=== PATIENT | male | born 1950 | race Caucasian/White ===

== ENCOUNTER 2017-12-04 14:49 | Inpatient (IN) ==
[2017-12-04] MEDS ORDERED: *HR* Dextrose 50 % in Water (Syg) 50 ML SYRINGE IVP ONE (15:36)
--- NOTE | 2017-12-04 15:51 | Emergency Department Note ---
Disposition Clinical Impression: Hypoglycemia, Bradycardia, Elevated troponin, Elevated CK, Hyperkalemia, Acute kidney injury Disposition: Admitted As Inpatient Condition: Good Referrals: Petr Pope DO [Primary Care Provider] - Forms: ED Satisfaction Letter General Adult HPI - General Chief complaint: ED Altered Mental Status Stated complaint: hypoglycemia Time Seen by Provider: 12/04/17 14:53 Source: patient Mode of arrival: EMS Limitations: no limitations Nursing Notes Reviewed: Yes Vital Signs Reviewed: Yes - History of Present Illness HPI Narrative: 67-year-old male history of diabetes, hypertension, hyperlipidemia who presents to the ER with a chief complaint of hypoglycemia. 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 Significant other found him snoring on the ground unresponsive. She states this lasted for around 40 minutes. EMS arrived and the patient was noted to have a glucose of 35. He was given an amp of D50 and did improve. He initially refused referral but she had him come in. He has no complaints at this time. He does report that glipizide sounds familiar to him and that he believes he takes it as well as insulin. Pt Subjective Complaint: Hypoglycemia Onset (ago): hour(s) Pain Scale: 0 Improves with: nothing Worsens with: nothing Associated symptoms: Reports: denies other symptoms Treatments Prior to Arrival: none - Related Data Allergies Allergy/AdvReac Type Severity Reaction Status Date / Time No Known Allergies Allergy Verified 12/04/17 15:41 All systems ED: reviewed and negative except as stated. Cardiovascular: Denies: chest pain Respiratory: Denies: dyspnea Gastrointestinal: Denies: abdominal pain Neurological: Denies: headache, numbness, paresthesias Past Medical History - Past Medical History Attestation: Yes The following information was validated with the patient. Source: patient Medical history: Reports: diabetes, hypertension Psychiatric history: Reports: no psych history - Social History Smoking Status: Never smoker Alcohol use: Reports: none Drug use: Reports: unknown Physical Exam - General Limitations: no limitations General appearance: alert, in no apparent distress - Head Head exam: atraumatic, normocephalic - Eye Eye exam: Present: normal appearance - ENT ENT exam: normal exam - Neck Neck exam: Present: normal inspection, full ROM - Chest Chest inspection: Present: normal inspection, symmetric chest wall rise - Respiratory Respiratory exam: Present: normal lung sounds bilaterally - Cardiovascular Cardiovascular exam: Present: normal rhythm, bradycardia, normal heart sounds - Abdominal Exam Abdominal exam: Present: soft, Non-Tender. Absent: tenderness, distention, guarding, rigidity - Extremities Exam Extremities exam: Present: normal inspection, full ROM - Expanded Upper Extremity Exam Shoulder exam: Present: normal inspection, full ROM Arm exam: Present: normal inspection, full ROM Elbow exam: Present: normal inspection, full ROM Forearm/Wrist exam: Present: normal inspection, full ROM, swelling Hand exam: Present: normal inspection, full ROM - Expanded Lower Extremity Exam Hip/Pelvis exam: Present: normal inspection, full ROM Upper leg exam: Present: normal inspection, full ROM Knee exam: Present: normal inspection, full ROM Lower leg exam: Present: normal inspection, full ROM, swelling Ankle exam: Present: normal inspection, full ROM Foot/toe exam: Present: normal inspection, full ROM, swelling - Neurological Exam Neurological exam: Present: alert, other (Answers questions appropriately. Nonfocal neurologic exam. Moves all extremities equally.) - Skin Skin exam: Present: warm, dry Course Course Narrative: Patient seen and examined. Vital signs reviewed. Repeat Accu-Chek of 89. He easily falls asleep in front of you. Easily to arouse. We did order she was here then recheck an Accu-Chek of in the 80s. We will give him another amp of D50 and check an EKG, CT scan of the head, labs including troponin. - Reevaluation(s) Reevaluation #1: Recheck here of 63. An additional amp of D50 ordered. Patient continues to go in and out but is easily arousable to verbal stimuli Reevaluation #2: Patient is more alert at this time. Most recent check is in the 80s. Patient on D5 half-normal. He is currently sitting up in bed eating dinner in no distress. He feels exceptionally improved at this time. He is agreeable with admission. He is unsure what his baseline renal function is. Vital Signs Temperature 98.2 F 12/04/17 14:52 Pulse Rate 50 12/04/17 14:52 Respiratory Rate 18 12/04/17 14:52 Blood Pressure 130/118 12/04/17 14:52 O2 Sat by Pulse Oximetry 96 02/04/18 14:52 Temperature 98.2 F 12/04/17 14:52 Pulse Rate 53 12/04/17 16:23 Respiratory Rate 18 12/04/17 16:23 Blood Pressure 197/117 12/04/17 16:23 O2 Sat by Pulse Oximetry 98 12/04/17 16:23 Oxygen Delivery Oxygen Delivery Room Air Medical Decision Making - MDM Narrative Medical decision making narrative: 67-year-old male presents to the ER due to hypoglycemia. Reports he took his insulin this morning without eating breakfast. Significant other reports he was down for roughly 30-45 minutes. EMS arrived with the patient having a glucose of 35. He received 1 amp of D50 prior to arrival. His glucose was in the 80s at that time. During his stay he was arousable to voice but to have hypoglycemia going into the 60s. He was given an additional amp of D50 here as well as placed on D5 half-normal noted to be bradycardic here down into the 40s otherwise hemodynamically stable. EKG without evidence of hyperacute T waves. Potassium of 5.2. Labs reviewed with a serum creatinine of 3.5 without a baseline for comparison. Patient has improved significantly throughout his ED course. He is currently sitting up eating on D5 half normal. Patient given calcium and Kayexalate for potassium of 5.2. He will be admitted to the hospitalist service for bradycardia, acute kidney injury, hypoglycemia. - Lab Data Lab results reviewed: Yes I reviewed the patient's lab results. Result diagrams: 12/04/17 17:37 12/04/17 17:37 Lab Results 12/04/17 12/04/17 12/04/17 Range/Units 14:57 15:29 15:30 WBC (4.3-11.1) K/mcL RBC (4.19-5.50) M/mcL Hgb (12.9-16.9) g/dL Hct (37.5-50.1) % MCV (83.0-100.0) fL MCH (28.0-33.3) pg MCHC (31.6-35.5) g/dL RDW (11.5-14.5) % Plt Count (140-400) K/mcL MPV (9.4-12.4) fL Immature Gran % (0-4) % Seg Neutrophils % % Lymphocytes % % Monocytes % % Eosinophils % % Basophils % % Neutrophils # (1.6-8.9) K/mcL Lymphocytes # (0.6-4.6) K/mcL Monocytes # (0.0-1.3) K/mcL Eosinophils # (0.0-0.6) K/mcL Basophils # (0.0-0.2) K/mcL Immature Plt Fraction (1.1-6.1) % PT (9.4-12.1) Seconds INR APTT (26.0-36.0) Seconds Sodium (136-145) mEq/L Potassium (3.5-5.1) mEq/L Chloride (98-107) mEq/L Carbon Dioxide (23-29) mEq/L BUN (8-23) mg/dL Creatinine (0.70-1.30) mg/dL Est GFR ( Amer) (> 60) Est GFR (Non-Af Amer) (> 60) BUN/Creatinine Ratio (6-26) Glucose (70-105) mg/dL POC Glucose 89 69 83 (58-89) Calculated Osmolality (280-300) Calcium (8.6-10.3) mg/dL Total Bilirubin (0.3-1.0) mg/dL Direct Bilirubin (0.0-0.2) mg/dL Indirect Bilirubin (0.0-1.2) mg/dL AST (13-39) Units/L ALT (7-52) Units/L Alkaline Phosphatase (34-104) Units/L Creatine Kinase (30-223) Units/L Troponin I (< 0.04) ng/mL Serum Total Protein (6.4-8.9) g/dL Albumin (3.5-5.7) g/dL Globulin (2.4-3.5) g/dL Albumin/Globulin Ratio (1.1-2.2) Urine Color (Yellow) Urine Clarity (Clear) Urine pH (5.0-8.0) pH Units Ur Specific Magee (1.010-1.025) Urine Protein (Neg-Trace) mg/dL Urine Glucose (UA) (Normal) mg/dL Urine Ketones (Negative) mg/dL Urine Blood (Negative) Urine Nitrite (Negative) Urine Bilirubin (Negative) Urine Urobilinogen (Normal) mg/dL Ur Leukocyte Esterase (Negative) Urine Microscopic RBC (0-3) per hpf Urine Microscopic WBC (0-3) per hpf Ur Squamous Epith Cells (None-Few) per lpf Urine Bacteria (None-Few) per hpf Hyaline Casts (None-Few) per lpf Ur Culture Indicated? (NO) Urine Opiates Screen (Liwszj=374) ng/mL Ur Barbiturates Screen (Ynprgc=360) ng/mL Ur Phencyclidine Scrn (Cutoff=25) ng/mL Ur Amphetamines Screen (Ctmtzk=0331) ng/mL U Benzodiazepines Scrn (Oxiyop=607) ng/mL Urine Cocaine Screen (Cutoff= 300) ng/mL U Marijuana (THC) Screen (Cutoff = 50) ng/mL Ethyl Alcohol (0-10) mg/dL 12/04/17 12/04/17 12/04/17 Range/Units 16:11 16:11 17:37 WBC 5.4 (4.3-11.1) K/mcL RBC 5.01 (4.19-5.50) M/mcL Hgb 13.8 (12.9-16.9) g/dL Hct 43.6 (37.5-50.1) % MCV 87.0 (83.0-100.0) fL MCH 27.5 L (28.0-33.3) pg MCHC 31.7 (31.6-35.5) g/dL RDW 13.0 (11.5-14.5) % Plt Count 230 (140-400) K/mcL MPV 10.5 (9.4-12.4) fL Immature Gran % 0.4 (0-4) % Seg Neutrophils % 76.1 % Lymphocytes % 17.6 % Monocytes % 5.3 % Eosinophils % 0.2 % Basophils % 0.4 % Neutrophils # 4.1 (1.6-8.9) K/mcL Lymphocytes # 1.0 (0.6-4.6) K/mcL Monocytes # 0.3 (0.0-1.3) K/mcL Eosinophils # 0.0 (0.0-0.6) K/mcL Basophils # 0.0 (0.0-0.2) K/mcL Immature Plt Fraction 4.5 (1.1-6.1) % PT (9.4-12.1) Seconds INR APTT (26.0-36.0) Seconds Sodium (136-145) mEq/L Potassium (3.5-5.1) mEq/L Chloride (98-107) mEq/L Carbon Dioxide (23-29) mEq/L BUN (8-23) mg/dL Creatinine (0.70-1.30) mg/dL Est GFR ( Amer) (> 60) Est GFR (Non-Af Amer) (> 60) BUN/Creatinine Ratio (6-26) Glucose (70-105) mg/dL POC Glucose (58-89) Calculated Osmolality (280-300) Calcium (8.6-10.3) mg/dL Total Bilirubin (0.3-1.0) mg/dL Direct Bilirubin (0.0-0.2) mg/dL Indirect Bilirubin (0.0-1.2) mg/dL AST (13-39) Units/L ALT (7-52) Units/L Alkaline Phosphatase (34-104) Units/L Creatine Kinase (30-223) Units/L Troponin I (< 0.04) ng/mL Serum Total Protein (6.4-8.9) g/dL Albumin (3.5-5.7) g/dL Globulin (2.4-3.5) g/dL Albumin/Globulin Ratio (1.1-2.2) Urine Color Yellow (Yellow) Urine Clarity Clear (Clear) Urine pH 6.0 (5.0-8.0) pH Units Ur Specific Magee 1.023 (1.010-1.025) Urine Protein >=300 H (Neg-Trace) mg/dL Urine Glucose (UA) 100 H (Normal) mg/dL Urine Ketones Negative (Negative) mg/dL Urine Blood Moderate H (Negative) Urine Nitrite Negative (Negative) Urine Bilirubin Negative (Negative) Urine Urobilinogen Normal (Normal) mg/dL Ur Leukocyte Esterase Negative (Negative) Urine Microscopic RBC 5-15 H (0-3) per hpf Urine Microscopic WBC 5-15 H (0-3) per hpf Ur Squamous Epith Cells Many H (None-Few) per lpf Urine Bacteria None Seen (None-Few) per hpf Hyaline Casts None Seen (None-Few) per lpf Ur Culture Indicated? NO (NO) Urine Opiates Screen Negative (Edgcme=070) ng/mL Ur Barbiturates Screen Negative (Xyjplw=084) ng/mL Ur Phencyclidine Scrn Negative (Cutoff=25) ng/mL Ur Amphetamines Screen Negative (Litcyu=5619) ng/mL U Benzodiazepines Scrn Negative (Spgkai=951) ng/mL Urine Cocaine Screen Negative (Cutoff= 300) ng/mL U Marijuana (THC) Screen Positive H (Cutoff = 50) ng/mL Ethyl Alcohol (0-10) mg/dL 12/04/17 12/04/17 12/04/17 Range/Units 17:37 17:37 17:37 WBC (4.3-11.1) K/mcL RBC (4.19-5.50) M/mcL Hgb (12.9-16.9) g/dL Hct (37.5-50.1) % MCV (83.0-100.0) fL MCH (28.0-33.3) pg MCHC (31.6-35.5) g/dL RDW (11.5-14.5) % Plt Count (140-400) K/mcL MPV (9.4-12.4) fL Immature Gran % (0-4) % Seg Neutrophils % % Lymphocytes % % Monocytes % % Eosinophils % % Basophils % % Neutrophils # (1.6-8.9) K/mcL Lymphocytes # (0.6-4.6) K/mcL Monocytes # (0.0-1.3) K/mcL Eosinophils # (0.0-0.6) K/mcL Basophils # (0.0-0.2) K/mcL Immature Plt Fraction (1.1-6.1) % PT 11.3 (9.4-12.1) Seconds INR 1.1 APTT 35.2 (26.0-36.0) Seconds Sodium 133 L (136-145) mEq/L Potassium 5.2 H (3.5-5.1) mEq/L Chloride 103 (98-107) mEq/L Carbon Dioxide 24 (23-29) mEq/L BUN 49 H (8-23) mg/dL Creatinine 3.54 H (0.70-1.30) mg/dL Est GFR ( Amer) 21 L (> 60) Est GFR (Non-Af Amer) 17 L (> 60) BUN/Creatinine Ratio 14 (6-26) Glucose 67 L (70-105) mg/dL POC Glucose (58-89) Calculated Osmolality 287 (280-300) Calcium 8.4 L (8.6-10.3) mg/dL Total Bilirubin 0.5 (0.3-1.0) mg/dL Direct Bilirubin 0.1 (0.0-0.2) mg/dL Indirect Bilirubin 0.4 (0.0-1.2) mg/dL AST 31 (13-39) Units/L ALT 22 (7-52) Units/L Alkaline Phosphatase 95 (34-104) Units/L Creatine Kinase 1966 H (30-223) Units/L Troponin I 0.06 H* (< 0.04) ng/mL Serum Total Protein 7.2 (6.4-8.9) g/dL Albumin 3.5 (3.5-5.7) g/dL Globulin 3.7 H (2.4-3.5) g/dL Albumin/Globulin Ratio 0.9 L (1.1-2.2) Urine Color (Yellow) Urine Clarity (Clear) Urine pH (5.0-8.0) pH Units Ur Specific Magee (1.010-1.025) Urine Protein (Neg-Trace) mg/dL Urine Glucose (UA) (Normal) mg/dL Urine Ketones (Negative) mg/dL Urine Blood (Negative) Urine Nitrite (Negative) Urine Bilirubin (Negative) Urine Urobilinogen (Normal) mg/dL Ur Leukocyte Esterase (Negative) Urine Microscopic RBC (0-3) per hpf Urine Microscopic WBC (0-3) per hpf Ur Squamous Epith Cells (None-Few) per lpf Urine Bacteria (None-Few) per hpf Hyaline Casts (None-Few) per lpf Ur Culture Indicated? (NO) Urine Opiates Screen (Hljzpl=038) ng/mL Ur Barbiturates Screen (Thicrf=437) ng/mL Ur Phencyclidine Scrn (Cutoff=25) ng/mL Ur Amphetamines Screen (Ucdfrt=6255) ng/mL U Benzodiazepines Scrn (Ajrwuh=464) ng/mL Urine Cocaine Screen (Cutoff= 300) ng/mL U Marijuana (THC) Screen (Cutoff = 50) ng/mL Ethyl Alcohol < 10 (0-10) mg/dL - Radiology Data Radiology results reviewed: Yes I reviewed the patient's radiology results. Chest X-Ray 12/04/17 15:34 IMPRESSION: Negative low lung volume portable study. D/ / Tabitha Sidhu Cha, MD / Tabitha Sidhu Cha, MD Interpreting Provider: Tabitha Sidhu Cha, MD Head CT 12/04/17 15:35 IMPRESSION: No acute intracranial abnormality. D/ / Tabitha Sidhu Cha, MD / Tabitha Sidhu Cha, MD Interpreting Provider: Tabitha Sidhu Cha, MD - EKG Data EKG #1 EKG attestation: Yes I reviewed and interpreted this EKG. EKG results narrative: EKG demonstrates sinus bradycardia with first-degree AV block with a rate of 39 bpm. Normal axis. Prolonged WA interval. Other intervals normal. Poor R wave progression. No gross ST elevations or depressions. No acute ischemic findings. Attestation Statement - Attestation Attestation: I examined this patient and my medical decision-making was reviewed with the Resident Physician, Dr. Wilson. I agree with the documented findings, disposition and treatment plan as described except to the extent set forth below. Patient is a 67-year-old black male who is brought to us by EMS with decreased level of responsiveness at home. Patient is a diabetic and this occurred shortly after he took his insulin this morning and had not eaten yet today. Patient's significant other found him unresponsive lying on the floor. There is no evidence of trauma or injury. EMS arrived and checked his blood sugar and it was 35 he was given emptying amp of D50 IV with significant improvement. On arrival to the emergency Department patient was bradycardic and still intermittently falling asleep between questions but would easily awaken and answer questions appropriately, no focal neurologic deficits or slurred speech. Patient denied any chest pain palpitations heaviness, no shortness of breath, no abdominal pain or back discomfort no other associated symptoms. I agree with patient's physical exam as documented, patient was bradycardic on arrival. Patient's EKG showed a sinus bradycardia with no acute ischemia. Patient was placed on pacer pads and atropine to bedside needed. Patient was started on IV fluids with dextrose. Patient was on continuous monitoring and monitored closely. Laboratory evaluation shows significant kidney injury with no prior creatinine for comparison. Patient also with marginal hyperkalemia. Patient with elevated CPK suspicious for rhabdo. IV fluids were increased and urine myoglobin was sent. Patient tolerated a food tray and is feeling significantly better at this time with improved vital signs. We discussed patient's lab evaluation and need for admission at this time. Patient is not acidotic with his blood sugar. Patient's blood sugar seems to have stabilized at this time on D5 fluids. Patient will be admitted for symptomatic bradycardia, hypoglycemia, acute kidney injury and hyperkalemia and rhabdo. We have paged the hospitalist for admission.
[2017-12-04 16:41] LABS: Bilirubin,Urine Negative (Negative); Blood,Urine Moderate (Negative); Clarity,Urine Clear (Clear); Color,Urine Yellow (Yellow); Glucose,Urine (UA) 100 mg/dL (Normal); Ketones,Urine Negative (Negative); Leukocyte Esterase,Urine Negative (Negative); Nitrite,Urine Negative (Negative); Protein,Urine >=300 mg/dL (Neg-Trace); Specific Gravity,Urine 1.023 (1.010-1.025); Urobilinogen,Urine Normal (Normal)
[2017-12-04 16:43] LABS: Bacteria,Urine None Seen per hpf (None-Few); Hyaline Casts,Urine None Seen per lpf (None-Few); Squamous Epithelial Cell,Urine Many per lpf (None-Few)
[2017-12-04 16:47] LABS: Amphetamine Screen,Urine Negative ng/mL (Cutoff=1000); Barbiturate Screen,Urine Negative ng/mL (Cutoff=200); Benzodiazepines Screen,Urine Negative ng/mL (Cutoff=200); Cannabinoid Screen,Urine Positive ng/mL (Cutoff = 50); Cocaine Screen,Urine Negative ng/mL (Cutoff= 300); Opiate Screen,Urine Negative ng/mL (Cutoff=300); Phencyclidine Screen,Urine Negative ng/mL (Cutoff=25)
[2017-12-04 17:46] LABS: Basophils % 0.4 %; Eosinophils % 0.2 %; Hematocrit 43.6 % (37.5-50.1); Hemoglobin 13.8 g/dL (12.9-16.9); Immature Granulocytes % 0.4 % (0-4); Immature Platelets 4.5 % (1.1-6.1); Lymphocytes % 17.6 %; Mean Corpuscular HGB Conc 31.7 g/dL (31.6-35.5); Mean Corpuscular Hemoglobin 27.5 pg (28.0-33.3); Mean Platelet Volume 10.5 fL (9.4-12.4); Monocytes # 0.3 K/mcL (0.0-1.3); Monocytes % 5.3 %; Neutrophils # 4.1 K/mcL (1.6-8.9); Platelet Count 230 K/mcL (140-400); Red Blood Count 5.01 M/mcL (4.19-5.50); Segmented Neutrophils % 76.1 %
[2017-12-04 17:51] LABS: INR 1.1; Prothrombin Time 11.3 Seconds (9.4-12.1)
[2017-12-04 17:53] LABS: Activated Partial Thrombo Time 35.2 Seconds (26.0-36.0)
[2017-12-04 18:05] LABS: Alanine Aminotransferase 22 Units/L (7-52); Albumin 3.5 g/dL (3.5-5.7); Albumin/Globulin Ratio 0.9 (1.1-2.2); Alkaline Phosphatase 95 Units/L (34-104); Aspartate Amino Transferase 31 Units/L (13-39); BUN/Creatinine Ratio 14 (6-26); Bilirubin,Direct 0.1 mg/dL (0.0-0.2); Bilirubin,Indirect 0.4 mg/dL (0.0-1.2); Bilirubin,Total 0.5 mg/dL (0.3-1.0); Blood Urea Nitrogen 49 mg/dL (8-23); Calcium 8.4 mg/dL (8.6-10.3); Carbon Dioxide 24 mEq/L (23-29); Chloride 103 mEq/L (98-107); Creatine Kinase 1966 Units/L (30-223); Globulin 3.7 g/dL (2.4-3.5); Glucose 67 mg/dL (70-105); Osmolality,Calculated 287 (280-300); Potassium 5.2 mEq/L (3.5-5.1); Sodium 133 mEq/L (136-145); Total Protein 7.2 g/dL (6.4-8.9); eGFR For African Americans 21 (> 60); eGFR For Non-African Americans 17 (> 60)
[2017-12-04 18:06] LABS: Ethanol < 10 mg/dL (0-10)
[2017-12-04] MEDS ORDERED: Calcium Gluconate 1,000 MG in D5% in Water 100 ML IVPB ONE (18:09)
[2017-12-04] MEDS: D5% in 0.45% NACL 1,000 ML IVC SCH (18:35)
[2017-12-04] MEDS ORDERED: Sodium Bicarbonate 50 MEQ/50 ML VIAL IVP ONE (18:59)
[2017-12-04] MEDS ORDERED: Nitroglycerin 1 INCH/GM PACKET TP ONE (23:54)
[2017-12-04] MEDS ORDERED: Nitroglycerin 1 INCH/GM PACKET ONE (23:57)
[2017-12-05] MEDS ORDERED: niCARdipine 40 MG/200 ML MLS IVC ONE (00:34)
[2017-12-05] MEDS: niCARdipine 40 MG/200 ML MLS IVC SCH ×3 (00:35→12:27)
[2017-12-05] MEDS ORDERED: Acetaminophen 325 MG TABLET PO PRN (01:20)
[2017-12-05] MEDS ORDERED: Naloxone 0.4 MG/ML INJ IVP PRN (01:20)
--- NOTE | 2017-12-05 01:36 | Internal Med History&Physical ---
Date of Encounter: 12/05/17 Time of Encounter: 00:35 Assessment and Plan (1) Hypertensive urgency Current visit: Yes Status: Acute 1. I moved patient from to [address] [place] [address] for close monitoring and BP control. 2. IV Nicardipine drip initiated. 3. Will continue Nicardipine with goal SBP 160-180 -- discussed with RN. 4. Stop hydralazine and nitropaste for now. 5. Once BP stable, oral meds can be instituted. (2) Acute kidney failure Current visit: Yes Status: Acute 1. WIll trend renal panel/electrolytes. 2. IVF hydration. 3. Consult nephrology if renal function does not improve. 4. Patient denies history of CKD; however, given his history of IDDM and R AKA , I suspect he has some nephropathy. Qualifiers: Acute renal failure type: unspecified Qualified Code(s): N17.9 - Acute kidney failure, unspecified (3) Syncope Current visit: Yes Status: Acute 1. Likely due to hypoglycemia. 2. Will order ECHO and Carotid Dopplers. 3. Will monitor on telemetry, hourly glucose checks, and cycle troponins. Qualifiers: Syncope type: unspecified Qualified Code(s): R55 - Syncope and collapse (4) Hypoglycemia Current visit: Yes Status: Acute 1. Hold insulin and oral meds until medication list can be obtained and verified. 2. Hourly glucose checks for now. 3. Will place on dextrose infusion if necessary. (5) Rhabdomyolysis Current visit: Yes Status: Acute 1. IVF hydration and monitor CPK levels. 2. Likely due to syncope and pressure necrosis from his syncopal spell. 3. Monitor renal function as well. Qualifiers: Rhabdomyolysis type: non-traumatic Qualified Code(s): M62.82 - Rhabdomyolysis (6) DVT prophylaxis Current visit: Yes Status: Acute 1. Heparin SQ. Internal Medicine - H&P: HPI Chief complaint: syncope; blood pressure elevation Admitted From: Emergency Dept Plans for Post Hospital Care: Home History of present illness: Mr. Cochran is a 67 year old male who presents to the ER tonight after having had a syncopal spell. He woke up this morning and took his insulin, but he did not eat. He was found later that day by his girlfriend unconscious on the floor. He does not know how long he was down. She called the squad, and he was noted to be hypoglycemic. He was given some D50 and brought to the hospital. In the ER, patient was noted to have hypoglycemia, rhabdomyolysis, and presumed acute kidney failure. He was subsequently admitted to hospitalist service. Before I could see patient to admit him, his nurse contacted me, stating his blood pressure was rather elevated running over 230 systolic. I gave orders for hydralazine and subsequent Nitropaste with repeat blood pressure assessment and a request for the nurse to contact me back. Despite hydralazine and nitropaste, his blood pressure remained above 220 systolic. I then transferred him to [address] [place] [address], initiated nicardipine drip, and went to his room to assess him right away. Patient denies any chest pain or difficulty breathing. He does have a mild headache, which started after with his Nitropaste was placed prior to transfer to [address] [place] [address]. He does not remember what happened earlier today but does remember taking his insulin and forgetting to eat. He does not realize or recall how long he was on the floor unconscious. He denies any fevers, cough, vomiting, or diarrhea. He was feeling well up until yesterday. We have no old records on patient. He states he is a [facility] patient. He does tell me he is an insulin-dependent diabetic and takes medication for blood pressure. He denies any history of kidney problems or CKD. He does not have his medications with him, and we are unable to verify his home medications at this time. Past Med Surg Social Fam HX - Past Medical History Attestation: Yes The following information was validated with the patient. Source: patient, other (ER notes) Medical history: diabetes, hypertension, myocardial infarction Psychiatric history: no psych history - Past Surgical History Surgical History: other (R AKA) - Social History Smoking Status: Never smoker Alcohol use: none Drug use: unknown Current living situation: Home, With Family Activity Level: Independent ambulation Recent Out of Country Travel Within the Last 8 Weeks: No - Family History Mother Living Status: Age at : 65 Hx Family Cardiac Disorders: Yes (heart failure) Hx Family Endocrine Disorder: Yes (DM) Father Living Status: Age at : 52 Cause of : stroke Hx Family Cardiac Disorders: Yes (stroke) Internal Medicine - H&P: Meds 3 Allergy/AdvReac Type Severity Reaction Status Date / Time No Known Allergies Allergy Verified 12/04/17 15:41 - Constitutional Constitutional: no chills, no fever(s) - EENT Eyes: blurry vision (with hypoglycemia), no change in vision Ears: no ear pain, no tinnitus Nose, mouth and throat: no nasal congestion, no sinus pressure, no sore throat - Cardiovascular Cardiovascular ROS IM: syncope, no chest pain, no dyspnea, no dyspnea on exertion, no lightheadedness, no palpitations - Respiratory Respiratory: no cough, no dyspnea, no hemoptysis, no dyspnea on exertion, no wheezing, no excessive phlegm production, no change in phlegm color, no pain with cough - Gastrointestinal Gastrointestinal: no abdominal pain, no diarrhea, no hematemesis, no hematochezia, no melena, no nausea, no vomiting - Genitourinary Genitourinary ROS male: no dysuria, no flank pain, no hematuria - Musculoskeletal Musculoskeletal ROS IM: muscle cramps, myalgias, no arthralgias, no back pain - Integumentary Integumentary IM: no rash, no jaundice - Neurological Neurological ROS: no confusion, no disequilibrium, no dizziness, no focal weakness, no frequent falls, no headache(s), no weakness - Psychiatric Psychiatric: no anxiety, no depression - Endocrine Endocrine IM: no polydipsia, no polyuria - Hematologic/Lymphatic Hematologic/Lymphatic: no easy bruising, no lymphadenopathy - Allergic/Immunologic Allergic/Immunologic: no wheezing, no GI upset with certain foods - Constitutional Vitals: Temp Pulse Resp BP Pulse Ox 98.1 F 75 22 224/125 95 12/05/17 00:35 12/05/17 00:35 12/05/17 00:35 12/05/17 00:35 12/05/17 00:35 General appearance: Present: cooperative, A&O X 3, pleasant, no acute distress, answers questions appropriately - Head Head exam: Present: atraumatic, normal inspection - Expanded Head Exam Head exam expanded: Absent: abrasion, contusion, general tenderness - Eye Eye exam: Present: EOMI, normal appearance, PERRL. Absent: scleral icterus Pupils: Present: normal accommodation - ENT ENT exam: Present: mucous membranes dry, normal exam, normal oropharynx - Neck Neck exam general surgery: Present: full ROM, supple. Absent: tenderness, nuchal rigidity - Expanded Neck Exam Neck exam: Absent: carotid bruit - Respiratory Respiratory exam: Present: CTAB. Absent: accessory muscle use, chest wall tenderness, rales, respiratory distress, rhonchi, wheezes - Cardiovascular Cardiovascular exam: Present: RRR, +S1, +S2. Absent: diastolic murmur, JVD, systolic murmur - GI/Abdominal GI/Abdominal exam: Present: normal bowel sounds, soft. Absent: guarding, hepatomegaly, rebound, splenomegaly, tenderness - Extremities Exam Extremities exam: Present: full ROM, normal capillary refill, warm, radial pulses palpable and symmetrical. Absent: calf tenderness, pedal edema, tenderness Additional comments: Right AKA - Back Exam Back exam: Absent: CVA tenderness (L), CVA tenderness (R) - Neurological Exam Neurological exam: Present: alert, CN II-XII intact, oriented X3, no focal deficits, strengths equal and symetr throughout - Psychiatric Psychiatric exam: Present: normal affect, normal mood - Skin Skin exam: Present: dry, warm. Absent: rash Internal Med - H&P Results - Labs CBC & Chem 7: 12/04/17 17:37 12/04/17 17:37 - EKG Data EKG comments: 12/05/17 01:40 NO EKG was obtained or available to review -- will order one - Diagnostic Studies Chest x-ray Status: image reviewed by me (negative)
[2017-12-05] MEDS: 0.9 % Sodium Chloride 1,000 ML IVC SCH ×2 (02:45→12:35)
[2017-12-05 02:59] LABS: Albumin 2.9 g/dL (3.5-5.7); Albumin/Globulin Ratio 0.9 (1.1-2.2); Bilirubin,Total 0.4 mg/dL (0.3-1.0); Globulin 3.1 g/dL (2.4-3.5); Magnesium 1.7 mg/dL (1.6-2.6); Potassium 4.8 mEq/L (3.5-5.1)
[2017-12-05] MEDS: D5% in 0.45% NACL 1,000 ML IVC SCH ×2 (02:59→20:27)
[2017-12-05 05:02] LABS: Basophils % 0.3 %; Eosinophils % 0.5 %; Hematocrit 39.9 % (37.5-50.1); Hemoglobin 12.6 g/dL (12.9-16.9); Immature Granulocytes % 0.3 % (0-4); Immature Platelets 3.9 % (1.1-6.1); Lymphocytes # 0.8 K/mcL (0.6-4.6); Lymphocytes % 13.3 %; Mean Corpuscular HGB Conc 31.6 g/dL (31.6-35.5); Mean Corpuscular Hemoglobin 27.3 pg (28.0-33.3); Mean Corpuscular Volume 86.6 fL (83.0-100.0); Monocytes # 0.4 K/mcL (0.0-1.3); Monocytes % 7.5 %; Neutrophils # 4.5 K/mcL (1.6-8.9); Platelet Count 192 K/mcL (140-400); Red Blood Count 4.61 M/mcL (4.19-5.50); Segmented Neutrophils % 78.1 %
[2017-12-05] MEDS: *HR* Heparin 5,000 UNIT/ML VIAL SQ SCH ×2 (06:10→17:48)
[2017-12-05] MEDS ORDERED: D5% in Water 1,000 ML IVC PRN (11:33)
[2017-12-05] MEDS ORDERED: Dextrose Gel 15 GM/37.5 ML TUBE PO PRN ×2 (11:33)
[2017-12-05] MEDS ORDERED: *HR* Dextrose 50 % in Water (Syg) 50 ML SYRINGE IVP PRN (11:33)
[2017-12-05] MEDS: Insulin LISPRO 300 UNITS/3 ML VIAL SQ SCH ×3 (12:28→21:48)
--- NOTE | 2017-12-05 13:31 | Nephrology Consult Note ---
Date of Encounter: 12/05/17 Time of Encounter: 13:30 Assessment and Plan (1) Acute kidney injury Current Visit: Yes Status: Acute Increasing SrCr 3.54 --> 4.23 Patient with right AKA and rhabdomyelitis SrCr 3.84, GFR 20 in February 2013, previously 1.2-1.3, GFR >60 Renal U/S pending Increase IVF 150cc/hr Measure I&Os Continue close monitoring (2) Proteinuria Current Visit: Yes Status: Acute UA reveals >= 300 mg/dl proteinuria Urine protein: Cr ratio pending Qualifiers: Proteinuria type: unspecified Qualified Code(s): R80.9 - Proteinuria, unspecified (3) Hypertensive urgency Current Visit: Yes Status: Acute Patient taking Nifedipine, Coreg, and Lasix at home Patient started on Cardene ggt Echo reveals EF 60-65%, severe basal septal hypertrophy Continue Hydralazine prn Hold Lasix due to JOHN (4) Rhabdomyolysis Current Visit: Yes Status: Acute Patient found down for unknown period of time CK 1966 --> 1603 Increase IVF to 150cc/hr Continue to monitor Qualifiers: Rhabdomyolysis type: non-traumatic Qualified Code(s): M62.82 - Rhabdomyolysis (5) Hyperkalemia Current Visit: Yes Status: Acute Resolved s/p Kayexalate Continue to monitor (6) Above knee amputation of right lower extremity Current Visit: Yes Status: Acute Continue to monitor History of Present Illness - Reason for Consult Consult date: 12/05/17 Acute Kidney Injury (Rhabdomyelitis), Chronic Kidney Disease Requesting physician: Ivan Squires - Chief Complaint Unresponsiveness - History of Present Illness Mr. Cochran is a 67[facility] male [facility] with a PMH of HTN, DM type II, anemia, and right AKA who was evaluated by Dr. Hagen in 2012 due to acute tubular necrosis in the setting of a septic knee. He presented yesterday to the ED after he was found by his girlfriend unconscious on the floor following a syncopal episode. The patient recalls taking his insulin yesterday morning, but he did not eat. He does not know how long he was down and his girlfriend called the squad once she arrived at his house. Patient was found to be hypoglycemic with blood glucose 35 and was given D50 prior to arrival. In the ER, patient was noted to have hypoglycemia, rhabdomyolysis, and acute kidney failure. Nephrology was consulted due to worsening JOHN despite IV hydration at 100cc/hr. Patient is now on CPAP and denies previous CPAP use. Past Med Surg Social Fam HX - Past Medical History Medical history: diabetes, hypertension Psychiatric history: no psych history - Past Surgical History Surgical History: other (R AKA) - Social History Smoking Status: Never smoker Alcohol use: none Drug use: unknown - Family History Mother Living Status: Age at : 65 Hx Family Cardiac Disorders: Yes (heart failure) Hx Family Endocrine Disorder: Yes (DM) Father Living Status: Age at : 52 Cause of : stroke Hx Family Cardiac Disorders: Yes (stroke) Medications and Allergies Albuterol Sulfate [Albuterol Inhaler] 2 puff IH QID PRN 12/05/17 [History] Carvedilol [Coreg] 25 mg PO BID 12/05/17 [History] Cetirizine HCl [All Day Allergy] 10 mg PO DAILY 12/05/17 [History] Furosemide [Lasix] 20 mg PO BID 12/05/17 [History] Gabapentin [Neurontin] 300 mg PO TID 12/05/17 [History] Insulin ASPART [Novolog Flexpen] 14 unit SQ TID 12/05/17 [History] Insulin Glargine,Hum.rec.anlog [Lantus Solostar] 32 unit SQ BID 12/05/17 [ History] NIFEdipine [Nifedipine ER] 90 mg PO DAILY 12/05/17 [History] Trazodone HCl 150 mg PO HS 12/05/17 [History] 3 Allergy/AdvReac Type Severity Reaction Status Date / Time No Known Allergies Allergy Verified 12/04/17 15:41 Review of Systems Constitutional: lethargy, weakness, no chills, no fatigue, no fever(s) Nose, mouth and throat: no headache(s), no nasal congestion, no sore throat Cardiovascular: syncope, no chest pain, no dyspnea on exertion Respiratory: no cough, no wheezing, no chest congestion Gastrointestinal: no abdominal pain, no diarrhea, no nausea, no vomiting Integumentary: no lesions, no rash, no skin ulcer Neurological: syncope, weakness, no headache(s), no numbness, no tingling Psychiatric: no anxiety, no depression Endocrine: fatigue, no palpitations Exam - Vital Signs Vital signs: Initial Vital Signs Temp Pulse Resp BP Pulse Ox 98.2 F 50 18 130/118 96 12/04/17 14:52 12/04/17 14:52 12/04/17 14:52 12/04/17 14:52 12/04/17 14:52 Vital Signs - Last 8 Hours Temp Pulse Resp BP Pulse Ox 12/05/17 12:11 72 16 166/75 97 12/05/17 10:34 84 18 167/93 92 12/05/17 10:00 71 18 186/89 94 12/05/17 09:35 73 159/71 12/05/17 09:00 160/116 12/05/17 08:00 73 159/71 12/05/17 07:29 98.7 F 82 18 162/61 98 12/05/17 06:30 94 151/57 12/05/17 06:00 75 182/85 Intake and Output 12/04/17 12/05/17 12/05/17 23:59 07:59 15:59 Intake Total 893.75 / 900.00 1680 / 1680 Output Total 750 / 750 Balance 143.75 / 150.00 1680 / 1680 Intake: IV Fluids 893.75 / 900.00 1200 / 1200 0.9 % Sodium Chloride 1,000 ML 1000 / 1000 @ 100 mls/hr IVC .Q10H [facility] Rx#: [id number] D5% And 0.45% Nacl 1000 Ml Bag 700 / 700 1,000 ML @ 125 mls/hr IVC .Q8H [facility] Rx#:[id number] Cardene Premix 40mg/200ml 40 mg 193.75 / 200.00 200 / 200 In 200 ml @ 5 MG/HR 25 mls/hr IVC .Q8H [facility] Rx#:[id number] Oral 480 / 480 Output: Urine 750 / 750 Other: Meal Breakfast Percent of Meal Consumed 100% Stool Size Small Stool Consistency formed Stool Color Brown # Voids 1 Weight 125.3 kg Blood Glucose* 161 140 Patient Weight 12/05/17 23:59 Weight 125.3 kg - General Appearance General appearance: well-developed, well-nourished, obese EENT: ATNC, mucous membranes dry (wearing CPAP) Neck: supple Respiratory: clear (wearing CPAP mask) Cardiology: no murmurs, no rub, no gallops, edema (1+ LLE pedal edema), regular rate, regular rhythm Gastrointestinal: normoactive bowel sounds, no tenderness, no guarding, obese Integumentary: no rash, warm and dry, chronic venous stasis Neurologic: no focal deficit, alert and oriented x3 Musculoskeletal: deformities (R AKA, 1+ pedal edema LLE) Psychiatric: mood/affect appropriate, cooperative Results - Lab Results 12/05/17 04:35 12/05/17 01:53 Most recent lab results Calcium 8.0 mg/dL (8.6-10.3) L 12/05/17 01:53 Magnesium 1.7 mg/dL (1.6-2.6) 12/05/17 01:53 - Image Kidney/bladder ultrasound: pending Consult Discharge Plan - Plan Referrals: Petr Pope DO [Primary Care Provider] - 12/08/17 9:30 am ()
[2017-12-05] MEDS: NIFEdipine XL (24 HR) 30 MG TAB.ER.24 PO SCH (15:09)
[2017-12-05] MEDS ORDERED: 0.9 % Sodium Chloride 1,000 ML IVC SCH (16:30)
--- NOTE | 2017-12-05 16:55 | Electrocardiograph Report ---
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
--- NOTE | 2017-12-05 17:19 | Electrocardiograph Report ---
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
[2017-12-05] MEDS ORDERED: 0.9 % Sodium Chloride 500 ML ONE (21:26)
[2017-12-05] MEDS ORDERED: 0.9 % Sodium Chloride 500 ML IVC ONE (21:27)
[2017-12-05] MEDS: Sodium Bicarbonate 150 MEQ in D5% in Water 1,000 ML IVC SCH (23:47)
[2017-12-06 04:10] LABS: Sodium, Urine 34.7 mEq/L
[2017-12-06 04:31] LABS: Protein/Creatinine Ratio,Urine 4.45 mg/mg (0.00-0.20)
[2017-12-06 05:09] LABS: Basophils % 0.2 %; Eosinophils # 0.1 K/mcL (0.0-0.6); Eosinophils % 1.8 %; Hematocrit 36.1 % (37.5-50.1); Hemoglobin 11.4 g/dL (12.9-16.9); Immature Granulocytes % 0.4 % (0-4); Lymphocytes # 1.3 K/mcL (0.6-4.6); Lymphocytes % 22.5 %; Mean Corpuscular HGB Conc 31.6 g/dL (31.6-35.5); Mean Corpuscular Hemoglobin 27.3 pg (28.0-33.3); Mean Corpuscular Volume 86.6 fL (83.0-100.0); Mean Platelet Volume 10.8 fL (9.4-12.4); Monocytes # 0.5 K/mcL (0.0-1.3); Monocytes % 8.6 %; Neutrophils # 3.7 K/mcL (1.6-8.9); Platelet Count 191 K/mcL (140-400); Red Blood Count 4.17 M/mcL (4.19-5.50); Red Cell Distribution Width 13.1 % (11.5-14.5); Segmented Neutrophils % 66.5 %
[2017-12-06 05:22] LABS: Calcium 7.5 mg/dL (8.6-10.3)
[2017-12-06] MEDS: niCARdipine 40 MG/200 ML MLS IVC SCH ×3 (06:21→19:49)
[2017-12-06] MEDS: D5% in 0.45% NACL 1,000 ML IVC SCH (06:21)
[2017-12-06] MEDS: *HR* Heparin 5,000 UNIT/ML VIAL SQ SCH ×2 (06:25→17:39)
--- NOTE | 2017-12-06 07:23 | Nephrology Progress Note ---
Date of Encounter: 12/06/17 Time of Encounter: 07:22 - Assessment and Plan (1) Acute kidney injury Current Visit: Yes Status: Acute Worsening renal function: SrCr 3.54 --> 4.23 --> 4.37 Patient with right AKA and rhabdomyelitis SrCr 3.84, GFR 20 in February 2013, previously 1.2-1.3, GFR >60 FENa 0.5 % indicating Pre-Renal etiology (e.g. Hypovolemia, heart failure, renal artery stenosis) Renal U/S reveals no acute abnormality, no evidence of hydronephrosis, evidence of medical renal disease with increased renal echogenicity, and the size of both kidneys measure minimally smaller compared to the prior examination on Continue IVF 75cc/hr Measure I&Os Continue close monitoring (2) Proteinuria Current Visit: Yes Status: Acute Proteinuria in the setting of DM type II UA reveals >= 300 mg/dl proteinuria Urine protein: Cr ratio 4.45 Qualifiers: Proteinuria type: unspecified Qualified Code(s): R80.9 - Proteinuria, unspecified (3) Hypertensive urgency Current Visit: Yes Status: Acute Patient taking Nifedipine, Coreg, and Lasix at home Patient transitioning from Cardene ggt to PO Echo reveals EF 60-65%, severe basal septal hypertrophy Continue Hydralazine prn Decreased rate if IVFs Hold Lasix due to JOHN Continue to titrate antihypertensive medications. (4) Rhabdomyolysis Current Visit: Yes Status: Acute Patient found down for unknown period of time CK 1966 --> 1603 Continue IVF 75cc/hr Continue to monitor Qualifiers: Rhabdomyolysis type: non-traumatic Qualified Code(s): M62.82 - Rhabdomyolysis (5) Hyperkalemia Current Visit: Yes Status: Acute Resolved s/p Kayexalate Continue to monitor (6) Diabetes mellitus type 2 in obese Current Visit: Yes Status: Acute Management per primary team (7) Above knee amputation of right lower extremity Current Visit: Yes Status: Acute Expect SrCr to be lower than expected due to decreased muscle mass Continue to monitor Subjective Principal diagnosis: JOHN on CKD Interval history: Patient seen and examined sitting in bedside cahir after eating breakfast. Patient reports no new c/o today. Nursing reports hypoxic event overnight requiring BiPap use. Patient denies history of BiPap/CPAP use in the past. Renal function slightly worsened today. Patient agrees with continued monitoring Objective - Vital Signs Vital signs: Vital Signs Temp Pulse Resp BP Pulse Ox 12/06/17 06:33 14 99 12/06/17 03:38 99.0 F 68 20 137/53 93 12/06/17 03:00 67 150/68 12/06/17 02:20 12 100 12/06/17 02:00 70 153/68 12/06/17 01:00 59 109/76 12/06/17 00:35 98.2 F 52 18 137/83 95 12/06/17 00:00 51 137/83 12/05/17 23:00 53 107/54 12/05/17 22:00 56 121/55 12/05/17 21:00 54 117/64 12/05/17 20:45 57 78/31 12/05/17 20:15 58 91/58 12/05/17 19:45 58 104/63 12/05/17 19:30 61 103/58 12/05/17 19:25 98.0 F 63 18 97/77 90 12/05/17 19:15 97/77 12/05/17 18:45 59 98/50 12/05/17 18:06 57 128/63 12/05/17 17:30 82 160/141 12/05/17 16:00 67 186/85 99 12/05/17 15:58 97.8 F 66 20 190/88 100 12/05/17 15:00 66 177/79 98 12/05/17 14:30 81 183/88 99 12/05/17 13:30 91 180/99 12/05/17 12:11 72 16 166/75 97 12/05/17 10:34 84 18 167/93 92 12/05/17 10:00 71 18 186/89 94 12/05/17 09:35 73 159/71 12/05/17 09:00 160/116 12/05/17 08:00 73 159/71 12/05/17 07:29 98.7 F 82 18 162/61 98 Intake and Output 12/05/17 12/05/17 12/06/17 15:59 23:59 07:59 Intake Total 1780 / 1780 1896 / 1896 1200 / 1200 Output Total 500 / 500 250 / 250 Balance 1780 / 1780 1396 / 1396 950 / 950 Intake: IV Fluids 1300 / 1300 1396 / 1396 0.9 % Sodium Chloride 1,000 ML 1000 / 1000 836 / 836 @ 150 mls/hr IVC .Q6H40M [facility] Rx #:[id number] 0.9 % Sodium Chloride 500 ML @ 500 / 500 1875 mls/hr IVC .Q16M [facility] Rx#: [id number] Cardene Premix 40mg/200ml 40 mg 300 / 300 60 / 60 In 200 ml @ 5 MG/HR 25 mls/hr IVC .Q8H [facility] Rx#:[id number] Oral 480 / 480 500 / 500 1200 / 1200 Output: Urine 500 / 500 250 / 250 Other: Meal Breakfast Dinner Percent of Meal Consumed 100% 25% Stool Size Small Stool Consistency formed Stool Color Brown # Voids 1 Weight 125.7 kg Blood Glucose* 146 147 Patient Weight 12/06/17 23:59 Weight 125.7 kg - General Appearance General appearance: Present: well-developed, well-nourished, obese EENT: Present: ATNC, mucous membranes moist Neck: Present: supple Respiratory: Present: clear Cardiology: Present: no murmurs, no rub, no gallops, edema (1+ LLE pedal edema) , regular rate, regular rhythm Gastrointestinal: Present: normoactive bowel sounds, no tenderness, no guarding , obese Integumentary: Present: no rash, warm and dry, chronic venous stasis Neurologic: Present: no focal deficit, alert and oriented x3 Musculoskeletal: Present: deformities (R AKA, 1+ pedal edema LLE) Psychiatric: Present: mood/affect appropriate, cooperative - Lab 12/06/17 04:20 12/06/17 04:20 Most recent lab results Calcium 7.5 mg/dL (8.6-10.3) L 12/06/17 04:20 Magnesium 1.7 mg/dL (1.6-2.6) 12/05/17 01:53 Urine Creatinine 210 mg/dL 12/06/17 03:38 Urine Sodium 34.7 mEq/L 12/06/17 03:38 Urine Total Protein 934 mg/dL 12/06/17 03:38 - Imaging Kidney/bladder ultrasound: report reviewed Consult Discharge Plan - Plan Referrals: Petr Pope DO [Primary Care Provider] - 12/15/17 9:30 am ()
[2017-12-06] MEDS: Insulin LISPRO 300 UNITS/3 ML VIAL SQ SCH ×4 (09:16→20:01)
[2017-12-06] MEDS: NIFEdipine XL (24 HR) 30 MG TAB.ER.24 PO SCH (10:08)
[2017-12-06] MEDS ORDERED: amLODIPine 5 MG TABLET PO SCH (11:30)
[2017-12-06] MEDS ORDERED: hydrALAZINE 25 MG TABLET PO PRN (11:31)
--- NOTE | 2017-12-06 11:33 | Internal Med Progress Note ---
Date of Encounter: 12/06/17 Time of Encounter: 11:29 - Assessment and plan (1) Acute kidney failure Current Visit: Yes Status: Acute Assessment and plan: Nephrology is following. Kidney function seems to be worsening. This is likely chronic kidney disease from uncontrolled diabetes and hypertension. records he seems to have chronic kidney disease 4. Continue to follow and avoid nephrotoxins. Renal ultrasounds with nothing acute. Qualifiers: Acute renal failure type: unspecified Qualified Code(s): N17.9 - Acute kidney failure, unspecified (2) Hypoglycemia Current Visit: Yes Status: Acute Assessment and plan: Resolved (3) Hypertensive urgency Current Visit: Yes Status: Acute Assessment and plan: Off Cardene drip. The pressure still uncontrolled. Will add clonidine .1 mg BID. We will start hydralazine 25 mg 3 times a day. Continue with Coreg 25 mg twice a day. Cannot increase caloric secondary to borderline heart rate. We will try to wean down on the Cardene drip as tolerated. (4) Rhabdomyolysis Current Visit: Yes Status: Acute Assessment and plan: Improvement with IV fluids. Qualifiers: Rhabdomyolysis type: non-traumatic Qualified Code(s): M62.82 - Rhabdomyolysis (5) Diabetes mellitus type 2 in obese Current Visit: Yes Status: Acute Assessment and plan: Continue insulin sliding scale. Continue with Accu-Cheks. (6) DVT prophylaxis Current Visit: Yes Status: Acute Assessment and plan: Heparin subcutaneous (7) Syncope Current Visit: Yes Status: Acute Assessment and plan: Unsure if it was due to hypoglycemia. CT head was negative. Echocardiogram with an EF of 6065%. Mild concentric left ventricular hypertrophy. Mild mitral regurgitation. Mild left ventricular diastolic dysfunction. The patient has had elevated troponins of around 0.05 2.06 which is likely NSTEMI type II from uncontrolled hypertension. Carotid ultrasounds with left internal carotid artery with 40-59% stenosis and the right carotid artery showing minimal plaque throughout. No chest pain. Will add aspirin and statin to the patient. Qualifiers: Syncope type: unspecified Qualified Code(s): R55 - Syncope and collapse - Subjective Interval history: Patient was seen examined. No acute events. He was admitted initially with hypertensive emergency causing acute on chronic kidney failure. He is also being treated for rhabdomyolysis. There was some report hypoglycemic episode causing syncope at home which has not been recurring here in the hospital since admission. Her lowest glucose recorded in our system is 69 on 12/04 at 3:30 PM. Blood pressure is still elevated but he has been off the Cardene drip since last night. He has been afebrile. Denies chest pain. - Constitutional Vitals: Temp Pulse Resp BP Pulse Ox 97.9 F 69 15 165/73 92 12/06/17 09:00 12/06/17 09:00 12/06/17 09:00 12/06/17 09:00 12/06/17 09:00 General appearance: Present: cooperative, A&O X 3, pleasant, no acute distress, answers questions appropriately Exam: GEN: NAD CVS: RRR. S1, S2, No m/r/g RESP: CTAB ABD: Soft, NT, ND, +BS EXT: No edema. 2+ DP. No rashes. Right AKA noted NEURO: Nonfocal Internal Medicine: Result - Labs CBC & Chem 7: 12/06/17 04:20 12/06/17 04:20 Labs: Short CBC 12/06/17 Range/Units 04:20 WBC 5.6 (4.3-11.1) K/mcL Hgb 11.4 L (12.9-16.9) g/dL Hct 36.1 L (37.5-50.1) % Plt Count 191 (140-400) K/mcL Neutrophils # 3.7 (1.6-8.9) K/mcL BMP 12/06/17 04:20 Sodium 136 Potassium 5.0 Chloride 107 Carbon Dioxide 25 BUN 53 H Creatinine 4.37 H Glucose 155 H Calcium 7.5 L Cardiac Enzymes 12/05/17 Range/Units 13:37 Troponin I 0.05 H* (< 0.04) ng/mL - ABG Interpretation ABG results: PT/INR, D-dimer PT 11.3 Seconds (9.4-12.1) 12/04/17 17:37 - Impressions Impressions Retroperitoneum Ultrasound 12/05/17 18:00 IMPRESSION: 1. No acute abnormality. No evidence of hydronephrosis. 2. The size of both kidneys measure minimally smaller compared to the prior examination on 05/24/2014. 3. Evidence of medical renal disease with increased renal echogenicity. 4. Bladder is not well distended and not well evaluated. D/ / 12/05/2017 18:48:32 Laci Mcdaniel MD / latia Interpreting Provider: Laci Mcdaniel MD Shoulder X-Ray 12/06/17 04:00 IMPRESSION: No fracture or malalignment. D/ / Rob De La Rosa MD / Rob De La Rosa MD Interpreting Provider: Rob De La Rosa MD Consult Discharge Plan - Plan Referrals: Petr Pope DO [Primary Care Provider] - 12/15/17 9:30 am ()
[2017-12-06] MEDS: Aspirin 81 MG TAB.CHEW PO SCH (12:06)
[2017-12-06] MEDS: cloNIDine HCl 0.1 MG TABLET PO SCH ×2 (16:32→20:00)
[2017-12-06] MEDS: Sodium Bicarbonate 150 MEQ in D5% in Water 1,000 ML IVC SCH (16:32)
[2017-12-06] MEDS: hydrALAZINE 25 MG TABLET PO SCH (16:32)
[2017-12-07] MEDS: hydrALAZINE 25 MG TABLET PO SCH ×3 (00:31→16:34)
[2017-12-07 05:22] LABS: ABG Base Excess 2 mEq/L (-2 to 3); ABG HCO3 27 mEq/L (21-27); ABG Oxygen Saturation 83 % (95-98); ABG PCO2 44 mmHg (35-45); ABG PH 7.39 pH Units (7.32-7.45); ABG PO2 48 mmHg (85-104); ABG TCO2 28 mEq/L (20-26)
[2017-12-07] MEDS: *HR* Heparin 5,000 UNIT/ML VIAL SQ SCH ×2 (06:02→16:34)
[2017-12-07 06:04] LABS: Basophils % 0.2 %; Eosinophils # 0.1 K/mcL (0.0-0.6); Eosinophils % 2.3 %; Hemoglobin 10.9 g/dL (12.9-16.9); Immature Granulocytes % 0.5 % (0-4); Mean Corpuscular HGB Conc 30.3 g/dL (31.6-35.5); Mean Corpuscular Hemoglobin 26.7 pg (28.0-33.3); Mean Corpuscular Volume 88.2 fL (83.0-100.0); Mean Platelet Volume 11.2 fL (9.4-12.4); Monocytes # 0.4 K/mcL (0.0-1.3); Monocytes % 9.7 %; Neutrophils # 2.9 K/mcL (1.6-8.9); Platelet Count 193 K/mcL (140-400); Red Blood Count 4.08 M/mcL (4.19-5.50); Red Cell Distribution Width 12.9 % (11.5-14.5); Segmented Neutrophils % 64.3 %
[2017-12-07 06:21] LABS: Calcium 7.5 mg/dL (8.6-10.3); Potassium 4.7 mEq/L (3.5-5.1)
--- NOTE | 2017-12-07 06:58 | Nephrology Progress Note ---
Date of Encounter: 12/07/17 Time of Encounter: 06:58 - Assessment and Plan (1) Acute kidney injury Current Visit: Yes Status: Acute Worsening renal function: SrCr 3.54 --> 4.46 Patient with right AKA and rhabdomyelitis SrCr 3.84, GFR 20 in February 2013, previously 1.2-1.3, GFR >60 FENa 0.5 % indicating Pre-Renal etiology (e.g. Hypovolemia, heart failure, renal artery stenosis) Renal U/S reveals no acute abnormality, no evidence of hydronephrosis, evidence of medical renal disease with increased renal echogenicity, and the size of both kidneys measure minimally smaller compared to the prior examination on Decrease IVF to 50cc/hr today Measure I&Os Continue close monitoring May need dialysis if renal function continues to decline (2) Proteinuria Current Visit: Yes Status: Acute Proteinuria in the setting of DM type II UA reveals >= 300 mg/dl proteinuria Urine protein: Cr ratio 4.45 Qualifiers: Proteinuria type: unspecified Qualified Code(s): R80.9 - Proteinuria, unspecified (3) Hypertensive urgency Current Visit: Yes Status: Acute Patient taking Nifedipine, Coreg, and Lasix at home Patient transitioning from Cardene ggt to PO Echo reveals EF 60-65%, severe basal septal hypertrophy Continue Hydralazine prn Decreased rate of IVFs Hold Lasix due to JOHN Continue to titrate antihypertensive medications. (4) Rhabdomyolysis Current Visit: Yes Status: Acute Patient found down for unknown period of time CK 1966 --> 849 Continue IVF 50cc/hr Continue to monitor Qualifiers: Rhabdomyolysis type: non-traumatic Qualified Code(s): M62.82 - Rhabdomyolysis (5) Hyperkalemia Current Visit: Yes Status: Acute Resolved s/p Kayexalate Continue to monitor (6) Diabetes mellitus type 2 in obese Current Visit: Yes Status: Acute Management per primary team Dietary consulted for nutrition education (7) Above knee amputation of right lower extremity Current Visit: Yes Status: Acute Expect SrCr to be lower than expected due to decreased muscle mass Continue to monitor Subjective Principal diagnosis: JOHN on CKD Interval history: Patient seen and examined resting comfortably in bed. Patient reports no new c/ o today. Renal function slightly worsened today. Patient agrees with continued monitoring Objective - Vital Signs Vital signs: Vital Signs Temp Pulse Resp BP Pulse Ox 12/07/17 05:15 68 12/07/17 04:47 98.2 F 65 19 141/59 93 12/07/17 00:25 64 12/06/17 22:09 94 12/06/17 20:00 60 12/06/17 19:37 98.3 F 62 16 152/75 97 12/06/17 15:38 98 F 59 14 134/87 94 12/06/17 12:55 94 12/06/17 11:25 20 12/06/17 11:20 56 14 145/70 94 12/06/17 09:00 97.9 F 69 15 165/73 92 12/06/17 07:22 98.7 F 64 16 151/76 100 Intake and Output 12/06/17 12/06/17 12/07/17 15:59 23:59 07:59 Intake Total 150 / 150 1390 / 1390 400 / 400 Output Total 300 / 300 180 / 180 600 / 600 Balance -150 / -150 1210 / 1210 -200 / -200 Intake: IV Fluids 1150 / 1150 Sodium Bicarbonate 150 MEQ In 1150 / 1150 Dextrose 5% 1,000 ML @ 75 mls/ hr IVC .[id number] [facility] Rx#: [id number] Oral 150 / 150 240 / 240 400 / 400 Output: Urine 300 / 300 180 / 180 600 / 600 Other: Meal Lunch Dinner Percent of Meal Consumed 50% 100% Weight 126.7 kg Blood Glucose* 110 220 Patient Weight 12/07/17 23:59 Weight 126.7 kg - General Appearance General appearance: Present: well-developed, well-nourished, obese EENT: Present: ATNC, mucous membranes moist Neck: Present: supple Respiratory: Present: clear Cardiology: Present: no murmurs, no rub, no gallops, edema (2+ edema), regular rate, regular rhythm Gastrointestinal: Present: normoactive bowel sounds, no tenderness, no guarding , obese Integumentary: Present: no rash, warm and dry Neurologic: Present: no focal deficit, alert and oriented x3 Musculoskeletal: Present: deformities (R AKA, 2+ edema) Psychiatric: Present: mood/affect appropriate, cooperative - Lab 12/07/17 05:36 12/07/17 05:36 Most recent lab results ABG pH 7.39 pH Units (7.32-7.45) 12/07/17 05:19 ABG pCO2 44 mmHg (35-45) 12/07/17 05:19 ABG pO2 48 mmHg (85-104) L* 12/07/17 05:19 ABG HCO3 27 mEq/L (21-27) 12/07/17 05:19 ABG O2 Saturation 83 % (95-98) L 12/07/17 05:19 Calcium 7.5 mg/dL (8.6-10.3) L 12/07/17 05:36 Magnesium 1.7 mg/dL (1.6-2.6) 12/05/17 01:53 Urine Creatinine 210 mg/dL 12/06/17 03:38 Urine Sodium 34.7 mEq/L 12/06/17 03:38 Urine Total Protein 934 mg/dL 12/06/17 03:38 Consult Discharge Plan - Plan Referrals: Petr Pope DO [Primary Care Provider] - 12/15/17 9:30 am ()
[2017-12-07] MEDS: Aspirin 81 MG TAB.CHEW PO SCH (08:13)
[2017-12-07] MEDS: cloNIDine HCl 0.1 MG TABLET PO SCH ×2 (08:13→21:24)
[2017-12-07] MEDS: NIFEdipine XL (24 HR) 30 MG TAB.ER.24 PO SCH (08:13)
[2017-12-07] MEDS: Insulin LISPRO 300 UNITS/3 ML VIAL SQ SCH ×4 (08:15→21:25)
[2017-12-07 08:24] LABS: Magnesium 1.9 mg/dL (1.6-2.6)
--- NOTE | 2017-12-07 09:29 | Internal Med Progress Note ---
Date of Encounter: 12/07/17 Time of Encounter: 13:30 - Assessment and plan (1) Acute kidney failure Current Visit: Yes Status: Acute Assessment and plan: Renal function continues to worsen. Urine output remains poor. Creatinine 4.46 today. Nephrology following. If renal function does not improve, patient may require hemodialysis. High risk for complications. Qualifiers: Acute renal failure type: unspecified Qualified Code(s): N17.9 - Acute kidney failure, unspecified (2) Diabetes mellitus type 2 in obese Current Visit: Yes Status: Chronic Assessment and plan: Blood sugars between [address] patient on low-dose Levemir. (3) Hypertensive urgency Current Visit: Yes Status: Resolved Assessment and plan: Hypertensive urgency is resolved. Blood Pressure is better controlled. Continue Procardia and carvedilol. Nicardipine drip has been stopped (4) Hypoglycemia Current Visit: Yes Status: Resolved (5) Rhabdomyolysis Current Visit: Yes Status: Acute Assessment and plan: CK trending down. Continue IV hydration Qualifiers: Rhabdomyolysis type: non-traumatic Qualified Code(s): M62.82 - Rhabdomyolysis (6) Syncope Current Visit: Yes Status: Acute Assessment and plan: Etiology unclear. No new episodes of dizziness or lightheadedness. Presumed to be due to hypoglycemia. Qualifiers: Syncope type: unspecified Qualified Code(s): R55 - Syncope and collapse (7) DVT prophylaxis Current Visit: Yes Status: Acute Assessment and plan: On subcutaneous heparin (8) Hypoxia Current Visit: Yes Status: Acute Assessment and plan: Patient appears to be having nocturnal hypoxia on room air. He will need outpatient sleep study. He may benefit from home nocturnal O2 supplementation at time of discharge. - Subjective Interval history: Patient is awake and alert. Denies any new complaints at this time. Urine output remains poor. No chest pain or shortness of breath. Does have generalized anasarca. - Constitutional Vitals: Temp Pulse Resp BP Pulse Ox 98.3 F 62 18 124/104 96 12/07/17 07:49 12/07/17 08:23 12/07/17 07:49 12/07/17 07:49 12/07/17 07:49 General appearance: Present: cooperative, A&O X 3, pleasant, no acute distress, answers questions appropriately - Neck Neck exam general surgery: Present: supple, trachea midline. Absent: lymphadenopathy - Respiratory Respiratory exam: Present: CTAB. Absent: accessory muscle use, rales, rhonchi, wheezes - Cardiovascular Cardiovascular exam: Present: RRR, +S1, +S2. Absent: diastolic murmur, gallop, rubs, systolic murmur - GI/Abdominal GI/Abdominal exam: Present: normal bowel sounds, soft, no peritoneal signs. Absent: distended, tenderness - Extremities Exam Extremities exam: Present: pedal edema (Anasarca), warm, radial pulses palpable and symmetrical. Absent: calf tenderness, cyanotic - Neurological Exam Neurological exam: Present: alert, oriented X3, no focal deficits. Absent: facial droop, speech deficit - Skin Skin exam: Present: dry, intact Internal Medicine: Result - Labs CBC & Chem 7: 12/07/17 05:36 12/07/17 05:36 Labs: Short CBC 12/07/17 Range/Units 05:36 WBC 4.4 (4.3-11.1) K/mcL Hgb 10.9 L (12.9-16.9) g/dL Hct 36.0 L (37.5-50.1) % Plt Count 193 (140-400) K/mcL Neutrophils # 2.9 (1.6-8.9) K/mcL BMP 12/07/17 05:36 Sodium 135 L Potassium 4.7 Chloride 102 Carbon Dioxide 29 BUN 56 H Creatinine 4.46 H Glucose 211 H Calcium 7.5 L - ABG Interpretation ABG results: ABG ABG pH 7.39 pH Units (7.32-7.45) 12/07/17 05:19 ABG pCO2 44 mmHg (35-45) 12/07/17 05:19 ABG pO2 48 mmHg (85-104) L* 12/07/17 05:19 ABG O2 Saturation 83 % (95-98) L 12/07/17 05:19 PT/INR, D-dimer PT 11.3 Seconds (9.4-12.1) 12/04/17 17:37 Consult Discharge Plan - Plan Referrals: Petr Pope DO [Primary Care Provider] - 12/15/17 9:30 am ()
[2017-12-07] MEDS ORDERED: 0.9 % Sodium Chloride 1,000 ML IVC SCH (11:15)
[2017-12-08] MEDS: hydrALAZINE 25 MG TABLET PO SCH ×2 (04:06→07:29)
[2017-12-08 04:35] LABS: Mean Corpuscular HGB Conc 30.6 g/dL (31.6-35.5); Mean Corpuscular Hemoglobin 26.8 pg (28.0-33.3); Mean Corpuscular Volume 87.8 fL (83.0-100.0); Platelet Count 188 K/mcL (140-400); Red Cell Distribution Width 12.8 % (11.5-14.5)
[2017-12-08 04:39] LABS: INR 1.1; Prothrombin Time 11.3 Seconds (9.4-12.1)
[2017-12-08 05:02] LABS: Calcium 7.5 mg/dL (8.6-10.3); Potassium 5.1 mEq/L (3.5-5.1)
[2017-12-08 05:03] LABS: % Iron Saturation 13 % (20-55); Iron 38 mcg/dL (65-175); Rheumatoid Factor < 10 IU/mL (Less than 14); Transferrin 217 mg/dL (203-362)
[2017-12-08 05:13] LABS: Folate 13.4 ng/mL (3.0-16.0)
[2017-12-08 05:14] LABS: Vitamin B12 262 pg/mL (250-1100)
[2017-12-08] MEDS: *HR* Heparin 5,000 UNIT/ML VIAL SQ SCH (06:35)
--- NOTE | 2017-12-08 07:03 | Nephrology Progress Note ---
Date of Encounter: 12/08/17 Time of Encounter: 07:02 - Assessment and Plan (1) Acute kidney injury Current Visit: Yes Status: Acute Improving renal function: SrCr 3.54 --> 4.46 --> 4.27 Patient with right AKA and rhabdomyelitis SrCr 3.84, GFR 20 in February 2013, previously 1.2-1.3, GFR >60 FENa 0.5 % indicating Pre-Renal etiology (e.g. Hypovolemia, heart failure, renal artery stenosis) Renal U/S reveals no acute abnormality, no evidence of hydronephrosis, evidence of medical renal disease with increased renal echogenicity, and the size of both kidneys measure minimally smaller compared to the prior examination on May need dialysis if renal function continues to decline Renal function slightly improved today. Patient is eager to go home. Patient was given information concerning CKD diet. Patient agrees with getting outpatient labs in 2-3 days and following up with Dr. Hagen in clinic within 1-2 weeks. (2) Proteinuria Current Visit: Yes Status: Acute Proteinuria in the setting of DM type II UA reveals >= 300 mg/dl proteinuria Urine protein: Cr ratio 4.45 Qualifiers: Proteinuria type: unspecified Qualified Code(s): R80.9 - Proteinuria, unspecified (3) Hypertensive urgency Current Visit: Yes Status: Resolved Patient taking Nifedipine, Coreg, and Lasix at home Patient on Cardene ggt to PO Echo reveals EF 60-65%, severe basal septal hypertrophy Continue Hydralazine prn Stop IVFs Hold Lasix due to JOHN Continue to titrate antihypertensive medications. (4) Rhabdomyolysis Current Visit: Yes Status: Acute Patient found down for unknown period of time CK 1966 --> 84 Stop IVF Continue to monitor Qualifiers: Rhabdomyolysis type: non-traumatic Qualified Code(s): M62.82 - Rhabdomyolysis (5) Hyperkalemia Current Visit: Yes Status: Acute Resolved s/p Kayexalate Continue to monitor (6) Diabetes mellitus type 2 in obese Current Visit: Yes Status: Chronic Management per primary team Dietary consulted for nutrition education (7) Above knee amputation of right lower extremity Current Visit: Yes Status: Acute Expect SrCr to be lower than expected due to decreased muscle mass Continue to monitor Subjective Principal diagnosis: JOHN on CKD Interval history: Patient seen and examined sitting comfortably in bed. Patient reports no new c/ o today. Renal function slightly improved today. Patient is eager to go home. Patient agrees with getting outpatient labs in 2-3 days and following up with Dr. Hagen in clinic in 1-2 weeks. Objective - Vital Signs Vital signs: Vital Signs Temp Pulse Resp BP Pulse Ox 12/08/17 06:58 98.4 F 67 18 136/74 96 12/08/17 04:15 97.8 F 60 18 179/68 94 12/08/17 00:05 97.9 F 67 21 140/70 98 12/07/17 19:04 97.7 F 60 20 153/70 94 12/07/17 16:36 61 12/07/17 15:19 98.1 F 48 18 146/66 94 12/07/17 11:46 97.9 F 54 18 141/62 94 12/07/17 08:23 62 12/07/17 07:49 98.3 F 66 18 124/104 96 Intake and Output 12/07/17 12/07/17 12/08/17 15:59 23:59 07:59 Intake Total 445 / 445 300 / 300 700 / 700 Output Total 175 / 175 0 / 0 1075 / 1075 Balance 270 / 270 300 / 300 -375 / -375 Intake: Oral 445 / 445 300 / 300 700 / 700 Output: Urine 175 / 175 0 / 0 1075 / 1075 Other: Meal Lunch Dinner Percent of Meal Consumed 100% 100% Stool Size Moderate Stool Consistency formed Stool Characteristics Normal for Patient Stool Color Brown # Bowel Movements 1 Weight 121.8 kg Blood Glucose* 203 153 116 Patient Weight 12/08/17 23:59 Weight 121.8 kg - General Appearance General appearance: Present: well-developed, well-nourished, obese EENT: Present: ATNC, mucous membranes moist Neck: Present: supple Cardiology: Present: no murmurs, no rub, no gallops, edema (1+ pitting edema), regular rate, regular rhythm Gastrointestinal: Present: normoactive bowel sounds, no tenderness, no guarding , obese Integumentary: Present: no rash, warm and dry Neurologic: Present: no focal deficit, alert and oriented x3 Musculoskeletal: Present: no deformities, no erythema, no cyanosis Psychiatric: Present: mood/affect appropriate, cooperative - Lab 12/08/17 04:10 12/08/17 04:10 Most recent lab results ABG pH 7.39 pH Units (7.32-7.45) 12/07/17 05:19 ABG pCO2 44 mmHg (35-45) 12/07/17 05:19 ABG pO2 48 mmHg (85-104) L* 12/07/17 05:19 ABG HCO3 27 mEq/L (21-27) 12/07/17 05:19 ABG O2 Saturation 83 % (95-98) L 12/07/17 05:19 Calcium 7.5 mg/dL (8.6-10.3) L 12/08/17 04:10 Phosphorus 5.0 mg/dL (2.7-4.5) H 12/07/17 05:36 Magnesium 1.9 mg/dL (1.6-2.6) 12/07/17 05:36 Urine Creatinine 210 mg/dL 12/06/17 03:38 Urine Sodium 34.7 mEq/L 12/06/17 03:38 Urine Total Protein 934 mg/dL 12/06/17 03:38 Consult Discharge Plan - Plan Instructions: Iron Supplements (By mouth), Clonidine (By mouth), Aspirin (By mouth), Hydralazine (By mouth), Atorvastatin (By mouth), Acute Kidney Injury (DC ), Syncope (DC), Diabetes Mellitus Type 2 in Adults (DC), Chronic Hypertension ( DC) Referrals: Petr Pope DO [Primary Care Provider] - 12/15/17 9:30 am () Jocelynn Hagen MD [Partnered Physician] - 12/26/17 8:30 am (in 1 week ; if no availability f/u with Dr. Abraham)) Prescriptions: hydrALAZINE [HydrALAZINE] 25 mg PO Q8HR #90 tablet Aspirin 81 mg PO DAILY #30 tab.chew Atorvastatin [Lipitor] 20 mg PO HS #60 tablet cloNIDine HCl [CloNIDine HCl] 0.1 mg PO BID #60 tablet Ferrous Sulfate 325 mg PO BIDWM #60 tablet
[2017-12-08] MEDS: Insulin LISPRO 300 UNITS/3 ML VIAL SQ SCH ×2 (07:21→11:44)
[2017-12-08] MEDS: Aspirin 81 MG TAB.CHEW PO SCH (07:29)
[2017-12-08] MEDS: cloNIDine HCl 0.1 MG TABLET PO SCH (07:30)
[2017-12-08] MEDS: NIFEdipine XL (24 HR) 30 MG TAB.ER.24 PO SCH (07:31)
--- NOTE | 2017-12-08 10:29 | Discharge Summary ---
Date of Encounter: 12/08/17 Time of Encounter: 10:25 - Discharge Diagnosis (1) Acute kidney failure Priority: Primary Status: Acute Qualifiers: Acute renal failure type: unspecified Qualified Code(s): N17.9 - Acute kidney failure, unspecified (2) Diabetes mellitus type 2 in obese Priority: Secondary Status: Chronic (3) Hypertensive urgency Priority: Secondary Status: Resolved (4) Hypoglycemia Priority: Secondary Status: Resolved (5) Rhabdomyolysis Priority: Secondary Status: Acute Qualifiers: Rhabdomyolysis type: non-traumatic Qualified Code(s): M62.82 - Rhabdomyolysis (6) Syncope Priority: Secondary Status: Acute Qualifiers: Syncope type: unspecified Qualified Code(s): R55 - Syncope and collapse (7) DVT prophylaxis Priority: Secondary Status: Acute (8) Hypoxia Priority: Secondary Status: Acute - Discharge Medications Prescriptions: hydrALAZINE [HydrALAZINE] 25 mg PO Q8HR #90 tablet Aspirin 81 mg PO DAILY #30 tab.chew Atorvastatin [Lipitor] 20 mg PO HS #60 tablet cloNIDine HCl [CloNIDine HCl] 0.1 mg PO BID #60 tablet Ferrous Sulfate 325 mg PO BIDWM #60 tablet Home Medications: Albuterol Sulfate [Albuterol Inhaler] 2 puff IH QID PRN 12/05/17 [History] Carvedilol [Coreg] 25 mg PO BID 12/05/17 [History] Cetirizine HCl [All Day Allergy] 10 mg PO DAILY 12/05/17 [History] Gabapentin [Neurontin] 300 mg PO TID 12/05/17 [History] NIFEdipine [Nifedipine ER] 90 mg PO DAILY 12/05/17 [History] Trazodone HCl 150 mg PO HS 12/05/17 [History] Aspirin 81 mg PO DAILY #30 tab.chew 12/08/17 [Rx] Atorvastatin [Lipitor] 20 mg PO HS #60 tablet 12/08/17 [Rx] Ferrous Sulfate 325 mg PO BIDWM #60 tablet 12/08/17 [Rx] Insulin ASPART [Novolog Flexpen] 5 unit SQ TID #0 12/08/17 [Rx] cloNIDine HCl [CloNIDine HCl] 0.1 mg PO BID #60 tablet 12/08/17 [Rx] hydrALAZINE [HydrALAZINE] 25 mg PO Q8HR #90 tablet 12/08/17 [Rx] Allergies/Adverse Reactions: 3 Allergy/AdvReac Type Severity Reaction Status Date / Time No Known Allergies Allergy Verified 12/04/17 15:41 Procedures/tests Complete & Pending: Procedures Performed prior 72 hours Category Date Time Status US retroperitoneal comp [US] Routine Exams 12/05/17 18:00 Completed Date of admission: 12/05/17 01:20 Primary care physician: Petr Pope, Consults: 12/05/17 11:20 Consult to Nephrology [CONS] Routine Consulting Provider: Kidney Annabelle/LORETTA/KISHOR/REBEKAH Reason for Consult: JOHN. possible history of CKD. worsening kidney function Call Completed: No 12/05/17 16:01 Consult to Invasive Line Access Team [CONS] Stat Reason for Consult: limited vascular access Line Type: EPIV 12/06/17 17:41 dietary consult [Consult to Nutrition] [CONS] Routine Comment: CKD, DM, and cardia diet education/recommendations Consulting Provider: NUTRITION Reason for Dietary Consult: Diet Education 12/07/17 13:56 Consult to Physical Therapy [CONS] Routine Comment: Evaluate, develop and implement POC Reason for Consult: bedrest order discontinued, ambulation/ out of bed, prior right AKA Discharging clinician: Nelsy Garcia Anticipated date of discharge: 12/08/17 - Patient Status Disposition: Home, Self-Care Condition: Good Functional capacity at discharge: wheelchair bound Overall status at discharge: patient is progressing back to baseline - Ambulatory Orders Ambulatory Orders: Renal Function Panel [CHEM] Time Frame: 3 Days, Facility: [facility], Location: Lab - Discharge Instructions Instructions: Iron Supplements (By mouth), Clonidine (By mouth), Aspirin (By mouth), Hydralazine (By mouth), Atorvastatin (By mouth), Acute Kidney Injury (DC ), Syncope (DC), Diabetes Mellitus Type 2 in Adults (DC), Chronic Hypertension ( DC) Follow Up With: Petr Pope DO [Primary Care Provider] - 12/15/17 9:30 am () Jocelynn Hagen MD [Partnered Physician] - 12/26/17 8:30 am (in 1 week ; if no availability f/u with Dr. Abraham)) - Diet and Activity Activity: increase activity as tolerated, wear oxygen at night Diet: advance to your usual diet, diabetic diet, low fat, low cholesterol, low salt diet Hospital course: Mr. Cochran is a 67 year old male who was hospitalized here following an episode of syncope and was found to have rhabdomyolysis and acute kidney injury on chronic kidney disease. Patient has a history of diabetes mellitus. He was found to be hypoglycemic which could have been the cause of her syncope. Patient was admitted to [facility] and started on intravenous fluids. He did have severely elevated blood pressure and it is believed that hypertensive urgency contributing to his acute kidney injury along with rhabdomyolysis. He was placed on nicardipine drip to control his blood pressure and monitor closely. His symptoms improved slowly with nicardipine drip and his blood pressure has since been well controlled. He has not been placed on clonidine and hydralazine entered in addition to his usual antihypertensive regimen. Patient' s acute kidney injury despite intravenous fluids. His creatinine continued to rise up to a peak of 4.46. It has now started to trend downwards. Creatinine today is 4.27. I discussed this case with nephrology as patient wishes to go home. His rhabdomyolysis has resolved. His blood sugars are now much better controlled and he has not had any further episodes of hypoglycemia. He is having improved urine output. His lisinopril has been held. Nephrology recommended that he may be discharged and will have outpatient follow-up with nephrology after discharge. I will have him check his renal function panel next week and nephrology will follow up on the results with the patient. He is advised to return to the ER if he notices any decrease in his urine output. I am also decreasing his insulin regimen to avoid further episodes of hypoglycemia at home. Patient has been hypoxic at night and would benefit from nocturnal home oxygen supplementation. He did not qualify for BiPAP. He does need sleep study as outpatient. - Time Spent with Patient Total time spent providing and/or coordinating discharge services: Greater than 30 minutes (40 min) - Constitutional Vitals: Temp Pulse Resp BP Pulse Ox 98.4 F 63 18 136/74 94 12/08/17 06:58 12/08/17 07:35 12/08/17 06:58 12/08/17 06:58 12/08/17 10:18 General appearance: Present: cooperative, A&O X 3, pleasant, no acute distress, answers questions appropriately - Neck Neck exam general surgery: Present: supple, trachea midline. Absent: lymphadenopathy - Respiratory Respiratory exam: Present: CTAB. Absent: accessory muscle use, rales, rhonchi, wheezes - Cardiovascular Cardiovascular exam: Present: RRR, +S1, +S2. Absent: diastolic murmur, gallop, rubs, systolic murmur - GI/Abdominal GI/Abdominal exam: Present: normal bowel sounds, soft, no peritoneal signs. Absent: distended, tenderness - Extremities Exam Extremities exam: Present: pedal edema, warm, radial pulses palpable and symmetrical. Absent: calf tenderness, cyanotic
[2017-12-08 16:30] VITALS: BP 170/82
[2017-12-10 16:16] LABS: Alpha 2 Globulin (PEP) 0.82 g/dL (0.48-1.05); Beta Globulin (PEP) 0.84 g/dL (0.48-1.10)
[2017-12-12 07:44] LABS: ANA IgG by ELISA NONE DETECTED (None Detected); Complement Component 3 135 mg/dL (88-201); Complement Component 4 38 mg/dL (10-40); Myeloperoxidase Ab 1 AU/mL (0-19); Serine Protease-3 Antibody 0 AU/mL (0-19)
[2017-12-12 08:04] LABS: IFE Reflexed NOT DONE
== END 2017-12-08 17:00 | disposition home or self-care (01) | DRG 683 ==
LOC: 2ANU 14:49 → EMEROO 14:49 → 2ANU 22:00 → 2NNU 12-05 00:54 → SUATTDRO 12-05 01:20
PROVIDERS: ADMIT Pediatrics; ATTEND Internal Medicine

== ENCOUNTER 2018-09-30 17:41 | Inpatient (IN) ==
--- NOTE | 2018-09-30 18:08 | Emergency Department Note ---
Disposition Clinical Impression: Hypoglycemia Hypothermia Qualifiers: Encounter type: initial encounter Qualified Code(s): T68.XXXA - Hypothermia, initial encounter Disposition: Still a Patient Condition: Good [facility]errals: [facility] [Primary Care Provider] - Forms: ED Satisfaction Letter General Adult HPI - General Chief complaint: ED Altered Mental Status Stated complaint: hypoglycemia Time Seen by Provider: 09/30/18 17:52 Source: patient, EMS Limitations: no limitations - History of Present Illness HPI Narrative: Patient states he has been feeling "great," but just has not had much of an appetite recently. Has continued to take his diabetes medications. He says that he takes insulin and pills, although there are no oral hypoglycemics on his medication list per my review. He cannot remember the name of the oral medicines that he takes. He says he is not on metformin, he was on that before. He says he has had no urinary tract symptoms, vomiting, diarrhea, abdominal pain, chest pain, shortness of breath, fever, rash, or any other complaint. Medics found him with a blood sugar of 20, he had 2 A of D50 and arrived here with a blood sugar of 108. Pain Scale: 0 - Related Data Home Medications Medication Instructions Recorded Confirmed Albuterol Sulfate [Albuterol 2 puff IH QID PRN 12/05/17 12/05/17 Inhaler] Carvedilol [Coreg] 25 mg PO BID 12/05/17 12/05/17 Cetirizine HCl [All Day Allergy] 10 mg PO DAILY 12/05/17 12/05/17 Gabapentin [Neurontin] 300 mg PO TID 12/05/17 12/05/17 NIFEdipine [Nifedipine ER] 90 mg PO DAILY 12/05/17 12/05/17 Trazodone HCl 150 mg PO HS 12/05/17 12/05/17 Previous Rx's Medication Instructions Recorded Aspirin 81 mg PO DAILY #30 tab.chew 12/08/17 Atorvastatin [Lipitor] 20 mg PO HS #60 tablet 12/08/17 Ferrous Sulfate 325 mg PO BIDWM #60 tablet 12/08/17 Insulin ASPART [Novolog Flexpen] 5 unit SQ TID #0 12/08/17 cloNIDine HCl [CloNIDine HCl] 0.1 mg PO BID #60 tablet 12/08/17 hydrALAZINE [HydrALAZINE] 25 mg PO Q8HR #90 tablet 12/08/17 Allergies Allergy/AdvReac Type Severity Reaction Status Date / Time No Known Allergies Allergy Verified 12/04/17 15:41 All systems ED: reviewed and negative except as stated. Past Medical History - Past Medical History Medical history: Reports: diabetes, hypertension, myocardial infarction Surgical history: Reports: other (R AKA) Psychiatric history: Reports: no psych history - Social History Smoking Status: Never smoker Smokeless Tobacco Status: No Alcohol use: Reports: none Drug use: Reports: none Physical Exam Vital signs noted please see nurse's notes. Gen.: Well-developed, well-nourished patient lying in bed under multiple layers of blankets who is shivering but who appears nontoxic. Head: Atraumatic, normocephalic. Eyes: Sclerae anicteric. ENT: Mucous membranes moist. Heart: Regular rate and rhythm without appreciable murmur. Lungs: Normal respiratory pattern without respiratory distress, lungs clear to a uscultation bilaterally. Abdomen: Soft, nontender, nondistended, no guarding or peritoneal signs. Skin: Warm and dry without rash. Tattoo noted left shoulder. Large keloid left anterior lower leg. Neurologic: Awake, alert with normal speech and mental status. Cranial nerves grossly intact. No focal deficits or lateralizing signs. Psychiatric: Normal mood and affect. There is a conversation normally with good eye contact. Musculoskeletal: Status post right AKA. No signs of trauma or DVT. - General Limitations: no limitations General appearance: alert Course Vital Signs Temperature 0 F L 09/30/18 17:44 Pulse Rate 76 09/30/18 17:44 Respiratory Rate 20 09/30/18 17:44 Blood Pressure 164/96 09/30/18 17:44 O2 Sat by Pulse Oximetry 92 09/30/18 17:44 Temperature 92.5 F L 09/30/18 18:10 Pulse Rate 76 09/30/18 17:44 Respiratory Rate 20 09/30/18 17:44 Blood Pressure 164/96 09/30/18 17:44 O2 Sat by Pulse Oximetry 94 09/30/18 17:52 Oxygen Delivery Oxygen Delivery Nasal Cannula Medical Decision Making - Lab Data Result diagrams: 09/30/18 18:23 Lab Results 09/30/18 Range/Units 18:23 Sodium 140 (136-145) mEq/L Potassium 7.1 H* (3.5-5.1) mEq/L Chloride 112 H (98-107) mEq/L Carbon Dioxide 22 L (23-29) mEq/L BUN 64 H (8-23) mg/dL Creatinine 6.31 H (0.70-1.30) mg/dL Est GFR ( Amer) 11 L (> 60) Est GFR (Non-Af Amer) 9 L (> 60) BUN/Creatinine Ratio 10 (6-26) Glucose 96 (70-105) mg/dL Calculated Osmolality 308 H (280-300) Calcium 7.8 L (8.6-10.3) mg/dL
[2018-09-30 18:59] LABS: Calcium 7.8 mg/dL (8.6-10.3); Potassium 7.1 mEq/L (3.5-5.1)
[2018-09-30 19:05] LABS: Basophils % 0.2 %; Eosinophils % 0.2 %; Hemoglobin 11.7 g/dL (12.9-16.9); Immature Granulocytes % 0.9 % (0-4); Lymphocytes # 0.4 K/mcL (0.6-4.6); Lymphocytes % 9.2 %; Mean Corpuscular Hemoglobin 27.8 pg (28.0-33.3); Mean Corpuscular Volume 92.6 fL (83.0-100.0); Mean Platelet Volume 10.9 fL (9.4-12.4); Monocytes # 0.2 K/mcL (0.0-1.3); Monocytes % 5.2 %; Neutrophils # 3.6 K/mcL (1.6-8.9); Platelet Count 178 K/mcL (140-400); Red Blood Count 4.21 M/mcL (4.19-5.50); Red Cell Distribution Width 14.3 % (11.5-14.5); Segmented Neutrophils % 84.3 %
[2018-09-30] MEDS ORDERED: Albuterol 2.5 MG/3 ML NEBULIZER IH ONE (20:07)
[2018-09-30] MEDS ORDERED: D10% in Water 500 ML IV SOLUTION IVC ONE (20:08)
[2018-09-30] MEDS ORDERED: 0.9 % Sodium Chloride 1,000 ML IVC ONE (20:09)
[2018-09-30] MEDS ORDERED: Calcium Gluconate 2,000 MG in 0.9 % Sodium Chloride 100 ML IVPB ONE (20:09)
[2018-09-30] MEDS ORDERED: cefTRIAXone 1,000 MG in Water for inj. (sterile) 20 ML 10 ML IVP ONE (20:10)
[2018-09-30] MEDS ORDERED: Azithromycin 250 MG TABLET PO ONE (20:11)
--- NOTE | 2018-09-30 21:38 | Emergency Department Note ---
Disposition Clinical Impression: Hypoglycemia, Hyperkalemia, Respiratory acidosis Hypothermia Qualifiers: Encounter type: initial encounter Qualified Code(s): T68.XXXA - Hypothermia, initial encounter Acute renal failure Qualifiers: Acute renal failure type: unspecified Qualified Code(s): N17.9 - Acute kidney failure, unspecified Disposition: Admitted As Inpatient Condition: Fair [facility]: [facility]Primary Care Provider[facility] - Forms: ED Satisfaction Letter Time of Disposition: 22:50 General Adult HPI - General Chief complaint: ED Altered Mental Status Stated complaint: hypoglycemia Time Seen by Provider: 09/30/18 17:52 Source: patient, EMS Limitations: no limitations - History of Present Illness HPI Narrative: This patient was received on signout from Dr. Parisi. Symptoms were hypoglycemia and hypothermia. See Dr Parisi's note for the other details. Pain Scale: 0 - Related Data Home Medications Medication Instructions Recorded Confirmed Albuterol Sulfate [Albuterol 2 puff IH QID PRN 12/05/17 12/05/17 Inhaler] Carvedilol [Coreg] 25 mg PO BID 12/05/17 12/05/17 Cetirizine HCl [All Day Allergy] 10 mg PO DAILY 12/05/17 12/05/17 Gabapentin [Neurontin] 300 mg PO TID 12/05/17 12/05/17 NIFEdipine [Nifedipine ER] 90 mg PO DAILY 12/05/17 12/05/17 Trazodone HCl 150 mg PO HS 12/05/17 12/05/17 Previous Rx's Medication Instructions Recorded Aspirin 81 mg PO DAILY #30 tab.chew 12/08/17 Atorvastatin [Lipitor] 20 mg PO HS #60 tablet 12/08/17 Ferrous Sulfate 325 mg PO BIDWM #60 tablet 12/08/17 Insulin ASPART [Novolog Flexpen] 5 unit SQ TID #0 12/08/17 cloNIDine HCl [CloNIDine HCl] 0.1 mg PO BID #60 tablet 12/08/17 hydrALAZINE [HydrALAZINE] 25 mg PO Q8HR #90 tablet 12/08/17 Allergies Allergy/AdvReac Type Severity Reaction Status Date / Time No Known Allergies Allergy Verified 12/04/17 15:41 Past Medical History - Past Medical History Medical history: Reports: diabetes, hypertension, myocardial infarction Surgical history: Reports: other (R AKA) Psychiatric history: Reports: no psych history - Social History Smoking Status: Never smoker Smokeless Tobacco Status: No Alcohol use: Reports: none Drug use: Reports: none Physical Exam - General Limitations: no limitations General appearance: alert Course Vital Signs Temperature 92.0 F L 09/30/18 17:44 Pulse Rate 76 09/30/18 17:44 Respiratory Rate 20 09/30/18 17:44 Blood Pressure 164/96 09/30/18 17:44 O2 Sat by Pulse Oximetry 92 09/30/18 17:44 Temperature 98.2 F 09/30/18 20:23 Pulse Rate 79 09/30/18 22:03 Respiratory Rate 18 09/30/18 22:03 Blood Pressure 191/74 09/30/18 22:03 O2 Sat by Pulse Oximetry 96 09/30/18 22:03 Oxygen Delivery Oxygen Delivery Nasal Cannula Medical Decision Making - MDM Narrative Medical decision making narrative: This is a 67-year-old male who appears to be in acute renal failure with elevated BUN, creatinine, and potassium. The renal failure may be the cause of his feeling poorly. He was also hypothermic on arrival, but this was corrected with a bear hugger. He was given IV fluid, and then calcium gluconate because of the hyper anemia. Chest x-ray identified bibasilar pneumonia, and ceftriaxone was given for this. He became quite sleepy and difficult to arouse, and a head CT was obtained to rule out serious intracranial pathology. CT brain showed no abnormality BPAP was started because of presumed hypercapnia ABG showed a respiratory acidosis with pH of 7.16 and CO2 of 83 I discussed his case with both the hospitalist and with the on-call apprentice/lineman, and the apprentice/lineman recommended a bicarbonate infusion in addition to what we have already done, and also encouraged something to allow him to eliminate the potassium. sodium bicarbonate infusion started for hyperkalemia Lactulose ordered for rectal potassium elimination He was admitted to the ICU under the hospitalist service - Lab Data Lab results reviewed: Yes I reviewed the patient's lab results. Lab results narrative: CBC was unremarkable BMP showed hyperkalemia at 7.1, BUN elevated at 64 and creatinine elevated 6.31 Troponin was slightly elevated at 0.05 TSH was normal at 0.436 Result diagrams: 09/30/18 18:52 09/30/18 18:23 Lab Results 09/30/18 09/30/18 09/30/18 Range/Units 17:42 18:23 18:23 WBC (4.3-11.1) K/mcL RBC (4.19-5.50) M/mcL Hgb (12.9-16.9) g/dL Hct (37.5-50.1) % MCV (83.0-100.0) fL MCH (28.0-33.3) pg MCHC (31.6-35.5) g/dL RDW (11.5-14.5) % Plt Count (140-400) K/mcL MPV (9.4-12.4) fL Immature Gran % (0-4) % Seg Neutrophils % % Lymphocytes % % Monocytes % % Eosinophils % % Basophils % % Neutrophils # (1.6-8.9) K/mcL Lymphocytes # (0.6-4.6) K/mcL Monocytes # (0.0-1.3) K/mcL Eosinophils # (0.0-0.6) K/mcL Basophils # (0.0-0.2) K/mcL Sample Site ABG pH (7.32-7.45) pH Units ABG pCO2 (35-45) mmHg ABG pO2 (85-104) mmHg ABG HCO3 (21-27) mEq/L ABG Total CO2 (20-26) mEq/L ABG O2 Saturation (95-98) % ABG Base Excess (-2 to 3) mEq/L Maverick Test O2 Delivery Device Blood Gas Modality Inspired O2 (1-15=lpm [id number]=%) Sodium 140 (136-145) mEq/L Potassium 7.1 H* (3.5-5.1) mEq/L Chloride 112 H (98-107) mEq/L Carbon Dioxide 22 L (23-29) mEq/L BUN 64 H (8-23) mg/dL Creatinine 6.31 H (0.70-1.30) mg/dL Est GFR ( Amer) 11 L (> 60) Est GFR (Non-Af Amer) 9 L (> 60) BUN/Creatinine Ratio 10 (6-26) Glucose 96 (70-105) mg/dL POC Glucose 108 H (70-99) mg/dL Calculated Osmolality 308 H (280-300) Calcium 7.8 L (8.6-10.3) mg/dL Troponin I (< 0.04) ng/mL TSH Cancelled Specimen Rejected Volume 09/30/18 09/30/18 09/30/18 Range/Units 18:52 20:13 20:13 WBC 4.3 (4.3-11.1) K/mcL RBC 4.21 (4.19-5.50) M/mcL Hgb 11.7 L (12.9-16.9) g/dL Hct 39.0 (37.5-50.1) % MCV 92.6 (83.0-100.0) fL MCH 27.8 L (28.0-33.3) pg MCHC 30.0 L (31.6-35.5) g/dL RDW 14.3 (11.5-14.5) % Plt Count 178 (140-400) K/mcL MPV 10.9 (9.4-12.4) fL Immature Gran % 0.9 (0-4) % Seg Neutrophils % 84.3 % Lymphocytes % 9.2 % Monocytes % 5.2 % Eosinophils % 0.2 % Basophils % 0.2 % Neutrophils # 3.6 (1.6-8.9) K/mcL Lymphocytes # 0.4 L (0.6-4.6) K/mcL Monocytes # 0.2 (0.0-1.3) K/mcL Eosinophils # 0.0 (0.0-0.6) K/mcL Basophils # 0.0 (0.0-0.2) K/mcL Sample Site ABG pH (7.32-7.45) pH Units ABG pCO2 (35-45) mmHg ABG pO2 (85-104) mmHg ABG HCO3 (21-27) mEq/L ABG Total CO2 (20-26) mEq/L ABG O2 Saturation (95-98) % ABG Base Excess (-2 to 3) mEq/L Maverick Test O2 Delivery Device Blood Gas Modality Inspired O2 (1-15=lpm [id number]=%) Sodium (136-145) mEq/L Potassium (3.5-5.1) mEq/L Chloride (98-107) mEq/L Carbon Dioxide (23-29) mEq/L BUN (8-23) mg/dL Creatinine (0.70-1.30) mg/dL Est GFR ( Amer) (> 60) Est GFR (Non-Af Amer) (> 60) BUN/Creatinine Ratio (6-26) Glucose (70-105) mg/dL POC Glucose (70-99) mg/dL Calculated Osmolality (280-300) Calcium (8.6-10.3) mg/dL Troponin I 0.05 H* (< 0.04) ng/mL TSH 0.496 Specimen Rejected 09/30/18 Range/Units 22:23 WBC (4.3-11.1) K/mcL RBC (4.19-5.50) M/mcL Hgb (12.9-16.9) g/dL Hct (37.5-50.1) % MCV (83.0-100.0) fL MCH (28.0-33.3) pg MCHC (31.6-35.5) g/dL RDW (11.5-14.5) % Plt Count (140-400) K/mcL MPV (9.4-12.4) fL Immature Gran % (0-4) % Seg Neutrophils % % Lymphocytes % % Monocytes % % Eosinophils % % Basophils % % Neutrophils # (1.6-8.9) K/mcL Lymphocytes # (0.6-4.6) K/mcL Monocytes # (0.0-1.3) K/mcL Eosinophils # (0.0-0.6) K/mcL Basophils # (0.0-0.2) K/mcL Sample Site R Radial ABG pH 7.16 L* (7.32-7.45) pH Units ABG pCO2 83 H* (35-45) mmHg ABG pO2 81 L (85-104) mmHg ABG HCO3 29 H (21-27) mEq/L ABG Total CO2 32 H (20-26) mEq/L ABG O2 Saturation 91 L (95-98) % ABG Base Excess -1 (-2 to 3) mEq/L Maverick Test Positive O2 Delivery Device BiPAP Blood Gas Modality BiLevel Inspired O2 100.0 (1-15=lpm [id number]=%) Sodium (136-145) mEq/L Potassium (3.5-5.1) mEq/L Chloride (98-107) mEq/L Carbon Dioxide (23-29) mEq/L BUN (8-23) mg/dL Creatinine (0.70-1.30) mg/dL Est GFR ( Amer) (> 60) Est GFR (Non-Af Amer) (> 60) BUN/Creatinine Ratio (6-26) Glucose (70-105) mg/dL POC Glucose (70-99) mg/dL Calculated Osmolality (280-300) Calcium (8.6-10.3) mg/dL Troponin I (< 0.04) ng/mL TSH Specimen Rejected - Radiology Data Radiology results reviewed: Yes I reviewed the patient's radiology results. Chest x-ray showed bibasilar pneumonia Critical Care Time Critical Care Time: Yes Total Critical Care Time: 40 Attestation: 40 minutes of critical care time was invested independent of separately billable procedures
[2018-09-30] MEDS ORDERED: cloNIDine HCl 0.1 MG TABLET PO ONE (22:06)
[2018-09-30] MEDS ORDERED: hydrALAZINE 25 MG TABLET PO ONE (22:06)
[2018-09-30] MEDS ORDERED: 0.9 % Sodium Chloride 1,000 ML IVC SCH (22:15)
[2018-09-30 22:40] LABS: ABG Base Excess -1 mEq/L (-2 to 3); ABG HCO3 29 mEq/L (21-27); ABG Oxygen Saturation 91 % (95-98); ABG PCO2 83 mmHg (35-45); ABG PH 7.16 pH Units (7.32-7.45); ABG PO2 81 mmHg (85-104); ABG TCO2 32 mEq/L (20-26); Blood Gas Modality BiLevel
[2018-09-30] MEDS ORDERED: Sodium Bicarbonate 150 MEQ in D5% in Water 1,000 ML IVC SCH (22:45)
[2018-09-30 23:32] LABS: Albumin 3.3 g/dL (3.5-5.7); Albumin/Globulin Ratio 1.1 (1.1-2.2); Bilirubin,Total 0.3 mg/dL (0.3-1.0); Calcium 7.9 mg/dL (8.6-10.3); Globulin 2.9 g/dL (2.4-3.5); Total Protein 6.2 g/dL (6.4-8.9)
[2018-09-30 23:41] LABS: Bilirubin,Urine Negative (Negative); Blood,Urine Negative (Negative); Clarity,Urine Clear (Clear); Color,Urine Yellow (Yellow); Glucose,Urine (UA) Normal (Normal); Ketones,Urine Negative (Negative); Leukocyte Esterase,Urine Small (Negative); Nitrite,Urine Negative (Negative); PH,Urine 7.5 pH Units (5.0-8.0); Protein,Urine >=1000 mg/dL (Neg-Trace); Specific Gravity,Urine 1.007 (1.010-1.025); Urobilinogen,Urine Normal (Normal)
[2018-09-30 23:44] LABS: Bacteria,Urine Few per hpf (None-Few); Hyaline Casts,Urine None Seen per lpf (None-Few); Squamous Epithelial Cell,Urine Many per lpf (None-Few); WBC,Urine 30-50 per hpf (0-3)
[2018-09-30] MEDS ORDERED: Nitroglycerin 25 MG/250 ML INFUS..BTL IVC SCH (23:45)
[2018-09-30] MEDS ORDERED: Naloxone 0.4 MG/ML INJ IVP PRN (23:50)
[2018-09-30] MEDS ORDERED: Dextrose Gel 15 GM/37.5 ML TUBE PO PRN ×2 (23:56)
[2018-09-30] MEDS ORDERED: *HR* Dextrose 50 % in Water (Syg) 50 ML SYRINGE IVP PRN (23:56)
[2018-09-30] MEDS ORDERED: D5% in Water 1,000 ML IVC PRN (23:56)
--- NOTE | 2018-10-01 00:20 | Internal Med History&Physical ---
<Johnnie Pierre - Last Filed: 10/01/18 04:23> Date of Encounter: 10/01/18 Time of Encounter: 00:20 Internal Medicine - H&P: HPI Chief complaint: Hypoglycemia Admitted From: Emergency Dept Plans for Post Hospital Care: Home History of present illness: Mr. Cochran is a 67 year old male with history of diabetes, hypertension, CK D stage IV, rhabdomyolysis who presents to the ED with several day history of poor appetite and hypoglycemia. The patient says that for the past several days he has been experiencing extremely poor appetite and just has not been interested in eating but he continues to use his insulin as regularly scheduled. As result, he says that his blood glucose has been abnormally low and he is been extremely weak. Several days ago he apparently had a fall and EMS came to his house at which time it is blood glucose and found it extremely well. He said that at that time he was unable to talk and was given oral glucose which did raise his blood glucose and his symptoms resolved. He did not go to the hospital at that time. Today however, the patient did experience worsening s ymptoms and was transported to the hospital per EMS with blood glucose of 27. While in the ED the patient apparently went unresponsive. He did receive several amps of dextrose, however it was noted that the patient also had an arterial blood gas demonstrated a pH of 7.16, PCO2 83, PO2 81. In addition of this, the patient had a severe AK I with a serum creatinine 6.31 and a serum potassium of 7.1 despite having no audible EKG changes. The patient was also noted to have severely elevated blood pressure of 220/120. The patient was placed on BiPAP and nephrology was consultative from the ED who recommended the patient receive a bicarbonate drip as well as Kayexalate. Following a short time on BiPAP, the patient apparently did regain consciousness and reorientation. He received a head CT which was negative for any intracranial findings. At that time he was transferred to the ICU for further management. Past Med Surg Social Fam HX - Past Medical History Medical history: diabetes, hypertension, myocardial infarction, renal disease Psychiatric history: no psych history - Past Surgical History Surgical History: other Additional surgical history: Right AKA - Social History Smoking Status: Never smoker Smokeless Tobacco Status: No Alcohol use: none Drug use: none - Family History Mother Living Status: Hx Family Cardiac Disorders: Yes (heart failure) Hx Family Endocrine Disorder: Yes (DM) Father Living Status: Hx Family Cardiac Disorders: Yes (stroke) Hx Family Neuromuscular Disorders: Yes (CVA) Internal Medicine - H&P: Meds Albuterol Sulfate [Albuterol Inhaler] 2 puff IH QID PRN 12/05/17 [History] Carvedilol [Coreg] 25 mg PO BID 12/05/17 [History] Cetirizine HCl [All Day Allergy] 10 mg PO DAILY 12/05/17 [History] Gabapentin [Neurontin] 300 mg PO TID 12/05/17 [History] NIFEdipine [Nifedipine ER] 90 mg PO DAILY 12/05/17 [History] Trazodone HCl 150 mg PO HS 12/05/17 [History] Aspirin 81 mg PO DAILY #30 tab.chew 12/08/17 [Rx] Atorvastatin [Lipitor] 20 mg PO HS #60 tablet 12/08/17 [Rx] Ferrous Sulfate 325 mg PO BIDWM #60 tablet 12/08/17 [Rx] Insulin ASPART [Novolog Flexpen] 5 unit SQ TID #0 12/08/17 [Rx] cloNIDine HCl [CloNIDine HCl] 0.1 mg PO BID #60 tablet 12/08/17 [Rx] hydrALAZINE [HydrALAZINE] 25 mg PO Q8HR #90 tablet 12/08/17 [Rx] Allergy/AdvReac Type Severity Reaction Status Date / Time No Known Allergies Allergy Verified 12/04/17 15:41 All Systems PM: A 10-system review of systems was performed and is negative for pertinent findings except as documented above in the HPI. Review of systems: Constitutional: Denies fevers, chills, weight loss, generalized fatigue Head/Neck: Denies BARRIGA, neck stiffness EENT: Denies vision changes/blurriness, rhinorrhea, congestion, sore throat CVS: Denies chest pain, palpitations, BALDERRAMA, orthopnea, edema, PND Pulm: Denies SOB, cough, sputum, hemoptysis, wheezing GI: Denies abdominal pain, nausea, vomiting, diarrhea, constipation, melena, hematemasis : Denies dysuria, increased frequency, urgency, hematuria Endo: Admits to Polydypsia Heme: Denies ease of bleeding or bruising MSK: Denies joint pain, limited ROM Skin: Denies rashes, ulcers, color changes Neuro: Denies BARRIGA, paresthesias, focal deficits, ataxia - Constitutional Vitals: Temp Pulse Resp BP Pulse Ox 97.3 F L 77 20 231/108 97 09/30/18 23:59 09/30/18 23:59 09/30/18 23:59 09/30/18 23:59 09/30/18 23:59 Exam: Gen: Vitals noted. No acute distress on BiPAP Eyes: anicteric sclerae, moist conjunctivae; no lid-lag; Pupils equal and reactive to light HENT: Atraumatic; oropharynx clear with moist mucous membranes and no mucosal ulcerations; normal hard and soft palate Neck: Trachea midline; supple, no thyromegaly or lymphadenopathy Cardiac: RRR, no murmur, +S1/S2 Pulmonary: Bibasilar rales, diminished particularly in the right lung base Abdomen: soft, nontender, no guarding. No masses or hepatosplenomegaly MSK: ROM intact, no joint swelling noted Extremities: s/p RLE AKA. no LLE edema, nontender calf, no cyanosis or clubbing Skin: Normal temperature, turgor and texture; no rash, ulcers or subcutaneous nodules Neuro: moves all extremities, no focal deficits. Psych: Appropriate mood and behavior. A&Ox3 Internal Med - H&P Results - Labs CBC & Chem 7: 09/30/18 18:52 09/30/18 22:50 Labs: Short CBC 09/30/18 Range/Units 18:52 WBC 4.3 (4.3-11.1) K/mcL Hgb 11.7 L (12.9-16.9) g/dL Hct 39.0 (37.5-50.1) % Plt Count 178 (140-400) K/mcL Neutrophils # 3.6 (1.6-8.9) K/mcL BMP 09/30/18 09/30/18 18:23 22:50 Sodium 140 137 Potassium 7.1 H* 6.0 H Chloride 112 H 108 H Carbon Dioxide 22 L 22 L BUN 64 H 57 H Creatinine 6.31 H 6.24 H Glucose 96 203 H Calcium 7.8 L 7.9 L Cardiac Enzymes 09/30/18 Range/Units 20:13 Troponin I 0.05 H* (< 0.04) ng/mL Liver Function 09/30/18 Range/Units 22:50 Total Bilirubin 0.3 (0.3-1.0) mg/dL AST 20 (13-39) Units/L ALT 13 (7-52) Units/L Alkaline Phosphatase 70 (34-104) Units/L Albumin 3.3 L (3.5-5.7) g/dL Urine 09/30/18 Range/Units 23:30 Urine Color Yellow (Yellow) Urine Clarity Clear (Clear) Urine pH 7.5 (5.0-8.0) pH Units Ur Specific [place] 1.007 L (1.010-1.025) Urine Protein >=1000 H (Neg-Trace) mg/dL Urine Glucose (UA) Normal (Normal) mg/dL - ABG Interpretation ABG results: 09/30/18 22:23 ABG pH 7.16 L* ABG pCO2 83 H* ABG pO2 81 L ABG HCO3 29 H ABG Total CO2 32 H ABG O2 Saturation 91 L ABG Base Excess -1 - Impressions ITS Impressions Chest X-Ray 09/30/18 18:13 IMPRESSION: Bibasilar opacification suggesting bilateral lower lobe pneumonia or atelectasis with associated bilateral pleural effusions D/ / Johnnie Lozano MD / Johnnie Lozano MD Interpreting Provider: Johnnie Lozano MD Head CT 09/30/18 20:53 IMPRESSION: No acute intracranial abnormality. Diffuse atrophic changes with findings suggesting chronic microvascular ischemia D/ / Johnnie Lozano MD / Johnnie Lozano MD Interpreting Provider: Johnnie Lozano MD - Assessment and plan (1) Respiratory failure with hypoxia and hypercapnia Current Visit: Yes Status: Acute Assessment and plan: Suspected acute on chronic respiratory failure, no known hx of COPD. Occasional smoker Etiology is unclear, however patient did seem to have decreased respiratory drive due to encephalopathy The patient may also have underlying COPD and CHF based on chest x-ray His chest x-ray does show significant pleural effusions bilaterally with pulmonary edema and increased coronary vasculature as well ABG initially showed respiratory acidosis: 7.16/83/81/29/91 on BiPAP with FiO2 100% Previous cardiac studies have not demonstrated any evidence of left ventricular dysfunction although he has had LVH without LVOTO CKD 4 with JOHN and potential Fluid overload as a result Plan BiPAP Lasix 20mg IVP once Decrease cardiac strain with cardene/nitro drip Check BNP, Repeat CXR in AM Echo in AM Reviewed CXR, not suspicious of pna Consider pulm consult if needed Qualifiers: Chronicity: acute on chronic Qualified Code(s): J96.21 - Acute and chronic respiratory failure with hypoxia; J96.22 - Acute and chronic respiratory failure with hypercapnia (2) Pulmonary edema Current Visit: Yes Status: Acute Assessment and plan: Acute pulmonary edema Likely secondary to JOHN on CKD4 vs possible cardiac strain in setting of htn urgency We will continue BiPAP, Cardene/NTG drip One time dose Lasix 20mg IVP Strict I/Os Qualifiers: Chronicity: acute Qualified Code(s): J81.0 - Acute pulmonary edema (3) Acute kidney injury superimposed on chronic kidney disease Current Visit: Yes Status: Acute Assessment and plan: JOHN on CKD4, Baseline GFR 15-20 The patient's creatinine is 6.31, eGFR has dropped to 9 Complicated by hyperkalemia without evidence of EKG changes and by pulmonary edema Etiology is unclear at this time, does not appear to be hypovolemic. Previously caused by Rhabdomyolosis. CK is elevated on this visit, although not harshly at this time (439) and the patient is making urine. UA with 3-5 RBC Although we will give one time dose of lasix due to respiratory status, we will otherwise avoid nephrotoxins Continue low rate bicarb drip per nephrology Consult in AM (4) Hyperkalemia Current Visit: Yes Status: Acute Assessment and plan: Potassium 7.1 -> 6.0, no evidence of cardiac complication Patient has received calcium and 45g Kayexelate We will continue telemetry, repeat K+ in AM (5) Diabetes mellitus type 2 in obese Current Visit: Yes Status: Chronic Assessment and plan: DM2, poorly controlled Patient has been using insulin despite poor appetite and low blood glucose This indicates poor understanding of disease state, and questionable health literacy I will recheck the patient's A1c today, and I will initiate q6h Accuchecks Diabetic diet with q6h SSI (6) Elevated CK Current Visit: Yes Status: Acute Assessment and plan: Mildly elevated CK, history of Rhabdomyolysis. CK 439 We will continue to monitor kidney function and urine output (7) Hypertensive urgency Current Visit: Yes Status: Acute Assessment and plan: Hypertensive urgency, BP 220/120 This may play a role in the patient's current JOHN The patient states that he is compliant with medications We have initiated Cardene and NTG drip (8) Acute encephalopathy Current Visit: Yes Status: Resolved Assessment and plan: Acute metabolic encephalopathy secondary to hypoglycemia, resolved (9) DVT prophylaxis Current Visit: Yes Status: Acute Assessment and plan: Heparin SQ - Time Spent With Patient Total time spent is greater than 50% in coordination of care (as documented) at patient's floor/unit and/or counseling patient: <AmandaTigre Justine - Last Filed: 10/01/18 07:05> Date of Encounter: 10/01/18 Internal Medicine - H&P: HPI History of present illness: Mr. Cochran is a 67 year old male All Systems PM: A 10-system review of systems was performed and is negative for pertinent findings except as documented above in the HPI. - Constitutional Vitals: Temp Pulse Resp BP Pulse Ox 98.0 F 54 16 143/67 96 10/01/18 04:07 10/01/18 06:16 10/01/18 06:05 10/01/18 06:16 10/01/18 06:05 Internal Med - H&P Results - Labs CBC & Chem 7: 10/01/18 03:59 10/01/18 03:59 Labs: Short CBC 09/30/18 10/01/18 Range/Units 18:52 03:59 WBC 4.3 6.0 (4.3-11.1) K/mcL Hgb 11.7 L 10.3 L (12.9-16.9) g/dL Hct 39.0 35.1 L (37.5-50.1) % Plt Count 178 178 (140-400) K/mcL Neutrophils # 3.6 4.9 (1.6-8.9) K/mcL BMP 09/30/18 09/30/18 10/01/18 18:23 22:50 03:59 Sodium 140 137 138 Potassium 7.1 H* 6.0 H 5.5 H Chloride 112 H 108 H 107 Carbon Dioxide 22 L 22 L 26 BUN 64 H 57 H 56 H Creatinine 6.31 H 6.24 H 6.18 H Glucose 96 203 H 170 H Calcium 7.8 L 7.9 L 7.5 L Cardiac Enzymes 09/30/18 10/01/18 Range/Units 20:13 03:59 Troponin I 0.05 H* 0.04 H* (< 0.04) ng/mL Liver Function 09/30/18 Range/Units 22:50 Total Bilirubin 0.3 (0.3-1.0) mg/dL AST 20 (13-39) Units/L ALT 13 (7-52) Units/L Alkaline Phosphatase 70 (34-104) Units/L Albumin 3.3 L (3.5-5.7) g/dL Urine 09/30/18 Range/Units 23:30 Urine Color Yellow (Yellow) Urine Clarity Clear (Clear) Urine pH 7.5 (5.0-8.0) pH Units Ur Specific [place] 1.007 L (1.010-1.025) Urine Protein >=1000 H (Neg-Trace) mg/dL Urine Glucose (UA) Normal (Normal) mg/dL - ABG Interpretation ABG results: 09/30/18 10/01/18 22:23 04:52 ABG pH 7.16 L* 7.38 ABG pCO2 83 H* 43 ABG pO2 81 L 58 L ABG HCO3 29 H 25 ABG Total CO2 32 H 27 H ABG O2 Saturation 91 L 89 L ABG Base Excess -1 0 - Impressions ITS Impressions Chest X-Ray 09/30/18 18:13 IMPRESSION: Bibasilar opacification suggesting bilateral lower lobe pneumonia or atelectasis with associated bilateral pleural effusions D/ / Johnnie Lozano MD / Johnnie Lozano MD Interpreting Provider: Johnnie Lozano MD Head CT 09/30/18 20:53 IMPRESSION: No acute intracranial abnormality. Diffuse atrophic changes with findings suggesting chronic microvascular ischemia D/ / Jonhnie Lozano MD / Johnnie Lozano MD Interpreting Provider: Johnnie Lozano MD - Time Spent With Patient Total time spent is greater than 50% in coordination of care (as documented) at patient's floor/unit and/or counseling patient: - Attending Attestation I saw and evaluated the patient. I reviewed the residents note, performed my own physical examination and agree with findings and plan as documented in the residents note. Patient seen and examined on 10/01/18. Patient presented to the emergency room with acute hypoxic respiratory failure likely secondary to congestive heart failure. Found to have acute kidney failure as well with an elevated creatinine as well as elevated potassium. Troponin also mildly elevated at 0.05. ABG results showed elevated PCO2 patient was placed on BiPAP and taken to the ICU for further management. Nephrology was contacted, and will consult on the patient in the morning. Patient also hypertensive and was started on Cardene drip as well as a nitro drip. Blood pressures improved. We will continue to monitor potassium and kidney function.
[2018-10-01] MEDS ORDERED: Furosemide 20 MG/2 ML VIAL IVP ONE (00:22)
[2018-10-01] MEDS: niCARdipine 40 MG/200 ML MLS IVC SCH ×5 (00:26→19:55)
[2018-10-01] MEDS: Insulin LISPRO 300 UNITS/3 ML VIAL SQ SCH ×5 (00:29→23:27)
[2018-10-01 04:33] LABS: Basophils % 0.2 %; Eosinophils % 0.2 %; Hematocrit 35.1 % (37.5-50.1); Hemoglobin 10.3 g/dL (12.9-16.9); Immature Granulocytes % 0.3 % (0-4); Lymphocytes # 0.7 K/mcL (0.6-4.6); Lymphocytes % 11.4 %; Mean Corpuscular HGB Conc 29.3 g/dL (31.6-35.5); Mean Corpuscular Hemoglobin 27.7 pg (28.0-33.3); Mean Corpuscular Volume 94.4 fL (83.0-100.0); Mean Platelet Volume 10.8 fL (9.4-12.4); Monocytes # 0.4 K/mcL (0.0-1.3); Neutrophils # 4.9 K/mcL (1.6-8.9); Platelet Count 178 K/mcL (140-400); Red Blood Count 3.72 M/mcL (4.19-5.50); Red Cell Distribution Width 14.3 % (11.5-14.5); Segmented Neutrophils % 80.9 %
[2018-10-01 04:46] LABS: Calcium 7.5 mg/dL (8.6-10.3); Magnesium 2.1 mg/dL (1.6-2.6); Phosphorous 6.2 mg/dL (2.7-4.5); Potassium 5.5 mEq/L (3.5-5.1)
[2018-10-01 04:47] LABS: INR 1.1; Prothrombin Time 12.5 Seconds (9.4-12.1)
[2018-10-01 04:56] LABS: ABG Base Excess 0 mEq/L (-2 to 3); ABG HCO3 25 mEq/L (21-27); ABG Oxygen Saturation 89 % (95-98); ABG PCO2 43 mmHg (35-45); ABG PH 7.38 pH Units (7.32-7.45); ABG PO2 58 mmHg (85-104); ABG TCO2 27 mEq/L (20-26)
[2018-10-01] MEDS: hydrALAZINE 25 MG TABLET PO SCH ×3 (05:18→21:21)
[2018-10-01] MEDS: *HR* Heparin 5,000 UNIT/ML VIAL SQ SCH ×3 (05:20→21:20)
[2018-10-01] MEDS ORDERED: Ipratropium Neb 0.5 MG NEBULIZER IH PRN (07:58)
--- NOTE | 2018-10-01 08:01 | Event Note ---
Date of Encounter: 10/01/18 Time of Encounter: 10:30 Mr Dimas has pmhx diabetes, hypertension, CKD stage IV, rhabdomyolysis and presented to ED w anorexia and hypoglycemia related to cont insulin use without eating. He was found to have severe JOHN, hyperkalemia, co2 retention, bp 220/120 and hypoglycemia. He is on bipap in icu with nephro consulted. CXR with bl atelectasis + effusion vs pna. CT head no acute changes. Pt awake in bed. Dr Block and RN also at bedside. Lengthy conversation led by nephro team regarding rec for HD. Pt to think about it today and discuss with family. He denies fevers, chills. is now on o2 nc and no sob. denies wheezing, + cough with clear sputum. No recent outpt colored sputum, sick contacts. He has had no chest pain, calf pain or immobility prior to admit. gen- alert, awake,appears stated age, obese eyes- pupils equal round , no conjunctival pallor cv- reg rate and rhythm, normal s1,s2, no murmurs appreciated though hard to auscultate given body habitus, pitting edema + 3 to sacrum lungs- ctabl, diminsihed posteriorly, no rhonchi or wheezing abd- soft, non tender, non distended, + bs neuro- AAOx3 Acute on chronic hypoxic and hypercapnic resp failure 2/2 pulm edema 2/2 ESRD and fluid overload,less likely copd exacerbation/pna, no c/w PE -lasix, i/os -off bipap and on nc r -echo pending CKD Stage 5 and at baseline as d/w Dr Block his outpt nephro -encouraging pt for HD, he will d/w family today, would go for IR temp cath in AM Hyperkalemia-K+ 7.1 on admit without ekg changes s/p kayexalate, calcium gluconate,repeat K+ this am 5.5 and addl kayexalate ordered, repeat level this afternoon Hx rhabdo with ck 439 at this time- repeat this afternoon Proteinuria -nephro following -february dc bicarb gtt ordered DM Type II with insulin use Hypoglycemia 2/2 continued home insulin and was not eating-hold home insulin, cont SSI/accu checks, prn hypoglycemics HTN urgency- cardene + nitro gtt started on admit, and bp to goal but then back up until about 5am, will wean as able,d/e nephro and goal bp 150-160 sbp as he runs higher at baseline, home coreg, hydralazine ordered Acute metabolic encephalopathy resolved enroute/in ED with glucose, cont to monitor for changes, he has no fevers/leukocytosis to suggest infectious process at this time -pt is AAOx4 Chronic trop elevation 0.05-0.06 at baseline- currently 0.04 and ekg without any ischemic changes, on tele, no cp Chronic anemia, most likely 2/2 chronic disease- hgb bl appears to be 10-12, currently 10.3- no signs active bleeding, will cont to monitor vte ppx sq hep awaiting formal med rec, not completed in ED
[2018-10-01] MEDS: Aspirin 81 MG TAB.CHEW PO SCH (08:20)
[2018-10-01] MEDS: Gabapentin 300 MG CAPSULE PO SCH ×3 (08:20→20:03)
--- NOTE | 2018-10-01 09:46 | Nephrology Consult Note ---
Date of Encounter: 10/01/18 Time of Encounter: 09:00 Assessment and Plan (1) CKD (chronic kidney disease) stage 5, GFR less than 15 ml/min Current Visit: Yes Status: Acute Scr remains poor at 6.18, GFR 11 but no urgency for PLANT GUIDE today if hyperkalemia continues to resolve however will need this hospital stay if agreeable [facility] and pt would not actually give me his consent saying he would think about it Renal diet when able Will keep NPO in hope pt will consent to permacath in am Case discussed with hospitalist and nurse who were both present during discussions with pt. Critical care time spent approx. 45mins (2) Hyperkalemia Current Visit: Yes Status: Acute Improved s/p kayexalate with 2 BMs already. Renal diet advised Can stop bicarb gtt since IV access lost Will dose with lasix iv 80mg now (3) Hypertensive urgency Current Visit: Yes Status: Acute Likely volume mediated. Pt has had long history of uncontrolled HTN. Continue nicardipine gtt for now with goal to keep BP readings around 150-160s systolic (4) Hypoglycemia Current Visit: Yes Status: Acute Per primary team (5) Hyperparathyroidism due to renal insufficiency Current Visit: Yes Status: Acute PTh elevated due to low vitamin Dl evels and CKD, will start zemplar on outpatient if HD started (6) Vitamin D deficiency Current Visit: Yes Status: Acute Improved on ergocalciferol, will continue History of Present Illness - Reason for Consult Consult date: 10/01/18 Chronic Kidney Disease, hyperkalemia, accelerated hypertension Requesting physician: Johnnie Pierre - History of Present Illness 67 y o AAmale known to me from [facility] management [id number] but was lost to follow till this year when he returned with peogressive stage 4 CKD as well as uncontrolled HTN and DM now admitted with decreased appetite and hypoglycemia and s/p fall a few days ago. Pt was last seen at the office this fall and at that time his CKD had fully progressed to stage 5 and we had a lengthy discussion about needing PLANT GUIDE but he was not ready to proceed with renal diet advised. He presented this time with potassium of 7.1 from previous of 5.6 and SCr at 6.24 GFR 11 from 6.66, GFR 11 from 09/19/18 and 6.18, GFR 11 07/2018. Pt received dextrose in the ER with bicarb gtt also started. He also received kayexalate on the floor per my request with repeat potassium improving from 6.0 to 5.5 by this am. Past Med Surg Social Fam HX - Past Medical History Medical history: diabetes, hypertension, myocardial infarction, renal disease Psychiatric history: no psych history - Past Surgical History Surgical History: other Additional surgical history: Right AKA - Social History Smoking Status: Never smoker Smokeless Tobacco Status: No Alcohol use: none Drug use: none - Family History Mother Living Status: Hx Family Cardiac Disorders: Yes (heart failure) Hx Family Endocrine Disorder: Yes (DM) Father Living Status: Hx Family Cardiac Disorders: Yes (stroke) Hx Family Neuromuscular Disorders: Yes (CVA) Medications and Allergies Albuterol Sulfate [Albuterol Inhaler] 2 puff IH QID PRN 12/05/17 [History] Carvedilol [Coreg] 25 mg PO BID 12/05/17 [History] Cetirizine HCl [All Day Allergy] 10 mg PO DAILY 12/05/17 [History] Gabapentin [Neurontin] 300 mg PO TID 12/05/17 [History] NIFEdipine [Nifedipine ER] 90 mg PO DAILY 12/05/17 [History] Trazodone HCl 150 mg PO HS 12/05/17 [History] Aspirin 81 mg PO DAILY #30 tab.chew 12/08/17 [Rx] Atorvastatin [Lipitor] 20 mg PO HS #60 tablet 12/08/17 [Rx] Ferrous Sulfate 325 mg PO BIDWM #60 tablet 12/08/17 [Rx] cloNIDine HCl [CloNIDine HCl] 0.1 mg PO BID #60 tablet 12/08/17 [Rx] hydrALAZINE [HydrALAZINE] 25 mg PO Q8HR #90 tablet 12/08/17 [Rx] Alprostadil [Edex] 40 mcg IC AD PRN 10/01/18 [History] Insulin ASPART [Novolog Flexpen] 14 unit SQ TID 10/01/18 [History] Insulin Glargine [Lantus] 32 unit SQ BID 10/01/18 [History] Allergy/AdvReac Type Severity Reaction Status Date / Time No Known Allergies Allergy Verified 12/04/17 15:41 Review of Systems All Systems review (narrative): The rest of systems are negative Constitutional: anorexia (admits), fatigue (admits) Cardiovascular: chest pain (denies), leg edema (admits) Respiratory: dyspnea (admits) Exam - Vital Signs Vital signs: Initial Vital Signs Temp Pulse Resp BP Pulse Ox 92.0 F L 76 20 164/96 92 09/30/18 17:44 09/30/18 17:44 09/30/18 17:44 09/30/18 17:44 09/30/18 17:44 Vital Signs - Last 8 Hours Temp Pulse Resp BP Pulse Ox 10/01/18 09:00 53 16 152/77 96 10/01/18 08:00 98.4 F 62 16 137/64 96 10/01/18 07:03 98.4 F 10/01/18 07:00 54 16 149/74 96 10/01/18 06:16 54 143/67 10/01/18 06:05 16 147/76 96 10/01/18 06:00 63 147/76 10/01/18 05:45 57 145/68 10/01/18 05:30 56 152/72 10/01/18 05:15 57 177/80 10/01/18 05:00 60 14 186/77 96 10/01/18 04:45 57 189/77 10/01/18 04:30 57 15 192/79 96 10/01/18 04:15 61 10 189/83 96 10/01/18 04:07 98.0 F 10/01/18 04:00 62 8 181/82 96 10/01/18 03:45 57 16 168/76 96 10/01/18 03:30 57 16 170/79 96 10/01/18 03:15 59 19 168/72 95 10/01/18 03:00 61 14 157/74 96 10/01/18 02:45 61 18 163/72 97 10/01/18 02:30 64 18 172/73 97 10/01/18 02:15 71 14 202/80 97 10/01/18 02:08 16 196/78 97 10/01/18 02:00 70 14 196/78 96 10/01/18 01:45 73 16 187/84 97 Intake and Output 09/30/18 10/01/18 10/01/18 23:59 07:59 15:59 Intake Total 1130 / 1130 760 / 760 240 / 240 Output Total 350 / 350 Balance 1130 / 1130 410 / 410 240 / 240 Intake: IV Fluids 1130 / 1130 400 / 400 0.9 % Sodium Chloride 1,000 ML 1000 / 1000 @ 999 mls/hr IVC .Q1H1M [facility] Rx# :[id number] Nitroglycerin Premix 25 MG/250 0 / 0 ML 25 mg In 250 ml @ 5 MCG/MIN 3 mls/hr IVC .Q24H [facility] Rx#: [id number] Cardene Premix 40mg/200ml 40 mg 400 / 400 In 200 ml @ 5 MG/HR 25 mls/hr IVC .Q8H [facility] Rx#:[id number] Rocephin 1,000 MG In Water for 10 / 10 inj. (sterile) 10 ML @ 600 mls/ hr IVP ONCE [facility] Rx#:[id number] Calcium Gluconate 2,000 MG In 0 120 / 120 .9 % Sodium Chloride 100 ML @ 220 mls/hr IVPB ONCE ONE Rx#: [id number] Oral 360 / 360 240 / 240 Output: Urine 350 / 350 Other: Meal Breakfast Breakfast Percent of Meal Consumed 60% 90% Weight 134.5 kg Blood Glucose* 172 143 - General Appearance General appearance: moderate distress, chronically ill EENT: ATNC, mucous membranes moist Neck: no JVD, supple Additional Comments: Decreased BS bases bilat Cardiology: edema (LE and UE bilat), normal S1, normal S2 Gastrointestinal: no tenderness, no guarding, obese Integumentary: warm and dry, hyperpigmentation, chronic venous stasis Neurologic: no focal deficit Musculoskeletal: no deformities Psychiatric: mood/affect appropriate, cooperative Results - Lab Results 10/01/18 15:59 10/01/18 21:25 Most recent lab results ABG pH 7.38 pH Units (7.32-7.45) 10/01/18 04:52 ABG pCO2 43 mmHg (35-45) 10/01/18 04:52 ABG pO2 58 mmHg (85-104) L 10/01/18 04:52 ABG HCO3 25 mEq/L (21-27) 10/01/18 04:52 ABG O2 Saturation 89 % (95-98) L 10/01/18 04:52 Calcium 7.5 mg/dL (8.6-10.3) L 10/01/18 03:59 Phosphorus 6.2 mg/dL (2.7-4.5) H 10/01/18 03:59 Magnesium 2.1 mg/dL (1.6-2.6) 10/01/18 03:59 Consult Discharge Plan - Plan [facility]errals: [facility] [Primary Care Provider[facility] -
[2018-10-01] MEDS: Ipratropium/Albuterol Neb 3 ML IH SCH ×3 (10:27→22:34)
[2018-10-01] MEDS ORDERED: Furosemide 80 MG in 0.9 % Sodium Chloride 50 ML IVPB ONE (10:58)
[2018-10-01] MEDS ORDERED: Furosemide 40 MG TABLET PO ONE (11:55)
[2018-10-01 12:27] LABS: Calcium 7.2 mg/dL (8.6-10.3); Potassium 6.4 mEq/L (3.5-5.1)
[2018-10-01] MEDS ORDERED: hydrALAZINE 25 MG TABLET PO ONE (15:02)
--- NOTE | 2018-10-01 15:07 | Event Note ---
Date of Encounter: 10/01/18 Time of Encounter: 15:00 Pt lost IV access this mroning which Dr Block and myself have been aware of. Attempts by nursing after rounds, even had ED come to place powerglide and pt refused, didn't want any more attempts. As d/w RN pt may be agreeable later in evening. BP remains elevated and will give oral hydralazine, without iv access and gtts we will likely not be able to adequately control BP and he is aware of risk Nephro had rec Iv lasix, again, without access, PO given and monitoring outpt Repeat K back at 6.4 from 5.5 this morning- addl 45 g kayexalate, ekg now, RN is awaiting nephro call back, ca gluconate ordered for when access is established Pt may require urgent HD and will fu nephro recs, if ekg changes will certainly need to use temporizing measures though without IV access we are limited. update 1545- pt with episode unresponsiveness. Had had low o2 sats and been on bipap resting, then rn notified me could not arouse pt. BP off gtts has been 180-190/70-80s. HR normal, o2 sat 92% on bipap. He stirs to painful stimuli. IV peripheral access obtianed by nursing staff emergently. EKG NSR, read acute TN but not correct, TWI III and flat V6, no st elevation or depression, no peaked t waves, NSR HR 63. ABG obtained ph 7.32 pyp554.8 po259.3 87.5% on bipap. blood sugar 110s. Dr Block was urgently paged and updated. Rec for resume bicarb gtt. stat labs ordered hgb stable,K 5, creat 6.44, phos 6.2, trop 0.04 and lower than previous . Stat CT head given Bps ordered to r/o bleed. Once IV access was obtained cont cardene gtt, ok to hold nitro gtt as d/w nephro, 80 IV lasix, calcium gluconate as above. CT head remains pending, but given his return to baseline mental status and no focal neuro deficits, BP control continued, emergent intervention preformed. Lengthy discussions back and forth about IV access and best route between myself, RN team in ICU and Dr Block--in the end woke up and returned to baseline mental status, was then agreeable to HD and IR is coming in to place permanent HD cath, HD tonrosalio and Dr Block has okayed PICC line which will be placed by FACILITIES ENGINEER as set up by daytime ICU team. He may get CT head to complete work up after emergent cath placed/HD.
[2018-10-01 15:47] LABS: ABG Base Excess 2 mEq/L (-2 to 3); ABG HCO3 29 mEq/L (21-27); ABG Oxygen Saturation 88 % (95-98); ABG PCO2 56 mmHg (35-45); ABG PH 7.32 pH Units (7.32-7.45); ABG PO2 59 mmHg (85-104); ABG TCO2 31 mEq/L (20-26)
[2018-10-01] MEDS ORDERED: Furosemide 40 MG/4 ML VIAL IVP ONE (15:47)
[2018-10-01] MEDS ORDERED: Sodium Bicarbonate 150 MEQ in D5% in Water 1,000 ML IVC SCH (16:15)
[2018-10-01 16:17] LABS: Basophils % 0.3 %; Eosinophils # 0.1 K/mcL (0.0-0.6); Hemoglobin 10.3 g/dL (12.9-16.9); Immature Granulocytes % 0.5 % (0-4); Lymphocytes # 0.7 K/mcL (0.6-4.6); Lymphocytes % 12.2 %; Mean Corpuscular HGB Conc 29.4 g/dL (31.6-35.5); Mean Corpuscular Hemoglobin 27.8 pg (28.0-33.3); Mean Corpuscular Volume 94.6 fL (83.0-100.0); Mean Platelet Volume 10.4 fL (9.4-12.4); Monocytes # 0.4 K/mcL (0.0-1.3); Monocytes % 6.8 %; Neutrophils # 4.8 K/mcL (1.6-8.9); Platelet Count 156 K/mcL (140-400); Red Cell Distribution Width 14.1 % (11.5-14.5); Segmented Neutrophils % 79.2 %
[2018-10-01 16:24] LABS: INR 1.1; Prothrombin Time 12.6 Seconds (9.4-12.1)
[2018-10-01 16:41] LABS: Troponin I 0.04 ng/mL (< 0.04)
[2018-10-01] MEDS ORDERED: Heparin 1,000 UNITS/500 mL 500 ML ONE (17:51)
[2018-10-01] MEDS ORDERED: CeFAZolin Premix DUPLEX 2,000 MG/50 ML BAG IVPB ONE (18:14)
[2018-10-01] MEDS ORDERED: *HR* FentaNYL (PF) 100 MCG/2 ML VIAL IVP ONE (18:23)
[2018-10-01] MEDS ORDERED: *HR* FentaNYL (PF) 100 MCG/2 ML VIAL ONE (18:26)
[2018-10-01] MEDS ORDERED: 0.9 % Sodium Chloride 500 ML ONE (18:26)
[2018-10-01] MEDS ORDERED: *HR* Heparin 5,000 UNIT/ML VIAL ONE (18:57)
--- NOTE | 2018-10-01 19:03 | IR Procedure Note ---
Date of procedure: 10/01/18 Consent Obtained: Verbal consent, Written consent Timeout: Correct patient and procedure verified, Correct site verified, Time out performed, Skin prep completed Local anesthetic: Lidocaine 1% Indications: needs emergent dialysis and IV access Procedure Performed: right Ij permcath, right IJ central line Was there an geriatric nurse assistant present: No Site/Technique: right IJ Results/Findings: as above Estimated blood loss (cc): 0 Complications: None; Tolerated procedure well Post Procedure Treatment Plan: ok to use both lines Specimen: NA
[2018-10-01] MEDS ORDERED: 0.9 % Sodium Chloride 250 ML IVC PRN (19:26)
[2018-10-01] MEDS ORDERED: *HR* Heparin 10,000 UNIT/10 ML VIAL IV PRN (19:26)
[2018-10-01] MEDS ORDERED: 0.9 % Sodium Chloride 1,000 ML PRIME SCH (19:30)
[2018-10-01] MEDS ORDERED: 0.9 % Sodium Chloride 1,000 ML ONE (19:32)
[2018-10-01 20:07] LABS: Hepatitis B Surface Antibody 0.48 mIU/mL; Hepatitis B Surface Antigen Nonreactive (Nonreactive)
[2018-10-02] MEDS: niCARdipine 40 MG/200 ML MLS IVC SCH ×5 (00:23→23:37)
--- NOTE | 2018-10-02 01:35 | Event Note ---
Date of Encounter: 10/01/18 Time of Encounter: 16:30 Called by nurse and hospitalist about unresponsive episode which has resolved and potassium of 6.4 despite BMs with kayexalate. No IV access noted and iv lasix not given till then. Had nurse talk to pt about urgent need for HD now and pt agrees to proceed afterall. IR called to place permcath urgently. Dialysis nurse industrial refrigeration mechanic also activated for urgent HD with 2hrs with UF 2-3kg done.
[2018-10-02] MEDS: Ipratropium/Albuterol Neb 3 ML IH SCH ×4 (03:45→21:48)
[2018-10-02 04:12] LABS: Basophils % 0.5 %; Eosinophils # 0.1 K/mcL (0.0-0.6); Eosinophils % 1.7 %; Hemoglobin 9.7 g/dL (12.9-16.9); Immature Granulocytes % 0.2 % (0-4); Lymphocytes # 0.8 K/mcL (0.6-4.6); Lymphocytes % 13.6 %; Mean Corpuscular HGB Conc 29.4 g/dL (31.6-35.5); Mean Corpuscular Hemoglobin 27.6 pg (28.0-33.3); Mean Corpuscular Volume 93.8 fL (83.0-100.0); Mean Platelet Volume 10.5 fL (9.4-12.4); Monocytes # 0.4 K/mcL (0.0-1.3); Monocytes % 7.3 %; Neutrophils # 4.4 K/mcL (1.6-8.9); Platelet Count 149 K/mcL (140-400); Red Blood Count 3.52 M/mcL (4.19-5.50); Red Cell Distribution Width 13.9 % (11.5-14.5); Segmented Neutrophils % 76.7 %
[2018-10-02 04:19] LABS: Albumin 2.8 g/dL (3.5-5.7); Albumin/Globulin Ratio 1.1 (1.1-2.2); Bilirubin,Total 0.3 mg/dL (0.3-1.0); Calcium 6.9 mg/dL (8.6-10.3); Globulin 2.5 g/dL (2.4-3.5); Magnesium 1.8 mg/dL (1.6-2.6); Potassium 4.2 mEq/L (3.5-5.1); Total Protein 5.3 g/dL (6.4-8.9)
[2018-10-02] MEDS: Insulin LISPRO 300 UNITS/3 ML VIAL SQ SCH ×4 (04:37→23:54)
[2018-10-02] MEDS: hydrALAZINE 25 MG TABLET PO SCH ×3 (04:47→23:26)
[2018-10-02] MEDS: *HR* Heparin 5,000 UNIT/ML VIAL SQ SCH ×3 (04:47→23:26)
[2018-10-02] MEDS: Gabapentin 300 MG CAPSULE PO SCH ×3 (07:31→19:34)
[2018-10-02] MEDS: Aspirin 81 MG TAB.CHEW PO SCH (07:31)
[2018-10-02] MEDS ORDERED: 0.9 % Sodium Chloride 250 ML IVC PRN (08:14)
[2018-10-02] MEDS ORDERED: *HR* Heparin 10,000 UNIT/10 ML VIAL IV PRN (08:14)
[2018-10-02] MEDS ORDERED: 0.9 % Sodium Chloride 1,000 ML PRIME SCH (08:15)
[2018-10-02] MEDS: cloNIDine HCl 0.1 MG TABLET PO SCH ×2 (11:44→19:34)
--- NOTE | 2018-10-02 13:37 | Nephrology Progress Note ---
Addendum entered and electronically signed by Petr Abraham MD 10/02/18 22:45: I examined this patient and my medical decision-making was reviewed with the Resident Physician. I agree with the documented findings, disposition and treatment plan as described except to the extent set forth below. Patient seen on dialysis. Original Note: Date of Encounter: 10/02/18 Time of Encounter: 09:00 - Assessment and Plan (1) CKD (chronic kidney disease) stage 5, GFR less than 15 ml/min Current Visit: Yes Status: Acute - Long-standing history of CKD stage V - As had discussions as an outpatient for future needs of dialysis fistula placement, which he has been resistant to - Underwent first session of dialysis yesterday with urgent catheter placement by IR - Presented with creatinine in the 6s, and hyperkalemia - Fluid overloaded on exam which is likely partly attributable to renal dysfunction in addition to known mild HFpEF - Multiple episodes of unresponsiveness which may be related to both uremia as well as hypoglycemia Plan - We will continue dialysis with session this morning - Additional dialysis as needed, will continue to follow - Renal diet, consider renal vitamins - Avoid nephrotoxins as able, renally dose medications (2) Hyperkalemia Current Visit: Yes Status: Resolved Resolved Most recent reading of 4.2 Most likely secondary to kidney disease as above We will continue monitor and dialyze as above (3) Hypertensive urgency Current Visit: Yes Status: Acute Urgency has resolved however he does remain hypertensive Blood pressure running in the 160s/80s Patient does report chronic hypertension since his 20s which has been poorly controlled Currently on nicardipine gtt, agree with continuation Likely related to volume. (4) Hypoglycemia Current Visit: Yes Status: Acute per primary team (5) Hyperparathyroidism due to renal insufficiency Current Visit: Yes Status: Chronic PTh elevated due to low vitamin D levels and CKD, will start zemplar on outpatient if HD started (6) Vitamin D deficiency Current Visit: Yes Status: Chronic Improved on ergocalciferol, will continue Subjective Principal diagnosis: CKD V, hypertension Interval history: Patient was seen and examined up at since morning. He states overall he is feeling well with no complaints this time. He did undergo his first session of dialysis yesterday without any complaints. He denies any symptoms of fevers, chills, shortness of breath, orthopnea, lower extremity swelling. Patient states that he presented to the hospital initially due to hypoglycemia as he has not been cooking/eating but continuing to take his insulin. He states he has had multiple conversations with his tenoner operator regarding future plans for need for dialysis. Objective - Vital Signs Vital signs: Vital Signs Temp Pulse Resp BP Pulse Ox 10/02/18 13:15 179/74 10/02/18 13:00 60 20 179/74 93 10/02/18 12:45 177/66 10/02/18 12:30 181/81 10/02/18 12:15 176/78 10/02/18 12:00 60 20 177/66 91 10/02/18 11:45 183/77 10/02/18 11:30 168/80 10/02/18 11:15 187/76 10/02/18 11:00 98.8 F 60 20 181/95 91 10/02/18 10:45 174/77 10/02/18 10:30 166/76 10/02/18 10:15 98.8 F 16 162/76 10/02/18 10:01 16 168/74 88 10/02/18 10:00 64 16 162/76 92 10/02/18 09:00 62 20 168/74 93 10/02/18 08:00 62 20 173/76 93 10/02/18 07:40 62 10/02/18 07:36 99.0 F 10/02/18 07:00 99.0 F 62 20 173/76 97 10/02/18 06:00 70 22 163/76 91 10/02/18 05:00 75 16 154/76 91 10/02/18 04:00 70 24 150/68 92 10/02/18 03:47 98.4 F 10/02/18 03:45 18 90 10/02/18 03:00 68 20 163/77 91 10/02/18 02:00 67 20 164/67 94 10/02/18 01:45 23 171/64 94 10/02/18 01:00 85 26 171/71 94 10/02/18 00:00 98.4 F 77 21 159/69 91 10/01/18 23:00 74 18 159/73 92 10/01/18 22:35 18 91 10/01/18 22:30 98.6 F 17 156/64 10/01/18 22:20 150/65 10/01/18 22:05 148/65 10/01/18 22:00 70 18 167/61 90 10/01/18 21:50 159/92 10/01/18 21:35 161/63 10/01/18 21:20 173/78 10/01/18 21:05 167/61 10/01/18 21:00 67 24 161/70 88 10/01/18 20:50 173/71 10/01/18 20:35 186/86 10/01/18 20:32 98.0 F 10/01/18 20:20 98.0 F 27 166/73 10/01/18 20:00 77 18 172/75 91 10/01/18 19:30 83 26 173/77 90 10/01/18 17:00 60 21 92 10/01/18 16:00 98.3 F 65 24 177/74 92 10/01/18 15:40 18 92 10/01/18 15:00 60 18 193/87 95 10/01/18 14:00 61 18 198/80 95 Intake and Output 10/01/18 10/02/18 10/02/18 23:59 07:59 15:59 Intake Total 908 / 908 362 / 362 1040 / 1040 Output Total 4150 / 4150 500 / 500 80 / 80 Balance -3242 / -3242 -138 / -138 960 / 960 Intake: IV Fluids 308 / 308 362 / 362 200 / 200 Cardene Premix 40mg/200ml 40 mg 198 / 198 362 / 362 200 / 200 In 200 ml @ 5 MG/HR 25 mls/hr IVC .Q8H [facility] Rx#:[id number] Calcium Gluconate 1,000 MG In 0 110 / 110 .9 % Sodium Chloride 100 ML @ 220 mls/hr IVPB ONCE ONE Rx#: [id number] Oral 0 / 0 240 / 240 Intake, Rinseback and Flushes 600 / 600 600 / 600 Output: Urine 0 / 0 Total Dialysis (HD) Output 3600 / 3600 Catheter 550 / 550 500 / 500 80 / 80 Other: Meal Breakfast Percent of Meal Consumed 100% Stool Size Copious Stool Consistency soft Stool Color Brown # Bowel Movement Diapers 1 Weight 124.8 kg Blood Glucose* 119 132 Hemodialysis Net Fluid Removed 3000 4600 (mL) Patient Weight 10/02/18 23:59 Weight 124.8 kg - General Appearance Exam: Gen.: Vitals noted. No acute distress. AAOx3 HEENT: PERRL/EOMI, oropharynx clear, Normocephalic, atraumatic, MMM Cardiac: RRR, no murmur, +S1/S2 Pulmonary: CTA bilaterally, no wheezes, rales or rhonchi, equal chest expansion Abdomen: soft, nontender, BS noted, no guarding, no rebound. Distended, tympanic MSK: ROM not assessed, no joint swelling noted Extremities: 2+ BLE edema extending to mid thigh, nontender calf, no cyanosis or clubbing. Appears to be chronic venous stasis changes to pretibial regions bilaterally. Neuro: A&Ox3, moves all extremities, no focal deficits Psych: Appropriate mood and behavior - Lab 10/02/18 03:35 10/02/18 03:35 Most recent lab results ABG pH 7.32 pH Units (7.32-7.45) 10/01/18 15:36 ABG pCO2 56 mmHg (35-45) H 10/01/18 15:36 ABG pO2 59 mmHg (85-104) L 10/01/18 15:36 ABG HCO3 29 mEq/L (21-27) H 10/01/18 15:36 ABG O2 Saturation 88 % (95-98) L 10/01/18 15:36 Calcium 6.9 mg/dL (8.6-10.3) L 10/02/18 03:35 Phosphorus 6.2 mg/dL (2.7-4.5) H 10/01/18 03:59 Magnesium 1.8 mg/dL (1.6-2.6) 10/02/18 03:35 Consult Discharge Plan - Plan [facility]errals: [facility] [Primary Care Provider] -
--- NOTE | 2018-10-02 14:58 | Internal Med Progress Note ---
<Cassandra Pablo - Last Filed: 10/02/18 15:03> Hospitalist Progress Note - Encounter Date of Encounter: 10/02/18 - Exam Vitals: Temp Pulse Resp BP Pulse Ox 98.7 F 72 18 183/86 92 10/02/18 13:25 10/02/18 14:00 10/02/18 14:00 10/02/18 14:00 10/02/18 14:00 - Time Spent with Patient Total time spent is greater than 50% in coordination of care (as documented) at patient's floor/unit and/or counseling patient: Internal Medicine: Result - Labs CBC & Chem 7: 10/02/18 03:35 10/02/18 03:35 Labs: Short CBC 10/01/18 10/02/18 Range/Units 15:59 03:35 WBC 6.1 5.7 (4.3-11.1) K/mcL Hgb 10.3 L 9.7 L (12.9-16.9) g/dL Hct 35.0 L 33.0 L (37.5-50.1) % Plt Count 156 149 (140-400) K/mcL Neutrophils # 4.8 4.4 (1.6-8.9) K/mcL BMP 10/01/18 10/01/18 10/01/18 15:59 17:41 21:25 Sodium 138 Potassium 5.0 5.2 H 4.6 Chloride 107 Carbon Dioxide 23 BUN 55 H Creatinine 6.44 H Glucose 128 H Calcium 7.0 L 10/02/18 03:35 Sodium 140 Potassium 4.2 Chloride 106 Carbon Dioxide 28 BUN 44 H Creatinine 5.50 H Glucose 100 Calcium 6.9 L Cardiac Enzymes 10/01/18 Range/Units 15:59 Troponin I 0.04 H* (< 0.04) ng/mL Liver Function 10/02/18 Range/Units 03:35 Total Bilirubin 0.3 (0.3-1.0) mg/dL AST 12 L (13-39) Units/L ALT 10 (7-52) Units/L Alkaline Phosphatase 66 (34-104) Units/L Albumin 2.8 L (3.5-5.7) g/dL - ABG Interpretation ABG results: ABG ABG pH 7.32 pH Units (7.32-7.45) 12/02/18 15:36 ABG pCO2 56 mmHg (35-45) H 10/01/18 15:36 ABG pO2 59 mmHg (85-104) L 10/01/18 15:36 ABG O2 Saturation 88 % (95-98) L 10/01/18 15:36 PT/INR, D-dimer PT 12.6 Seconds (9.4-12.1) H 10/01/18 15:59 - Impressions Impressions Echocardiogram 10/01/18 00:23 Impressions: LVEF 55-60%. Moderate concentric left ventricular hypertrophy. Mild left ventricular diastolic dysfunction. Normal right ventricular structure and function. Moderately dilated left atrium. Trace mitral regurgitation. Unable to estimate RVSP due to lack of TR jet. Left Ventricular Wall Motion: Rest Echo Findings All wall segments showed normal motion. Findings: Study Quality * Technically sub-optimal due to poor echocardiographic windows. ECG Findings * Normal sinus rhythm. Left Ventricle * LVEF 55-60%. * Moderate concentric left ventricular hypertrophy. * Mild left ventricular diastolic dysfunction. Right Ventricle * Normal right ventricular structure and function. Left Atrium * Moderately dilated left atrium. Right Atrium * Normal right atrial size. Interatrial Septum * No evidence of PFO by color Doppler. Aortic Valve * Trileaflet aortic valve. * No aortic regurgitation. * No aortic stenosis. * Normal aortic valve structure. Mitral Valve * Normal mitral valve structure. * No mitral stenosis. * Trace mitral regurgitation. Tricuspid Valve * Normal tricuspid valve structure. * No tricuspid regurgitation. * No tricuspid stenosis. * Unable to estimate RVSP due to lack of TR jet. Pulmonic Valve * Pulmonic valve is not well visualized. Aorta * Normally sized aortic root. Pericardium * The pericardium appears normal. IVC * The IVC is not well evaluated. Pulmonary Artery * Pulmonary artery not well visualized. Head CT 10/01/18 15:45 IMPRESSION: 1. No acute intracranial abnormality. 2. Diffuse cerebral atrophy with chronic small vessel ischemic disease. D/ / Flavio Webster MD / Flavio Webster MD Interpreting Provider: Flavio Webster MD Consult Discharge Plan - Plan [facility]errals: [facility] [Primary Care Provider] - - Attending Attestation I examined this patient and my medical decision-making was reviewed with the Resident Physician Dr Arrington. I agree with the documented findings, disposition and treatment plan as described except to the extent set forth below. Mr Cochran has pmhx diabetes, hypertension, CKD stage IV, rhabdomyolysis and presented to ED w anorexia and hypoglycemia related to cont insulin use without eating. He has ESRD and had been refusing initaation of hd outpt, found to have hyperkalemia, co2 retention, bp 220/120 and hypoglycemia. Started on HD 12/2 awake, on o2 nc in bed. feeling "much better" than he has "in a long time" after HD last night. remains very fluid overloaded but sob improved from yesterday. no cough, chills, fever. good appetite which is new. no cp, bolton or vision changes with bp elevations. remains on cardene gtt. gen- alert, awake,appears stated age, obese cv- reg rate and rhythm, normal s1,s2, no murmurs appreciated though hard to auscultate given body habitus, pitting edema + 3 to sacrum lungs- ctabl, diminished posteriorly, no rhonchi or wheezing neuro- AAOx3 Acute on chronic hypoxic and hypercapnic resp failure 2/2 pulm edema 2/2 ESRD and fluid overload,less likely copd exacerbation/pna, no c/w PE -new HD, diuretics as per nephro, supplemental o2 nc, off bipap CKD Stage 5 and at baseline as d/w Dr Block his outpt nephro Hyperkalemia-resolved with HD -new HD as per nephro , dc bicarb gtt DM Type II with insulin use Hypoglycemia 2/2 continued home insulin and was not eating-hold home insulin, cont SSI/accu checks, prn hypoglycemics, improved appetite HTN urgency, improving - on cardene gtt, PO meds, off nitro gtt,will wean as able goal bp 150-160 sbp -HD Chronic anemia, most likely 2/2 chronic disease- hgb bl appears to be 10-12, currently 10.3- no signs active bleeding, cont to monitor further diagnoses and plan as documented by resident <Patricio Arrington - Last Filed: 10/02/18 17:24> Hospitalist Progress Note - Encounter Date of Encounter: 10/02/18 Time of Encounter: 10:00 - Subjective Interval History: Patient was admitted for hypertensive emergency, hyperkalemia, acute respiratory failure, acute kidney failure. He was seen by nephrology and treated with urgent hemodialysis. As of this morning his blood pressure, potassium, respiratory status were all stable. He denied any acute complaints. - Exam Vitals: Temp Pulse Resp BP Pulse Ox 98.7 F 72 18 183/86 92 10/02/18 13:25 10/02/18 14:00 10/02/18 14:00 10/02/18 14:00 10/02/18 14:00 Exam: Gen: Vitals noted. No acute distress Eyes: anicteric sclerae, moist conjunctivae; no lid-lag; Pupils equal and reactive to light HENT: Atraumatic; oropharynx clear with moist mucous membranes and no mucosal ulcerations; normal hard and soft palate Neck: Trachea midline; supple, no thyromegaly or lymphadenopathy Cardiac: RRR, no murmur, +S1/S2 Pulmonary: Lungs Clear to auscultation bilaterally, no wheeze or rales or rhonchi Abdomen: soft, nontender, no guarding. No masses or hepatosplenomegaly MSK: ROM intact, no joint swelling noted Extremities: s/p RLE AKA. no LLE edema, nontender calf, no cyanosis or clubbing. Chronic venous stasis skin changes in LLE Skin: Normal temperature, turgor and texture; no rash, ulcers or subcutaneous nodules Neuro: moves all extremities, no focal deficits. Psych: Appropriate mood and behavior. A&Ox3 - Assessment and Plan (1) Respiratory failure with hypoxia and hypercapnia Current Visit: Yes Status: Acute Assessment and Plan: Suspected acute on chronic respiratory failure, no known hx of COPD. Occasional smoker Etiology is unclear, however patient did seem to have decreased respiratory drive due to encephalopathy The patient may also have underlying COPD and CHF based on chest x-ray His chest x-ray did show significant pleural effusions bilaterally with pulmonary edema and increased pulmonary vasculature as well ABG initially showed respiratory acidosis: 7.16/83/81/29/91 on BiPAP with FiO2 100% Previous cardiac studies have not demonstrated any evidence of left ventricular dysfunction although he has had LVH without LVOTO Respiratory distress likely secondary to pulmonary edema tertiary to renal failure/fluid overload Respiratory status significantly clinically improved after BIPAP, Hemodialysis, Lasix Currently without shortness of breath and ventilating/saturating appropriately on nasal cannula Plan Continue supplemental O2 (2) Acute kidney injury superimposed on chronic kidney disease Current Visit: Yes Status: Acute Assessment and Plan: JOHN on CKD4, Baseline GFR 15-20 The patient's creatinine at admission 6.31 Complicated by hyperkalemia without evidence of EKG changes and by pulmonary edema Etiology is unclear at this time, does not appear to be hypovolemic. Previously caused by Rhabdomyolosis. CK elevated 400s at admission, now 200s Bicar drip started by nephrology Patient started on urgent hemodialysis Plan Renal diet Bicarb drip stopped Avoid nephrotoxins and renally dose meds Continue hemodialysis and diuresis as per nephrology (3) Elevated CK Current Visit: Yes Status: Acute Assessment and Plan: As seen above (4) Hyperkalemia Current Visit: Yes Status: Resolved Assessment and Plan: Hyperkalemia resolved with dialysis, will continue to monitor (5) Hypertensive urgency Current Visit: Yes Status: Acute Assessment and Plan: Hypertensive urgency, BP 220/120 at admission This may play a role in the patient's current JOHN The patient states that he is compliant with medications Nicardipine and Nitro drip started at admission Plan Most recent BP 154/61 Continue Nicardipine drip, Nitro drip stopped Continue to monitor (6) DVT prophylaxis Current Visit: Yes Status: Acute Assessment and Plan: subq heparin (7) Diabetes mellitus type 2 in obese Current Visit: Yes Status: Chronic Assessment and Plan: DM2, poorly controlled, glucose stable today Continue q6h Accuchecks, Diabetic diet with q6h SSI (8) Pulmonary edema Current Visit: Yes Status: Resolved Assessment and Plan: Likely secondary to renal failure fluid overload, resolved (9) Acute encephalopathy Current Visit: Yes Status: Resolved Assessment and Plan: Likely secondary to renal failure metabolic encephalopathy and hypoglycemia, resolved - Time Spent with Patient Total time spent is greater than 50% in coordination of care (as documented) at patient's floor/unit and/or counseling patient: Internal Medicine: Result - Labs CBC & Chem 7: 10/02/18 03:35 10/02/18 03:35 Labs: Short CBC 10/01/18 10/02/18 Range/Units 15:59 03:35 WBC 6.1 5.7 (4.3-11.1) K/mcL Hgb 10.3 L 9.7 L (12.9-16.9) g/dL Hct 35.0 L 33.0 L (37.5-50.1) % Plt Count 156 149 (140-400) K/mcL Neutrophils # 4.8 4.4 (1.6-8.9) K/mcL BMP 10/01/18 10/01/18 10/01/18 15:59 17:41 21:25 Sodium 138 Potassium 5.0 5.2 H 4.6 Chloride 107 Carbon Dioxide 23 BUN 55 H Creatinine 6.44 H Glucose 128 H Calcium 7.0 L 10/02/18 03:35 Sodium 140 Potassium 4.2 Chloride 106 Carbon Dioxide 28 BUN 44 H Creatinine 5.50 H Glucose 100 Calcium 6.9 L Cardiac Enzymes 10/01/18 Range/Units 15:59 Troponin I 0.04 H* (< 0.04) ng/mL Liver Function 10/02/18 Range/Units 03:35 Total Bilirubin 0.3 (0.3-1.0) mg/dL AST 12 L (13-39) Units/L ALT 10 (7-52) Units/L Alkaline Phosphatase 66 (34-104) Units/L Albumin 2.8 L (3.5-5.7) g/dL - ABG Interpretation ABG results: ABG ABG pH 7.32 pH Units (7.32-7.45) 10/01/18 15:36 ABG pCO2 56 mmHg (35-45) H 10/01/18 15:36 ABG pO2 59 mmHg (85-104) L 10/01/18 15:36 ABG O2 Saturation 88 % (95-98) L 10/01/18 15:36 PT/INR, D-dimer PT 12.6 Seconds (9.4-12.1) H 10/01/18 15:59 - Impressions Impressions Echocardiogram 10/01/18 00:23 Impressions: LVEF 55-60%. Moderate concentric left ventricular hypertrophy. Mild left ventricular diastolic dysfunction. Normal right ventricular structure and function. Moderately dilated left atrium. Trace mitral regurgitation. Unable to estimate RVSP due to lack of TR jet. Left Ventricular Wall Motion: Rest Echo Findings All wall segments showed normal motion. Findings: Study Quality * Technically sub-optimal due to poor echocardiographic windows. ECG Findings * Normal sinus rhythm. Left Ventricle * LVEF 55-60%. * Moderate concentric left ventricular hypertrophy. * Mild left ventricular diastolic dysfunction. Right Ventricle * Normal right ventricular structure and function. Left Atrium * Moderately dilated left atrium. Right Atrium * Normal right atrial size. Interatrial Septum * No evidence of PFO by color Doppler. Aortic Valve * Trileaflet aortic valve. * No aortic regurgitation. * No aortic stenosis. * Normal aortic valve structure. Mitral Valve * Normal mitral valve structure. * No mitral stenosis. * Trace mitral regurgitation. Tricuspid Valve * Normal tricuspid valve structure. * No tricuspid regurgitation. * No tricuspid stenosis. * Unable to estimate RVSP due to lack of TR jet. Pulmonic Valve * Pulmonic valve is not well visualized. Aorta * Normally sized aortic root. Pericardium * The pericardium appears normal. IVC * The IVC is not well evaluated. Pulmonary Artery * Pulmonary artery not well visualized. Head CT 10/01/18 15:45 IMPRESSION: 1. No acute intracranial abnormality. 2. Diffuse cerebral atrophy with chronic small vessel ischemic disease. D/ / Flavio Webster MD / Flavio Webster MD Interpreting Provider: Flavio Webster MD <Patricio Arrington - Last Filed: 10/02/18 17:24> (1) Respiratory failure with hypoxia and hypercapnia Qualifiers: Chronicity: acute on chronic Qualified Code(s): J96.21 - Acute and chronic respiratory failure with hypoxia; J96.22 - Acute and chronic respiratory failure with hypercapnia (8) Pulmonary edema Qualifiers: Chronicity: acute Qualified Code(s): J81.0 - Acute pulmonary edema
--- NOTE | 2018-10-02 16:33 | Electrocardiograph Report ---
[address] [address] Test Date: 2018-09-30 Pat Name: Johnnie Cochran Department: [id number] Room: [facility] Gender: M Clinical Appeals Reviewer: : 1950 Requested By: Johnnie Parisi Order Number: [id number] Reading MD: Elizabeth Ramirez Measurements Intervals [place] Rate: 76 P: 59 MS: 220 QRS: 47 QRSD: 98 T: -5 QT: 441 QTc: 480 Interpretive Statements Technically poor tracing - please repeat ECG Sinus rhythm with first degree AV block Atrial premature complexes Prolonged MS interval Poor R wave progression Electronically Signed On 10-02-2018 16:32:01 EST by Elizabeth Ramirez
--- NOTE | 2018-10-02 16:54 | Electrocardiograph Report ---
[address] [place], [place] [address] Test Date: 2018-10-01 Pat Name: Johnnie Cochran Department: 112 Room: [facility] Gender: M Sustainability Engineer: : 1950 Requested By: Cassandra Pablo Order Number: [id number] Reading MD: Kareen Rawls Measurements Intervals [place] Rate: 63 P: 47 NH: 216 QRS: 9 QRSD: 93 T: -51 QT: 455 QTc: 462 Interpretive Statements SINUS RHYTHM WITH FIRST DEGREE AV BLOCK ANTERIOR VT, OLD Electronically Signed On 10-02-2018 16:52:32 EST by Kareen Rawls
[2018-10-03] MEDS: Ipratropium/Albuterol Neb 3 ML IH SCH ×4 (03:36→22:45)
[2018-10-03 04:33] LABS: Basophils % 0.4 %; Eosinophils # 0.1 K/mcL (0.0-0.6); Eosinophils % 2.1 %; Hematocrit 31.2 % (37.5-50.1); Hemoglobin 9.4 g/dL (12.9-16.9); Immature Granulocytes % 0.2 % (0-4); Lymphocytes % 20.2 %; Mean Corpuscular HGB Conc 30.1 g/dL (31.6-35.5); Mean Corpuscular Hemoglobin 27.6 pg (28.0-33.3); Mean Corpuscular Volume 91.8 fL (83.0-100.0); Mean Platelet Volume 10.7 fL (9.4-12.4); Monocytes # 0.5 K/mcL (0.0-1.3); Monocytes % 9.5 %; Neutrophils # 3.3 K/mcL (1.6-8.9); Platelet Count 145 K/mcL (140-400); Red Cell Distribution Width 13.7 % (11.5-14.5); Segmented Neutrophils % 67.6 %
[2018-10-03 04:52] LABS: Albumin 2.8 g/dL (3.5-5.7); Albumin/Globulin Ratio 1.1 (1.1-2.2); Bilirubin,Total 0.4 mg/dL (0.3-1.0); Calcium 7.1 mg/dL (8.6-10.3); Globulin 2.5 g/dL (2.4-3.5); Potassium 4.3 mEq/L (3.5-5.1); Total Protein 5.3 g/dL (6.4-8.9)
[2018-10-03] MEDS: Insulin LISPRO 300 UNITS/3 ML VIAL SQ SCH ×4 (06:04→21:28)
[2018-10-03] MEDS: *HR* Heparin 5,000 UNIT/ML VIAL SQ SCH ×3 (06:08→21:27)
[2018-10-03] MEDS: hydrALAZINE 25 MG TABLET PO SCH ×3 (06:09→21:27)
[2018-10-03] MEDS: Aspirin 81 MG TAB.CHEW PO SCH (08:01)
[2018-10-03] MEDS: cloNIDine HCl 0.1 MG TABLET PO SCH ×2 (08:01→21:27)
[2018-10-03] MEDS ORDERED: 0.9 % Sodium Chloride 250 ML IVC PRN ×3 (08:12→11:15)
--- NOTE | 2018-10-03 08:26 | Internal Med Progress Note ---
<MurphyDulcePatricio Samantha - Last Filed: 10/03/18 16:07> Hospitalist Progress Note - Encounter Date of Encounter: 10/03/18 Time of Encounter: 08:25 - Subjective Interval History: Patient was admitted for hypertensive emergency, hyperkalemia, acute respiratory failure, acute kidney failure. He was seen by nephrology and treated with urgent hemodialysis. As of this morning his blood pressure, potassium, respiratory status were all stable. He denied any acute complaints. He will be transferred to telemetry in stable condition. - Exam Vitals: Temp Pulse Resp BP Pulse Ox 98.4 F 75 16 190/85 94 10/03/18 07:00 10/03/18 08:00 10/03/18 08:00 10/03/18 08:00 10/03/18 08:00 Exam: Gen: Vitals noted. No acute distress Eyes: anicteric sclerae, moist conjunctivae; no lid-lag; Pupils equal and reactive to light HENT: Atraumatic; oropharynx clear with moist mucous membranes and no mucosal ulcerations; normal hard and soft palate Neck: Trachea midline; supple, no thyromegaly or lymphadenopathy Cardiac: RRR, no murmur, +S1/S2 Pulmonary: Lungs Clear to auscultation bilaterally, no wheeze or rales or rhonchi Abdomen: soft, nontender, no guarding. No masses or hepatosplenomegaly MSK: ROM intact, no joint swelling noted Extremities: s/p RLE AKA. no LLE edema, nontender calf, no cyanosis or clubbing. Chronic diabetic/venous stasis skin changes in LLE Skin: Normal temperature, turgor and texture; no rash, ulcers or subcutaneous nodules Neuro: moves all extremities, no focal deficits. Psych: Appropriate mood and behavior. A&Ox3 - Assessment and Plan (1) Acute kidney injury superimposed on chronic kidney disease Current Visit: Yes Status: Acute Assessment and Plan: JOHN on CKD4, Baseline GFR 15-20 The patient's creatinine at admission 6.31 Complicated by hyperkalemia without evidence of EKG changes and by pulmonary edema Etiology is unclear at this time, does not appear to be hypovolemic. Previously caused by Rhabdomyolosis. CK elevated 400s at admission, repeat 200s Bicarb drip started by nephrology, patient started on urgent hemodialysis Bicarb drip stopped with clinical improvement Plan Renal diet Avoid nephrotoxins and renally dose meds Continue hemodialysis and diuresis as per nephrology (2) Hyperkalemia Current Visit: Yes Status: Resolved Assessment and Plan: Hyperkalemia resolved with dialysis, will continue to monitor (3) Hypertensive urgency Current Visit: Yes Status: Acute Assessment and Plan: Hypertensive urgency, BP 220/120 at admission This may play a role in the patient's current JOHN The patient states that he is compliant with medications Nicardipine and Nitro drip started at admission, both now discontinued Plan BP currently stable Home nifedipine 90 daily restarted Nephro considering increasing Hydralazine Continue to monitor (4) Diabetes mellitus type 2 in obese Current Visit: Yes Status: Chronic Assessment and Plan: DM2, poorly controlled, glucose stable today Continue q6h Accuchecks, Diabetic diet with q6h SSI (5) DVT prophylaxis Current Visit: Yes Status: Acute Assessment and Plan: subq heparin (6) Respiratory failure with hypoxia and hypercapnia Current Visit: Yes Status: Acute Assessment and Plan: Suspected acute on chronic respiratory failure, no known hx of COPD. Occasional smoker Etiology is unclear, however patient did seem to have decreased respiratory drive due to encephalopathy The patient may also have underlying COPD and CHF based on chest x-ray His chest x-ray did show significant pleural effusions bilaterally with pul monary edema and increased pulmonary vasculature as well ABG initially showed respiratory acidosis: 7.16/83/81/29/91 on BiPAP with FiO2 100% Previous cardiac studies have not demonstrated any evidence of left ventricular dysfunction although he has had LVH without LVOTO Respiratory distress likely secondary to pulmonary edema tertiary to renal failure/fluid overload Respiratory status significantly clinically improved after BIPAP, Hemodialysis, Lasix Currently without shortness of breath and ventilating/saturating appropriately on nasal cannula Plan Continue supplemental O2 - Time Spent with Patient Total time spent is greater than 50% in coordination of care (as documented) at patient's floor/unit and/or counseling patient: Internal Medicine: Result - Labs CBC & Chem 7: 10/03/18 04:10 10/03/18 04:10 Labs: Short CBC 10/03/18 Range/Units 04:10 WBC 4.9 (4.3-11.1) K/mcL Hgb 9.4 L (12.9-16.9) g/dL Hct 31.2 L (37.5-50.1) % Plt Count 145 (140-400) K/mcL Neutrophils # 3.3 (1.6-8.9) K/mcL BMP 10/03/18 04:10 Sodium 136 Potassium 4.3 Chloride 102 Carbon Dioxide 27 BUN 33 H Creatinine 4.82 H Glucose 109 H Calcium 7.1 L Liver Function 10/03/18 Range/Units 04:10 Total Bilirubin 0.4 (0.3-1.0) mg/dL AST 8 L (13-39) Units/L ALT 6 L (7-52) Units/L Alkaline Phosphatase 67 (34-104) Units/L Albumin 2.8 L (3.5-5.7) g/dL - ABG Interpretation ABG results: ABG ABG pH 7.32 pH Units (7.32-7.45) 10/01/18 15:36 ABG pCO2 56 mmHg (35-45) H 10/01/18 15:36 ABG pO2 59 mmHg (85-104) L 10/01/18 15:36 ABG O2 Saturation 88 % (95-98) L 10/01/18 15:36 PT/INR, D-dimer PT 12.6 Seconds (9.4-12.1) H 10/01/18 15:59 Consult Discharge Plan - Plan Referrals: [facility] [Primary Care Provider] - <Obed Garcia - Last Filed: 10/03/18 16:47> Hospitalist Progress Note - Encounter Date of Encounter: 10/03/18 - Exam Vitals: Temp Pulse Resp BP Pulse Ox 97.9 F 63 16 111/59 92 10/03/18 15:24 10/03/18 15:24 10/03/18 15:24 10/03/18 15:24 10/03/18 15:24 - Assessment and Plan (1) Hyperkalemia Current Visit: Yes Status: Resolved (2) Hypertensive urgency Current Visit: Yes Status: Acute (3) DVT prophylaxis Current Visit: Yes Status: Acute (4) Diabetes mellitus type 2 in obese Current Visit: Yes Status: Chronic (5) Acute kidney injury superimposed on chronic kidney disease Current Visit: Yes Status: Acute (6) Respiratory failure with hypoxia and hypercapnia Current Visit: Yes Status: Acute (7) ESRD (end stage renal disease) on dialysis Current Visit: Yes Status: Chronic (8) Pulmonary edema Current Visit: Yes Status: Resolved (9) Hypertension Current Visit: Yes Status: Chronic - Time Spent with Patient Total time spent is greater than 50% in coordination of care (as documented) at patient's floor/unit and/or counseling patient: Internal Medicine: Result - Labs CBC & Chem 7: 10/03/18 04:10 10/03/18 04:10 Labs: Short CBC 10/03/18 Range/Units 04:10 WBC 4.9 (4.3-11.1) K/mcL Hgb 9.4 L (12.9-16.9) g/dL Hct 31.2 L (37.5-50.1) % Plt Count 145 (140-400) K/mcL Neutrophils # 3.3 (1.6-8.9) K/mcL BMP 10/03/18 04:10 Sodium 136 Potassium 4.3 Chloride 102 Carbon Dioxide 27 BUN 33 H Creatinine 4.82 H Glucose 109 H Calcium 7.1 L Liver Function 10/03/18 Range/Units 04:10 Total Bilirubin 0.4 (0.3-1.0) mg/dL AST 8 L (13-39) Units/L ALT 6 L (7-52) Units/L Alkaline Phosphatase 67 (34-104) Units/L Albumin 2.8 L (3.5-5.7) g/dL - ABG Interpretation ABG results: ABG ABG pH 7.32 pH Units (7.32-7.45) 10/01/18 15:36 ABG pCO2 56 mmHg (35-45) H 10/01/18 15:36 ABG pO2 59 mmHg (85-104) L 10/01/18 15:36 ABG O2 Saturation 88 % (95-98) L 10/01/18 15:36 PT/INR, D-dimer PT 12.6 Seconds (9.4-12.1) H 10/01/18 15:59 - Attending Attestation I examined this patient and my medical decision-making was reviewed with the Resident Physician on 10/03/18. I agree with the documented findings, disposition and treatment plan as described except to the extent set forth below. Mr Cochran is currently admitted for respiratory failure due to volume overload and ESRD starting dialysis. He remains moderate to high risk due to potential for worsening clinical status. Mr Cochran just returned from his third dialysis. No fever or chills. Still producing urine. Breathing doing better with start of dialysis. Working on discharge planning with chair time. Exam alert Comfortable in bed Mucus membranes dry Heart distant and regular No wheeze heard at this time Abd soft and nontender Edema present I/P 1. ESRD - started dialysis. Working on chair time. 2. Respiratory failure - improving after starting dialysis 3. DM - better controlled 4. HTN - meds adjusted today. Uncontrolled. Further diagnoses and plan as above. <Patricio Arrington - Last Filed: 10/03/18 16:07> (6) Respiratory failure with hypoxia and hypercapnia Qualifiers: Chronicity: acute on chronic Qualified Code(s): J96.21 - Acute and chronic respiratory failure with hypoxia; J96.22 - Acute and chronic respiratory failure with hypercapnia <Obed Garcia - Last Filed: 10/03/18 16:47> (6) Respiratory failure with hypoxia and hypercapnia Qualifiers: Chronicity: acute on chronic Qualified Code(s): J96.21 - Acute and chronic respiratory failure with hypoxia; J96.22 - Acute and chronic respiratory failure with hypercapnia (8) Pulmonary edema Qualifiers: Chronicity: acute Qualified Code(s): J81.0 - Acute pulmonary edema (9) Hypertension Qualifiers: Hypertension type: renovascular hypertension Qualified Code(s): I15.0 - Renovascular hypertension
[2018-10-03] MEDS ORDERED: 0.9 % Sodium Chloride 1,000 ML ONE (08:27)
[2018-10-03] MEDS ORDERED: Gabapentin 300 MG CAPSULE PO SCH (09:00)
[2018-10-03] MEDS ORDERED: 0.9 % Sodium Chloride 1,000 ML PRIME SCH (09:40)
[2018-10-03] MEDS ORDERED: *HR* Dextrose 50 % in Water (Syg) 50 ML SYRINGE IVP PRN (09:40)
[2018-10-03] MEDS ORDERED: Dextrose Gel 15 GM/37.5 ML TUBE PO PRN ×2 (09:40)
[2018-10-03] MEDS ORDERED: D5% in Water 1,000 ML IVC PRN (09:40)
[2018-10-03] MEDS ORDERED: Ipratropium Neb 0.5 MG NEBULIZER IH PRN (09:40)
[2018-10-03] MEDS ORDERED: Naloxone 0.4 MG/ML INJ IVP PRN (09:40)
--- NOTE | 2018-10-03 10:44 | Nephrology Progress Note ---
Addendum entered and electronically signed by Petr Abraham MD 10/03/18 21:46: I examined this patient and my medical decision-making was reviewed with the Resident Physician. I agree with the documented findings, disposition and treatment plan as described except to the extent set forth below. Patient's blood pressure is uncontrolled. Will increase hydralazine. Original Note: Date of Encounter: 10/03/18 Time of Encounter: 10:44 - Assessment and Plan (1) CKD (chronic kidney disease) stage 5, GFR less than 15 ml/min Current Visit: Yes Status: Acute - Long-standing history of CKD stage V - As had discussions as an outpatient for future needs of dialysis fistula placement, which he has been resistant to - Underwent first session of dialysis 10/01 with urgent catheter placement by IR - Presented with creatinine in the 6s, and hyperkalemia. Lab results improved today after dialysis. Potassium of 4.3, GFR 15 - Fluid overloaded on exam which is likely partly attributable to renal dysfunction in addition to known mild HFpEF - Multiple episodes of unresponsiveness which may be related to both uremia as well as hypoglycemia Plan - We will continue dialysis with session this morning - Unclear if he will be able to come off dialysis as this is likely secondary to progression of his CKD. - Additional dialysis as needed, will continue to follow - Renal diet, consider renal vitamins - Avoid nephrotoxins as able, renally dose medications (2) Hyperkalemia Current Visit: Yes Status: Resolved Resolved Most recent reading of 4.3 Most likely secondary to kidney disease as above We will continue monitor and dialyze as above (3) Hypertensive urgency Current Visit: Yes Status: Acute Urgency has resolved however he does remain hypertensive Blood pressure running in the 150s-180s/60-70s Patient does report chronic hypertension since his 20s which has been poorly controlled nicardipine drip discontinued Likely related to volume in addition to chronic essential HTN Plan - HD today should help with fluid balance - Discussed medications with primary team, they will restart home nifedipine in addition to clonidine, hydralazine, carvedilol - Can consider increasing hydralazine if remains elevated (4) Hypoglycemia Current Visit: Yes Status: Acute Per primary team Related to decreased understanding of medications (5) Hyperparathyroidism due to renal insufficiency Current Visit: Yes Status: Chronic PTh elevated due to low vitamin D levels and CKD, will start zemplar on outpatient if HD started (6) Vitamin D deficiency Current Visit: Yes Status: Chronic Improved on ergocalciferol, will continue Subjective Principal diagnosis: CKD V, hypertension Interval history: Patient was seen and examined up at since morning. He states overall he is feeling well with no complaints this time. He continues to tolerate his dialysis sessions well with no lightheadedness, nausea, dizziness. He states that his edema continues to improve daily and is much improved from admission. No other complaints at this time. Objective - Vital Signs Vital signs: Vital Signs Temp Pulse Resp BP Pulse Ox 10/03/18 09:40 98.2 F 66 16 179/71 94 10/03/18 08:00 75 16 190/85 94 10/03/18 07:51 75 10/03/18 07:00 98.4 F 70 16 177/80 93 10/03/18 06:00 61 16 168/71 90 10/03/18 05:33 98.3 F 10/03/18 05:00 50 18 163/74 95 10/03/18 04:00 98.3 F 49 16 149/70 95 10/03/18 03:36 14 94 10/03/18 03:00 48 18 152/69 95 10/03/18 02:00 51 26 149/71 95 10/03/18 01:00 50 18 145/69 95 10/03/18 00:00 99.4 F 53 14 141/65 94 10/02/18 23:49 25 94 10/02/18 23:00 60 16 148/83 90 10/02/18 22:00 62 22 179/94 91 10/02/18 21:50 10 92 10/02/18 21:00 61 24 184/83 92 10/02/18 20:00 60 18 189/93 92 10/02/18 19:39 98.5 F 10/02/18 19:00 63 24 175/73 94 10/02/18 17:00 79 18 154/61 91 10/02/18 16:00 99.0 F 65 18 176/72 91 10/02/18 15:39 16 176/72 94 10/02/18 15:00 65 18 176/75 93 10/02/18 14:00 72 18 183/86 92 10/02/18 13:25 98.7 F 19 179/77 10/02/18 13:15 179/74 10/02/18 13:00 60 20 179/74 93 10/02/18 12:45 177/66 10/02/18 12:30 181/81 10/02/18 12:15 176/78 10/02/18 12:00 60 20 177/66 91 10/02/18 11:45 183/77 10/02/18 11:30 168/80 10/02/18 11:15 187/76 10/02/18 11:00 98.8 F 60 20 181/95 91 10/02/18 10:45 174/77 Intake and Output 10/02/18 10/03/18 10/03/18 23:59 07:59 15:59 Intake Total 400 / 400 128 / 128 0 / 0 Output Total 50 / 50 105 / 105 Balance 350 / 350 0 / 0 Intake: IV Fluids 400 / 400 128 / 128 Cardene Premix 40mg/200ml 40 mg 400 / 400 128 / 128 In 200 ml @ 5 MG/HR 25 mls/hr IVC .Q8H SONIDO Rx#:[id number] Oral 0 / 0 Output: Catheter 50 / 50 105 / 105 Other: Weight 123.6 kg Blood Glucose* 155 122 Patient Weight 10/03/18 23:59 Weight 123.6 kg - General Appearance Exam: Gen.: Vitals noted. No acute distress. AAOx3 HEENT: PERRL/EOMI, oropharynx clear, Normocephalic, atraumatic, MMM Cardiac: RRR, no murmur, +S1/S2 Pulmonary: CTA bilaterally, no wheezes, rales or rhonchi, equal chest expansion Abdomen: soft, nontender, BS noted, no guarding, no rebound. Distended but improved. MSK: ROM not assessed, no joint swelling noted Extremities: 2+ BLE edema extending to mid thigh which is improved from previous., nontender calf, no cyanosis or clubbing. Appears to be chronic venous stasis changes to pretibial regions bilaterally. Upper extremities also appear to have some component of edema but he states this is improved. Neuro: A&Ox3, moves all extremities, no focal deficits Psych: Appropriate mood and behavior - Lab 10/03/18 04:10 10/03/18 04:10 Most recent lab results ABG pH 7.32 pH Units (7.32-7.45) 10/01/18 15:36 ABG pCO2 56 mmHg (35-45) H 10/01/18 15:36 ABG pO2 59 mmHg (85-104) L 10/01/18 15:36 ABG HCO3 29 mEq/L (21-27) H 10/01/18 15:36 ABG O2 Saturation 88 % (95-98) L 10/01/18 15:36 Calcium 7.1 mg/dL (8.6-10.3) L 10/03/18 04:10 Phosphorus 6.2 mg/dL (2.7-4.5) H 10/01/18 03:59 Magnesium 1.8 mg/dL (1.6-2.6) 10/02/18 03:35 Consult Discharge Plan - Plan [facility]errals: [facility] [Primary Care Provider] -
[2018-10-03] MEDS: NIFEdipine XL (24 HR) 30 MG TAB.ER.24 PO SCH (11:01)
[2018-10-03] MEDS ORDERED: *HR* Heparin 10,000 UNIT/10 ML VIAL IV PRN (11:15)
[2018-10-03] MEDS ORDERED: Insulin LISPRO 300 UNITS/3 ML VIAL SQ SCH (12:00)
[2018-10-03] MEDS ORDERED: hydrALAZINE 25 MG TABLET PO SCH (14:00)
[2018-10-03] MEDS: Gabapentin 300 MG CAPSULE PO SCH (21:27)
[2018-10-04] MEDS: Ipratropium/Albuterol Neb 3 ML IH SCH ×4 (03:45→22:29)
[2018-10-04 05:28] LABS: Basophils % 0.3 %; Eosinophils # 0.1 K/mcL (0.0-0.6); Eosinophils % 1.4 %; Hematocrit 33.2 % (37.5-50.1); Immature Granulocytes % 0.3 % (0-4); Lymphocytes # 0.6 K/mcL (0.6-4.6); Mean Corpuscular HGB Conc 30.1 g/dL (31.6-35.5); Mean Corpuscular Hemoglobin 27.6 pg (28.0-33.3); Mean Corpuscular Volume 91.7 fL (83.0-100.0); Mean Platelet Volume 11.1 fL (9.4-12.4); Monocytes # 0.6 K/mcL (0.0-1.3); Monocytes % 9.8 %; Neutrophils # 4.9 K/mcL (1.6-8.9); Platelet Count 147 K/mcL (140-400); Red Blood Count 3.62 M/mcL (4.19-5.50); Red Cell Distribution Width 13.5 % (11.5-14.5); Segmented Neutrophils % 78.2 %
[2018-10-04 05:38] LABS: Calcium 7.6 mg/dL (8.6-10.3); Potassium 4.5 mEq/L (3.5-5.1)
[2018-10-04] MEDS: *HR* Heparin 5,000 UNIT/ML VIAL SQ SCH ×3 (06:40→21:39)
[2018-10-04] MEDS: Insulin LISPRO 300 UNITS/3 ML VIAL SQ SCH ×4 (07:54→21:40)
[2018-10-04] MEDS ORDERED: Calcium Gluconate 2,000 MG in 0.9 % Sodium Chloride 100 ML IVPB ONE (08:44)
[2018-10-04] MEDS: Gabapentin 300 MG CAPSULE PO SCH ×2 (08:45→21:39)
[2018-10-04] MEDS: cloNIDine HCl 0.1 MG TABLET PO SCH ×2 (08:45→21:39)
[2018-10-04] MEDS: Aspirin 81 MG TAB.CHEW PO SCH (08:45)
[2018-10-04] MEDS: NIFEdipine XL (24 HR) 30 MG TAB.ER.24 PO SCH (08:46)
[2018-10-04] MEDS: hydrALAZINE 25 MG TABLET PO SCH ×3 (08:49→21:39)
--- NOTE | 2018-10-04 10:21 | Internal Med Progress Note ---
<Obed Garcia - Last Filed: 10/04/18 13:08> Hospitalist Progress Note - Encounter Date of Encounter: 10/04/18 - Exam Vitals: Temp Pulse Resp BP Pulse Ox 98.4 F 93 18 175/74 93 10/04/18 11:17 10/04/18 11:17 10/04/18 11:17 10/04/18 11:17 10/04/18 11:17 - Assessment and Plan (1) Hyperkalemia Current Visit: Yes Status: Resolved (2) Hypertensive urgency Current Visit: Yes Status: Acute (3) DVT prophylaxis Current Visit: Yes Status: Acute (4) Diabetes mellitus type 2 in obese Current Visit: Yes Status: Chronic (5) Acute kidney injury superimposed on chronic kidney disease Current Visit: Yes Status: Acute (6) Respiratory failure with hypoxia and hypercapnia Current Visit: Yes Status: Acute (7) ESRD (end stage renal disease) on dialysis Current Visit: Yes Status: Chronic (8) Pulmonary edema Current Visit: Yes Status: Resolved (9) Hypertension Current Visit: Yes Status: Chronic - Time Spent with Patient Total time spent is greater than 50% in coordination of care (as documented) at patient's floor/unit and/or counseling patient: Internal Medicine: Result - Labs CBC & Chem 7: 10/04/18 04:00 10/04/18 04:00 Labs: Short CBC 10/04/18 Range/Units 04:00 WBC 6.2 (4.3-11.1) K/mcL Hgb 10.0 L (12.9-16.9) g/dL Hct 33.2 L (37.5-50.1) % Plt Count 147 (140-400) K/mcL Neutrophils # 4.9 (1.6-8.9) K/mcL BMP 10/04/18 04:00 Sodium 134 L Potassium 4.5 Chloride 99 Carbon Dioxide 27 BUN 33 H Creatinine 4.23 H Glucose 138 H Calcium 7.6 L - ABG Interpretation ABG results: ABG ABG pH 7.32 pH Units (7.32-7.45) 10/01/18 15:36 ABG pCO2 56 mmHg (35-45) H 10/01/18 15:36 ABG pO2 59 mmHg (85-104) L 10/01/18 15:36 ABG O2 Saturation 88 % (95-98) L 10/01/18 15:36 PT/INR, D-dimer PT 12.6 Seconds (9.4-12.1) H 10/01/18 15:59 Consult Discharge Plan - Plan Referrals: [facility] [Primary Care Provider] - - Attending Attestation I examined this patient and my medical decision-making was reviewed with the Resident Physician on 10/04/18. I agree with the documented findings, disposition and treatment plan as described except to the extent set forth below. Mr Cochran is currently admitted for ESRD and volume overload. He has started dialysis. He remains moderate to high risk due to potential for worsening clinical status. Mr Cochran feels OK. No worsening breathing issues. No CP. Agrees to have mcneil out but not CVC. No GI issues. Working on dialysis chair time. Exam alert Comfortable Mucus membranes moist Heart distant No wheeze. Lungs diminished Abd soft Edema present I/P 1. Resp failure - improving with dialysis 2. ESRD - dialysis being set up. Further diagnoses and plan as above. <Patricio Arrington - Last Filed: 10/04/18 16:34> Hospitalist Progress Note - Encounter Date of Encounter: 10/04/18 Time of Encounter: 10:19 - Subjective Interval History: Patient was admitted for hypertensive emergency, hyperkalemia, acute respiratory failure, acute kidney failure. He was seen by nephrology and treated with urgent hemodialysis. As of this morning his blood pressure, potassium, respiratory status were all stable. He denied any acute complaints. Plan today will be to consolidate plan for continued hemodialysis and labs, as well as to normalize BP. - Exam Vitals: Temp Pulse Resp BP Pulse Ox 98.5 F 63 16 180/70 94 10/04/18 07:25 10/04/18 07:25 10/04/18 07:25 10/04/18 07:25 10/04/18 07:25 Exam: Gen: Vitals noted. No acute distress Eyes: anicteric sclerae, moist conjunctivae; no lid-lag; Pupils equal and reactive to light HENT: Atraumatic; oropharynx clear with moist mucous membranes and no mucosal ulcerations; normal hard and soft palate Neck: Trachea midline; supple, no thyromegaly or lymphadenopathy Cardiac: RRR, no murmur, +S1/S2 Pulmonary: Lungs Clear to auscultation bilaterally, no wheeze or rales or rhonchi Abdomen: soft, nontender, no guarding. No masses or hepatosplenomegaly MSK: ROM intact, no joint swelling noted Extremities: s/p RLE AKA. no LLE edema, nontender calf, no cyanosis or clubbing. Chronic diabetic/venous stasis skin changes in LLE Skin: Normal temperature, turgor and texture; no rash, ulcers or subcutaneous nodules Neuro: moves all extremities, no focal deficits. Psych: Appropriate mood and behavior. A&Ox3 Mcneil bag contents normal color - Assessment and Plan (1) ESRD (end stage renal disease) on dialysis Current Visit: Yes Status: Chronic Assessment and Plan: JOHN on CKD4 escalated to ESRD Nephrology coordinating transition to dialysis Once organized patient will likely be stable for discharge Plan Renal diet Avoid nephrotoxins and renally dose meds Continue hemodialysis and diuresis as per nephrology (2) Hyperkalemia Current Visit: Yes Status: Resolved Assessment and Plan: Hyperkalemia resolved with dialysis, will continue to monitor (3) Hypertensive urgency Current Visit: Yes Status: Resolved Assessment and Plan: Hypertensive urgency, BP 220/120 at admission The patient states that he is compliant with medications Nicardipine and Nitro drip started at admission, both now discontinued Plan BP currently stable Home nifedipine 90 daily restarted Nephro increased Hydralazine Continue to monitor (4) DVT prophylaxis Current Visit: Yes Status: Acute Assessment and Plan: subq heparin (5) Diabetes mellitus type 2 in obese Current Visit: Yes Status: Chronic Assessment and Plan: DM2, poorly controlled, glucose stable today Continue q6h Accuchecks, Diabetic diet with q6h SSI (6) Respiratory failure with hypoxia and hypercapnia Current Visit: Yes Status: Resolved Assessment and Plan: Suspected acute on chronic respiratory failure, no known hx of COPD. Occasional smoker Etiology is unclear, however patient did seem to have decreased respiratory drive due to encephalopathy The patient may also have underlying COPD and CHF based on chest x-ray His chest x-ray did show significant pleural effusions bilaterally with pulmonary edema and increased pulmonary vasculature as well ABG initially showed respiratory acidosis: 7.16/83/81/29/91 on BiPAP with FiO2 100% Previous cardiac studies have not demonstrated any evidence of left ventricular dysfunction although he has had LVH without LVOTO Respiratory distress likely secondary to pulmonary edema tertiary to renal failure/fluid overload Respiratory status significantly clinically improved after BIPAP, Hemodialysis, Lasix Currently without shortness of breath and ventilating/saturating appropriately on nasal cannula Plan Continue supplemental O2 (7) Pulmonary edema Current Visit: Yes Status: Resolved Assessment and Plan: Likely secondary to renal failure fluid overload, resolved - Time Spent with Patient Total time spent is greater than 50% in coordination of care (as documented) at patient's floor/unit and/or counseling patient: Internal Medicine: Result - Labs CBC & Chem 7: 10/04/18 04:00 10/04/18 04:00 Labs: Short CBC 10/04/18 Range/Units 04:00 WBC 6.2 (4.3-11.1) K/mcL Hgb 10.0 L (12.9-16.9) g/dL Hct 33.2 L (37.5-50.1) % Plt Count 147 (140-400) K/mcL Neutrophils # 4.9 (1.6-8.9) K/mcL BMP 10/04/18 04:00 Sodium 134 L Potassium 4.5 Chloride 99 Carbon Dioxide 27 BUN 33 H Creatinine 4.23 H Glucose 138 H Calcium 7.6 L - ABG Interpretation ABG results: ABG ABG pH 7.32 pH Units (7.32-7.45) 10/01/18 15:36 ABG pCO2 56 mmHg (35-45) H 10/01/18 15:36 ABG pO2 59 mmHg (85-104) L 10/01/18 15:36 ABG O2 Saturation 88 % (95-98) L 10/01/18 15:36 PT/INR, D-dimer PT 12.6 Seconds (9.4-12.1) H 10/01/18 15:59 <Obed Garcia - Last Filed: 10/04/18 13:08> (6) Respiratory failure with hypoxia and hypercapnia Qualifiers: Chronicity: acute on chronic Qualified Code(s): J96.21 - Acute and chronic respiratory failure with hypoxia; J96.22 - Acute and chronic respiratory failure with hypercapnia (8) Pulmonary edema Qualifiers: Chronicity: acute Qualified Code(s): J81.0 - Acute pulmonary edema (9) Hypertension Qualifiers: Hypertension type: renovascular hypertension Qualified Code(s): I15.0 - Renovascular hypertension <Patricio Arrington - Last Filed: 10/04/18 16:34> (6) Respiratory failure with hypoxia and hypercapnia Qualifiers: Chronicity: acute on chronic Qualified Code(s): J96.21 - Acute and chronic respiratory failure with hypoxia; J96.22 - Acute and chronic respiratory failure with hypercapnia (7) Pulmonary edema Qualifiers: Chronicity: acute Qualified Code(s): J81.0 - Acute pulmonary edema
--- NOTE | 2018-10-04 11:29 | Nephrology Progress Note ---
Addendum entered and electronically signed by Petr Abraham MD 10/08/18 22:34: I examined this patient and my medical decision-making was reviewed with the Resident Physician 10/04/2018. I agree with the documented findings, disposition and treatment plan as described except to the extent set forth below. Original Note: Date of Encounter: 10/04/18 Time of Encounter: 10:02 - Assessment and Plan (1) CKD (chronic kidney disease) stage 5, GFR less than 15 ml/min Current Visit: Yes Status: Chronic - Long-standing history of CKD stage V - As had discussions as an outpatient for future needs of dialysis fistula placement, which he has been resistant to - Underwent first session of dialysis 10/01 with urgent catheter placement by IR - Presented with creatinine in the 6s, and hyperkalemia. Lab results improved after dialysis. Potassium of 4.5, GFR 17 - Fluid overloaded on exam which is likely partly attributable to renal dysfunction in addition to known mild HFpEF - Multiple episodes of unresponsiveness which may be related to both uremia as well as hypoglycemia Plan - At this point, it is unlikely that he will recover to a point where he is able to come off dialysis. - Arranging outpatient dialysis schedule, pending chair acceptance. When accepted, can likely be discharged from nepho standpoint. - Additional dialysis as needed, will continue to follow - Renal diet, consider renal vitamins - Avoid nephrotoxins as able, renally dose medications (2) Hyperkalemia Current Visit: Yes Status: Resolved Resolved Most recent reading of 4.5 Most likely secondary to kidney disease as above We will continue monitor and dialyze as above (3) Hypertensive urgency Current Visit: Yes Status: Acute Urgency has resolved however he does remain hypertensive Blood pressure running in the 150s-180s/60-70s. Most recent reading of 180/70 Patient does report chronic hypertension since his 20s which has been poorly controlled nicardipine drip discontinued Likely related to volume in addition to chronic essential HTN Plan - HD should help with fluid balance - Discussed medications with primary team, they will restart home nifedipine in addition to clonidine, hydralazine, carvedilol - Will also increase hydralazine to 50mg TID (4) Hypoglycemia Current Visit: Yes Status: Acute Per primary team Related to decreased understanding of medications (5) Hyperparathyroidism due to renal insufficiency Current Visit: Yes Status: Chronic PTh elevated due to low vitamin D levels and CKD, will start zemplar on outpatient if HD started (6) Vitamin D deficiency Current Visit: Yes Status: Chronic Improved on ergocalciferol, will continue Subjective Principal diagnosis: CKD V, hypertension Interval history: Patient was seen and examined at bedside this morning. He states overall he is feeling well with no complaints this time. He continues to tolerate his dialys is sessions well with no lightheadedness, nausea, dizziness. He states that his edema continues to improve daily and is much improved from admission. No other complaints at this time. Objective - Vital Signs Vital signs: Vital Signs Temp Pulse Resp BP Pulse Ox 10/04/18 11:17 98.4 F 93 18 175/74 93 10/04/18 10:54 18 91 10/04/18 07:25 98.5 F 63 16 180/70 94 10/04/18 04:24 98.5 F 95 16 169/69 97 10/04/18 03:46 18 92 10/03/18 23:13 98.0 F 55 16 132/61 93 10/03/18 22:45 18 90 10/03/18 19:25 98.3 F 57 16 145/57 91 10/03/18 15:38 16 90 10/03/18 15:24 97.9 F 63 16 111/59 92 10/03/18 13:20 98 F 15 178/75 10/03/18 13:05 144/68 10/03/18 12:50 147/66 10/03/18 12:35 160/73 10/03/18 12:20 153/67 10/03/18 12:05 166/67 10/03/18 11:50 173/75 10/03/18 11:35 187/69 Intake and Output 10/03/18 10/04/18 10/04/18 23:59 07:59 15:59 Intake Total 240 / 240 Output Total 350 / 350 Balance -110 / -110 Intake: Oral 240 / 240 Output: Catheter 350 / 350 Other: Meal Breakfast Percent of Meal Consumed 100% Weight 124 kg Blood Glucose* 180 116 124 - General Appearance Exam: Gen.: Vitals noted. No acute distress. AAOx3 HEENT: PERRL/EOMI, oropharynx clear, Normocephalic, atraumatic, MMM Cardiac: RRR, no murmur, +S1/S2 Pulmonary: CTA bilaterally, no wheezes, rales or rhonchi, equal chest expansion Abdomen: soft, nontender, BS noted, no guarding, no rebound. Distended but improved. MSK: ROM not assessed, no joint swelling noted Extremities: 2+ LE edema extending to mid thigh which is improved from previous., nontender calf, no cyanosis or clubbing. Appears to be chronic venous stasis changes to pretibial region. Upper extremities also appear to have some component of edema but he states this is improved. Neuro: A&Ox3, moves all extremities, no focal deficits Psych: Appropriate mood and behavior - Lab 10/04/18 04:00 10/04/18 04:00 Most recent lab results ABG pH 7.32 pH Units (7.32-7.45) 10/01/18 15:36 ABG pCO2 56 mmHg (35-45) H 10/01/18 15:36 ABG pO2 59 mmHg (85-104) L 10/01/18 15:36 ABG HCO3 29 mEq/L (21-27) H 10/01/18 15:36 ABG O2 Saturation 88 % (95-98) L 10/01/18 15:36 Calcium 7.6 mg/dL (8.6-10.3) L 10/04/18 04:00 Phosphorus 6.2 mg/dL (2.7-4.5) H 10/01/18 03:59 Magnesium 1.8 mg/dL (1.6-2.6) 10/02/18 03:35 Consult Discharge Plan - Plan Referrals: [facility] [Primary Care Provider] -
[2018-10-05 03:40] LABS: Basophils % 0.4 %; Eosinophils # 0.1 K/mcL (0.0-0.6); Eosinophils % 2.1 %; Hematocrit 32.2 % (37.5-50.1); Hemoglobin 9.6 g/dL (12.9-16.9); Immature Granulocytes % 0.4 % (0-4); Lymphocytes # 0.7 K/mcL (0.6-4.6); Lymphocytes % 11.5 %; Mean Corpuscular HGB Conc 29.8 g/dL (31.6-35.5); Mean Corpuscular Hemoglobin 27.4 pg (28.0-33.3); Mean Platelet Volume 10.8 fL (9.4-12.4); Monocytes # 0.7 K/mcL (0.0-1.3); Monocytes % 11.5 %; Neutrophils # 4.2 K/mcL (1.6-8.9); Platelet Count 138 K/mcL (140-400); Red Cell Distribution Width 13.5 % (11.5-14.5); Segmented Neutrophils % 74.1 %
[2018-10-05 03:57] LABS: Calcium 7.8 mg/dL (8.6-10.3); Potassium 4.8 mEq/L (3.5-5.1)
[2018-10-05] MEDS: Ipratropium/Albuterol Neb 3 ML IH SCH ×4 (04:21→22:00)
[2018-10-05] MEDS: *HR* Heparin 5,000 UNIT/ML VIAL SQ SCH ×3 (05:25→21:07)
[2018-10-05 06:03] LABS: Troponin I < 0.03 ng/mL (< 0.04)
[2018-10-05] MEDS: Insulin LISPRO 300 UNITS/3 ML VIAL SQ SCH ×4 (07:44→21:21)
[2018-10-05] MEDS ORDERED: 0.9 % Sodium Chloride 250 ML IVC PRN (07:50)
[2018-10-05] MEDS ORDERED: *HR* Heparin 10,000 UNIT/10 ML VIAL IV PRN (07:50)
[2018-10-05] MEDS ORDERED: 0.9 % Sodium Chloride 1,000 ML PRIME SCH (08:00)
[2018-10-05] MEDS: Aspirin 81 MG TAB.CHEW PO SCH (09:16)
[2018-10-05] MEDS: cloNIDine HCl 0.1 MG TABLET PO SCH ×2 (09:16→21:06)
[2018-10-05] MEDS: NIFEdipine XL (24 HR) 30 MG TAB.ER.24 PO SCH (09:16)
[2018-10-05] MEDS: Gabapentin 300 MG CAPSULE PO SCH ×2 (09:16→21:07)
[2018-10-05] MEDS: hydrALAZINE 25 MG TABLET PO SCH ×3 (09:16→21:07)
--- NOTE | 2018-10-05 10:10 | Electrocardiograph Report ---
[place] [address] Test Date: 2018-10-04 Pat Name: Johnnie Cochran Department: 109 Room: 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
--- NOTE | 2018-10-05 10:14 | Electrocardiograph Report ---
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
[2018-10-05 10:17] LABS: Magnesium 1.9 mg/dL (1.6-2.6); Phosphorous 6.3 mg/dL (2.7-4.5)
[2018-10-05] MEDS ORDERED: 0.9 % Sodium Chloride 1,000 ML ONE (11:25)
--- NOTE | 2018-10-05 13:30 | Internal Med Progress Note ---
Hospitalist Progress Note - Encounter Date of Encounter: 10/05/18 Time of Encounter: 13:29 - Subjective Interval History: Patient was admitted for hypertensive emergency, hyperkalemia, acute respiratory failure, acute kidney failure. He was seen by nephrology and treated with urgent hemodialysis. As of this morning his blood pressure, potassium, respiratory status were all stable. He denied any acute complaints. Plan today will be to consolidate plan for continued hemodialysis and labs, as well as to normalize BP. He should be ready for discharge tomorrow. - Exam Vitals: Temp Pulse Resp BP Pulse Ox 98.1 F 60 18 152/76 91 10/05/18 12:33 10/05/18 07:32 10/05/18 08:45 10/05/18 12:33 10/05/18 07:32 Exam: Gen: Vitals noted. No acute distress Eyes: anicteric sclerae, moist conjunctivae; no lid-lag; Pupils equal and reactive to light HENT: Atraumatic; oropharynx clear with moist mucous membranes and no mucosal ulcerations; normal hard and soft palate Neck: Trachea midline; supple, no thyromegaly or lymphadenopathy Cardiac: RRR, no murmur, +S1/S2 Pulmonary: Lungs Clear to auscultation bilaterally, mild end expiratory wheeze, no rales or rhonchi Abdomen: soft, nontender, no guarding. No masses or hepatosplenomegaly MSK: ROM intact, no joint swelling noted Extremities: s/p RLE AKA. no LLE edema, nontender calf, no cyanosis or clubbing. Chronic diabetic/venous stasis skin changes in LLE Skin: Normal temperature, turgor and texture; no rash, ulcers or subcutaneous nodules Neuro: moves all extremities, no focal deficits. Psych: Appropriate mood and behavior. A&Ox3 Hsieh bag contents normal color - Assessment and Plan (1) ESRD (end stage renal disease) on dialysis Current Visit: Yes Status: Chronic Assessment and Plan: JOHN on CKD4 escalated to ESRD Nephrology coordinating transition to dialysis Once organized patient will likely be stable for discharge Plan Renal diet Avoid nephrotoxins and renally dose meds Continue hemodialysis and diuresis as per nephrology (2) Hyperkalemia Current Visit: Yes Status: Resolved Assessment and Plan: Hyperkalemia resolved with dialysis, will continue to monitor (3) Hypertensive urgency Current Visit: Yes Status: Resolved Assessment and Plan: Hypertensive urgency, BP 220/120 at admission The patient states that he is compliant with medications Nicardipine and Nitro drip started at admission, both now discontinued Plan BP currently stable Home nifedipine 90 daily restarted Nephro increased Hydralazine Continue to monitor (4) DVT prophylaxis Current Visit: Yes Status: Acute Assessment and Plan: subq heparin (5) Diabetes mellitus type 2 in obese Current Visit: Yes Status: Chronic Assessment and Plan: DM2, poorly controlled, glucose stable today Continue q6h Accuchecks, Diabetic diet with q6h SSI (6) Respiratory failure with hypoxia and hypercapnia Current Visit: Yes Status: Resolved Assessment and Plan: Suspected acute on chronic respiratory failure, no known hx of COPD. Occasional smoker Etiology is unclear, however patient did seem to have decreased respiratory drive due to encephalopathy The patient may also have underlying COPD and CHF based on chest x-ray His chest x-ray did show significant pleural effusions bilaterally with pulmo nary edema and increased pulmonary vasculature as well ABG initially showed respiratory acidosis: 7.16/83/81/29/91 on BiPAP with FiO2 100% Previous cardiac studies have not demonstrated any evidence of left ventricular dysfunction although he has had LVH without LVOTO Respiratory distress likely secondary to pulmonary edema tertiary to renal failure/fluid overload Respiratory status significantly clinically improved after BIPAP, Hemodialysis, Lasix Currently without shortness of breath and ventilating/saturating appropriately on nasal cannula Plan Continue supplemental O2 (7) Pulmonary edema Current Visit: Yes Status: Resolved Assessment and Plan: Likely secondary to renal failure fluid overload, resolved - Time Spent with Patient Total time spent is greater than 50% in coordination of care (as documented) at patient's floor/unit and/or counseling patient: Internal Medicine: Result - Labs CBC & Chem 7: 10/05/18 03:26 10/05/18 03:26 Labs: Short CBC 10/05/18 Range/Units 03:26 WBC 5.7 (4.3-11.1) K/mcL Hgb 9.6 L (12.9-16.9) g/dL Hct 32.2 L (37.5-50.1) % Plt Count 138 L (140-400) K/mcL Neutrophils # 4.2 (1.6-8.9) K/mcL BMP 10/05/18 03:26 Sodium 132 L Potassium 4.8 Chloride 99 Carbon Dioxide 27 BUN 49 H Creatinine 5.34 H Glucose 150 H Calcium 7.8 L Cardiac Enzymes 10/05/18 10/05/18 Range/Units 05:33 11:16 Troponin I < 0.03 < 0.03 (< 0.04) ng/mL - ABG Interpretation ABG results: ABG ABG pH 7.32 pH Units (7.32-7.45) 10/01/18 15:36 ABG pCO2 56 mmHg (35-45) H 10/01/18 15:36 ABG pO2 59 mmHg (85-104) L 10/01/18 15:36 ABG O2 Saturation 88 % (95-98) L 10/01/18 15:36 PT/INR, D-dimer PT 12.6 Seconds (9.4-12.1) H 10/01/18 15:59 Consult Discharge Plan - Plan [facility]errals: [facility] [Primary Care Provider] - (6) Respiratory failure with hypoxia and hypercapnia Qualifiers: Chronicity: acute on chronic Qualified Code(s): J96.21 - Acute and chronic respiratory failure with hypoxia; J96.22 - Acute and chronic respiratory failure with hypercapnia (7) Pulmonary edema Qualifiers: Chronicity: acute Qualified Code(s): J81.0 - Acute pulmonary edema
--- NOTE | 2018-10-05 14:01 | Nephrology Progress Note ---
Addendum entered and electronically signed by Petr Abraham MD 10/05/18 21:42: I examined this patient and my medical decision-making was reviewed with the Resident Physician. I agree with the documented findings, disposition and treatment plan as described except to the extent set forth below. Patient with ESRD. Patient seen on HD. Ok for discharge once HD chair and time arranged. Continue adjustment of antihypertensive regimen. Original Note: Date of Encounter: 10/05/18 Time of Encounter: 14:01 - Assessment and Plan (1) ESRD (end stage renal disease) Current Visit: Yes Status: Acute as below for CKD 5. Unlikely to recover at this point. Continue with HD as outpa tient. (2) CKD (chronic kidney disease) stage 5, GFR less than 15 ml/min Current Visit: Yes Status: Chronic - Long-standing history of CKD stage V - As had discussions as an outpatient for future needs of dialysis fistula placement, which he has been resistant to - Underwent first session of dialysis 10/01 with urgent catheter placement by IR - Presented with creatinine in the 6s, and hyperkalemia. Lab results improved after dialysis. Potassium of 4.5, GFR 17 - Fluid overloaded on exam which is likely partly attributable to renal dysfunction in addition to known mild HFpEF - Multiple episodes of unresponsiveness which may be related to both uremia as well as hypoglycemia Plan - At this point, it is unlikely that he will recover to a point where he is able to come off dialysis. Likely ESRD - Arranging outpatient dialysis schedule, pending chair acceptance. When accepted, can likely be discharged from nepho standpoint. - Additional dialysis as needed, will continue to follow - Renal diet, consider renal vitamins - We will add phosphate binder, supplemental B12 per labs - Avoid nephrotoxins as able, renally dose medications (3) Hyperkalemia Current Visit: Yes Status: Resolved Resolved Most recent reading of 4.8 Most likely secondary to kidney disease as above We will continue monitor and dialyze as above (4) Hypertensive urgency Current Visit: Yes Status: Resolved Urgency has resolved however he does remain hypertensive Blood pressure running in the 120s-160s/60-70s. Most recent reading of 162/74 Patient does report chronic hypertension since his 20s which has been poorly controlled nicardipine drip discontinued Likely related to volume in addition to chronic essential HTN Plan - HD should help with fluid balance - Discussed medications with primary team, they will restart home nifedipine in addition to clonidine, hydralazine, carvedilol - Will have also increased hydralazine to 50mg TID (5) Hypoglycemia Current Visit: Yes Status: Acute Per primary team Related to decreased understanding of medications We will also consult nutrition for renal diet recommendations as well as diabe tic recommendations (6) Hyperparathyroidism due to renal insufficiency Current Visit: Yes Status: Chronic PTh elevated due to low vitamin D levels and CKD, will start zemplar on outpatient if HD started We will address as outpatient in dialysis sessions per protocol (7) Vitamin D deficiency Current Visit: Yes Status: Chronic Improved on ergocalciferol, will continue (8) Hyperphosphatemia Current Visit: Yes Status: Acute Phos of 6.3 Will add binder of Renvela Subjective Principal diagnosis: CKD V, hypertension Interval history: Patient was seen and examined at bedside this morning. He states overall he is feeling well with no complaints at this time. He has been tolerating his dialysis sessions well and will follow-up as an outpatient. He is scheduled for discharge this afternoon and all his questions were answered. Objective - Vital Signs Vital signs: Vital Signs Temp Pulse Resp BP Pulse Ox 10/05/18 12:33 98.1 F 152/76 10/05/18 12:15 130/89 10/05/18 12:00 139/51 10/05/18 11:45 154/58 10/05/18 11:30 107/78 10/05/18 11:15 174/59 10/05/18 11:00 153/68 10/05/18 10:45 169/63 10/05/18 10:30 159/59 10/05/18 10:15 142/56 10/05/18 10:00 142/57 10/05/18 09:45 154/74 10/05/18 09:30 158/69 10/05/18 09:15 176/74 10/05/18 09:00 165/71 10/05/18 08:45 98 F 18 166/70 10/05/18 07:32 97.7 F 60 18 162/74 91 10/05/18 04:24 16 88 10/05/18 03:31 98.0 F 54 16 125/57 90 10/04/18 23:14 98.7 F 52 16 145/66 94 10/04/18 22:30 16 94 10/04/18 19:43 99.0 F 64 16 145/68 92 10/04/18 17:14 98.9 F 65 16 155/67 93 10/04/18 15:59 16 93 10/04/18 14:18 181/66 Intake and Output 10/04/18 10/05/18 10/05/18 23:59 07:59 15:59 Intake Total 840 / 840 Output Total 250 / 250 3600 / 3600 Balance -250 / -250 -2760 / -2760 Intake: Oral 240 / 240 Intake, Rinseback and Flushes 600 / 600 Output: Urine 250 / 250 Total Dialysis (HD) Output 3600 / 3600 Other: Meal Breakfast Percent of Meal Consumed 100% Weight 125 kg Blood Glucose* 204 137 152 Hemodialysis Net Fluid Removed 3000 (mL) - General Appearance Exam: Gen.: Vitals noted. No acute distress. AAOx3 HEENT: PERRL/EOMI, oropharynx clear, Normocephalic, atraumatic, MMM Cardiac: RRR, no murmur, +S1/S2 Pulmonary: CTA bilaterally, no wheezes, rales or rhonchi, equal chest expansion Abdomen: soft, nontender, BS noted, no guarding, no rebound. Distended but improved. MSK: ROM not assessed, no joint swelling noted Extremities: 2+ LE edema. nontender calf, no cyanosis or clubbing. Appears to be chronic venous stasis changes to pretibial region. Upper extremities also appear to have some component of nonpitting edema, appears improved. Neuro: A&Ox3, moves all extremities, no focal deficits Psych: Appropriate mood and behavior - Lab 10/05/18 03:26 10/05/18 03:26 Most recent lab results ABG pH 7.32 pH Units (7.32-7.45) 10/01/18 15:36 ABG pCO2 56 mmHg (35-45) H 10/01/18 15:36 ABG pO2 59 mmHg (85-104) L 10/01/18 15:36 ABG HCO3 29 mEq/L (21-27) H 10/01/18 15:36 ABG O2 Saturation 88 % (95-98) L 10/01/18 15:36 Calcium 7.8 mg/dL (8.6-10.3) L 10/05/18 03:26 Phosphorus 6.3 mg/dL (2.7-4.5) H 10/05/18 05:33 Magnesium 1.9 mg/dL (1.6-2.6) 10/05/18 05:33 Consult Discharge Plan - Plan Referrals: [facility] [Primary Care Provider] -
--- NOTE | 2018-10-05 15:29 | Discharge Summary ---
<Patricio Arrington - Last Filed: 10/05/18 16:45> - NOTES TO OUTPATIENT PROVIDER Notes to Outpatient Provider: Patient presented for poor appetite and hypoglycemia. He was found to have severe JOHN, hyperkalemia, hypertensive urgency, pulmonary edema, acidosis, and respiratory failure. He became unresponsive in the ED and was sent to the ICU and started on BiPAP, Nephrology was also consulted. Bicarbonate Drip and Kayexalate were started. His clinical condition slightly improved but the decision was made for urgent dialysis. After that the patient drastically improved. Over the next three days he received daily dialysis and returned to baseline. He was set up for permenant dialysis and will be discharged in stable condition. Patient did have a run of possible AFib/Flutter on telemetry and would benefit from outpatient Holter monitor. He will also be sent home with home O2 3L NC. Orders not resulted at time of discharge: Pending orders 10/01/18 IR cvc insert non tunnel [IR] Routine IR cvc insrt tunnel wo prt/records manager [IR] Routine IR us guide vascular access [IR] Routine IR us guide vascular access [IR] Routine 10/05/18 07:32 Ionized Calcium,venous blood Routine 10/05/18 11:16 Hepatitis B Core Ab Total Stat Date of Encounter: 10/05/18 Time of Encounter: 14:59 - Discharge Diagnosis (1) Hyperkalemia Priority: Secondary Status: Resolved Assessment and Plan: Hyperkalemia resolved with dialysis (2) Hypertensive urgency Priority: Secondary Status: Resolved Assessment and Plan: Hypertensive urgency, BP 220/120 at admission The patient states that he is compliant with medications Nicardipine and Nitro drip started at admission, both now discontinued Plan BP currently stable Home nifedipine 90 daily restarted Nephro increased Hydralazine Discharge with new BP regimen (3) Diabetes mellitus type 2 in obese Priority: Secondary Status: Chronic Assessment and Plan: DM2, poorly controlled, glucose stabilized during admission Continue home medications at discharge (4) Respiratory failure with hypoxia and hypercapnia Priority: Secondary Status: Resolved Assessment and Plan: Patient had respiratory failure on admission likely secondary to pleural effusion, acidosis, renal failure Rapidly improved after dialysis Saturated and ventilated well on 3LNC rest of hospitalization However he did de-saturate when taken off, 87% at rest He likely has an underlying component of COPD or obesity hypoventilation that should be explored outpatient Qualifiers: Chronicity: acute on chronic Qualified Code(s): J96.21 - Acute and chronic respiratory failure with hypoxia; J96.22 - Acute and chronic respiratory failure with hypercapnia (5) Pulmonary edema Priority: Secondary Status: Resolved Assessment and Plan: Likely secondary to renal failure fluid overload, resolved Qualifiers: Chronicity: acute Qualified Code(s): J81.0 - Acute pulmonary edema (6) ESRD (end stage renal disease) on dialysis Priority: Primary Status: Chronic Assessment and Plan: JOHN on CKD4 escalated to ESRD Nephrology coordinated transition to permanent dialysis Stable for discharge Plan Renal diet during admission Avoided nephrotoxins and renally dosed meds Continue hemodialysis and diuresis as per nephrology after discharge Hospital course: Mr. Cochran is a 67 year old male - Time Spent with Patient Total time spent providing and/or coordinating discharge services: - Discharge Medications Prescriptions: Cyanocobalamin (B-12) [Vitamin B12] 1,000 mcg PO DAILY 30 Days #30 tablet hydrALAZINE [HydrALAZINE] 50 mg PO TID 30 Days #180 tablet Sevelamer [Renvela] 800 mg PO TIDWM 30 Days #90 tablet Home Medications: Albuterol Sulfate [Albuterol Inhaler] 2 puff IH QID PRN 12/05/17 [History] Carvedilol [Coreg] 25 mg PO BID 12/05/17 [History] Cetirizine HCl [All Day Allergy] 10 mg PO DAILY 12/05/17 [History] Gabapentin [Neurontin] 300 mg PO TID 12/05/17 [History] NIFEdipine [Nifedipine ER] 90 mg PO DAILY 12/05/17 [History] Trazodone HCl 150 mg PO HS 12/05/17 [History] Aspirin 81 mg PO DAILY #30 tab.chew 12/08/17 [Rx] Atorvastatin [Lipitor] 20 mg PO HS #60 tablet 12/08/17 [Rx] Ferrous Sulfate 325 mg PO BIDWM #60 tablet 12/08/17 [Rx] cloNIDine HCl [CloNIDine HCl] 0.1 mg PO BID #60 tablet 12/08/17 [Rx] Alprostadil [Edex] 40 mcg IC AD PRN 10/01/18 [History] Insulin ASPART [Novolog Flexpen] 14 unit SQ TID 10/01/18 [History] Insulin Glargine [Lantus] 32 unit SQ BID 10/01/18 [History] Cyanocobalamin (B-12) [Vitamin B12] 1,000 mcg PO DAILY 30 Days #30 tablet 10/05/18 [Rx] Sevelamer [Renvela] 800 mg PO TIDWM 30 Days #90 tablet 10/05/18 [Rx] hydrALAZINE [HydrALAZINE] 50 mg PO TID 30 Days #180 tablet 10/05/18 [Rx] Allergies/Adverse Reactions: Allergy/AdvReac Type Severity Reaction Status Date / Time No Known Allergies Allergy Verified 12/04/17 15:41 Date of admission: 09/30/18 23:02 [facility] care physician: [facility] Consults: 10/01/18 00:53 Consult to Nephrology [CONS] Routine Consulting Provider: Kidney Annabelle/LORETTA/KISHOR/REBEKAH Reason for Consult: JOHN on CKD4. Hyperkalemia, concern for fluid overload Call Completed: Yes 10/01/18 19:26 Consult to Dialysis [CONS] Stat 10/02/18 08:15 Consult to Dialysis [CONS] ONCE 10/03/18 11:15 Consult to Dialysis [CONS] ONCE 10/04/18 10:00 Consult to Auto Appraiser [CONS] Routine Reason for SW Consult: poss need chair time for hd 10/04/18 11:19 Consult to Invasive Line Access Team [CONS] Routine Reason for Consult: limited vascular access Line Type: EPIV 10/05/18 08:00 Consult to Dialysis [CONS] ONCE 10/05/18 11:09 Consult to Nutrition [CONS] Routine Comment: renal diet education Consulting Provider: NUTRITION Reason for Dietary Consult: Diet Education Discharging clinician: Patricio Arrington - Constitutional Vitals: Temp Pulse Resp BP Pulse Ox 98.1 F 60 18 152/76 91 10/05/18 12:33 10/05/18 07:32 10/05/18 08:45 10/05/18 12:33 10/05/18 07:32 Exam: Gen: Vitals noted. No acute distress Eyes: anicteric sclerae, moist conjunctivae; no lid-lag; Pupils equal and reactive to light HENT: Atraumatic; oropharynx clear with moist mucous membranes and no mucosal ulcerations; normal hard and soft palate Neck: Trachea midline; supple, no thyromegaly or lymphadenopathy Cardiac: RRR, no murmur, +S1/S2 Pulmonary: Lungs Clear to auscultation bilaterally, mild end expiratory wheeze, no rales or rhonchi Abdomen: soft, nontender, no guarding. No masses or hepatosplenomegaly MSK: ROM intact, no joint swelling noted Extremities: s/p RLE AKA. no LLE edema, nontender calf, no cyanosis or clubbing. Chronic diabetic/venous stasis skin changes in LLE Skin: Normal temperature, turgor and texture; no rash, ulcers or subcutaneous nodules Neuro: moves all extremities, no focal deficits. Psych: Appropriate mood and behavior. A&Ox3 Hsieh bag contents normal color - Patient Status Disposition: Home, Self-Care Condition: Good Functional capacity at discharge: wheelchair bound Overall status at discharge: patient is back to baseline - Discharge Instructions Follow Up With: [facility] [Primary Care Provider] - - Diet and Activity Activity: resume usual activities as tolerated Diet: diabetic diet, low fat, low cholesterol, low salt diet <Obed Garcia - Last Filed: 10/05/18 18:33> Orders not resulted at time of discharge: Pending orders 10/01/18 IR cvc insert non tunnel [IR] Routine IR cvc insrt tunnel wo prt/records manager [IR] Routine IR us guide vascular access [IR] Routine IR us guide vascular access [IR] Routine 10/05/18 07:32 Ionized Calcium,venous blood Routine 10/05/18 11:16 Hepatitis B Core Ab Total Stat 10/06/18 04:00 BMP [Basic Metabolic Panel] AM 0400 Complete Blood Count [HEME] AM 0400 Date of Encounter: 10/05/18 - Discharge Diagnosis (1) Hyperkalemia Status: Resolved (2) Hypertensive urgency Status: Resolved (3) Diabetes mellitus type 2 in obese Status: Chronic (4) Respiratory failure with hypoxia and hypercapnia Status: Resolved Qualifiers: Chronicity: acute on chronic Qualified Code(s): J96.21 - Acute and chronic respiratory failure with hypoxia; J96.22 - Acute and chronic respiratory failure with hypercapnia (5) Pulmonary edema Status: Resolved Qualifiers: Chronicity: acute Qualified Code(s): J81.0 - Acute pulmonary edema (6) ESRD (end stage renal disease) on dialysis Status: Chronic (7) Hypertension Priority: Secondary Status: Chronic Qualifiers: Hypertension type: renovascular hypertension Qualified Code(s): I15.0 - Renovascular hypertension Hospital course: Mr. Cochran is a 67 year old male - Time Spent with Patient Total time spent providing and/or coordinating discharge services: 39min Date of admission: 09/30/18 23:02 Primary care physician: [facility] Consults: 10/01/18 00:53 Consult to Nephrology [CONS] Routine Consulting Provider: Kidney Annabelle/LORETTA/KISHOR/REBEKAH Reason for Consult: JOHN on CKD4. Hyperkalemia, concern for fluid overload Call Completed: Yes 10/01/18 19:26 Consult to Dialysis [CONS] Stat 10/02/18 08:15 Consult to Dialysis [CONS] ONCE 10/03/18 11:15 Consult to Dialysis [CONS] ONCE 10/04/18 10:00 Consult to Auto Appraiser [CONS] Routine Reason for SW Consult: poss need chair time for hd 10/04/18 11:19 Consult to Invasive Line Access Team [CONS] Routine Reason for Consult: limited vascular access Line Type: EPIV 10/05/18 08:00 Consult to Dialysis [CONS] ONCE 10/05/18 11:09 Consult to Nutrition [CONS] Routine Comment: renal diet education Consulting Provider: NUTRITION Reason for Dietary Consult: Diet Education - Constitutional Vitals: Temp Pulse Resp BP Pulse Ox 98.5 F 64 17 132/77 92 10/05/18 16:14 10/05/18 16:14 10/05/18 16:14 10/05/18 16:14 10/05/18 16:14 - Attending Attestation I examined this patient and my medical decision-making was reviewed with the Resident Physician on 10/05/18. I agree with the documented findings, disposition and treatment plan as described except to the extent set forth below. Mr Cochran has been admitted for acute respiratory failure and volume overload with ESRD. He was started on dialysis with improvement. He is now afebrile and dialysis time has been arranged. He is ready for discharge home. There was concern for a flutter last evening - I reviewed strips and only saw artifact. Would recommend outpatient holter Exam alert Comfortable Mucus membranes dry Heart distant and regular No wheeze Abd soft Edema present Plan D/C home today Addendum entered and electronically signed by Patricio Arrington 10/05/18 16:51: Hospital Course: Mr. Cochran is a 67 year old male with history of diabetes, hypertension, CK D stage IV, rhabdomyolysis who presents to the ED with several day history of poor appetite and hypoglycemia. The patient says that for the past several days he has been experiencing extremely poor appetite and just has not been interested in eating but he continues to use his insulin as regularly scheduled. As result, he says that his blood glucose has been abnormally low and he is been extremely weak. Several days ago he apparently had a fall and EMS came to his house at which time it is blood glucose and found it extremely well. He said that at that time he was unable to talk and was given oral glucose which did raise his blood glucose and his symptoms resolved. He did not go to the hospital at that time. Today however, the patient did experience worsening symptoms and was transported to the hospital per EMS with blood glucose of 27. While in the ED the patient apparently went unresponsive. He did receive several amps of dextrose, however it was noted that the patient also had an arterial blood gas demonstrated a pH of 7.16, PCO2 83, PO2 81. In addition of this, the patient had a severe AK I with a serum creatinine 6.31 and a serum potassium of 7.1 despite having no audible EKG changes. The patient was also noted to have severely elevated blood pressure of 220/120. The patient was placed on BiPAP and nephrology was consultative from the ED who recommended the patient receive a bicarbonate drip as well as Kayexalate. Following a short time on BiPAP, the patient apparently did regain consciousness and reorientation. He received a head CT which was negative for any intracranial findings. At that time he was transferred to the ICU for further management. He was then started on urgent dialysis. This greatly improved his clinical disposition. Nephrology continued to follow and the patient was dialyzed for the next 3 days of hospital course. He was able to be taken off the bicarbonate drip and cardene drip and transferred out of the ICU. On the floor he continued to improve and was transitioned to home meds and dialysis regimen, as well as supportive oxygen. Nephrology eventually established permanent dialysis. He continued to desaturate off oxygen. He was stabilized for discharge on dialysis regimen and original home medications as well as supplemental oxygen.
[2018-10-06] MEDS: Ipratropium/Albuterol Neb 3 ML IH SCH ×3 (04:37→16:10)
[2018-10-06] MEDS: *HR* Heparin 5,000 UNIT/ML VIAL SQ SCH (05:06)
[2018-10-06 05:49] LABS: Basophils % 0.2 %; Eosinophils # 0.1 K/mcL (0.0-0.6); Eosinophils % 2.6 %; Hematocrit 31.4 % (37.5-50.1); Hemoglobin 9.2 g/dL (12.9-16.9); Immature Granulocytes % 0.2 % (0-4); Lymphocytes # 0.5 K/mcL (0.6-4.6); Lymphocytes % 11.6 %; Mean Corpuscular HGB Conc 29.3 g/dL (31.6-35.5); Mean Corpuscular Hemoglobin 27.1 pg (28.0-33.3); Mean Corpuscular Volume 92.4 fL (83.0-100.0); Mean Platelet Volume 11.5 fL (9.4-12.4); Monocytes # 0.5 K/mcL (0.0-1.3); Monocytes % 11.6 %; Neutrophils # 3.1 K/mcL (1.6-8.9); Platelet Count 134 K/mcL (140-400); Red Cell Distribution Width 13.3 % (11.5-14.5); Segmented Neutrophils % 73.8 %
[2018-10-06 06:36] LABS: Calcium 7.7 mg/dL (8.6-10.3)
[2018-10-06 06:40] LABS: Potassium 4.5 mEq/L (3.5-5.1)
[2018-10-06] MEDS: hydrALAZINE 25 MG TABLET PO SCH ×2 (06:59→15:22)
[2018-10-06] MEDS: cloNIDine HCl 0.1 MG TABLET PO SCH (07:00)
[2018-10-06] MEDS: Aspirin 81 MG TAB.CHEW PO SCH (07:49)
[2018-10-06] MEDS: Gabapentin 300 MG CAPSULE PO SCH (07:49)
[2018-10-06] MEDS: Insulin LISPRO 300 UNITS/3 ML VIAL SQ SCH ×2 (07:50→11:55)
[2018-10-06] MEDS: NIFEdipine XL (24 HR) 30 MG TAB.ER.24 PO SCH (07:50)
[2018-10-06] MEDS ORDERED: Cyanocobalamin (B-12) 1,000 MCG TABLET PO SCH (09:00)
--- NOTE | 2018-10-06 09:49 | Internal Med Progress Note ---
<Patricio Arrington - Last Filed: 10/06/18 11:31> Hospitalist Progress Note - Encounter Date of Encounter: 10/06/18 Time of Encounter: 09:46 - Subjective Interval History: Patient stable for discharge yesterday but had to wait for [facility]. No acute events overnight or complaints this AM. Denied SOB on NC. - Exam Vitals: Temp Pulse Resp BP Pulse Ox 98.7 F 74 17 189/73 92 10/06/18 06:51 10/06/18 06:51 10/06/18 06:51 10/06/18 06:51 10/06/18 06:51 Exam: Gen: Vitals noted. No acute distress Eyes: anicteric sclerae, moist conjunctivae; no lid-lag; Pupils equal and reactive to light HENT: Atraumatic; oropharynx clear with moist mucous membranes and no mucosal ulcerations; normal hard and soft palate Neck: Trachea midline; supple, no thyromegaly or lymphadenopathy Cardiac: RRR, no murmur, +S1/S2 Pulmonary: Lungs Clear to auscultation bilaterally, mild end expiratory wheeze, no rales or rhonchi Abdomen: soft, nontender, no guarding. No masses or hepatosplenomegaly MSK: ROM intact, no joint swelling noted Extremities: s/p RLE AKA. no LLE edema, nontender calf, no cyanosis or clubbing. Chronic diabetic/venous stasis skin changes in LLE Skin: Normal temperature, turgor and texture; no rash, ulcers or subcutaneous nodules. Small bleeding wounds on left leg. Neuro: moves all extremities, no focal deficits. Psych: Appropriate mood and behavior. A&Ox3 Hsieh bag contents normal color - Assessment and Plan (1) ESRD (end stage renal disease) on dialysis Current Visit: Yes Status: Chronic Assessment and Plan: JOHN on CKD4 escalated to ESRD Nephrology coordinated transition to permanent dialysis Stable for discharge Plan Renal diet during admission Avoided nephrotoxins and renally dosed meds Continue hemodialysis and diuresis as per nephrology after discharge (2) Hyperkalemia Current Visit: Yes Status: Resolved Assessment and Plan: Hyperkalemia resolved with dialysis (3) Diabetes mellitus type 2 in obese Current Visit: Yes Status: Chronic Assessment and Plan: DM2, poorly controlled, glucose stabilized during admission Continue home medications at discharge (4) Respiratory failure with hypoxia and hypercapnia Current Visit: Yes Status: Resolved Assessment and Plan: Patient had respiratory failure on admission likely secondary to pleural effusion, acidosis, renal failure Rapidly improved after dialysis Saturated and ventilated well on 3LNC rest of hospitalization However he did de-saturate when taken off, 87% at rest He likely has an underlying component of COPD or obesity hypoventilation that should be explored outpatient Qualified and prescribed for home O2, waiting for [facility] approval for discharge (5) Pulmonary edema Current Visit: Yes Status: Resolved Assessment and Plan: Likely secondary to renal failure fluid overload, resolved (6) Hypertension Current Visit: Yes Status: Chronic Assessment and Plan: Hypertensive urgency, BP 220/120 at admission The patient states that he is compliant with medications Nicardipine and Nitro drip started at admission, both now discontinued Plan BP currently stable Home nifedipine 90 daily restarted Nephro increased Hydralazine Discharge with new BP regimen DVT Prophylaxis: subq heparin - Time Spent with Patient Total time spent is greater than 50% in coordination of care (as documented) at patient's floor/unit and/or counseling patient: Internal Medicine: Result - Labs CBC & Chem 7: 10/06/18 05:00 10/06/18 05:00 Labs: Short CBC 10/06/18 Range/Units 05:00 WBC 4.2 L (4.3-11.1) K/mcL Hgb 9.2 L (12.9-16.9) g/dL Hct 31.4 L (37.5-50.1) % Plt Count 134 L (140-400) K/mcL Neutrophils # 3.1 (1.6-8.9) K/mcL BMP 10/06/18 05:00 Sodium 134 L Potassium 4.5 Chloride 99 Carbon Dioxide 27 BUN 39 H Creatinine 4.71 H Glucose 151 H Calcium 7.7 L Cardiac Enzymes 10/05/18 10/05/18 Range/Units 05:33 11:16 Troponin I < 0.03 < 0.03 (< 0.04) ng/mL - ABG Interpretation ABG results: ABG ABG pH 7.32 pH Units (7.32-7.45) 10/01/18 15:36 ABG pCO2 56 mmHg (35-45) H 10/01/18 15:36 ABG pO2 59 mmHg (85-104) L 10/01/18 15:36 ABG O2 Saturation 88 % (95-98) L 10/01/18 15:36 PT/INR, D-dimer PT 12.6 Seconds (9.4-12.1) H 10/01/18 15:59 Consult Discharge Plan - Plan Instructions: Hydralazine (By mouth), Sevelamer (By mouth), Chronic Kidney Disease (DC), Hemodialysis (DC) [facility]errals: [facility] [Primary Care Provider] - 10/12/18 11:00 am (Please follow up as schedule...) Prescriptions: Cyanocobalamin (B-12) [Vitamin B12] 1,000 mcg PO DAILY 30 Days #30 tablet hydrALAZINE [HydrALAZINE] 50 mg PO TID 30 Days #180 tablet Sevelamer [Renvela] 800 mg PO TIDWM 30 Days #90 tablet <Obed Garcia - Last Filed: 10/06/18 15:27> Hospitalist Progress Note - Encounter Date of Encounter: 10/06/18 - Exam Vitals: Temp Pulse Resp BP Pulse Ox 97.5 F L 55 18 113/57 94 10/06/18 10:52 10/06/18 10:52 10/06/18 10:52 10/06/18 10:52 10/06/18 10:52 - Assessment and Plan (1) Hyperkalemia Current Visit: Yes Status: Resolved (2) Diabetes mellitus type 2 in obese Current Visit: Yes Status: Chronic (3) Respiratory failure with hypoxia and hypercapnia Current Visit: Yes Status: Resolved (4) Pulmonary edema Current Visit: Yes Status: Resolved (5) ESRD (end stage renal disease) on dialysis Current Visit: Yes Status: Chronic (6) Hypertension Current Visit: Yes Status: Chronic - Time Spent with Patient Total time spent is greater than 50% in coordination of care (as documented) at patient's floor/unit and/or counseling patient: Internal Medicine: Result - Labs CBC & Chem 7: 10/06/18 05:00 10/06/18 05:00 Labs: Short CBC 10/06/18 Range/Units 05:00 WBC 4.2 L (4.3-11.1) K/mcL Hgb 9.2 L (12.9-16.9) g/dL Hct 31.4 L (37.5-50.1) % Plt Count 134 L (140-400) K/mcL Neutrophils # 3.1 (1.6-8.9) K/mcL BMP 10/06/18 05:00 Sodium 134 L Potassium 4.5 Chloride 99 Carbon Dioxide 27 BUN 39 H Creatinine 4.71 H Glucose 151 H Calcium 7.7 L - ABG Interpretation ABG results: ABG ABG pH 7.32 pH Units (7.32-7.45) 10/01/18 15:36 ABG pCO2 56 mmHg (35-45) H 10/01/18 15:36 ABG pO2 59 mmHg (85-104) L 10/01/18 15:36 ABG O2 Saturation 88 % (95-98) L 10/01/18 15:36 PT/INR, D-dimer PT 12.6 Seconds (9.4-12.1) H 10/01/18 15:59 - Attending Attestation I examined this patient and my medical decision-making was reviewed with the Resident Physician on 10/06/18. I agree with the documented findings, disposition and treatment plan as described except to the extent set forth below. Mr Cochran's discharge was held yesterday due to need to set up oxygen [facility]. Anticipate d/c today. Currently he is resting with no complaints Exam alert Comfortable Mucus membranes dry Heart not tachy No wheeze Edema present I/P 1. ESRD 2. Chronic hypoxic resp failure D/C when oxygen arranged Further diagnoses and plan as above. <Patricio Arrington - Last Filed: 10/06/18 11:31> (4) Respiratory failure with hypoxia and hypercapnia Qualifiers: Chronicity: acute on chronic Qualified Code(s): J96.21 - Acute and chronic respiratory failure with hypoxia; J96.22 - Acute and chronic respiratory failure with hypercapnia (5) Pulmonary edema Qualifiers: Chronicity: acute Qualified Code(s): J81.0 - Acute pulmonary edema (6) Hypertension Qualifiers: Hypertension type: renovascular hypertension Qualified Code(s): I15.0 - Renovascular hypertension <Obed Garcia - Last Filed: 10/06/18 15:27> (3) Respiratory failure with hypoxia and hypercapnia Qualifiers: Chronicity: acute on chronic Qualified Code(s): J96.21 - Acute and chronic respiratory failure with hypoxia; J96.22 - Acute and chronic respiratory failure with hypercapnia (4) Pulmonary edema Qualifiers: Chronicity: acute Qualified Code(s): J81.0 - Acute pulmonary edema (6) Hypertension Qualifiers: Hypertension type: renovascular hypertension Qualified Code(s): I15.0 - Renovascular hypertension
--- NOTE | 2018-10-06 10:22 | Nephrology Progress Note ---
Addendum entered and electronically signed by Petr Abraham MD 10/06/18 19:19: I examined this patient and my medical decision-making was reviewed with the Resident Physician. I agree with the documented findings, disposition and treatment plan as described except to the extent set forth below. Original Note: Date of Encounter: 10/06/18 Time of Encounter: 10:18 - Assessment and Plan (1) ESRD (end stage renal disease) Current Visit: Yes Status: Acute - Long-standing history of CKD stage V. unlikely to recover at this point. - As had discussions as an outpatient for future needs of dialysis fistula placement, which he has been resistant to - Underwent first session of dialysis 10/01 with urgent catheter placement by IR - Presented with creatinine in the 6s, and hyperkalemia. Lab results improved after dialysis. Potassium of 4.5 - Fluid overloaded on exam which is likely partly attributable to renal dysfunction in addition to known mild HFpEF. Improving - Multiple episodes of unresponsiveness which may be related to both uremia as well as hypoglycemia Plan - At this point, it is unlikely that he will recover to a point where he is able to come off dialysis. Likely ESRD - Arranging outpatient dialysis schedule, has dialysis chair. Can be discharged from nepho standpoint. - Continue with regularly scheduled dialysis - Renal diet, consider renal vitamins - We will add phosphate binder, supplemental B12 per labs - Avoid nephrotoxins as able, renally dose medications (2) Hyperkalemia Current Visit: Yes Status: Resolved (3) Hypertensive urgency Current Visit: Yes Status: Resolved Urgency has resolved however he does remain hypertensive Blood pressure running in the 130s-150s/60-70s. Most recent reading of 189/73 before morning meds Patient does report chronic hypertension since his 20s which has been poorly controlled nicardipine drip discontinued Plan - HD should help with fluid balance - Discussed medications with primary team, they will restart home nifedipine in addition to clonidine, hydralazine, carvedilol - Will have also increased hydralazine to 50mg TID (4) Hypoglycemia Current Visit: Yes Status: Acute Per primary team Related to decreased understanding of medications We will also consult nutrition for renal diet recommendations as well as diabetic recommendations (5) Hyperparathyroidism due to renal insufficiency Current Visit: Yes Status: Chronic PTh elevated due to low vitamin D levels and CKD, will start zemplar on outpatient if HD started We will address as outpatient in dialysis sessions per protocol (6) Vitamin D deficiency Current Visit: Yes Status: Chronic Improved on ergocalciferol, will continue (7) Hyperphosphatemia Current Visit: Yes Status: Acute Phos of 6.3 Will add binder of Renvela Subjective Principal diagnosis: CKD V, hypertension Interval history: Patient was seen and examined at bedside this morning. He states overall he is feeling well with no complaints at this time. He has been tolerating his dialysis sessions well and will follow-up as an outpatient. He is scheduled for discharge as soon as his home oxygen as approved by the [place]. He was accepted for a dialysis chair. Objective - Vital Signs Vital signs: Vital Signs Temp Pulse Resp BP Pulse Ox 10/06/18 06:51 98.7 F 74 17 189/73 92 10/06/18 04:37 18 90 10/06/18 04:34 99.6 F 72 18 165/68 90 10/06/18 00:14 98.2 F 71 17 158/72 97 10/05/18 22:00 17 93 10/05/18 20:08 98.6 F 70 17 163/68 92 10/05/18 16:14 98.5 F 64 17 132/77 92 10/05/18 16:01 18 92 10/05/18 12:33 98.1 F 152/76 10/05/18 12:15 130/89 10/05/18 12:00 139/51 10/05/18 11:45 154/58 10/05/18 11:30 107/78 10/05/18 11:15 174/59 10/05/18 11:00 153/68 10/05/18 10:45 169/63 10/05/18 10:30 159/59 Intake and Output 10/05/18 10/06/18 10/06/18 23:59 07:59 15:59 Intake Total 300 / 300 240 / 240 Balance 300 / 300 240 / 240 Intake: Oral 300 / 300 240 / 240 Other: Meal Breakfast Percent of Meal Consumed 100% Weight 123.4 kg Blood Glucose* 185 124 Patient Weight 10/06/18 23:59 Weight 123.4 kg - General Appearance Exam: Gen.: Vitals noted. No acute distress. AAOx3 HEENT: PERRL/EOMI, oropharynx clear, Normocephalic, atraumatic, MMM Cardiac: RRR, no murmur, +S1/S2 Pulmonary: CTA bilaterally, no wheezes, rales or rhonchi, equal chest expansion Abdomen: soft, nontender, BS noted, no guarding, no rebound. MSK: ROM not assessed, no joint swelling noted Extremities: 2+ LE edema. nontender calf, no cyanosis or clubbing. Appears to be chronic venous stasis changes to pretibial region. Edema improved. s/p leg amputation Neuro: A&Ox3, moves all extremities, no focal deficits Psych: Appropriate mood and behavior - Lab 10/06/18 05:00 10/06/18 05:00 Most recent lab results ABG pH 7.32 pH Units (7.32-7.45) 10/01/18 15:36 ABG pCO2 56 mmHg (35-45) H 10/01/18 15:36 ABG pO2 59 mmHg (85-104) L 10/01/18 15:36 ABG HCO3 29 mEq/L (21-27) H 10/01/18 15:36 ABG O2 Saturation 88 % (95-98) L 10/01/18 15:36 Calcium 7.7 mg/dL (8.6-10.3) L 10/06/18 05:00 Phosphorus 6.3 mg/dL (2.7-4.5) H 10/05/18 05:33 Magnesium 1.9 mg/dL (1.6-2.6) 10/05/18 05:33 Consult Discharge Plan - Plan [facility]errals: [facility] [Primary Care Provider] - Prescriptions: Cyanocobalamin (B-12) [Vitamin B12] 1,000 mcg PO DAILY 30 Days #30 tablet hydrALAZINE [HydrALAZINE] 50 mg PO TID 30 Days #180 tablet Sevelamer [Renvela] 800 mg PO TIDWM 30 Days #90 tablet
[2018-10-06 10:54] VITALS: BP 113/57
--- NOTE | 2018-10-06 14:31 | Physician Discharge Referral ---
Home Health/Hosp Referral Info Transfer to: Home Health Attending Provider: Jose Provider in Charge Post Discharge: PCP - Diagnosis (1) ESRD (end stage renal disease) on dialysis Priority: Primary Status: Chronic (2) Hyperkalemia Priority: Secondary Status: Resolved (3) Diabetes mellitus type 2 in obese Priority: Secondary Status: Chronic (4) Respiratory failure with hypoxia and hypercapnia Priority: Secondary Status: Resolved (5) Pulmonary edema Priority: Secondary Status: Resolved (6) Hypertension Priority: Secondary Status: Chronic - Respiratory Orders Oxygen / L per min (3LNC all times) Smoking Cessation: Smoking cessation has been advised. For more information, call the [place] Tobacco Quit Line at 1-491-AXOH-NOW. - Diet/Nutrition Diet/Nutrition Orders: Renal, Cardiac, No Concentrated Sweets - Activity Activity Orders: Chair - Services Needed Following services are medically necessary services: Nursing, Physical Therapy, Occupational Therapy - Transfer Medications Prescriptions: Cyanocobalamin (B-12) [Vitamin B12] 1,000 mcg PO DAILY 30 Days #30 tablet hydrALAZINE [HydrALAZINE] 50 mg PO TID 30 Days #180 tablet Sevelamer [Renvela] 800 mg PO TIDWM 30 Days #90 tablet Home Medications: Albuterol Sulfate [Albuterol Inhaler] 2 puff IH QID PRN 12/05/17 [History] Carvedilol [Coreg] 25 mg PO BID 12/05/17 [History] Cetirizine HCl [All Day Allergy] 10 mg PO DAILY 12/05/17 [History] Gabapentin [Neurontin] 300 mg PO TID 12/05/17 [History] NIFEdipine [Nifedipine ER] 90 mg PO DAILY 12/05/17 [History] Trazodone HCl 150 mg PO HS 12/05/17 [History] Aspirin 81 mg PO DAILY #30 tab.chew 12/08/17 [Rx] Atorvastatin [Lipitor] 20 mg PO HS #60 tablet 12/08/17 [Rx] Ferrous Sulfate 325 mg PO BIDWM #60 tablet 12/08/17 [Rx] cloNIDine HCl [CloNIDine HCl] 0.1 mg PO BID #60 tablet 12/08/17 [Rx] Alprostadil [Edex] 40 mcg IC AD PRN 10/01/18 [History] Insulin ASPART [Novolog Flexpen] 14 unit SQ TID 10/01/18 [History] Insulin Glargine [Lantus] 32 unit SQ BID 10/01/18 [History] Cyanocobalamin (B-12) [Vitamin B12] 1,000 mcg PO DAILY 30 Days #30 tablet 10/05/18 [Rx] Sevelamer [Renvela] 800 mg PO TIDWM 30 Days #90 tablet 10/05/18 [Rx] hydrALAZINE [HydrALAZINE] 50 mg PO TID 30 Days #180 tablet 10/05/18 [Rx] Allergies/Adverse Reactions: Allergy/AdvReac Type Severity Reaction Status Date / Time No Known Allergies Allergy Verified 12/04/17 15:41 Certification: Further, I certify that my clinical findings support that this patient is homebound (i.e. absences from home require considerable and taxing effort and are for medical reasons or yazidism services or infrequently or short duration when for other reasons) because: Mr Cochran has multiple medical comorbidities including but not limited to right above the knee amputation, chronic oxygen requirement, and dialysis, he will require significant assistance managing his medical issues Homebound Reason: Severity of cardiac or pulmonary status limits activity tolerance Attestation: My signature below is to certify that this patient is under my care and that I, or nurse practitioner, or a physician's assistant chief nursing officer working with me, has a [id number] encounter with this patient.
== END 2018-10-06 16:18 | disposition home or self-care (01) | DRG 698 ==
LOC: EMEROOARM 17:41 → SUATTDRO 23:02 → ICNU 23:02 → 2ANU 10-03 09:37
PROVIDERS: ADMIT Internal Medicine; ATTEND Internal Medicine
PROC: IRPERMA (2018-10-01 18:00)

== ENCOUNTER 2019-06-29 08:27 | Inpatient (IN) ==
[2019-06-29] MEDS ORDERED: Albuterol 2.5 MG/3 ML NEBULIZER ONE (08:34)
[2019-06-29] MEDS ORDERED: Calcium Gluconate 1gm/50mL 1 GM/50 ML BAG IVPB ONE (08:34)
[2019-06-29] MEDS ORDERED: Insulin Regular, Human 100 UNIT/ML ONE (08:35)
[2019-06-29] MEDS ORDERED: Albuterol 2.5 MG/3 ML NEBULIZER IH STA (09:02)
[2019-06-29 09:08] LABS: Hematocrit 35.4 % (37.5-50.1); Hemoglobin 10.5 g/dL (12.9-16.9); Mean Corpuscular HGB Conc 29.7 g/dL (31.6-35.5); Mean Corpuscular Hemoglobin 30.3 pg (28.0-33.3); Mean Platelet Volume 10.8 fL (9.4-12.4); Platelet Count 236 K/mcL (140-400); Red Blood Count 3.47 M/mcL (4.19-5.50); Red Cell Distribution Width 12.7 % (11.5-14.5)
[2019-06-29 09:09] LABS: White Blood Count 8.3 K/mcL (4.3-11.1)
[2019-06-29 09:30] LABS: Calcium 8.5 mg/dL (8.6-10.3); Magnesium 2.2 mg/dL (1.6-2.6); Potassium 6.4 mEq/L (3.5-5.1); Troponin I 0.03 ng/mL (< 0.04)
[2019-06-29 09:50] LABS: ABG Base Excess -5 mEq/L (-2 to 3); ABG HCO3 22 mEq/L (21-27); ABG Oxygen Saturation 87 % (95-98); ABG PCO2 50 mmHg (35-45); ABG PH 7.25 pH Units (7.32-7.45); ABG PO2 62 mmHg (85-104); ABG TCO2 24 mEq/L (20-26); Blood Gas Modality ASSIST CONTROL; Blood Gas PEEP 5 cm H2O; Blood Gas VT 550 cc
--- NOTE | 2019-06-29 10:04 | Emergency Department Note ---
Disposition Clinical Impression: Cardiac arrest, Bradycardia, Hyperkalemia, ESRD (end stage renal disease) Disposition: Admitted As Inpatient Condition: Critical Referrals: NONE,PCP [Primary Care Provider] - Forms: ED Satisfaction Letter Time of Disposition: 10:00 General Adult HPI - General Chief complaint: ED Nausea/Vomiting/Diarrhea Stated complaint: N/V Time Seen by Provider: 06/29/19 08:55 Source: patient, EMS - History of Present Illness Pain Scale: 0 - Related Data Home Medications Medication Instructions Recorded Confirmed Albuterol Sulfate [Proventil 2 puff IH QID PRN 12/05/17 06/27/19 Inhaler] Carvedilol [Coreg] 12.5 mg PO BID 12/05/17 06/27/19 Atorvastatin Calcium [Lipitor] 20 mg PO HS 06/27/19 06/27/19 Calcium Carbonate [Tums] 500 mg PO BID 06/27/19 06/27/19 Cholecalciferol (Vitamin D3) 1,000 units PO DAILY 06/27/19 06/27/19 [Vitamin D3] Cyanocobalamin (B-12) [Vitamin B12] 1,000 mcg PO DAILY 06/27/19 06/27/19 Folic Acid/Vit B Complex and C 800 mcg PO DAILY 06/27/19 06/27/19 [Dialyvite 800 Chewable Wafer] Furosemide [Lasix] 20 mg PO BID 06/27/19 06/27/19 hydrALAZINE [HydrALAZINE] 25 mg PO Q8H 06/27/19 06/27/19 Previous Rx's Medication Instructions Recorded Ferrous Sulfate 325 mg PO BIDWM #60 tablet 12/08/17 cloNIDine HCl [CloNIDine HCl] 0.1 mg PO BID #60 tablet 12/08/17 HYDROcodone/Acet 5/325 mg [[place] 1 tab PO Q6H PRN 7 Days #7 tab 06/27/19 5-325 mg] Allergies Allergy/AdvReac Type Severity Reaction Status Date / Time No Known Allergies Allergy Verified 06/27/19 12:03 Past Medical History - Past Medical History Medical history: Reports: diabetes, hypertension, myocardial infarction, renal disease Surgical history: Reports: orthopedic, other, other Psychiatric history: Reports: no psych history - Social History Smoking Status: Former smoker Smokeless Tobacco Status: No Alcohol use: Reports: none Drug use: Reports: none Physical Exam - General General appearance: other Course Vital Signs O2 Sat by Pulse Oximetry 100 06/29/19 08:27 Temperature 97.8 F 06/29/19 08:29 Pulse Rate 41 06/29/19 09:56 Respiratory Rate 14 06/29/19 09:56 Blood Pressure 118/56 06/29/19 09:56 O2 Sat by Pulse Oximetry 98 06/29/19 09:56 Oxygen Delivery Oxygen Delivery Ventilator Medical Decision Making - Lab Data Result diagrams: 06/29/19 08:56 06/29/19 09:14 Lab Results 06/29/19 06/29/19 06/29/19 Range/Units 08:56 08:56 09:14 WBC 8.3 (4.3-11.1) K/mcL RBC 3.47 L (4.19-5.50) M/mcL Hgb 10.5 L (12.9-16.9) g/dL Hct 35.4 L (37.5-50.1) % MCV 102.0 H (83.0-100.0) fL MCH 30.3 (28.0-33.3) pg MCHC 29.7 L (31.6-35.5) g/dL RDW 12.7 (11.5-14.5) % Plt Count 236 (140-400) K/mcL MPV 10.8 (9.4-12.4) fL Sample Site ABG pH (7.32-7.45) pH Units ABG pCO2 (35-45) mmHg ABG pO2 (85-104) mmHg ABG HCO3 (21-27) mEq/L ABG Total CO2 (20-26) mEq/L ABG O2 Saturation (95-98) % ABG Base Excess (-2 to 3) mEq/L Maverick Test Respiration Rate O2 Delivery Device Blood Gas Modality Inspired O2 (1-15=lpm mg27-952=%) Tidal Volume cc PEEP cm H2O Sodium 131 L (136-145) mEq/L Potassium 6.4 H 4.9 (3.5-5.1) mEq/L Chloride 94 L (98-107) mEq/L Carbon Dioxide 22 L (23-29) mEq/L BUN 53 H (8-23) mg/dL Creatinine 6.15 H (0.70-1.30) mg/dL Est GFR ( Amer) 11 L (> 60) Est GFR (Non-Af Amer) 9 L (> 60) BUN/Creatinine Ratio 9 (6-26) Glucose 348 H (70-105) mg/dL Calculated Osmolality 300 (280-300) Calcium 8.5 L (8.6-10.3) mg/dL Phosphorus 7.0 H (2.7-4.5) mg/dL Magnesium 2.2 (1.6-2.6) mg/dL Troponin I 0.03 (< 0.04) ng/mL 06/29/19 Range/Units 09:47 WBC (4.3-11.1) K/mcL RBC (4.19-5.50) M/mcL Hgb (12.9-16.9) g/dL Hct (37.5-50.1) % MCV (83.0-100.0) fL MCH (28.0-33.3) pg MCHC (31.6-35.5) g/dL RDW (11.5-14.5) % Plt Count (140-400) K/mcL MPV (9.4-12.4) fL Sample Site R Radial ABG pH 7.25 L (7.32-7.45) pH Units ABG pCO2 50 H (35-45) mmHg ABG pO2 62 L (85-104) mmHg ABG HCO3 22 (21-27) mEq/L ABG Total CO2 24 (20-26) mEq/L ABG O2 Saturation 87 L (95-98) % ABG Base Excess -5 L (-2 to 3) mEq/L Maverick Test N/A Respiration Rate 14 O2 Delivery Device Adult Vent Blood Gas Modality ASSIST CONTROL Inspired O2 100.0 (1-15=lpm ar21-802=%) Tidal Volume 550 cc PEEP 5 cm H2O Sodium (136-145) mEq/L Potassium (3.5-5.1) mEq/L Chloride (98-107) mEq/L Carbon Dioxide (23-29) mEq/L BUN (8-23) mg/dL Creatinine (0.70-1.30) mg/dL Est GFR ( Amer) (> 60) Est GFR (Non-Af Amer) (> 60) BUN/Creatinine Ratio (6-26) Glucose (70-105) mg/dL Calculated Osmolality (280-300) Calcium (8.6-10.3) mg/dL Phosphorus (2.7-4.5) mg/dL Magnesium (1.6-2.6) mg/dL Troponin I (< 0.04) ng/mL Attestation Statement - Attestation Attestation: I examined this patient and my medical decision-making was reviewed with the Resident Physician. I agree with the documented findings, disposition and treatment plan as described except to the extent set forth below. Patient presented from dialysis, reported chief complaint by medics was nausea, but when he arrived he had a heart rate in the 20s, uncertain rhythm. He was not dialyzed today, had a normal dialysis session on Tuesday (2 days ago). Initially was awake and talking to us, answering questions. Was able to tell me that the appearance of his leg is not any different than it has been for a long period time. Shortly after arrival, he became unresponsive. Pressure dropped to 69 systolic. We are not able to feel a pulse, and ACLS was begun. Please see the code sheet for full details. Treatment for presumptive hyperkalemia was initiated with IV calcium as well as with albuterol, bicarbonate and insulin. Both Dr. Peterson and I attempted a femoral line placement, both this were suspicious that we entered the artery rather than the vena did not proceed with catheter placement. Eventually he did get return of spontaneous circulation, repeat EKG showed sinus rhythm in the 70s (I was present for all resident and EKG interpretations). He was hypertensive at this point. He did require intubation during the code, I was present and assisting with Dr. Peterson's intubation under video laryngoscopy. Over the course of the 90 minutes that followed return of spontaneous circulation, his heart rate gradually drifted down. Multiple repeat EKGs continued to show sinus rhythm. Blood pressure slowly drifted down as well, but he never became hypotensive. Still, with his heart rate around 40, they decided to initiate a low-dose epinephrine drip. The vegetable cutter, nephrology, and Cardiology has been consulted. His potassium came back at only 6.4, which would typically not cause a dialysis patient to have a significant issue from hyperkalemia, but he did seem to respond to hyperkalemia treatment during the code. He did receive some epinephrine, but his response seem to be to the calcium. He presented bradycardic, we did not get a 12-lead prior to the code, looking at the strips, it was difficult to tell precisely what the rhythm was. I was not able to appreciate P waves, but there was some movement artifact. Sick sinus syndrome is certainly a possibility. The patient may very well need a pacer, the reason for the cardiac consultation is were evaluation for possible pacemaker placement. Critical care time: I was directly and primarily involve the care of this patient for 40 minutes excluding procedures.
[2019-06-29] MEDS ORDERED: Glucagon, Human Recombinant 12 MG in 0.9 % Sodium Chloride 238 ML IVC SCH (10:15)
--- NOTE | 2019-06-29 10:17 | Emergency Department Note ---
Disposition Clinical Impression: Cardiac arrest, Bradycardia, Hyperkalemia, ESRD (end stage renal disease) Disposition: Admitted As Inpatient Condition: Critical Referrals: NONE,PCP [Primary Care Provider] - Forms: ED Satisfaction Letter Time of Disposition: 10:00 General Adult HPI - General Chief complaint: ED Nausea/Vomiting/Diarrhea Stated complaint: N/V Time Seen by Provider: 06/29/19 08:55 Source: patient, EMS Mode of arrival: EMS Nursing Notes Reviewed: Yes Vital Signs Reviewed: Yes - History of Present Illness HPI Narrative: 68-year-old male with significant past medical history of end-stage renal disease currently receiving dialysis Tuesday, Tuesday, Tuesday presenting to the emergency department chief complaint of nausea. Patient was at dialysis today when he was having nausea. EMS was called and brought him here. When they completed a EKG he was found to have a heart rate in the 20s. When the patient arrived he was able to vocalize that he received dialysis on Tuesday. He quickly became altered and even though we were transcutaneously pacing him patient lost his pulse. CPR was immediately started. 2-3 rounds of CPR was completed with Rosc. Patient was intubated. After patient received Rosc blood pressure was elevated in the 170s systolic the heart rate remained in the 40s. Patient was sedated with low-dose propofol. Laboratory analysis showed hyperkalemia with 6.4. Nephrology was consult it for emergent dialysis. They agreed to evaluate the patient and see him and possible dialysis in ICU. I also spoke with cardiology who recommended glucagon drip at this time due to patient being on beta lidia at home. They do not recommend a temporary pacer due to the patient's hyperkalemia. I spoke at length with the patient's son at bedside. They have not spoken about patient's CODE STATUS. At this time patien t will remain full code. Patient to be admitted to the ICU. I spoke with the doll surgeon director surface transportation Dr. Man who agrees to accept the patient at this time. He had no further recommendations at this time. Pain Scale: 0 - Related Data Home Medications Medication Instructions Recorded Confirmed Albuterol Sulfate [Proventil 2 puff IH QID PRN 12/05/17 06/27/19 Inhaler] Carvedilol [Coreg] 12.5 mg PO BID 12/05/17 06/27/19 Atorvastatin Calcium [Lipitor] 20 mg PO HS 06/27/19 06/27/19 Calcium Carbonate [Tums] 500 mg PO BID 06/27/19 06/27/19 Cholecalciferol (Vitamin D3) 1,000 units PO DAILY 06/27/19 06/27/19 [Vitamin D3] Cyanocobalamin (B-12) [Vitamin B12] 1,000 mcg PO DAILY 06/27/19 06/27/19 Folic Acid/Vit B Complex and C 800 mcg PO DAILY 06/27/19 06/27/19 [Dialyvite 800 Chewable Wafer] Furosemide [Lasix] 20 mg PO BID 06/27/19 06/27/19 hydrALAZINE [HydrALAZINE] 25 mg PO Q8H 06/27/19 06/27/19 Previous Rx's Medication Instructions Recorded Ferrous Sulfate 325 mg PO BIDWM #60 tablet 12/08/17 cloNIDine HCl [CloNIDine HCl] 0.1 mg PO BID #60 tablet 12/08/17 HYDROcodone/Acet 5/325 mg [[place] 1 tab PO Q6H PRN 7 Days #7 tab 06/27/19 5-325 mg] Allergies Allergy/AdvReac Type Severity Reaction Status Date / Time No Known Allergies Allergy Verified 06/27/19 12:03 Limitations: ROS unobtainable due to patients medical condition Past Medical History - Past Medical History Source: old records reviewed Medical history: Reports: diabetes, hypertension, myocardial infarction, renal disease Surgical history: Reports: orthopedic, other, other Psychiatric history: Reports: no psych history - Social History Smoking Status: Former smoker Smokeless Tobacco Status: No Alcohol use: Reports: none Drug use: Reports: none Physical Exam - General General appearance: other - Head Head exam: atraumatic, normocephalic, normal inspection - Eye Eye exam: Absent: scleral icterus - ENT ENT exam: mucous membranes moist - Chest Chest inspection: Present: symmetric chest wall rise - Respiratory Respiratory exam: Present: other (Decreased breath sounds bilateral bases) - Cardiovascular Cardiovascular exam: Present: bradycardia - Abdominal Exam Abdominal exam: Present: other (Distended, nontender abdomen. PD catheter in left lower quadrant) - Extremities Exam Extremities exam: Present: other ([id number] amputation of the right lower extremity. Significant cellulitis with ulcerations in the left lower extremity) Course Vital Signs O2 Sat by Pulse Oximetry 100 06/29/19 08:27 Temperature 97.8 F 06/29/19 08:29 Pulse Rate 41 06/29/19 09:56 Respiratory Rate 14 06/29/19 09:56 Blood Pressure 118/56 06/29/19 09:56 O2 Sat by Pulse Oximetry 98 06/29/19 09:56 Oxygen Delivery Oxygen Delivery Ventilator Medical Decision Making - Lab Data Result diagrams: 06/29/19 08:56 06/29/19 09:14 Lab Results 06/29/19 06/29/19 06/29/19 Range/Units 08:56 08:56 09:14 WBC 8.3 (4.3-11.1) K/mcL RBC 3.47 L (4.19-5.50) M/mcL Hgb 10.5 L (12.9-16.9) g/dL Hct 35.4 L (37.5-50.1) % MCV 102.0 H (83.0-100.0) fL MCH 30.3 (28.0-33.3) pg MCHC 29.7 L (31.6-35.5) g/dL RDW 12.7 (11.5-14.5) % Plt Count 236 (140-400) K/mcL MPV 10.8 (9.4-12.4) fL Sample Site ABG pH (7.32-7.45) pH Units ABG pCO2 (35-45) mmHg ABG pO2 (85-104) mmHg ABG HCO3 (21-27) mEq/L ABG Total CO2 (20-26) mEq/L ABG O2 Saturation (95-98) % ABG Base Excess (-2 to 3) mEq/L Maverick Test Respiration Rate O2 Delivery Device Blood Gas Modality Inspired O2 (1-15=lpm qo81-368=%) Tidal Volume cc PEEP cm H2O Sodium 131 L (136-145) mEq/L Potassium 6.4 H 4.9 (3.5-5.1) mEq/L Chloride 94 L (98-107) mEq/L Carbon Dioxide 22 L (23-29) mEq/L BUN 53 H (8-23) mg/dL Creatinine 6.15 H (0.70-1.30) mg/dL Est GFR ( Amer) 11 L (> 60) Est GFR (Non-Af Amer) 9 L (> 60) BUN/Creatinine Ratio 9 (6-26) Glucose 348 H (70-105) mg/dL Calculated Osmolality 300 (280-300) Calcium 8.5 L (8.6-10.3) mg/dL Phosphorus 7.0 H (2.7-4.5) mg/dL Magnesium 2.2 (1.6-2.6) mg/dL Troponin I 0.03 (< 0.04) ng/mL 06/29/19 Range/Units 09:47 WBC (4.3-11.1) K/mcL RBC (4.19-5.50) M/mcL Hgb (12.9-16.9) g/dL Hct (37.5-50.1) % MCV (83.0-100.0) fL MCH (28.0-33.3) pg MCHC (31.6-35.5) g/dL RDW (11.5-14.5) % Plt Count (140-400) K/mcL MPV (9.4-12.4) fL Sample Site R Radial ABG pH 7.25 L (7.32-7.45) pH Units ABG pCO2 50 H (35-45) mmHg ABG pO2 62 L (85-104) mmHg ABG HCO3 22 (21-27) mEq/L ABG Total CO2 24 (20-26) mEq/L ABG O2 Saturation 87 L (95-98) % ABG Base Excess -5 L (-2 to 3) mEq/L Maverick Test N/A Respiration Rate 14 O2 Delivery Device Adult Vent Blood Gas Modality ASSIST CONTROL Inspired O2 100.0 (1-15=lpm [id number]=%) Tidal Volume 550 cc PEEP 5 cm H2O Sodium (136-145) mEq/L Potassium (3.5-5.1) mEq/L Chloride (98-107) mEq/L Carbon Dioxide (23-29) mEq/L BUN (8-23) mg/dL Creatinine (0.70-1.30) mg/dL Est GFR ( Amer) (> 60) Est GFR (Non-Af Amer) (> 60) BUN/Creatinine Ratio (6-26) Glucose (70-105) mg/dL Calculated Osmolality (280-300) Calcium (8.6-10.3) mg/dL Phosphorus (2.7-4.5) mg/dL Magnesium (1.6-2.6) mg/dL Troponin I (< 0.04) ng/mL - EKG Data EKG #1 EKG attestation: Yes I reviewed and interpreted this EKG. EKG results narrative: Sinus rhythm. 74 beats minute. UT interval 205, QRS 111, QTC 4:15. No sign of acute ST segment elevation or ischemia. EKG #2 EKG attestation: Yes I reviewed and interpreted this EKG. EKG results narrative: Sinus bradycardia. 54 beats for minute. UT interval 223, QRS 105, QTC 408. No sign of acute ST segment elevation or ischemia.
[2019-06-29] MEDS: EPINEPHrine 1 MG in D5% in Water 250 ML IVC SCH (10:20)
[2019-06-29] MEDS ORDERED: Naloxone 0.4 MG/ML INJ IVP PRN (10:47)
[2019-06-29] MEDS ORDERED: Artificial Tears SOLN 15 ML BOTTLE BOTH EYES PRN (10:48)
[2019-06-29] MEDS ORDERED: *HR* Atropine Sulfate 1 MG/10 ML SYRINGE IVP ONE (10:49)
[2019-06-29] MEDS ORDERED: FentaNYL (PF) 1,000 MCG in 0.9 % Sodium Chloride 80 ML IVC SCH (11:00)
[2019-06-29] MEDS ORDERED: *HR* FentaNYL (PF) 100 MCG/2 ML VIAL IVP ONE ×2 (11:20→12:18)
[2019-06-29] MEDS ORDERED: 0.9 % Sodium Chloride 250 ML IVC PRN (11:39)
[2019-06-29] MEDS ORDERED: *HR* Heparin 10,000 UNIT/10 ML VIAL IV PRN (11:39)
[2019-06-29] MEDS ORDERED: 0.9 % Sodium Chloride 1,000 ML PRIME SCH (11:45)
[2019-06-29] MEDS ORDERED: Heparin 1,000 UNITS/500 mL 500 ML ONE (12:26)
[2019-06-29 12:30] LABS: Hepatitis B Surface Antibody 5.71 mIU/mL
[2019-06-29 12:41] LABS: Hepatitis B Surface Antigen Nonreactive (Nonreactive)
--- NOTE | 2019-06-29 12:51 | Cardiology Consult Note ---
Date of Encounter: 06/29/19 Time of Encounter: 10:00 Assessment and Plan (1) Hyperkalemia Current Visit: Yes Status: Acute Per cardiology: -K 6.4 on admission. -Patient is ESRD on HD. -Management per nephrology and primary service. (2) Bradycardia Current Visit: Yes Status: Acute Per cardiology: -HR reportedly 20s upon arrival to ER. -ECG with HR 40s. Currently 40s on tele at bedside. -Patient takes coreg and clonidine at home. -Patient with metabolic derrangements, K 6.4. -BP currently stable on low dose epi. -TTE 09/2018 with LVEF 55-60%, moderate concentric LVH, mild diastolic dysfunction, moderately dilated LA, trace MR, no segmental wall motion abnormalities noted. -Discussed and reviewed with and , recommend aggressive potassium management. -Consider glucagon drip for BB reversal. -Discontinue BB. -Pacer pads on patient, can transcutaneously pace patient if needed. -If pressors continue to be needed, consider dopamine. -Will continue to monitor. (3) Cardiac arrest Current Visit: Yes Status: Acute Per cardiology: -Cardiac arrest in ER. -Suspect multi-factoral. -No acute ischemic ECG changes noted. -Troponin negative. -See bradycardia as above. -Will check TTE. Discussion w patient/family: The assessment and plan as outlined above was discussed with the patient and/or family members who expressed understanding and agreement. All questions were answered. Thank you for involving us in the care of your patient. Please call with any questions. Discussed and reviewed with . History of Present Illness Consult date: 06/29/19 Requesting physician: Jackie Peterson Consult reason: bradycardia Chief complaint: weakness, nausea, bradycardia History of present illness: Mr. Cochran is a 68 year old male with a relevant past medical history of ESRD on HD, DM, HTN, Right AKA, who presented to dialysis today and reported nausea. HD was canceled and EMS was called. Upon EMS arrival, HR 20s. Patient was take to ER and subsequently coded. Of note, patient is currently intubated and sedated. Majority of HPI obtained from previous documentation and family at bedside. Cardiology has been consulted for bradycardia. Of note, potassium 6.4. HR currently 40s at bedside. Patient able to respond to questions. Shakes head yes and no to questions. Able to move upper extremities. Past Med Surg Social Fam HX - Past Medical History Attestation: Yes The following information was validated with the patient. Source: patient, old records reviewed Medical history: diabetes, hypertension, myocardial infarction, renal disease Additional medical history: carotid stenosis Psychiatric history: no psych history - Past Surgical History Surgical History: orthopedic, other, other Additional surgical history: Right AKA. bilateral knee replacements - Social History Smoking Status: Former smoker Smokeless Tobacco Status: No Alcohol use: none Drug use: none - Family History Mother Living Status: Hx Family Cardiac Disorders: Yes (heart failure) Hx Family Endocrine Disorder: Yes (DM) Father Living Status: Hx Family Cardiac Disorders: Yes (stroke) Hx Family Neuromuscular Disorders: Yes (CVA) Medications and Allergies Albuterol Sulfate [Proventil Inhaler] 2 puff IH QID PRN 12/05/17 [History] Carvedilol [Coreg] 12.5 mg PO BID 12/05/17 [History] Ferrous Sulfate 325 mg PO BIDWM #60 tablet 12/08/17 [Rx] cloNIDine HCl [CloNIDine HCl] 0.1 mg PO BID #60 tablet 12/08/17 [Rx] Atorvastatin Calcium [Lipitor] 20 mg PO HS 06/27/19 [History] Calcium Carbonate [Tums] 500 mg PO BID 06/27/19 [History] Cholecalciferol (Vitamin D3) [Vitamin D3] 1,000 units PO DAILY 06/27/19 [History] Cyanocobalamin (B-12) [Vitamin B12] 1,000 mcg PO DAILY 06/27/19 [History] Folic Acid/Vit B Complex and C [Dialyvite 800 Chewable Wafer] 800 mcg PO DAILY 06/27/19 [History] Furosemide [Lasix] 20 mg PO BID 06/27/19 [History] HYDROcodone/Acet 5/325 mg [Hines 5-325 mg] 1 tab PO Q6H PRN 7 Days #7 tab 06/27/19 [Rx] hydrALAZINE [HydrALAZINE] 25 mg PO Q8H 06/27/19 [History] Allergy/AdvReac Type Severity Reaction Status Date / Time No Known Allergies Allergy Verified 06/27/19 12:03 All Systems Review: The remainder of the systems were reviewed and are negative - Cardiovascular Cardiovascular: as per HPI, slow heart rate - Gastrointestinal Gastrointestinal: nausea Physical Examination Vital Signs, Last 4 Hours Pulse Resp BP Pulse Ox 06/29/19 11:12 56 14 155/63 100 06/29/19 11:04 36 14 127/54 94 06/29/19 10:41 38 14 131/58 97 06/29/19 10:23 39 14 123/65 96 06/29/19 09:56 41 14 118/56 98 06/29/19 09:38 44 14 125/56 99 06/29/19 09:20 49 14 142/56 99 06/29/19 08:45 14 118/56 98 General: Other (Intubated and sedated. Responding appriopriately to questions. ) HEENT: Atraumatic, Normocephaly, Mucus Membranes Moist Neck: No JVD, Normal carotid pulses Cardiac: Normal S1 and S2, No Murmur, Other (Bradycardic) Lungs: Other (Lung sounds coarse throughout. ) Neuro: Other (Intubated and sedated. Reponds appriopriately to questions. ) Abdomen: Soft, Non-Tender Skin: Other (Left lower extremity with multiple ulcerated areas. ) Musculoskeletal: No Chest Wall Tenderness Extremities: No Clubbing, No Cyanosis, Other (Right AKA. Left lower extremity with multiple ulcerated areas. Left DP pulse 1+. ) Results 06/29/19 08:56 06/29/19 11:38 Lab Results Impressions Chest X-Ray 06/29/19 08:55 IMPRESSION: 1. Intubation and nasogastric tube placement. Recommend repositioning of the nasogastric tube. 2. Cardiomegaly with pulmonary edema and bilateral pleural effusions. D/ / Carl Hu MD / Carl Hu MD Interpreting Provider: Carl Hu MD Active Medications Artificial Tears (Akwa Tears) 1 drop BOTH EYES Q2HR PRN; Protocol PRN Reason: Dry Eyes Stop: 12/29/19 10:49 Artificial Tears (Akwa Tears) 1 drop BOTH EYES Q4HR SONIDO; Protocol Stop: 12/29/19 12:01 Chlorhexidine Gluconate (Chlorhexidine Rinse) 15 ml MM BID [facility]ONIDO Stop: 12/29/19 11:01 Heparin Sodium (Porcine) (Heparin) 0 unit IV ONCE PRN PRN Reason: Hemodialysis Catheter Packing Propofol (Diprivan) 1,000 mg in 100 mls @ 3.39 mls/hr IVC .Q24H [facility]; Protocol Stop: 12/29/19 09:46 Last Titration: 06/29/19 11:40 Dose: 0 mcg/kg/min, 0 mls/hr Documented by: Glucagon 12 mg/ Sodium (Chloride) 250 mls @ 62.5 mls/hr IVC .Q4H [facility]IDO Stop: 12/29/19 10:16 Last Admin: 06/29/19 11:40 Dose: 3 mg/hr, 62.5 mls/hr Documented by: Epinephrine HCl 1 mg/ Dextrose 251 mls @ 30.12 mls/hr IVC CONT [facility]; Protocol Stop: 12/29/19 10:31 Last Titration: 06/29/19 10:45 Dose: 7.5 mcg/min, 113 mls/hr Documented by: Fentanyl Citrate 1,000 mcg/ (Sodium Chloride) 100 mls @ 5 mls/hr IVC CONT [facility]; Protocol Stop: 12/29/19 11:01 Sodium Chloride (0.9 % Sodium Chloride) 250 mls @ 937.5 mls/hr IVC .Q16M PRN PRN Reason: Hypotension Stop: 12/29/19 11:40 Sodium Chloride (0.9 % Sodium Chloride) 1,000 mls @ 0 mls/hr PRIME .Q0M [facility] Stop: 12/29/19 11:46 Naloxone HCl (Narcan) 0.4 mg IVP Q2MPRN PRN PRN Reason: SEE COMMENTS Stop: 12/29/19 10:48 Pantoprazole Sodium (Protonix) 40 mg IVP DAILY [facility] Stop: 12/29/19 11:01 Laboratory Tests 06/29/19 06/29/19 08:56 08:56 Hgb 10.5 L Potassium 6.4 H Creatinine 6.15 H Magnesium 2.2 Troponin I 0.03 - Imaging and Cardiology Chest Xray: report reviewed Echo: report reviewed - EKG Interpretation EKG results cardiology: personally reviewed (ECG with sinus bradycardia vs junctional bradycardia.) Consult Discharge Plan - Plan Referrals: NONE,PCP [Primary Care Provider] -
--- NOTE | 2019-06-29 13:07 | Pulmonology History & Physical ---
<Irwin Singh - Last Filed: 06/29/19 13:01> Date of Encounter: 06/29/19 Time of Encounter: 13:02 History of Present Illness Chief complaint: Cardiac arrest, acute respiratory failure, hyperkalemia, HPI: Mr. Cochran is a 68 year old male past medical history of end-stage renal disease receiving Tuesday/Tuesday/Tuesday dialysis, right [id number] am putation, hypertension, congestive heart failure, presenting to [facility] today 06/29 for nausea. The patient was at dialysis today when he noted that he is having increasing discomfort and he was brought to the ED for further evaluation and management. Upon evaluation of the ED patient was noted to be alert and oriented however it was noted that his heart rate became bradycardic into the 20s and he lost consciousness. EMS physician noted that the patient had a sine wave on EKG and he became pulseless and apneic. 2-3 rounds of CPR were completed with 2 rounds of epinephrine administered as well as 3 separate doses of calcium gluconate. Patient was intubated and placed on mechanical ventilation during this time. The patient achieved return of spontaneous circulation at that point and became alert and oriented and able to follow commands. Patient is not a candidate for hypothermic protocol as he is now awake alert and oriented. Patient was found to be hyperkalemic on initial laboratory values at 6.4, repeat potassium values noted at 4.9. Nephrology was consulted and is following. Nephrology no sit is highly unlikely that this disposition was caused by hyperkalemia as the patient's value was consistent with prior values specifically with him being on renal dialysis. We spoke with cardiology who is also following at this time who states that the patient should be given a glucagon drip for antidote of home beta lidia, they do not recommend a temporary pacer at this time but states patient should be medically managed with dopamine. I spoke with the patient directly in his son at bedside who state that he is to be a full code until otherwise notified. Patient will be transferred to the care of ICU further evaluation and management. Patient will have dialysis catheter placed by interventional radiology at this time. He will be sent for emergent dialysis. Patient to remain intubated until after dialysis with extubation to take place in the ICU. Patient G-tube has been removed in the ED accidentally and will not be replaced as we plan to extubate this patient shortly. Patient remains hemodynamically stable this time. Cardiac pulmonary arrest: -Return of spontaneous circulation achieved in the ED after 2 or 3 rounds of CPR, epinephrine plus calcium gluconate given -Patient noted to have hyperkalemia which is resolved with calcium gluconate infusion -Sine wave was said to be noted on EKG however we do not have recording of this, subsequent EKG shows sinus bradycardia without ischemic change -Patient be continued on telemetry -Patient to be started on dopamine drip -Cardiology consulted and is following End-stage renal disease -On Tuesday dialysis, did not a compost dialysis today due to patient's symptoms. -Noted electrolyte abnormalities possibly relating to patient's cardiac arrest. -Patient will have dialysis catheter placed by interventional radiology with emergent dialysis today. -Avoid renal toxic medications -Continue to monitor Hypertension -Continue to monitor heart rate and blood pressure Past Med Surg Social Fam HX - Past Medical History Medical history: diabetes, hypertension, myocardial infarction, renal disease Additional medical history: carotid stenosis Psychiatric history: no psych history - Past Surgical History Surgical History: orthopedic, other, other Additional surgical history: Right AKA. bilateral knee replacements - Social History Smoking Status: Former smoker Smokeless Tobacco Status: No Alcohol use: none Drug use: none - Family History Mother Living Status: Hx Family Cardiac Disorders: Yes (heart failure) Hx Family Endocrine Disorder: Yes (DM) Father Living Status: Hx Family Cardiac Disorders: Yes (stroke) Hx Family Neuromuscular Disorders: Yes (CVA) Medications and Allergies Albuterol Sulfate [Proventil Inhaler] 2 puff IH QID PRN 12/05/17 [History] Carvedilol [Coreg] 12.5 mg PO BID 12/05/17 [History] Ferrous Sulfate 325 mg PO BIDWM #60 tablet 12/08/17 [Rx] cloNIDine HCl [CloNIDine HCl] 0.1 mg PO BID #60 tablet 12/08/17 [Rx] Atorvastatin Calcium [Lipitor] 20 mg PO HS 06/27/19 [History] Calcium Carbonate [Tums] 500 mg PO BID 06/27/19 [History] Cholecalciferol (Vitamin D3) [Vitamin D3] 1,000 units PO DAILY 06/27/19 [H istory] Cyanocobalamin (B-12) [Vitamin B12] 1,000 mcg PO DAILY 06/27/19 [History] Folic Acid/Vit B Complex and C [Dialyvite 800 Chewable Wafer] 800 mcg PO DAILY 06/27/19 [History] Furosemide [Lasix] 20 mg PO BID 06/27/19 [History] HYDROcodone/Acet 5/325 mg [Vilas 5-325 mg] 1 tab PO Q6H PRN 7 Days #7 tab 06/27/19 [Rx] hydrALAZINE [HydrALAZINE] 25 mg PO Q8H 06/27/19 [History] Allergy/AdvReac Type Severity Reaction Status Date / Time No Known Allergies Allergy Verified 06/27/19 12:03 ROS unobtainable: due to endotracheal tube All Systems: The remainder of the systems were reviewed and are negative Review of Systems: Formal review of systems is extremely limited as patient remains endotracheally intubated. Patient is able to nod his head for simple yes or no questioning and denies any pain at this time nausea or feeling of air hunger on the vent with the exception of an sore throat due to the endotracheal intubation. When asked if the patient would like me to do CPR or to reintubate if necessary the patient nods his head and affirmation. The patient's son, and RN were present bedside during this conversation. Physical Examination Vital Signs: Vital Signs, Last 4 Hours Pulse Resp BP Pulse Ox 06/29/19 12:41 16 164/62 06/29/19 11:12 56 14 155/63 100 06/29/19 11:04 36 14 127/54 94 06/29/19 10:41 38 14 131/58 97 06/29/19 10:23 39 14 123/65 96 06/29/19 09:56 41 14 118/56 98 06/29/19 09:38 44 14 125/56 99 06/29/19 09:20 49 14 142/56 99 General appearance: alert, lethargic, appears uncomfortable Eyes: nonicteric ENT: oropharynx moist Neck: supple Effort: other (Intubated and mechanically ventilated) Auscultation: bilateral: clear Cardiovascular: regular rate and rhythm Gastrointestinal: normoactive bowel sounds Integumentary: normal Extremities: no cyanosis Musculoskeletal: no deformities non-focal exam Results - Laboratory Findings CBC and BMP: 06/29/19 08:56 06/29/19 11:38 ABG ABG pH 7.25 pH Units (7.32-7.45) L 06/29/19 09:47 ABG pCO2 50 mmHg (35-45) H 06/29/19 09:47 ABG pO2 62 mmHg (85-104) L 06/29/19 09:47 ABG O2 Saturation 87 % (95-98) L 06/29/19 09:47 Abnormal lab findings: Abnormal lab results RBC 3.47 M/mcL (4.19-5.50) L 06/29/19 08:56 Hgb 10.5 g/dL (12.9-16.9) L 06/29/19 08:56 Hct 35.4 % (37.5-50.1) L 06/29/19 08:56 MCV 102.0 fL (83.0-100.0) H 06/29/19 08:56 MCHC 29.7 g/dL (31.6-35.5) L 06/29/19 08:56 ABG pH 7.25 pH Units (7.32-7.45) L 06/29/19 09:47 ABG pCO2 50 mmHg (35-45) H 06/29/19 09:47 ABG pO2 62 mmHg (85-104) L 06/29/19 09:47 ABG O2 Saturation 87 % (95-98) L 06/29/19 09:47 ABG Base Excess -5 mEq/L (-2 to 3) L 06/29/19 09:47 Sodium 131 mEq/L (136-145) L 06/29/19 08:56 Potassium 6.4 mEq/L (3.5-5.1) H 06/29/19 08:56 Chloride 94 mEq/L (98-107) L 06/29/19 08:56 Carbon Dioxide 22 mEq/L (23-29) L 06/29/19 08:56 BUN 53 mg/dL (8-23) H 06/29/19 08:56 Creatinine 6.15 mg/dL (0.70-1.30) H 06/29/19 08:56 Est GFR ( Amer) 11 (> 60) L 06/29/19 08:56 Est GFR (Non-Af Amer) 9 (> 60) L 06/29/19 08:56 Glucose 348 mg/dL (70-105) H 06/29/19 08:56 Calcium 8.5 mg/dL (8.6-10.3) L 06/29/19 08:56 Phosphorus 7.0 mg/dL (2.7-4.5) H 06/29/19 08:56 Hep Bs Antibody 5.71 mIU/mL (10.00-) L 06/29/19 08:56 <Popeye Jaquez W - Last Filed: 06/29/19 16:17> Date of Encounter: 06/29/19 History of Present Illness HPI: Mr. Cochran is a 68 year old male All Systems: The remainder of the systems were reviewed and are negative Physical Examination Vital Signs: Vital Signs, Last 4 Hours Resp BP Pulse Ox 06/29/19 14:20 14 164/62 94 06/29/19 12:41 16 164/62 06/29/19 12:30 14 130/68 100 Results - Laboratory Findings CBC and BMP: 06/29/19 08:56 06/29/19 11:38 ABG ABG pH 7.25 pH Units (7.32-7.45) L 06/29/19 09:47 ABG pCO2 50 mmHg (35-45) H 06/29/19 09:47 ABG pO2 62 mmHg (85-104) L 06/29/19 09:47 ABG O2 Saturation 87 % (95-98) L 06/29/19 09:47 Abnormal lab findings: Abnormal lab results RBC 3.47 M/mcL (4.19-5.50) L 06/29/19 08:56 Hgb 10.5 g/dL (12.9-16.9) L 06/29/19 08:56 Hct 35.4 % (37.5-50.1) L 06/29/19 08:56 MCV 102.0 fL (83.0-100.0) H 06/29/19 08:56 MCHC 29.7 g/dL (31.6-35.5) L 06/29/19 08:56 ABG pH 7.25 pH Units (7.32-7.45) L 06/29/19 09:47 ABG pCO2 50 mmHg (35-45) H 06/29/19 09:47 ABG pO2 62 mmHg (85-104) L 06/29/19 09:47 ABG O2 Saturation 87 % (95-98) L 06/29/19 09:47 ABG Base Excess -5 mEq/L (-2 to 3) L 06/29/19 09:47 Sodium 131 mEq/L (136-145) L 06/29/19 08:56 Potassium 6.4 mEq/L (3.5-5.1) H 06/29/19 08:56 Chloride 94 mEq/L (98-107) L 06/29/19 08:56 Carbon Dioxide 22 mEq/L (23-29) L 06/29/19 08:56 BUN 53 mg/dL (8-23) H 06/29/19 08:56 Creatinine 6.15 mg/dL (0.70-1.30) H 06/29/19 08:56 Est GFR ( Amer) 11 (> 60) L 06/29/19 08:56 Est GFR (Non-Af Amer) 9 (> 60) L 06/29/19 08:56 Glucose 348 mg/dL (70-105) H 06/29/19 08:56 Calcium 8.5 mg/dL (8.6-10.3) L 06/29/19 08:56 Phosphorus 7.0 mg/dL (2.7-4.5) H 06/29/19 08:56 Hep Bs Antibody 5.71 mIU/mL (10.00-) L 06/29/19 08:56 - Attending Attestation I examined this patient and my medical decision-making was reviewed with the Resident Physician. I agree with the documented findings, disposition and treatment plan as described except to the extent set forth below. We independently had [id number] contact with the patient I spent 36 min of Critical Care time with this patient. It involved decision making of high complexity to assess, manipulate, and support vital organ system failure and/or to prevent further life threatening deterioration of the patient's condition. The time involved in the performance of separately reportable procedures was not counted toward critical care time. Patient seen and examined at bedside Labs, radiology, chart personally reviewed. PROCESS IMPROVEMENT CONSULTANT: Patient is awake and able to follow commands there is no gross focal deficit Pulm: Acute hypoxic respiratory failure prompting intubation in the context of cardiac arrest he is now the ventilator with acceptable gas exchange and in fact I suspect patient can be liberated from the ventilator Cards: Life-threatening bradycardia precipitating cardiac arrest patient does not appear to have neurological impairment after arrest but will need to have this monitored closely likely secondary to acidosis and electrolyte abnormalities. Patient is on a glucagon infusion which can be stopped at this point can use dopamine as needed for bradycardia but this far patient has not had any hypotensive episodes after the cardiac arrest. Cardiology will need to be consulted for evaluation of bradycardia as patient may need temporary pacing GI: GI prophylaxis given while on vent Nutrition: Nothing by mouth for now Renal: ESRD we will will likely need dialysis nephrology consulted appreciate recommendations UOP Monitored, Cont to Trend sCr and monitor Electrolytes. ID: No clear evidence of infectious process at this point but will get cultures and continue to monitor Heme/Onc: DVT prophylaxis given Endo: Glucose Monitored Integ/MSK: Skin Care per routine ICU Nursing Protocol to prevent ulcers. Lines: All lines examined without evidence of infection : Dispo: He will need to be monitored in the ICU for critical illness CODE: Full Code.
[2019-06-29] MEDS ORDERED: *HR* Heparin 5,000 UNIT/ML VIAL ONE (14:13)
--- NOTE | 2019-06-29 14:28 | IR Procedure Note ---
Date of procedure: 06/29/19 Consent Obtained: Verbal consent Timeout: Correct patient and procedure verified, Time out performed, Skin prep completed Local anesthetic: Lidocaine 1% Was there an special education teaching assistant present: No Estimated blood loss (cc): 0 Complications: None; Tolerated procedure well Indications: CRF Procedure Performed: temp dialysis catheter placement Results/Findings (any specimens removed): right femoral temp dialysis catheter placement Post Procedure Treatment Plan: monitor on floor Specimen: none
[2019-06-29] MEDS ORDERED: Perflutren Lipid Microsphere 1.3 ML in 0.9 % Sodium Chloride 8.7 ML IVP ONE (14:58)
[2019-06-29] MEDS ORDERED: Ondansetron 4 MG/2 ML VIAL IVP STA (15:11)
[2019-06-29] MEDS: Pantoprazole 40 MG VIAL IVP SCH (16:00)
[2019-06-29] MEDS: Artificial Tears SOLN 15 ML BOTTLE BOTH EYES SCH ×4 (16:00→19:38)
--- NOTE | 2019-06-29 16:26 | Nephrology Consult Note ---
Date of Encounter: 06/29/19 Time of Encounter: 16:25 Assessment and Plan (1) ESRD (end stage renal disease) Current Visit: Yes Status: Acute HD MWF. Renal vitamins. Renal dose medications. Renal diet. Additional dialysis and ultrafiltration as needed. Patient will receive dialysis today. (2) Bradycardia Current Visit: Yes Status: Acute The patient presented with bradycardia and an arrhythmia with hypotension. This initially was thought to be secondary to hyperkalemia, however, the bradycardia continued after correction of his hyperkalemia. Her cotton stripper is likely related to beta lidia use. He did respond to medical management. The patient was chronically ill and required intubation. I did see him in the emergency room twice as well as in the intensive care unit twice. I spoke to the emergency room physician along with the critical care physician. The patient required urgent dialysis however his left forearm graft is clotted. Therefore interventional radiology was consulted to place a temporary dialysis catheter. Will requested interventional radiology attempted thrombectomy on Tuesday if he is still hospital. If this is unsuccessful that he will need a tunneled dialysis catheter until his peritoneal dialysis catheter is mature. 43 minutes of total time was spent in the care of this critically ill patient he will receive dialysis today. We will also check to see if he needs dialysis on Tuesday. (3) Cardiac arrest Current Visit: Yes Status: Acute Patient experienced return of spontaneous circulation by the time of my evaluation. (4) Hyperkalemia Current Visit: Yes Status: Acute Responded to medical management and will receive dialysis. (5) Above knee amputation of right lower extremity Current Visit: No Status: Acute (6) Hypertension Current Visit: No Status: Chronic Patient with cardiogenic shock initially that improved with return of his heart rate. Qualifiers: Hypertension type: renovascular hypertension Qualified Code(s): I15.0 - Renovascular hypertension (7) Acute encephalopathy Current Visit: No Status: Resolved Patient was unable to protect his airway and was intubated. Etiology is cardiogenic. History of Present Illness - Reason for Consult Consult date: 06/30/19 end stage renal disease - Chief Complaint esrd - History of Present Illness This letter is a 68-year-old man with a history of end-stage renal disease who dialyzes on a Tuesday schedule via left forearm graft. He presents with altered mental status and symptomatic bradycardia. In the history was obtained from the patient's sons and talking with dialysis unit staff as the patient is intubated at the time my evaluation. He was able to nod in approval or disapproval in response to my questions. The patient's underwent placement of a peritoneal dialysis catheter the Tuesday prior to admission. He started feeling slightly worse today and at the time that he presented to dialysis on the day of admission he did not feel well and had altered mental status but wanted to get on the dialysis machine, however, was denied by the staff told him to come to the emergency department. In this wide the patient was found to have symptomatic bradycardia with hypotension and heart rate in the 30s. In the emergency room there was concern about his ability to protect his airway so he was intubated. Cardiology evaluated him this is secondary to excess beta lidia. I did speak with the emergency room physician regarding the plan. While the patient's heart rate initially stated in the 30s he did respond to medical management with a heart rate that came up to 50s to 70s and a blood pressure to stabilize. The patient nodded that he did not have chest pain or nausea or vomiting prior to this event. He did agree that he had shortness of breath. Unable to get a complete review of systems secondary to the endotracheal tube. Past Med Surg Social Fam HX - Past Medical History Medical history: diabetes, hypertension, myocardial infarction, renal disease Additional medical history: carotid stenosis Psychiatric history: no psych history - Past Surgical History Surgical History: orthopedic, other, other Additional surgical history: Right AKA. bilateral knee replacements - Social History Smoking Status: Former smoker Smokeless Tobacco Status: No Alcohol use: none Drug use: none - Family History Mother Living Status: Hx Family Cardiac Disorders: Yes (heart failure) Hx Family Endocrine Disorder: Yes (DM) Father Living Status: Hx Family Cardiac Disorders: Yes (stroke) Hx Family Neuromuscular Disorders: Yes (CVA) Medications and Allergies Albuterol Sulfate [Proventil Inhaler] 2 puff IH QID PRN 12/05/17 [History] Carvedilol [Coreg] 12.5 mg PO BID 12/05/17 [History] Ferrous Sulfate 325 mg PO BIDWM #60 tablet 12/08/17 [Rx] cloNIDine HCl [CloNIDine HCl] 0.1 mg PO BID #60 tablet 12/08/17 [Rx] Atorvastatin Calcium [Lipitor] 20 mg PO HS 06/27/19 [History] Calcium Carbonate [Tums] 500 mg PO BID 06/27/19 [History] Cholecalciferol (Vitamin D3) [Vitamin D3] 1,000 units PO DAILY 06/27/19 [History] Cyanocobalamin (B-12) [Vitamin B12] 1,000 mcg PO DAILY 06/27/19 [History] Folic Acid/Vit B Complex and C [Dialyvite 800 Chewable Wafer] 800 mcg PO DAILY 06/27/19 [History] Furosemide [Lasix] 20 mg PO BID 06/27/19 [History] HYDROcodone/Acet 5/325 mg [Page 5-325 mg] 1 tab PO Q6H PRN 7 Days #7 tab 06/27/19 [Rx] hydrALAZINE [HydrALAZINE] 25 mg PO Q8H 06/27/19 [History] Allergy/AdvReac Type Severity Reaction Status Date / Time No Known Allergies Allergy Verified 06/27/19 12:03 Review of Systems ROS unobtainable: due to endotracheal tube Exam - Vital Signs Vital signs: Initial Vital Signs Pulse Ox 100 06/29/19 08:27 Vital Signs - Last 8 Hours Temp Pulse Resp BP Pulse Ox 06/29/19 15:00 60 16 161/65 92 06/29/19 14:40 16 06/29/19 14:25 97.9 F 59 16 152/64 94 06/29/19 14:20 14 164/62 94 06/29/19 12:41 16 164/62 06/29/19 12:30 14 130/68 100 06/29/19 11:12 56 14 155/63 100 06/29/19 11:04 36 14 127/54 94 06/29/19 10:41 38 14 131/58 97 06/29/19 10:23 39 14 123/65 96 06/29/19 09:56 41 14 118/56 98 06/29/19 09:38 44 14 125/56 99 06/29/19 09:20 49 14 142/56 99 06/29/19 08:45 14 118/56 98 06/29/19 08:29 97.8 F 29 22 0/0 95 06/29/19 08:27 100 Intake and Output 06/29/19 06/29/19 06/29/19 07:59 15:59 23:59 Intake Total 112 / 112 Balance 112 / 112 Intake: IV Fluids 112 / 112 EPINEPHrine 1 MG In Dextrose 5% 62 / 62 250 ML @ 2 MCG/MIN 30.12 mls/ hr IVC CONT [facility] Rx#:[id number] Diprivan 1,000 mg In 100 ml @ 5 50 / 50 MCG/KG/MIN 3.39 mls/hr IVC . Q24H [facility] Rx#:[id number] Other: Weight 115.9 kg Blood Glucose* 244 Patient Weight 06/29/19 23:59 Weight 115.9 kg - General Appearance General appearance: well-developed, well-nourished, obese, intubated EENT: ATNC Neck: supple Respiratory: course breath sounds Cardiology: edema Additional Comments: Bradycardic - Dialysis Access Dialysis Vascular Access: Arteriovenous Graft (Left forearm graft) thrill: No bruit: No Gastrointestinal: no tenderness, obese Integumentary: warm and dry Neurologic: confused Musculoskeletal: no cyanosis Psychiatric: mood/affect appropriate Results - Lab Results 06/30/19 03:45 06/30/19 03:45 Most recent lab results 06/29/19 06/29/19 08:56 09:47 ABG pH 7.25 L ABG pCO2 50 H ABG pO2 62 L ABG HCO3 22 ABG O2 Saturation 87 L Calcium 8.5 L Phosphorus 7.0 H Magnesium 2.2 Consult Discharge Plan - Plan Referrals: NONE,PCP [Primary Care Provider] -
[2019-06-29] MEDS: Chlorhexidine Rinse 15 ML MOUTHWASH MM SCH ×2 (16:47→19:37)
[2019-06-29 17:08] LABS: Bilirubin,Urine Negative (Negative); Blood,Urine Negative (Negative); Clarity,Urine Cloudy (Clear); Color,Urine Yellow (Yellow); Glucose,Urine (UA) 100 mg/dL (Normal); Ketones,Urine Negative (Negative); Leukocyte Esterase,Urine Negative (Negative); Nitrite,Urine Negative (Negative); Protein,Urine >=300 mg/dL (Neg-Trace); Specific Gravity,Urine 1.019 (1.010-1.025); Urobilinogen,Urine Normal (Normal)
[2019-06-29 17:11] LABS: Bacteria,Urine None Seen per hpf (None-Few); Hyaline Casts,Urine None Seen per lpf (None-Few); RBC,Urine 15-30 per hpf (0-3); Squamous Epithelial Cell,Urine Many per lpf (None-Few)
--- NOTE | 2019-06-29 19:13 | Emergency Department Note ---
START Narrative - START START: Procedure note for intubation The patient was placed on a cardiac care nurse including continuous pulse oximetry. Rapid Sequence Intubation was conducted. The patient received 20mg of etomidate for induction and 80mg of rocuronium for adequate paralysis. Video assisted laryngoscope used with an endotracheal tube with stylet, the patient was intubated on the second attempt. The stylet was removed and cuff balloon was inflated. Appropriate endotracheal tube position was confirmed by direct visualization of vocal cord passage, fogging of the tube, CO2 colometric indicator and symmetric breath sounds. Post intubation chest x-ray showed appropriate tube placement.
[2019-06-29] MEDS ORDERED: *HR* Atropine Sulfate 1 MG/10 ML SYRINGE IV ONE (19:59)
[2019-06-29] MEDS ORDERED: *HR* EPINEPHrine 1 MG/10 ML SYRINGE IVP ONE (19:59)
--- NOTE | 2019-06-29 21:03 | Electrocardiograph Report ---
[address] [place], [place] [address] Test Date: 2019-06-29 Pat Name: Johnnie Cochran Department: [id number] Room: [facility] Gender: Chute Tender: : 1950 Requested By: Johnnie Parisi Order Number: [id number] Reading MD: Elizabeth Ramirez Measurements Intervals [place] Rate: 74 P: 78 MS: 205 QRS: 51 QRSD: 111 T: 45 QT: 374 QTc: 415 Interpretive Statements Sinus rhythm Electronically Signed On 06-29-2019 21:02:11 EDT by Elizabeth Ramirez
--- NOTE | 2019-06-29 21:09 | Electrocardiograph Report ---
[address] [place], [place] [address] Test Date: 2019-06-29 Pat Name: Johnnie Cochran Department: [id number] Room: [facility] Gender: Associate Designer: : 1950 Requested By: Johnnie Parisi Order Number: [id number] Reading MD: Elizabeth Ramirez Measurements Intervals [place] Rate: 46 P: 268 MD: 251 QRS: 63 QRSD: 125 T: 40 QT: 503 QTc: 440 Interpretive Statements Sinus or ectopic atrial bradycardia Prolonged MD interval Probable left atrial enlargement Nonspecific intraventricular conduction delay Electronically Signed On 06-29-2019 21:07:16 EDT by Elizabeth Ramirez
[2019-06-30] MEDS ORDERED: Dextrose Gel 15 GM/37.5 ML TUBE PO PRN ×4 (04:09→10:20)
[2019-06-30] MEDS ORDERED: *HR* Dextrose 50 % in Water (Syg) 50 ML SYRINGE IVP PRN ×2 (04:09→10:20)
[2019-06-30] MEDS ORDERED: D5% in Water 1,000 ML IVC PRN ×2 (04:09→10:20)
[2019-06-30 04:14] LABS: Basophils % 0.2 %; Eosinophils % 0.7 %; Hematocrit 32.2 % (37.5-50.1); Immature Granulocytes % 0.4 % (0-4); Lymphocytes # 0.6 K/mcL (0.6-4.6); Mean Corpuscular HGB Conc 31.1 g/dL (31.6-35.5); Mean Corpuscular Hemoglobin 30.1 pg (28.0-33.3); Mean Platelet Volume 10.7 fL (9.4-12.4); Monocytes # 0.5 K/mcL (0.0-1.3); Monocytes % 8.8 %; Neutrophils # 4.5 K/mcL (1.6-8.9); Platelet Count 186 K/mcL (140-400); Red Blood Count 3.32 M/mcL (4.19-5.50); Red Cell Distribution Width 12.6 % (11.5-14.5); Segmented Neutrophils % 79.9 %; White Blood Count 5.7 K/mcL (4.3-11.1)
[2019-06-30 04:25] LABS: Albumin 3.6 g/dL (3.5-5.7); Albumin/Globulin Ratio 1.1 (1.1-2.2); Bilirubin,Total 0.5 mg/dL (0.3-1.0); Calcium 8.4 mg/dL (8.6-10.3); Globulin 3.2 g/dL (2.4-3.5); Magnesium 1.9 mg/dL (1.6-2.6); Potassium 4.3 mEq/L (3.5-5.1); Total Protein 6.8 g/dL (6.4-8.9)
--- NOTE | 2019-06-30 07:05 | Pulmonology Progress Note ---
<LeonidPopeye W - Last Filed: 06/30/19 10:17> Date of Encounter: 06/30/19 Objective PUL Vital signs: Last Vital Signs Temp 99.2 F 06/30/19 07:09 Pulse 73 06/30/19 10:00 Resp 19 06/30/19 10:00 BP 170/110 06/30/19 10:00 Pulse Ox 91 06/30/19 10:00 Results - Laboratory Findings CBC and BMP: 06/30/19 03:45 06/30/19 03:45 ABG ABG pH 7.25 pH Units (7.32-7.45) L 06/29/19 09:47 ABG pCO2 50 mmHg (35-45) H 06/29/19 09:47 ABG pO2 62 mmHg (85-104) L 06/29/19 09:47 ABG O2 Saturation 87 % (95-98) L 06/29/19 09:47 Abnormal lab findings: Abnormal lab results RBC 3.32 M/mcL (4.19-5.50) L 06/30/19 03:45 Hgb 10.0 g/dL (12.9-16.9) L 06/30/19 03:45 Hct 32.2 % (37.5-50.1) L 06/30/19 03:45 MCV 102.0 fL (83.0-100.0) H 06/29/19 08:56 MCHC 31.1 g/dL (31.6-35.5) L 06/30/19 03:45 ABG pH 7.25 pH Units (7.32-7.45) L 06/29/19 09:47 ABG pCO2 50 mmHg (35-45) H 06/29/19 09:47 ABG pO2 62 mmHg (85-104) L 06/29/19 09:47 ABG O2 Saturation 87 % (95-98) L 06/29/19 09:47 ABG Base Excess -5 mEq/L (-2 to 3) L 06/29/19 09:47 Sodium 135 mEq/L (136-145) L 06/30/19 03:45 Potassium 6.4 mEq/L (3.5-5.1) H 06/29/19 08:56 Chloride 94 mEq/L (98-107) L 06/29/19 08:56 Carbon Dioxide 22 mEq/L (23-29) L 06/29/19 08:56 BUN 41 mg/dL (8-23) H 06/30/19 03:45 Creatinine 4.68 mg/dL (0.70-1.30) H 06/30/19 03:45 Est GFR ( Amer) 15 (> 60) L 06/30/19 03:45 Est GFR (Non-Af Amer) 13 (> 60) L 06/30/19 03:45 Glucose 150 mg/dL (70-105) H 06/30/19 03:45 POC Glucose 61 mg/dL (70-99) L 06/29/19 23:39 Calcium 8.4 mg/dL (8.6-10.3) L 06/30/19 03:45 Phosphorus 7.0 mg/dL (2.7-4.5) H 06/29/19 08:56 AST 73 Units/L (13-39) H 06/30/19 03:45 ALT 66 Units/L (7-52) H 06/30/19 03:45 Urine Clarity Cloudy (Clear) A 06/29/19 16:40 Urine Protein >=300 mg/dL (Neg-Trace) H 06/29/19 16:40 Urine Glucose (UA) 100 mg/dL (Normal) H 06/29/19 16:40 Urine Microscopic RBC 15-30 per hpf (0-3) H 06/29/19 16:40 Urine Microscopic WBC 5-15 per hpf (0-3) H 06/29/19 16:40 Ur Squamous Epith Cells Many per lpf (None-Few) H 06/29/19 16:40 Ur Culture Indicated? YES (NO) A 06/29/19 16:40 Hep Bs Antibody 5.71 mIU/mL (10.00-) L 06/29/19 08:56 - Microbiology Findings Microbiology Findings: Microbiology, Last 48 Hours 06/29/19 16:40 Urine Culture - Preliminary Urine,Clean Catch Culture is incubating. - Clinical Findings Intake & Output: Intake & Output 06/29/19 06/30/19 06/30/19 23:59 07:59 15:59 Intake Total 748 / 1100 240 / 240 Output Total 2675 / 2675 200 / 200 Balance -1927 / -1575 40 / 40 Weight 115.9 kg Consult Discharge Plan - Plan Referrals: NONE,PCP [Primary Care Provider] - - Attending Attestation I examined this patient and my medical decision-making was reviewed with the Resident Physician. I agree with the documented findings, disposition and treatment plan as described except to the extent set forth below. We independently had [id number] contact with the patient Patient seen and examined at bedside Labs, radiology, chart personally reviewed. Management was reviewed during multidisciplinary critical care rounds. SLITTER OPERATOR: Awake and alert no focal deficits does not appear to have any neurological sequelae status post cardiac arrest Pulm: Acute hypoxic respiratory failure likely secondary to cardiogenic pulmona ry edema will benefit from fluid removal from dialysis as well as diuresis continue positive airway pressure for now Cards: Patient is hypertensive and we will start antihypertensive regimen without tony blocking agent. Bradycardia appears to have resolved and may have been combination of factors including electrolyte abnormalities and beta lidia use GI: He has some mild transaminitis of unclear etiology right quadrant ultrasound pending Nutrition: Advance diet as tolerated Renal: Tuesday on dialysis nephrology following UOP Monitored, Cont to Trend sCr and monitor Electrolytes. ID: No clear evidence of infectious process Heme/Onc: DVT prophylaxis given Endo: Glucose Monitored Integ/MSK: Skin Care per routine ICU Nursing Protocol to prevent ulcers. Lines: All lines examined without evidence of infection : Dispo: Stable for transfer to stepdown unit for ongoing care CODE: Full <Apollo Calvert - Last Filed: 06/30/19 13:43> Date of Encounter: 06/30/19 Time of Encounter: 07:04 Assessment and Plan (1) Cardiac arrest Current Visit: Yes Status: Acute Life threatening Bradycardia precipitating cardiac arrest. Pt placed on ventilator following several episodes of CPR Potassium on labs found to be 6.4 PT given glucagon to reverse home beta lidia -Potassium normalized, nephrology consulted -Transitioned off of pressors -Pt extubated and progressed off of BiPAP onto 5 L via NC with O2 saturations of 91% -Cardiology consulted will follow recommendations -Continue to hold beta lidia. -Pt to be transferred out of ICU (2) ESRD (end stage renal disease) on dialysis Current Visit: No Status: Chronic Pt with known history of ESRD on dialysis Tuesday and Tuesday Patient was at dialysis when she started becoming unstable Dialysis performed on 06/29/19 -Plan for dialysis today -Nephrology consulted and will follow recommendations (3) Diabetes mellitus type 2 in obese Current Visit: No Status: Chronic Latest BG of 123, currently on Low dose SSI -As pts diet is advanced may need to adjust insulin requirement (4) Above knee amputation of right lower extremity Current Visit: No Status: Acute (5) DVT prophylaxis Current Visit: No Status: Acute Heparin SubQ Subjective Interval history: Patient states he is feeling much better today he does have some tenderness to his chest that he states is from the CPR. Patient denies nausea, vomiting, diarrhea, abdominal pain, shortness of breath, cough, fever, or chills. Objective PUL Vital signs: Last Vital Signs Temp 97.9 F 06/30/19 03:56 Pulse 57 06/30/19 06:00 Resp 18 06/30/19 06:00 BP 173/67 06/30/19 06:00 Pulse Ox 96 06/30/19 06:00 General appearance: no acute distress Eyes: nonicteric ENT: oropharynx moist Neck: supple, no lymphadenopathy Effort: normal Auscultation: bilateral: clear Cardiovascular: regular rate and rhythm Gastrointestinal: normoactive bowel sounds, soft Integumentary: normal Extremities: no cyanosis, no clubbing Musculoskeletal: other (Pt with Above Knee amputation.) normal mental status, non-focal exam mood appropriate, affect normal Results - Laboratory Findings CBC and BMP: 06/30/19 03:45 06/30/19 03:45 ABG ABG pH 7.25 pH Units (7.32-7.45) L 06/29/19 09:47 ABG pCO2 50 mmHg (35-45) H 06/29/19 09:47 ABG pO2 62 mmHg (85-104) L 06/29/19 09:47 ABG O2 Saturation 87 % (95-98) L 06/29/19 09:47 Abnormal lab findings: Abnormal lab results RBC 3.32 M/mcL (4.19-5.50) L 06/30/19 03:45 Hgb 10.0 g/dL (12.9-16.9) L 06/30/19 03:45 Hct 32.2 % (37.5-50.1) L 06/30/19 03:45 MCV 102.0 fL (83.0-100.0) H 06/29/19 08:56 MCHC 31.1 g/dL (31.6-35.5) L 06/30/19 03:45 ABG pH 7.25 pH Units (7.32-7.45) L 06/29/19 09:47 ABG pCO2 50 mmHg (35-45) H 06/29/19 09:47 ABG pO2 62 mmHg (85-104) L 06/29/19 09:47 ABG O2 Saturation 87 % (95-98) L 06/29/19 09:47 ABG Base Excess -5 mEq/L (-2 to 3) L 06/29/19 09:47 Sodium 135 mEq/L (136-145) L 06/30/19 03:45 Potassium 6.4 mEq/L (3.5-5.1) H 06/29/19 08:56 Chloride 94 mEq/L (98-107) L 06/29/19 08:56 Carbon Dioxide 22 mEq/L (23-29) L 06/29/19 08:56 BUN 41 mg/dL (8-23) H 06/30/19 03:45 Creatinine 4.68 mg/dL (0.70-1.30) H 06/30/19 03:45 Est GFR ( Amer) 15 (> 60) L 06/30/19 03:45 Est GFR (Non-Af Amer) 13 (> 60) L 06/30/19 03:45 Glucose 150 mg/dL (70-105) H 06/30/19 03:45 POC Glucose 61 mg/dL (70-99) L 06/29/19 23:39 Calcium 8.4 mg/dL (8.6-10.3) L 06/30/19 03:45 Phosphorus 7.0 mg/dL (2.7-4.5) H 06/29/19 08:56 AST 73 Units/L (13-39) H 06/30/19 03:45 ALT 66 Units/L (7-52) H 06/30/19 03:45 Urine Clarity Cloudy (Clear) A 06/29/19 16:40 Urine Protein >=300 mg/dL (Neg-Trace) H 06/29/19 16:40 Urine Glucose (UA) 100 mg/dL (Normal) H 06/29/19 16:40 Urine Microscopic RBC 15-30 per hpf (0-3) H 06/29/19 16:40 Urine Microscopic WBC 5-15 per hpf (0-3) H 06/29/19 16:40 Ur Squamous Epith Cells Many per lpf (None-Few) H 06/29/19 16:40 Ur Culture Indicated? YES (NO) A 06/29/19 16:40 Hep Bs Antibody 5.71 mIU/mL (10.00-) L 06/29/19 08:56 - Microbiology Findings Microbiology Findings: Microbiology, Last 48 Hours 06/29/19 16:40 Urine Culture - Preliminary Urine,Clean Catch Culture is incubating. - Clinical Findings Intake & Output: Intake & Output 06/29/19 06/29/19 06/30/19 15:59 23:59 07:59 Intake Total 112 / 1100 748 / 1100 240 / 240 Output Total 2675 / 2675 150 / 150 Balance 112 / -1575 -1927 / -1575 90 / 90 Weight 115.9 kg 115.9 kg
[2019-06-30] MEDS ORDERED: Insulin LISPRO 300 UNITS/3 ML VIAL SQ SCH ×2 (07:30→21:00)
[2019-06-30] MEDS ORDERED: *HR* Heparin 5,000 UNIT/ML VIAL SQ SCH (08:00)
[2019-06-30] MEDS ORDERED: Furosemide 40 MG/4 ML VIAL IVP ONE (08:02)
[2019-06-30] MEDS: Artificial Tears SOLN 15 ML BOTTLE BOTH EYES SCH (08:33)
[2019-06-30] MEDS: Chlorhexidine Rinse 15 ML MOUTHWASH MM SCH (08:34)
[2019-06-30] MEDS: Pantoprazole 40 MG VIAL IVP SCH (08:35)
[2019-06-30] MEDS: EPINEPHrine 1 MG in D5% in Water 250 ML IVC SCH (08:37)
[2019-06-30] MEDS ORDERED: cloNIDine HCl 0.1 MG TABLET PO SCH (09:00)
[2019-06-30] MEDS ORDERED: 0.9 % Sodium Chloride 250 ML IVC PRN ×2 (09:10→10:20)
[2019-06-30] MEDS ORDERED: *HR* Heparin 10,000 UNIT/10 ML VIAL IV PRN ×2 (09:10→10:20)
[2019-06-30] MEDS ORDERED: 0.9 % Sodium Chloride 1,000 ML PRIME SCH (10:20)
[2019-06-30] MEDS ORDERED: Naloxone 0.4 MG/ML INJ IVP PRN (10:20)
[2019-06-30] MEDS ORDERED: FentaNYL (PF) 1,000 MCG in 0.9 % Sodium Chloride 80 ML IVC SCH (10:20)
[2019-06-30] MEDS: Insulin LISPRO 300 UNITS/3 ML VIAL SQ SCH ×3 (11:28→21:55)
--- NOTE | 2019-06-30 11:49 | Cardiology Progress Note ---
Date of Encounter: 06/30/19 Time of Encounter: 10:30 Assessment and Plan (1) Hyperkalemia Current Visit: Yes Status: Acute Per cardiology: -K 6.4 on admission. -Patient is ESRD on HD. -Now improved today. -Management per nephrology and primary service. (2) Bradycardia Current Visit: Yes Status: Acute Per cardiology: -HR reportedly 20s upon arrival to ER. -ECG with HR 40s. Currently 70s at bedside. -Patient takes coreg and clonidine at home. -Patient with metabolic derrangements, K 6.4 on admission. -BP currently HTN. -TTE 09/2018 with LVEF 55-60%, moderate concentric LVH, mild diastolic dysfunction, moderately dilated LA, trace MR, no segmental wall motion abnormal ities noted. -TTE with LVEF preserved, no wall motion abnormalities noted. -Suspect bradycardia due to hyperkalemia and worsened by BB use. HR currenlty stable. -If BB is to be resumed for HTN, recommend low dose and to monitor HR closely. -Cardiology will sign off, will arrange close outpatient follow up. Reconsult if needed. (3) Cardiac arrest Current Visit: Yes Status: Acute Per cardiology: -Cardiac arrest in ER. -Suspect multi-factoral. -No acute ischemic ECG changes noted. -Troponin negative. -TTE as above. -See bradycardia. Discussion w patient/family: The assessment and plan as outlined above was discussed with the patient who expressed understanding and agreement. All questions were answered. Thank you for involving us in the care of your patient. Please call with any questions. Discussed and reviewed with . Subjective Principal diagnosis: cardiac arrest, metabolic derrangements Interval history: Pateint is extubated. On nasal cannula. Denies complaints. Objective Vital Signs, Last 4 Hours Temp Pulse Resp BP Pulse Ox 06/30/19 11:16 99.3 F 06/30/19 10:00 73 19 170/110 91 06/30/19 09:00 72 23 199/76 88 06/30/19 08:00 76 18 186/74 84 General: Conversant, No Apparent Distress HEENT: Atraumatic, Normocephaly, Mucus Membranes Moist Neck: No JVD, Normal carotid pulses Cardiac: Reg Rate and Rhythm, Normal S1 and S2, No Murmur Lungs: Normal Breath Sounds, No Wheeze, Rales, Rhonchi Neuro: Alert and responsive, No focal deficits noted Abdomen: Soft, Non-Tender Skin: Other (Left lower extremity with multiple ulcerated areas noted. ) Musculoskeletal: No Chest Wall Tenderness Extremities: No Clubbing, No Cyanosis, Normal Pulses, Other (Left lower extremity edema noted. 1+ DP pulse Left. Right AKA. ) Results 06/30/19 03:45 06/30/19 03:45 Lab Results 06/29/19 06/30/19 06/30/19 11:38 03:45 03:45 WBC 5.7 Hgb 10.0 L Hct 32.2 L Plt Count 186 Sodium 135 L Potassium 4.9 4.3 Chloride 98 Carbon Dioxide 29 BUN 41 H Creatinine 4.68 H Glucose 150 H Calcium 8.4 L Magnesium 1.9 Total Bilirubin 0.5 AST 73 H ALT 66 H Alkaline Phosphatase 72 Active Medications Clonidine HCl (Clonidine Hcl) 0.1 mg PO TID [facility] Stop: 12/30/19 09:01 Dextrose/Water (Dextrose 50% (Syg)) 25 ml IVP AD PRN PRN Reason: Hypoglycemia Stop: 12/30/19 04:10 Glucagon (Glucagen) 1 mg IM ONCE PRN PRN Reason: Hypoglycemia Stop: 12/30/19 04:10 Glucose (Gluctose) 15 gm PO ONCE PRN PRN Reason: Hypoglycemia Stop: 12/30/19 04:10 Glucose (Gluctose) 30 gm PO ONCE PRN PRN Reason: Hypoglycemia Stop: 12/30/19 04:10 Heparin Sodium (Porcine) (Heparin) 0 unit IV ONCE PRN PRN Reason: Hemodialysis Catheter Packing Heparin Sodium (Porcine) (Heparin) 5,000 unit SQ Q8HCO [facility]; Protocol Stop: 12/30/19 08:01 Hydralazine HCl (Hydralazine) 25 mg PO Q8HR PRN PRN Reason: Blood Pressure - High Stop: 12/30/19 16:01 Sodium Chloride (0.9 % Sodium Chloride) 250 mls @ 937.5 mls/hr IVC .Q16M PRN PRN Reason: Hypotension Stop: 12/30/19 09:11 Dextrose (Dextrose 5%) 1,000 mls @ 100 mls/hr IVC .Q10H PRN PRN Reason: HYPOGLYCEMIA Stop: 12/30/19 04:10 Sodium Chloride (0.9 % Sodium Chloride) 1,000 mls @ 0 mls/hr PRIME .Q0M [facility] Stop: 12/29/19 11:46 Insulin Human Lispro (Humalog) 0 units SQ HS [facility]; Protocol Stop: 12/30/19 21:01 Insulin Human Lispro (Humalog) 0 units SQ TIDAC [facility]; Protocol Stop: 12/30/19 07:31 Last Admin: 06/30/19 11:28 Dose: Not Given Documented by: Naloxone HCl (Narcan) 0.4 mg IVP Q2MPRN PRN PRN Reason: SEE COMMENTS Stop: 12/29/19 10:48 Pantoprazole Sodium (Protonix) 40 mg IVP DAILY [facility] Stop: 12/29/19 11:01 Laboratory Tests 06/30/19 06/30/19 03:45 03:45 Hgb 10.0 L Potassium 4.3 - Imaging and Cardiology Chest Xray: report reviewed Echo: report reviewed Consult Discharge Plan - Plan Referrals: NONE,PCP [Primary Care Provider] -
--- NOTE | 2019-06-30 14:42 | Nephrology Progress Note ---
Date of Encounter: 06/30/19 Time of Encounter: 14:39 - Assessment and Plan (1) ESRD (end stage renal disease) Current Visit: Yes Status: Acute HD MWF. Renal vitamins. Renal dose medications. Renal diet. Additional dialysis and ultrafiltration as needed. Patient will receive dialysis today. He was seen on dialysis. (2) Bradycardia Current Visit: Yes Status: Acute The patient presented with bradycardia and an arrhythmia with hypotension. This initially was thought to be secondary to hyperkalemia, however, the bradycardia continued after correction of his hyperkalemia. Her foundry manager is likely related to beta lidia use. He did respond to medical management. The patient was chronically ill and required intubation. I did see him in the emergency room twice as well as in the intensive care unit twice. I spoke to the emergency room physician along with the critical care physician. The patient required urgent dialysis however his left forearm graft is clotted. Therefore interventional radiology was consulted to place a temporary dialysis catheter. Will requested interventional radiology attempted thrombectomy on Tuesday if he is still hospital. If this is unsuccessful that he will need a tunneled dialysis catheter until his peritoneal dialysis catheter is mature. 43 minutes of total time was spent in the care of this critically ill patient he will receive dialysis today. We will also check to see if he needs dialysis on Tuesday. 06/30/2019 Patient with multifactorial bradycardia that has improved with lowering of his medication list for heart rate as well as correction of his hyperkalemia. This time he seems to be hemodynamically stable. He is currently receiving dialysis and seems be doing well. He will need either a tunneled dialysis catheter or a thrombectomy prior to discharge so he can receive dialysis on an outpatient basis. (3) Cardiac arrest Current Visit: Yes Status: Acute (4) Hyperkalemia Current Visit: Yes Status: Acute (5) Above knee amputation of right lower extremity Current Visit: No Status: Acute (6) Hypertension Current Visit: No Status: Chronic Qualifiers: Hypertension type: renovascular hypertension Qualified Code(s): I15.0 - Renovascular hypertension Subjective Principal diagnosis: cardiac arrest, metabolic derrangements Interval history: The patient was seen in the intensive care unit and later on dialysis. He is extubated and on BiPAP and he feels much better. He has no new complaint. His review of system otherwise is stable and negative. Objective - Vital Signs Vital signs: Vital Signs Temp Pulse Resp BP Pulse Ox 06/30/19 12:04 56 06/30/19 11:45 73 18 91 06/30/19 11:16 99.3 F 06/30/19 10:00 73 19 170/110 91 06/30/19 09:00 72 23 199/76 88 06/30/19 08:00 76 18 186/74 84 06/30/19 07:09 99.2 F 06/30/19 07:00 56 18 171/66 95 06/30/19 06:00 57 18 173/67 96 06/30/19 05:00 53 19 163/67 96 06/30/19 04:00 57 18 168/63 96 06/30/19 03:56 97.9 F 06/30/19 03:55 57 06/30/19 03:44 15 165/63 95 06/30/19 03:00 57 17 165/62 97 06/30/19 02:00 61 18 171/65 95 06/30/19 01:09 77 20 173/90 97 06/30/19 00:13 97.7 F 06/30/19 00:00 76 25 177/62 91 06/29/19 23:22 80 06/29/19 23:00 74 23 141/105 90 06/29/19 22:59 97.9 F 18 162/97 06/29/19 22:35 165/62 06/29/19 22:20 177/75 06/29/19 22:05 175/78 06/29/19 22:00 68 21 172/75 97 06/29/19 21:50 169/84 06/29/19 21:35 183/86 06/29/19 21:20 177/75 06/29/19 21:05 170/75 06/29/19 21:00 64 18 170/75 97 06/29/19 20:50 186/76 06/29/19 20:35 177/76 06/29/19 20:20 161/138 06/29/19 20:14 96.2 F L 06/29/19 20:05 97.9 F 18 157/66 06/29/19 20:00 55 18 168/55 92 06/29/19 19:42 29 162/67 94 06/29/19 19:00 50 16 165/81 94 06/29/19 18:00 48 15 136/78 94 06/29/19 17:00 48 22 166/67 90 06/29/19 16:44 88 06/29/19 16:35 25 136/63 88 06/29/19 16:23 55 06/29/19 16:00 49 22 166/67 90 06/29/19 15:00 60 16 161/65 92 06/29/19 14:40 16 Intake and Output 06/29/19 06/30/19 06/30/19 23:59 07:59 15:59 Intake Total 748 / 1100 240 / 240 Output Total 2675 / 2675 200 / 500 300 / 500 Balance -1927 / -1575 40 / -260 -300 / -260 Intake: IV Fluids 148 / 260 EPINEPHrine 1 MG In Dextrose 5% 148 / 210 250 ML @ 2 MCG/MIN 30.12 mls/ hr IVC CONT SONIDO Rx#:[id number] Oral 0 / 240 240 / 240 Intake, Rinseback and Flushes 600 / 600 Output: Urine 0 / 0 Total Dialysis (HD) Output 2600 / 2600 Catheter 75 / 75 200 / 500 300 / 500 Other: Percent of Meal Consumed 100% Weight 115.9 kg Blood Glucose* 61 123 Hemodialysis Net Fluid Removed 2000 (mL) Patient Weight 06/30/19 23:59 Weight 115.9 kg - General Appearance General appearance: Present: well-developed, well-nourished EENT: Present: ATNC Neck: Present: supple Respiratory: Present: course breath sounds Cardiology: Present: regular rate Dialysis Vascular Access: Venous Catheter Gastrointestinal: Present: obese Integumentary: Present: warm and dry Neurologic: Present: alert and oriented x3 Musculoskeletal: Present: no cyanosis Psychiatric: Present: mood/affect appropriate - Lab 06/30/19 03:45 06/30/19 03:45 Most recent lab results 06/30/19 03:45 Calcium 8.4 L Magnesium 1.9 Consult Discharge Plan - Plan Referrals: NONE,PCP [Primary Care Provider] -
[2019-06-30] MEDS: *HR* Heparin 5,000 UNIT/ML VIAL SQ SCH ×2 (15:17→21:55)
[2019-06-30] MEDS: cloNIDine HCl 0.1 MG TABLET PO SCH ×2 (15:17→21:55)
[2019-06-30] MEDS ORDERED: hydrALAZINE 25 MG TABLET PO PRN ×2 (16:00)
[2019-06-30] MEDS ORDERED: Chlorhexidine Rinse 15 ML MOUTHWASH MM SCH (21:00)
[2019-07-01] MEDS: *HR* Heparin 5,000 UNIT/ML VIAL SQ SCH ×3 (05:01→21:50)
[2019-07-01 06:18] LABS: Hematocrit 34.9 % (37.5-50.1); Immature Platelets 2.7 % (1.1-6.1); Mean Corpuscular HGB Conc 31.5 g/dL (31.6-35.5); Mean Corpuscular Volume 98.3 fL (83.0-100.0); Mean Platelet Volume 10.3 fL (9.4-12.4); Red Blood Count 3.55 M/mcL (4.19-5.50); Red Cell Distribution Width 12.8 % (11.5-14.5); White Blood Count 5.5 K/mcL (4.3-11.1)
[2019-07-01 07:10] LABS: Calcium 8.4 mg/dL (8.6-10.3)
[2019-07-01] MEDS: cloNIDine HCl 0.1 MG TABLET PO SCH (08:46)
[2019-07-01] MEDS: Insulin LISPRO 300 UNITS/3 ML VIAL SQ SCH ×4 (08:47→21:51)
[2019-07-01] MEDS ORDERED: Pantoprazole 40 MG VIAL IVP SCH (09:00)
--- NOTE | 2019-07-01 09:40 | Nephrology Progress Note ---
Date of Encounter: 07/01/19 Time of Encounter: 09:38 - Assessment and Plan (1) ESRD (end stage renal disease) Current Visit: Yes Status: Acute HD MWF. Renal vitamins. Renal dose medications. Renal diet. Additional dialysis and ultrafiltration as needed. Patient will receive dialysis Tuesday. I have placed an order for interventional radiology to evaluate his left forearm graft. If unable to open up the graft and he will need a tunneled dialysis catheter. He is scheduled to follow-up with the peritoneal dialysis nurse on July 04. (2) Bradycardia Current Visit: Yes Status: Acute (3) Cardiac arrest Current Visit: Yes Status: Acute (4) Hyperkalemia Current Visit: Yes Status: Acute (5) Above knee amputation of right lower extremity Current Visit: No Status: Acute (6) Hypertension Current Visit: No Status: Chronic Qualifiers: Hypertension type: renovascular hypertension Qualified Code(s): I15.0 - Renovascular hypertension Subjective Principal diagnosis: cardiac arrest, metabolic derrangements Interval history: The patient was seen. He feels better. He feels that he is back to his baseline. He would like to go home, however, understands that he needs to stay until his dialysis access can be established. He denies shortness of breath and his review of systems overall is stable or negative.. Objective - Vital Signs Vital signs: Vital Signs Temp Pulse Resp BP Pulse Ox 07/01/19 07:25 98.1 F 51 17 206/72 06/30/19 23:24 98.9 F 63 16 182/76 94 06/30/19 19:29 97.7 F 55 16 168/69 94 06/30/19 16:58 99.9 F H 64 16 178/73 06/30/19 16:07 5 06/30/19 15:20 99.4 F 15 170/74 06/30/19 15:00 141/63 06/30/19 14:45 150/69 06/30/19 14:30 167/71 06/30/19 14:15 169/70 06/30/19 14:00 166/67 06/30/19 13:45 167/72 06/30/19 13:30 179/72 06/30/19 13:15 178/77 06/30/19 13:00 187/67 06/30/19 12:45 188/70 06/30/19 12:30 196/67 06/30/19 12:15 200/79 06/30/19 12:04 56 06/30/19 12:00 99 F 19 208/87 06/30/19 11:45 73 18 91 06/30/19 11:16 99.3 F 06/30/19 10:00 73 19 170/110 91 Intake and Output 06/30/19 07/01/19 07/01/19 23:59 07:59 15:59 Intake Total 400 / 400 Output Total 280 / 280 Balance 120 / 120 Intake: Tube Feeding 400 / 400 Output: Catheter 280 / 280 Other: Blood Glucose* 224 112 - General Appearance General appearance: Present: well-developed, well-nourished EENT: Present: ATNC Neck: Present: supple Cardiology: Present: regular rate Gastrointestinal: Present: obese Neurologic: Present: alert and oriented x3 Psychiatric: Present: mood/affect appropriate - Lab 07/01/19 04:00 07/01/19 06:14 Most recent lab results 07/01/19 06:14 Calcium 8.4 L Consult Discharge Plan - Plan Referrals: NONE,PCP [Primary Care Provider] -
--- NOTE | 2019-07-01 16:03 | Internal Med Progress Note ---
Hospitalist Progress Note - Encounter Date of Encounter: 07/01/19 Time of Encounter: 09:45 - Subjective Interval History: Mr Cochran denied ever skipping dialysis and admits to be compliant with treatment plan. He stated he has been having difficulties with his AV fistula and was trying to get appointment to see a vascular surgeon when he arrested yesterday. He stated he now has a peritoneal dialysis catheter placed for him to stat PD. He denies any history of urinary retention and stated he still makes urine GEN: Denies fever, chills or malaise HEENT: Denies headache blurriness, or dysphagia RESP: Denies SOB or cough CV: Denies chest pain or palpitations GI: Denies Nausea, vomiting, diarrhea or constipation Reviewed current in hospital medications with modifications see orders Reviewed Routine labs - Exam Vitals: Temp Pulse Resp BP Pulse Ox 98.2 F 53 16 183/78 95 07/01/19 10:37 07/01/19 10:37 07/01/19 10:37 07/01/19 13:37 07/01/19 10:37 Exam: GEN: NAD, A&O x 3, Pleasant and conversant SKIN: brown, dry, warm acyanotic not jaundice HEART: RRR, no murmurs LUNGS: CTA no wheeze or crackles, overall non labored ABDOMEN; Soft, non tender or distended, BS x 4 normactive EXT: Status post left AKA, right lower extremity with signs of chronic venous stasis dermatitis thickening of the skin, unable to fully appreciate right pedal Pulse, radial pulses 2+ PSYCH: Mood and affect is appropriate - Assessment and Plan (1) Hypertension Current Visit: Yes Status: Acute Assessment and Plan: Bp has remained elevated with systolic as high of 212. Due to concern for cerebral hypoperfusion and thus cerebral infarct will be cautious and reducing his blood pressure will withhold his oral medication and use hydralazine 5 mg every 4 hours and monitor blood pressure every 2 hours goal blood pressure today is no less than 180 systolic, hold hydralazine for systolic blood pressure less than 180 (2) ESRD (end stage renal disease) Current Visit: Yes Status: Acute Assessment and Plan: HD per nephrology appreciated input (3) Cardiac arrest Current Visit: Yes Status: Acute Assessment and Plan: Likely combination of a elevated potassium and underlying comorbid conditions continue telemetry monitoring, monitor electrolytes he was evaluated by the cardiology team appreciated input. (4) Hyperkalemia Current Visit: Yes Status: Acute Assessment and Plan: Potassium is trending up again should resolve with dialysis noticed that patient is only on ADA diet, will change to a renal diet. Patient would benefit from dietary consult and we can avoid potassium-rich food. He tells me that he eats bananas daily patient was educated to refrain from eating daily bananas due to his end-stage renal disease. Upon review of his medication from home no associated drug induced hyperkalemia noted (5) Diabetes mellitus type 2 in obese Current Visit: No Status: Chronic Assessment and Plan: Check A1c stated he is not on any insulin or diabetic medications, continue POC and insulin per protocol (6) Anemia Current Visit: Yes Status: Acute Assessment and Plan: Hemoglobin is improvement, we will check B12 folate and iron studies DVT Prophylaxis: Heparin per protocol - Time Spent with Patient Total time spent is greater than 50% in coordination of care (as documented) at patient's floor/unit and/or counseling patient: Internal Medicine: Result - Labs CBC & Chem 7: 07/01/19 04:00 07/01/19 06:14 Labs: Short CBC 07/01/19 Range/Units 04:00 WBC 5.5 (4.3-11.1) K/mcL Hgb 11.0 L (12.9-16.9) g/dL Hct 34.9 L (37.5-50.1) % Plt Count 184 (140-400) K/mcL BMP 07/01/19 06:14 Sodium 135 L Potassium 5.0 Chloride 98 Carbon Dioxide 27 BUN 39 H Creatinine 5.24 H Glucose 132 H Calcium 8.4 L - ABG Interpretation ABG results: ABG ABG pH 7.25 pH Units (7.32-7.45) L 06/29/19 09:47 ABG pCO2 50 mmHg (35-45) H 06/29/19 09:47 ABG pO2 62 mmHg (85-104) L 06/29/19 09:47 ABG O2 Saturation 87 % (95-98) L 06/29/19 09:47 - Impressions Impressions Abdomen Ultrasound 06/30/19 08:08 IMPRESSION: Small amount of ascites. Small right pleural effusion. Unremarkable sonographic appearance of the liver. Unremarkable sonographic appearance of the gallbladder. Echogenic right renal cortex. Correlate clinically for concern of medical renal disease. D/ / 06/30/2019 18:20:28 Sekou Noe MD / wanda Interpreting Provider: Sekou Noe MD Consult Discharge Plan - Plan Referrals: NONE,PCP [Primary Care Provider] - (6) Anemia Qualifiers: Anemia type: unspecified type Qualified Code(s): D64.9 - Anemia, unspecified
[2019-07-01] MEDS ORDERED: *HR* HYDROcodone/Acet 5/325 mg TABLET PO PRN (20:41)
[2019-07-02] MEDS: *HR* Heparin 5,000 UNIT/ML VIAL SQ SCH ×3 (06:29→20:34)
[2019-07-02] MEDS: Vitamin B Complex/Vit C/Vit E 1 EACH TABLET PO SCH (07:33)
[2019-07-02] MEDS: Cholecalciferol (D-3) 1,000 UNIT (25MCG) TABLET PO SCH (07:33)
[2019-07-02] MEDS: Cyanocobalamin (B-12) 1,000 MCG TABLET PO SCH (07:33)
[2019-07-02] MEDS: Insulin LISPRO 300 UNITS/3 ML VIAL SQ SCH ×4 (07:34→20:33)
[2019-07-02] MEDS ORDERED: *HR* Heparin 10,000 UNIT/10 ML VIAL IV PRN (08:22)
[2019-07-02] MEDS ORDERED: 0.9 % Sodium Chloride 250 ML IVC PRN (08:22)
[2019-07-02 09:39] LABS: Basophils % 0.4 %; Eosinophils # 0.1 K/mcL (0.0-0.6); Eosinophils % 1.7 %; Hemoglobin 11.3 g/dL (12.9-16.9); Immature Granulocytes % 0.4 % (0-4); Lymphocytes # 0.6 K/mcL (0.6-4.6); Lymphocytes % 11.7 %; Mean Corpuscular HGB Conc 31.4 g/dL (31.6-35.5); Mean Corpuscular Hemoglobin 30.1 pg (28.0-33.3); Mean Platelet Volume 10.4 fL (9.4-12.4); Monocytes # 0.5 K/mcL (0.0-1.3); Monocytes % 9.4 %; Platelet Count 195 K/mcL (140-400); Red Blood Count 3.75 M/mcL (4.19-5.50); Red Cell Distribution Width 12.7 % (11.5-14.5); Segmented Neutrophils % 76.4 %; White Blood Count 5.2 K/mcL (4.3-11.1)
[2019-07-02 09:50] LABS: Calcium 8.8 mg/dL (8.6-10.3); Magnesium 2.1 mg/dL (1.6-2.6)
--- NOTE | 2019-07-02 10:12 | Nephrology Progress Note ---
Date of Encounter: 07/02/19 Time of Encounter: 10:10 - Assessment and Plan (1) ESRD (end stage renal disease) Current Visit: Yes Status: Acute HD MWF. Renal vitamins. Renal dose medications. Renal diet. Additional dialysis and ultrafiltration as needed. Patient was seen on dialysis. I have placed an order for interventional radiology to evaluate his left forearm graft. If unable to open up the graft and he will need a tunneled dialysis catheter. He is scheduled to follow-up with the peritoneal dialysis nurse on July 04. (2) Bradycardia Current Visit: Yes Status: Acute Resolved. (3) Cardiac arrest Current Visit: Yes Status: Acute (4) Hyperkalemia Current Visit: Yes Status: Acute (5) Above knee amputation of right lower extremity Current Visit: No Status: Acute (6) Hypertension Current Visit: No Status: Chronic Titrate blood pressure medications as needed. Will add nitrate Imdur 30mg daily. Qualifiers: Hypertension type: renovascular hypertension Qualified Code(s): I15.0 - Renovascular hypertension Subjective Principal diagnosis: cardiac arrest, metabolic derrangements Interval history: The patient was seen. He feels better. He feels that he is back to his baseline. He would like to go home, however, understands that he needs to stay until his dialysis access can be established. He denies shortness of breath and his review of systems overall is stable or negative. Objective - Vital Signs Vital signs: Vital Signs Temp Pulse Resp BP Pulse Ox 07/02/19 06:06 97.9 F 75 20 220/85 93 07/02/19 02:00 97.9 F 94 16 166/86 95 07/01/19 19:43 99.0 F 55 16 187/84 94 07/01/19 17:56 192/68 07/01/19 15:57 98.4 F 53 17 214/74 07/01/19 13:37 183/78 07/01/19 12:39 209/75 07/01/19 10:37 98.2 F 53 16 212/82 95 Intake and Output 07/01/19 07/02/19 07/02/19 23:59 07:59 15:59 Intake Total 360 / 360 Balance 360 / 360 Intake: Oral 360 / 360 Other: Meal Breakfast Percent of Meal Consumed 100% Blood Glucose* 150 110 - General Appearance General appearance: Present: well-developed, well-nourished, obese EENT: Present: ATNC Neck: Present: supple Cardiology: Present: regular rate Dialysis Vascular Access: Arteriovenous Graft, Venous Catheter Gastrointestinal: Present: obese Integumentary: Present: warm and dry Neurologic: Present: alert and oriented x3 Musculoskeletal: Present: no cyanosis Psychiatric: Present: mood/affect appropriate - Lab 07/02/19 04:00 07/02/19 04:00 Most recent lab results 07/02/19 04:00 Calcium 8.8 Magnesium 2.1 Consult Discharge Plan - Plan Referrals: NONE,PCP [Primary Care Provider] -
[2019-07-02 10:13] LABS: Folate 7.2 ng/mL (3.0-16.0)
--- NOTE | 2019-07-02 11:45 | Internal Med Progress Note ---
Hospitalist Progress Note - Encounter Date of Encounter: 07/02/19 Time of Encounter: 10:30 - Subjective Interval History: Mr Cochran is scheduled to have his AV fistula evaluated and if not fixable would have a tunnel HD catheter placed for dialysis access why he continues to get ready for peritoneal dialysis. GEN: Denies fever, chills or malaise HEENT: Denies headache blurriness, or dysphagia RESP: Denies SOB or cough CV: Denies chest pain or palpitations GI: Denies Nausea, vomiting, diarrhea or constipation Reviewed current in hospital medications with modifications see orders Reviewed Routine labs - Exam Vitals: Temp Pulse Resp BP Pulse Ox 97.9 F 75 20 220/85 93 07/02/19 06:06 07/02/19 06:06 07/02/19 06:06 07/02/19 06:06 07/02/19 06:06 Exam: GEN: NAD, A&O x 3, Pleasant and conversant laying comfortably in the dialysis unit bed SKIN: brown, dry, warm acyanotic not jaundice HEART: RRR, no murmurs LUNGS: Somewhat diminished today it appears CTA no wheeze or crackles, overall non labored ABDOMEN; Soft, non tender or distended, BS x 4 normactive EXT: Status post left AKA, right lower extremity with signs of chronic venous stasis dermatitis thickening of the skin, unable to fully appreciate right pedal Pulse, radial pulses 2+ PSYCH: Mood and affect is appropriate - Assessment and Plan (1) Hypertension Current Visit: Yes Status: Acute Assessment and Plan: Bp has remained elevated with systolic as high of 220, he is being dialyzed today and this should help with his volume status. We will resume his home meds as this seems to be chronic for the patient in between dialysis. Case was discussed with the bone plant supervisor, he added Imdur. We will DC IV hydralazine and use oral medications Due to concern for cerebral hypoperfusion and thus cerebral infarct will be cautious and reducing his blood pressure will withhold his oral medication and use hydralazine 5 mg every 4 hours and monitor blood pressure every 2 hours goal blood pressure today is no less than 180 systolic, hold hydralazine for systolic blood pressure less than 180 (2) ESRD (end stage renal disease) Current Visit: Yes Status: Acute Assessment and Plan: HD per nephrology appreciated input, he is being dialyzed today (3) Cardiac arrest Current Visit: Yes Status: Acute Assessment and Plan: Likely combination of a elevated potassium and underlying comorbid conditions continue telemetry monitoring, monitor electrolytes he was evaluated by the cardiology team appreciated input. (4) Hyperkalemia Current Visit: Yes Status: Acute Assessment and Plan: Potassium is trending up again should resolve with dialysis noticed that patient is only on ADA diet, will change to a renal diet. Patient would benefit from dietary consult and we can avoid potassium-rich food. He tells me that he eats bananas daily patient was educated to refrain from eating daily bananas due to his end-stage renal disease. Upon review of his medication from home no associated drug induced hyperkalemia noted (5) Diabetes mellitus type 2 in obese Current Visit: Yes Status: Chronic Assessment and Plan: Check A1c stated he is not on any insulin or diabetic medications, continue POC and insulin per protocol (6) Anemia Current Visit: Yes Status: Acute Assessment and Plan: Hemoglobin stable at 11.3, workup revealed anemia of chronic disease with elevated ferritin, normal B12 and folate (7) Hyponatremia Current Visit: Yes Status: Acute Assessment and Plan: Likely due to volume status anticipated to improve after dialysis DVT Prophylaxis: Heparin per protocol - Time Spent with Patient Total time spent is greater than 50% in coordination of care (as documented) at patient's floor/unit and/or counseling patient: Plan of Care Discussed with: design center consultant Internal Medicine: Result - Labs CBC & Chem 7: 07/02/19 04:00 07/02/19 04:00 Labs: Short CBC 07/02/19 Range/Units 04:00 WBC 5.2 (4.3-11.1) K/mcL Hgb 11.3 L (12.9-16.9) g/dL Hct 36.0 L (37.5-50.1) % Plt Count 195 (140-400) K/mcL Neutrophils # 4.0 (1.6-8.9) K/mcL BMP 07/02/19 04:00 Sodium 132 L Potassium 5.0 Chloride 97 L Carbon Dioxide 25 BUN 63 H Creatinine 6.59 H Glucose 149 H Calcium 8.8 - ABG Interpretation ABG results: ABG ABG pH 7.25 pH Units (7.32-7.45) L 06/29/19 09:47 ABG pCO2 50 mmHg (35-45) H 06/29/19 09:47 ABG pO2 62 mmHg (85-104) L 06/29/19 09:47 ABG O2 Saturation 87 % (95-98) L 06/29/19 09:47 Consult Discharge Plan - Plan Referrals: NONE,PCP [Primary Care Provider] - (6) Anemia Qualifiers: Anemia type: unspecified type Qualified Code(s): D64.9 - Anemia, unspecified
[2019-07-02] MEDS: Isosorbide MONOnitrate (24 HR) 30 MG TAB.ER.24H PO SCH (14:55)
[2019-07-02] MEDS: cloNIDine HCl 0.1 MG TABLET PO SCH (20:34)
[2019-07-03 02:42] LABS: Basophils % 0.4 %; Eosinophils # 0.1 K/mcL (0.0-0.6); Eosinophils % 1.8 %; Hematocrit 36.4 % (37.5-50.1); Hemoglobin 11.4 g/dL (12.9-16.9); Immature Granulocytes % 0.5 % (0-4); Lymphocytes # 0.9 K/mcL (0.6-4.6); Lymphocytes % 15.8 %; Mean Corpuscular HGB Conc 31.3 g/dL (31.6-35.5); Mean Corpuscular Hemoglobin 30.2 pg (28.0-33.3); Mean Corpuscular Volume 96.6 fL (83.0-100.0); Mean Platelet Volume 10.1 fL (9.4-12.4); Monocytes # 0.7 K/mcL (0.0-1.3); Monocytes % 12.2 %; Neutrophils # 3.9 K/mcL (1.6-8.9); Platelet Count 205 K/mcL (140-400); Red Blood Count 3.77 M/mcL (4.19-5.50); Red Cell Distribution Width 12.7 % (11.5-14.5); Segmented Neutrophils % 69.3 %; White Blood Count 5.6 K/mcL (4.3-11.1)
[2019-07-03 03:02] LABS: Calcium 9.1 mg/dL (8.6-10.3); Magnesium 2.2 mg/dL (1.6-2.6); Potassium 4.7 mEq/L (3.5-5.1)
[2019-07-03] MEDS: *HR* Heparin 5,000 UNIT/ML VIAL SQ SCH ×2 (06:08→15:14)
[2019-07-03] MEDS: Insulin LISPRO 300 UNITS/3 ML VIAL SQ SCH ×3 (07:35→17:19)
[2019-07-03] MEDS: cloNIDine HCl 0.1 MG TABLET PO SCH (08:27)
[2019-07-03] MEDS: Cholecalciferol (D-3) 1,000 UNIT (25MCG) TABLET PO SCH (08:27)
[2019-07-03] MEDS: Cyanocobalamin (B-12) 1,000 MCG TABLET PO SCH (08:27)
[2019-07-03] MEDS: Vitamin B Complex/Vit C/Vit E 1 EACH TABLET PO SCH (08:27)
[2019-07-03] MEDS: Isosorbide MONOnitrate (24 HR) 30 MG TAB.ER.24H PO SCH (08:27)
[2019-07-03 09:02] LABS: INR 1.1; Prothrombin Time 12.6 Seconds (9.4-12.1)
[2019-07-03] MEDS ORDERED: Clindamycin 600 MG/50 ML 600 MG/50 ML IV.SOLN IVPB ONE (09:33)
[2019-07-03] MEDS ORDERED: *HR* Midazolam HCl 2 MG/2 ML VIAL IVP ONE ×2 (09:33→14:14)
[2019-07-03] MEDS ORDERED: *HR* FentaNYL (PF) 100 MCG/2 ML VIAL IVP ONE ×2 (09:33→14:14)
--- NOTE | 2019-07-03 09:33 | Pre-Sedation Evaluation ---
Pre-sedation evaluation - Pre-sedation checklist Date of procedure: 06/29/19 Recent Vitals: Last Vital Signs Temp 98.1 F 07/03/19 07:26 Pulse 51 07/03/19 07:26 Resp 18 07/03/19 07:26 BP 181/72 07/03/19 07:26 Pulse Ox 93 07/03/19 07:26 ASA Classification *see protocol: CLASS II-Mild systemic disease Plan of Care: Pt appropriate candidate for procedure/moderate/conscious sedation, Risks/benefits of procedure/sedation discussed w/ patient/family
[2019-07-03] MEDS ORDERED: Renal Vitamin 1 CAP CAPSULE PO SCH (10:00)
[2019-07-03 10:16] LABS: Estimated Average Glucose 137 mg/dl
--- NOTE | 2019-07-03 11:31 | Nephrology Progress Note ---
Date of Encounter: 07/03/19 Time of Encounter: 11:29 - Assessment and Plan (1) ESRD (end stage renal disease) Current Visit: Yes Status: Acute HD MWF. Renal vitamins. Renal dose medications. Renal diet. Additional dialysis and ultrafiltration as needed. I have placed an order for interventional radiology to evaluate his left forearm graft. If unable to open up the graft and he will need a tunneled dialysis cath eter. He is scheduled to follow-up with the peritoneal dialysis nurse on July 04. After fistualagram or tunneled line is placed, february d/c temp HD line. (2) Bradycardia Current Visit: Yes Status: Acute Resolved. (3) Above knee amputation of right lower extremity Current Visit: No Status: Acute (4) Hypertension Current Visit: No Status: Chronic Titrate blood pressure medications as needed. Continue Imdur. Qualifiers: Hypertension type: renovascular hypertension Qualified Code(s): I15.0 - Renovascular hypertension (5) Cardiac arrest Current Visit: Yes Status: Acute Resolved. (6) Hyperkalemia Current Visit: Yes Status: Acute Resolved 4.7, stable. Subjective Principal diagnosis: cardiac arrest, metabolic derrangements Interval history: Seen and examined. Denies any chest pain or shortness of breath. Denies nausea, vomiting or diarrhea. Objective - Vital Signs Vital signs: Vital Signs Temp Pulse Resp BP Pulse Ox 07/03/19 11:01 98.0 F 51 18 96 07/03/19 10:35 171/78 07/03/19 07:26 98.1 F 51 18 181/72 93 07/03/19 05:57 162/82 07/03/19 03:48 97.9 F 69 19 174/76 91 07/03/19 02:24 66 177/73 07/02/19 23:25 97.5 F L 85 19 159/75 96 07/02/19 22:10 55 194/55 07/02/19 19:38 99.1 F 62 19 183/65 90 07/02/19 15:28 98.4 F 63 18 163/81 97 07/02/19 13:30 98.6 F 18 168/81 07/02/19 13:15 153/71 07/02/19 13:00 159/85 07/02/19 12:45 150/88 09/02/19 12:30 169/83 07/02/19 12:15 159/81 07/02/19 12:00 147/85 07/02/19 11:45 175/95 07/02/19 11:30 182/90 Intake and Output 07/02/19 07/03/19 07/03/19 23:59 07:59 15:59 Intake Total 240 / 1440 Balance 240 / 530 Intake: Oral 240 / 840 Other: Meal Dinner Percent of Meal Consumed 100% Stool Size Moderate Stool Consistency formed Stool Color Brown Blood Glucose* 145 148 124 - General Appearance General appearance: Present: well-developed, well-nourished EENT: Present: ATNC, hearing intact, vision intact Neck: Present: supple Respiratory: Present: clear Cardiology: Present: no edema, normal S1, normal S2 Dialysis Vascular Access: Arteriovenous Fistula thrill: No bruit: No Additional Comments: PD cath site c/d/i Gastrointestinal: Present: normoactive bowel sounds, no tenderness, no guarding Integumentary: Present: no rash, warm and dry Neurologic: Present: alert and oriented x3 Musculoskeletal: Present: no deformities, no erythema Psychiatric: Present: mood/affect appropriate, cooperative - Lab 07/03/19 02:20 07/03/19 02:20 Most recent lab results 07/03/19 02:20 Calcium 9.1 Magnesium 2.2 Consult Discharge Plan - Plan Referrals: NONE,PCP [Primary Care Provider] -
[2019-07-03] MEDS ORDERED: Heparin 1,000 UNITS/500 mL 500 ML ONE (13:30)
[2019-07-03] MEDS ORDERED: 0.9 % Sodium Chloride 500 ML ONE (14:08)
[2019-07-03] MEDS ORDERED: *HR* Heparin 5,000 UNIT/ML VIAL ONE (14:25)
[2019-07-03] MEDS ORDERED: hydrALAZINE 25 MG TABLET PO SCH (15:00)
[2019-07-03 16:08] VITALS: BP 168/76
--- NOTE | 2019-07-03 16:30 | Discharge Summary ---
- NOTES TO OUTPATIENT PROVIDER Notes to Outpatient Provider: Post hospital discharge for cardiac arrest, ESRD presents to follow-up with Dr. Abraham dock loader to discuss his peritoneal dialysis plans. Patient is to adhere to a renal diet low in potassium Orders not resulted at time of discharge: Pending orders 06/29/19 04:00 Culture,Blood [BC] Stat Date of Encounter: 07/03/19 Time of Encounter: 16:28 - Discharge Diagnosis (1) Cardiac arrest Priority: Primary Status: Acute Assessment and Plan: Likely combination of a elevated potassium and underlying comorbid conditions continue telemetry monitoring, monitor electrolytes he was evaluated by the cardiology team appreciated input. (2) ESRD (end stage renal disease) Priority: Primary Status: Acute Assessment and Plan: HD per nephrology appreciated input, he is being dialyzed today, follow-up with Dr. Abraham on July 04 to follow-up on peritoneal dialysis plans. Meanwhile continue hemodialysis status post IR-ultrasound fluoroscopic-guided tunneled catheter placement (3) Hypertension Priority: Primary Status: Acute Assessment and Plan: Bp has remained elevated with systolic as high of 220, he is being dialyzed today and this should help with his volume status. After dialysis his BP was 159/75 at discharge 168/76 patient was strongly advised to make sure he continues with dialysis and not to skip dialysis Qualifiers: Hypertension type: secondary to other renal disorders Qualified Code(s): I15.1 - Hypertension secondary to other renal disorders; N28.89 - Other specified disorders of kidney and ureter (4) Hyperkalemia Priority: Secondary Status: Acute Assessment and Plan: Potassium at discharge is 4.7. Potassium is trending up again should resolve with dialysis noticed that patient is only on ADA diet, will change to a renal diet. Patient would benefit from dietary consult and we can avoid potassium-rich food. He tells me that he eats bananas daily patient was educated to refrain from eating daily bananas due to his end-stage renal disease. Upon review of his medication from home no associated drug induced hyperkalemia noted (5) Diabetes mellitus type 2 in obese Priority: Primary Status: Chronic Assessment and Plan: Check A1c 6.4 he is not on any antidiabetic medication continue dietary management (6) Anemia Priority: Secondary Status: Acute Assessment and Plan: Hemoglobin stable at 11.3, workup revealed anemia of chronic disease with elevated ferritin, normal B12 and folate Qualifiers: Anemia type: unspecified type Qualified Code(s): D64.9 - Anemia, unspecified (7) Hyponatremia Priority: Secondary Status: Acute Assessment and Plan: Likely due to volume status anticipated to improve after dialysis sodium 133 at discharge Hospital course: Mr. Cochran is a 68 year old male was hospitalized s/p outside hospital cardiac arrest which was attributed to combination of him running out of oxygen and hyperkalemia. He was seen by the industrial engineering director to discuss possible pacemaker however patient was monitored on telemetry and had no other dysrhythmias of note he was bradycardic on admission. During the hospital stay patient was dialyzed for his end-stage renal disease it appears patient was having issues with his AV fistula. He had emergent HDC placed for dialysis and upon discharge had a tunneled HDC placed by IR while pending usage of his peritoneal dialysis Discharge discussed with: patient, nurse, social work, case management, automotive consultant - Time Spent with Patient Total time spent providing and/or coordinating discharge services: 40 mins Specific discharge activities: His medications for low potassium diet and a renal diet as well as a diabetic diet do not skip dialysis session, please take all your medications as prescribed - Discharge Medications Prescriptions: New Isosorbide MONOnitrate (24 HR) [Imdur] 30 mg PO DAILY #30 tab.er.24h Polyethylene Glycol 3350 [MiraLAX] 17 gm PO DAILY #527 gm Renal Vitamin [Renal Caps Softgel] 1 cap PO DAILY capsule Continued Carvedilol [Coreg] 12.5 mg PO BID Albuterol Sulfate [Proventil Inhaler] 2 puff IH QID PRN PRN Reason: Shortness Of Breath Ferrous Sulfate 325 mg PO BIDWM #60 tablet cloNIDine HCl [CloNIDine HCl] 0.1 mg PO BID #60 tablet Atorvastatin Calcium [Lipitor] 20 mg PO HS Calcium Carbonate [Tums] 500 mg PO BID Cholecalciferol (Vitamin D3) [Vitamin D3] 1,000 units PO DAILY Cyanocobalamin (B-12) [Vitamin B12] 1,000 mcg PO DAILY Folic Acid/Vit B Complex and C [Dialyvite 800 Chewable Wafer] 800 mcg PO DAILY Furosemide [Lasix] 20 mg PO BID hydrALAZINE [HydrALAZINE] 25 mg PO Q8H HYDROcodone/Acet 5/325 mg [[place] 5-325 mg] 1 tab PO Q6H PRN 7 Days #7 tab PRN Reason: Pain Home Medications: Albuterol Sulfate [Proventil Inhaler] 2 puff IH QID PRN 12/05/17 [History] Carvedilol [Coreg] 12.5 mg PO BID 12/05/17 [History] Ferrous Sulfate 325 mg PO BIDWM #60 tablet 12/08/17 [Rx] cloNIDine HCl [CloNIDine HCl] 0.1 mg PO BID #60 tablet 12/08/17 [Rx] Atorvastatin Calcium [Lipitor] 20 mg PO HS 06/27/19 [History] Calcium Carbonate [Tums] 500 mg PO BID 06/27/19 [History] Cholecalciferol (Vitamin D3) [Vitamin D3] 1,000 units PO DAILY 06/27/19 [History] Cyanocobalamin (B-12) [Vitamin B12] 1,000 mcg PO DAILY 06/27/19 [History] Folic Acid/Vit B Complex and C [Dialyvite 800 Chewable Wafer] 800 mcg PO DAILY 06/27/19 [History] Furosemide [Lasix] 20 mg PO BID 06/27/19 [History] hydrALAZINE [HydrALAZINE] 25 mg PO Q8H 06/27/19 [History] HYDROcodone/Acet 5/325 mg [[place] 5-325 mg] 1 tab PO Q6H PRN 7 Days #7 tab 07/03/19 [Rx] Isosorbide MONOnitrate (24 HR) [Imdur] 30 mg PO DAILY #30 tab.er.24h 07/03/19 [Rx] Polyethylene Glycol 3350 [MiraLAX] 17 gm PO DAILY #527 gm 07/03/19 [Rx] Renal Vitamin [Renal Caps Softgel] 1 cap PO DAILY capsule 07/03/19 [Rx] Allergies/Adverse Reactions: Allergy/AdvReac Type Severity Reaction Status Date / Time No Known Allergies Allergy Verified 06/27/19 12:03 Date of admission: 06/29/19 12:26 Primary care physician: PCP NONE Consults: 06/29/19 09:32 Consult to Nephrology [CONS] Stat Consulting Provider: Kidney Annabelle/LORETTA/KISHOR/REBEKAH Reason for Consult: Emergent dialysis Call Completed: Yes 06/29/19 09:56 Consult to Cardiology [CONS] Stat Comment: Consulting Provider: Cardiology Annabelle Reason for Consult: Bradycardia Call Completed: Yes 06/29/19 11:32 Consult to Interventional Radiology [CONS] Stat Consulting Provider: Radiology Interventional Cols Reason for Consult: Temporary dialysis catheter Call Completed: Yes 06/29/19 11:45 Consult to Dialysis [CONS] ONCE 06/29/19 16:33 Consult to Nutrition [CONS] Routine Comment: Consulting Provider: NUTRITION Reason for Dietary Consult: Other Consult to Pastoral Services [CONS] Routine Comment: 06/30/19 09:15 Consult to Dialysis [CONS] ONCE 07/01/19 08:18 Consult to Interventional Radiology [CONS] Routine Consulting Provider: Radiology Interventional Cols Reason for Consult: Patient needs evaluation/thrombectomy of left forearm graft. If unable to perform he needs a tunneled catheter. Call Completed: No 07/02/19 08:30 Consult to Dialysis [CONS] ONCE Discharging clinician: Dudley Porter Anticipated date of discharge: 07/03/19 - Constitutional Vitals: Temp Pulse Resp BP Pulse Ox 97.6 F 54 18 168/76 94 07/03/19 16:06 07/03/19 16:06 07/03/19 16:06 07/03/19 16:06 07/03/19 16:06 Exam: GEN: NAD, A&O x 3, Pleasant and conversant SKIN: [place] warm acyanotic not jaundice HEART: RRR, no murmurs LUNGS: CTA no wheeze or crackles, overall non labored ABDOMEN; Soft, non tender or distended, BS x 4 normactive EXT: Status post left AKA right lower extremity with signs of chronic venous stasis dermatitis thickening of skin PSYCH: Mood and affect is appropriate - Patient Status Disposition: Home Health Service Condition: Fair Functional capacity at discharge: uses cane/walker Overall status at discharge: patient is back to baseline - Discharge Instructions Instructions: Renal Failure Diet (DC), Dialysis Diet (DC), Chronic Hypertension (DC), Low Sodium Diet (DC), Hypertensive Crisis (DC) Follow Up With: NONE,PCP [Primary Care Provider] - - Diet and Activity Activity: ambulate only with your walker Diet: diabetic diet, other (Renal diet)
--- NOTE | 2019-07-03 16:48 | Physician Discharge Referral ---
Home Health/Hosp Referral Info Transfer to: Home Health Provider in Charge Post Discharge: PCP - Diagnosis (1) Cardiac arrest Priority: Primary Status: Acute (2) ESRD (end stage renal disease) Priority: Primary Status: Acute (3) Hypertension Priority: Primary Status: Acute (4) Hyperkalemia Priority: Secondary Status: Acute (5) Diabetes mellitus type 2 in obese Priority: Secondary Status: Chronic (6) Anemia Priority: Primary Status: Acute (7) Hyponatremia Priority: Primary Status: Acute - Respiratory Orders Oxygen / L per min (3L NC) Smoking Cessation: Smoking cessation has been advised. For more information, call the [place] Tobacco Quit Line at 2-405-HJCC-NOW. - Diet/Nutrition Diet/Nutrition Orders: Renal - Activity Activity Orders: Walker - Services Needed Following services are medically necessary services: Home Health Aide - Transfer Medications Prescriptions: Isosorbide MONOnitrate (24 HR) [Imdur] 30 mg PO DAILY #30 tab.er.24h Polyethylene Glycol 3350 [MiraLAX] 17 gm PO DAILY #527 gm HYDROcodone/Acet 5/325 mg [[place] 5-325 mg] 1 tab PO Q6H PRN 7 Days #7 tab PRN Reason: Pain Home Medications: Albuterol Sulfate [Proventil Inhaler] 2 puff IH QID PRN 12/05/17 [History] Carvedilol [Coreg] 12.5 mg PO BID 12/05/17 [History] Ferrous Sulfate 325 mg PO BIDWM #60 tablet 12/08/17 [Rx] cloNIDine HCl [CloNIDine HCl] 0.1 mg PO BID #60 tablet 12/08/17 [Rx] Atorvastatin Calcium [Lipitor] 20 mg PO HS 06/27/19 [History] Calcium Carbonate [Tums] 500 mg PO BID 06/27/19 [History] Cholecalciferol (Vitamin D3) [Vitamin D3] 1,000 units PO DAILY 06/27/19 [History] Cyanocobalamin (B-12) [Vitamin B12] 1,000 mcg PO DAILY 06/27/19 [History] Folic Acid/Vit B Complex and C [Dialyvite 800 Chewable Wafer] 800 mcg PO DAILY 06/27/19 [History] Furosemide [Lasix] 20 mg PO BID 06/27/19 [History] hydrALAZINE [HydrALAZINE] 25 mg PO Q8H 06/27/19 [History] HYDROcodone/Acet 5/325 mg [[place] 5-325 mg] 1 tab PO Q6H PRN 7 Days #7 tab 07/03/19 [Rx] Isosorbide MONOnitrate (24 HR) [Imdur] 30 mg PO DAILY #30 tab.er.24h 07/03/19 [Rx] Polyethylene Glycol 3350 [MiraLAX] 17 gm PO DAILY #527 gm 07/03/19 [Rx] Renal Vitamin [Renal Caps Softgel] 1 cap PO DAILY capsule 07/03/19 [Rx] Allergies/Adverse Reactions: Allergy/AdvReac Type Severity Reaction Status Date / Time No Known Allergies Allergy Verified 06/27/19 12:03 Certification: Further, I certify that my clinical findings support that this patient is homebound (i.e. absences from home require considerable and taxing effort and are for medical reasons or protestant services or infrequently or short duration when for other reasons) because: Homebound Reason: Leaving home requires considerable and taxing effort due to condition Attestation: My signature below is to certify that this patient is under my care and that I, or nurse practitioner, or a physician's staff assistant working with me, has a [id number] encounter with this patient.
[2019-07-03] MEDS ORDERED: *HR* Rocuronium Bromide 100 MG/10 ML VIAL IVC ONE (19:59)
[2019-07-03] MEDS ORDERED: *HR* Etomidate 20 MG/10 ML AMPUL IVP ONE (19:59)
--- NOTE | 2019-07-04 10:38 | Electrocardiograph Report ---
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
== END 2019-07-03 20:00 | disposition home health service (06) | DRG 640 ==
LOC: EMEROOARM 08:27 → SUATTDRO 12:26 → ICNU 12:26 → 2ANU 06-30 11:59
PROVIDERS: ADMIT Internal Medicine Hospice and Palliative Medicine; ATTEND Pharmacist
PROC: IRPERMA (2019-07-03 12:00)

== ENCOUNTER 2019-08-23 15:49 | Inpatient (IN) ==
[2019-08-23] MEDS ORDERED: Ondansetron 4 MG/2 ML VIAL IVP ONE (16:39)
[2019-08-23] MEDS ORDERED: Pantoprazole 80 MG in 0.9 % Sodium Chloride 50 ML IVPB ONE (16:39)
[2019-08-23 19:01] LABS: Basophils % 0.2 %; Hematocrit 27.9 % (37.5-50.1); Hemoglobin 9.1 g/dL (12.9-16.9); Immature Granulocytes % 0.5 % (0-4); Lymphocytes % 9.2 %; Mean Corpuscular HGB Conc 32.6 g/dL (31.6-35.5); Mean Corpuscular Hemoglobin 30.6 pg (28.0-33.3); Mean Corpuscular Volume 93.9 fL (83.0-100.0); Mean Platelet Volume 10.8 fL (9.4-12.4); Monocytes # 0.6 K/mcL (0.0-1.3); Monocytes % 6.1 %; Neutrophils # 8.7 K/mcL (1.6-8.9); Platelet Count 228 K/mcL (140-400); Red Blood Count 2.97 M/mcL (4.19-5.50); Red Cell Distribution Width 13.3 % (11.5-14.5); White Blood Count 10.3 K/mcL (4.3-11.1)
[2019-08-23 19:12] LABS: Albumin 3.7 g/dL (3.5-5.7); Albumin/Globulin Ratio 1.1 (1.1-2.2); Bilirubin,Total 0.4 mg/dL (0.3-1.0); Calcium 8.4 mg/dL (8.6-10.3); Globulin 3.3 g/dL (2.4-3.5); Potassium 5.6 mEq/L (3.5-5.1)
[2019-08-23 19:24] LABS: Troponin I 0.1 ng/mL (< 0.04)
[2019-08-23 20:02] LABS: Activated Partial Thrombo Time 33.9 Seconds (26.0-36.0)
[2019-08-23 20:20] LABS: INR 1.3; Prothrombin Time 14.2 Seconds (9.4-12.1)
[2019-08-23] MEDS ORDERED: Naloxone 0.4 MG/ML INJ IVP PRN (20:31)
[2019-08-23] MEDS ORDERED: Ondansetron ODT 4 MG TAB.RAPDIS SL PRN (20:31)
[2019-08-23] MEDS ORDERED: Furosemide 40 MG/4 ML VIAL IVP ONE (20:55)
[2019-08-23] MEDS ORDERED: *HR* Dextrose 50 % in Water (Syg) 50 ML SYRINGE IVP ONE (20:55)
[2019-08-23] MEDS ORDERED: Insulin Human Regular 10 UNIT in 0.9 % Sodium Chloride 10 ML IV ONE (20:55)
[2019-08-23 21:03] LABS: Magnesium 2.2 mg/dL (1.6-2.6); Phosphorous 5.5 mg/dL (2.7-4.5)
[2019-08-23] MEDS ORDERED: D5% in Water 1,000 ML IVC PRN (21:07)
[2019-08-23] MEDS ORDERED: Ondansetron 4 MG/2 ML VIAL IVP PRN (21:07)
[2019-08-23] MEDS ORDERED: *HR* Dextrose 50 % in Water (Syg) 50 ML SYRINGE IVP PRN (21:07)
[2019-08-23] MEDS ORDERED: Dextrose Gel 15 GM/37.5 ML TUBE PO PRN ×2 (21:07)
[2019-08-23] MEDS ORDERED: hydrALAZINE 25 MG TABLET PO SCH (21:15)
[2019-08-23] MEDS: Pantoprazole 40 MG in 0.9 % Sodium Chloride Mini Bag 100 ML IVC SCH (21:49)
[2019-08-24] MEDS: Insulin LISPRO 300 UNITS/3 ML VIAL SQ SCH ×5 (00:09→17:24)
[2019-08-24 01:04] LABS: Basophils % 0.3 %; Eosinophils % 0.4 %; Hematocrit 23.9 % (37.5-50.1); Hemoglobin 7.8 g/dL (12.9-16.9); Immature Granulocytes % 0.8 % (0-4); Lymphocytes # 1.3 K/mcL (0.6-4.6); Lymphocytes % 15.7 %; Mean Corpuscular HGB Conc 32.6 g/dL (31.6-35.5); Mean Corpuscular Volume 94.8 fL (83.0-100.0); Mean Platelet Volume 10.9 fL (9.4-12.4); Monocytes # 0.7 K/mcL (0.0-1.3); Monocytes % 8.8 %; Neutrophils # 5.9 K/mcL (1.6-8.9); Platelet Count 191 K/mcL (140-400); Red Blood Count 2.52 M/mcL (4.19-5.50); Red Cell Distribution Width 13.5 % (11.5-14.5); White Blood Count 7.9 K/mcL (4.3-11.1)
[2019-08-24 01:24] LABS: Calcium 7.9 mg/dL (8.6-10.3); Chol/HDL Ratio 4.7 (0-4.9); Potassium 4.8 mEq/L (3.5-5.1)
[2019-08-24] MEDS: Pantoprazole 40 MG in 0.9 % Sodium Chloride Mini Bag 100 ML IVC SCH ×2 (03:30→09:16)
[2019-08-24 06:36] LABS: Hematocrit 23.6 % (37.5-50.1); Hemoglobin 7.6 g/dL (12.9-16.9)
[2019-08-24] MEDS ORDERED: Gabapentin 300 MG CAPSULE PO SCH (09:00)
[2019-08-24 09:14] LABS: Hepatitis B Surface Antibody < 3.10 mIU/mL
[2019-08-24] MEDS: NIFEdipine XL (24 HR) 30 MG TAB.ER.24 PO SCH (09:17)
[2019-08-24] MEDS: Loratadine 10 MG TABLET PO SCH (09:17)
[2019-08-24] MEDS: Furosemide 20 MG TABLET PO SCH ×2 (09:17→15:55)
[2019-08-24 09:24] LABS: Hepatitis B Surface Antigen Nonreactive (Nonreactive)
[2019-08-24 09:50] LABS: Hematocrit 23.9 % (37.5-50.1); Hemoglobin 7.6 g/dL (12.9-16.9)
[2019-08-24] MEDS ORDERED: 0.9 % Sodium Chloride 250 ML ONE (10:29)
[2019-08-24] MEDS ORDERED: *HR* Propofol 200 MG/20 ML VIAL IVP ONE (10:49)
[2019-08-24] MEDS ORDERED: Lidocaine -MPF 2% 2 ML VIAL ONE (11:09)
[2019-08-24] MEDS ORDERED: Isovue-370 500 ML BOTTLE IVP ONE ×2 (12:36)
[2019-08-24] MEDS: Gabapentin 100 MG CAPSULE PO SCH ×2 (13:35→22:43)
[2019-08-24] MEDS ORDERED: 0.9 % Sodium Chloride 250 ML IVC SCH (15:45)
[2019-08-24] MEDS: hydrALAZINE 25 MG TABLET PO SCH (15:55)
[2019-08-24] MEDS: Calcium Acetate 667 MG CAPSULE PO SCH (15:55)
[2019-08-24] MEDS: Pantoprazole 40 MG VIAL IVP SCH (17:24)
[2019-08-24] MEDS ORDERED: Perit. Dialysis with Dex 2.5 % 12,000 ML PERITONEAL ONE (19:00)
[2019-08-24] MEDS: traZODone 50 MG TABLET PO SCH (22:43)
[2019-08-24] MEDS: cloNIDine HCl 0.1 MG TABLET PO SCH (22:43)
[2019-08-25] MEDS: hydrALAZINE 25 MG TABLET PO SCH (00:33)
[2019-08-25] MEDS: Insulin LISPRO 300 UNITS/3 ML VIAL SQ SCH (00:34)
[2019-08-25] MEDS: Pantoprazole 40 MG VIAL IVP SCH (05:59)
[2019-08-25 07:06] LABS: Basophils % 0.5 %; Eosinophils # 0.3 K/mcL (0.0-0.6); Eosinophils % 5.1 %; Hematocrit 26.7 % (37.5-50.1); Hemoglobin 8.8 g/dL (12.9-16.9); Immature Granulocytes % 0.9 % (0-4); Lymphocytes # 0.7 K/mcL (0.6-4.6); Lymphocytes % 12.9 %; Mean Corpuscular Hemoglobin 30.7 pg (28.0-33.3); Mean Platelet Volume 10.3 fL (9.4-12.4); Monocytes # 0.5 K/mcL (0.0-1.3); Monocytes % 7.9 %; Neutrophils # 4.1 K/mcL (1.6-8.9); Nucleated Red Blood Cells 0.4 /100 WBC (0); Platelet Count 162 K/mcL (140-400); Red Blood Count 2.87 M/mcL (4.19-5.50); Red Cell Distribution Width 15.1 % (11.5-14.5); Segmented Neutrophils % 72.7 %; White Blood Count 5.7 K/mcL (4.3-11.1)
[2019-08-25] MEDS ORDERED: Perit. Dialysis with Dex 2.5 % 12,000 ML ONE (18:32)
[2019-08-25] MEDS: Gentamicin Oint 15 GM TUBE TP SCH (19:37)
[2019-08-25 20:07] LABS: Calcium 7.5 mg/dL (8.6-10.3); Potassium 5.2 mEq/L (3.5-5.1)
[2019-08-25] MEDS: cloNIDine HCl 0.1 MG TABLET PO SCH (21:05)
[2019-08-25] MEDS: traZODone 50 MG TABLET PO SCH (22:36)
[2019-08-25] MEDS: Gabapentin 100 MG CAPSULE PO SCH (22:36)
[2019-08-26] MEDS: hydrALAZINE 25 MG TABLET PO SCH ×5 (01:05→23:34)
[2019-08-26] MEDS: Insulin LISPRO 300 UNITS/3 ML VIAL SQ SCH ×7 (01:06→22:01)
[2019-08-26] MEDS: Calcium Acetate 667 MG CAPSULE PO SCH ×3 (02:06→12:32)
[2019-08-26] MEDS: cloNIDine HCl 0.1 MG TABLET PO SCH ×3 (02:07→20:44)
[2019-08-26] MEDS: Aspirin Enteric Coated 81 MG Tablet PO SCH ×2 (02:07→08:53)
[2019-08-26] MEDS: Loratadine 10 MG TABLET PO SCH ×2 (02:07→08:53)
[2019-08-26] MEDS: Pantoprazole 40 MG VIAL IVP SCH ×3 (02:10→16:52)
[2019-08-26] MEDS: NIFEdipine XL (24 HR) 30 MG TAB.ER.24 PO SCH ×2 (02:10→08:52)
[2019-08-26] MEDS: Cholecalciferol (D-3) 1,000 UNIT (25MCG) TABLET PO SCH ×2 (02:10→08:52)
[2019-08-26] MEDS: Gabapentin 100 MG CAPSULE PO SCH ×4 (02:11→20:55)
[2019-08-26] MEDS: Furosemide 40 MG TABLET PO SCH ×2 (02:11→08:53)
[2019-08-26] MEDS: Isosorbide MONOnitrate (24 HR) 30 MG TAB.ER.24H PO SCH ×2 (02:12→08:52)
[2019-08-26 04:01] LABS: Basophils % 0.2 %; Eosinophils # 0.3 K/mcL (0.0-0.6); Eosinophils % 4.7 %; Hematocrit 26.2 % (37.5-50.1); Hemoglobin 8.2 g/dL (12.9-16.9); Immature Granulocytes % 0.6 % (0-4); Lymphocytes # 0.8 K/mcL (0.6-4.6); Lymphocytes % 15.4 %; Mean Corpuscular HGB Conc 31.3 g/dL (31.6-35.5); Mean Corpuscular Hemoglobin 30.6 pg (28.0-33.3); Mean Corpuscular Volume 97.8 fL (83.0-100.0); Mean Platelet Volume 10.8 fL (9.4-12.4); Monocytes # 0.5 K/mcL (0.0-1.3); Monocytes % 9.4 %; Neutrophils # 3.7 K/mcL (1.6-8.9); Platelet Count 151 K/mcL (140-400); Red Blood Count 2.68 M/mcL (4.19-5.50); Red Cell Distribution Width 14.8 % (11.5-14.5); Segmented Neutrophils % 69.7 %; White Blood Count 5.3 K/mcL (4.3-11.1)
[2019-08-26 04:20] LABS: Calcium 7.7 mg/dL (8.6-10.3); Potassium 4.7 mEq/L (3.5-5.1)
[2019-08-26] MEDS: Gentamicin Oint 15 GM TUBE TP SCH (09:00)
[2019-08-26 11:07] LABS: Estimated Average Glucose 137 mg/dl
[2019-08-26] MEDS ORDERED: Sodium Bicarbonate 150 MEQ in D5% in Water 1,000 ML IVC SCH (15:15)
[2019-08-26] MEDS ORDERED: Perit. Dialysis with Dex 2.5 % 12,000 ML PERITONEAL ONE (19:00)
[2019-08-26] MEDS ORDERED: Isovue-370 500 ML BOTTLE IVP ONE (19:30)
[2019-08-26] MEDS: traZODone 50 MG TABLET PO SCH (20:55)
[2019-08-27] MEDS: Pantoprazole 40 MG VIAL IVP SCH ×2 (05:08→17:02)
[2019-08-27 06:29] LABS: Basophils % 0.4 %; Eosinophils # 0.1 K/mcL (0.0-0.6); Eosinophils % 2.4 %; Hematocrit 29.4 % (37.5-50.1); Hemoglobin 8.6 g/dL (12.9-16.9); Immature Granulocytes % 0.7 % (0-4); Lymphocytes # 0.5 K/mcL (0.6-4.6); Lymphocytes % 9.5 %; Mean Corpuscular HGB Conc 29.3 g/dL (31.6-35.5); Mean Corpuscular Hemoglobin 30.7 pg (28.0-33.3); Mean Platelet Volume 10.7 fL (9.4-12.4); Monocytes # 0.4 K/mcL (0.0-1.3); Monocytes % 7.7 %; Neutrophils # 4.3 K/mcL (1.6-8.9); Platelet Count 144 K/mcL (140-400); Red Cell Distribution Width 14.5 % (11.5-14.5); Segmented Neutrophils % 79.3 %; White Blood Count 5.5 K/mcL (4.3-11.1)
[2019-08-27 07:23] LABS: Calcium 7.5 mg/dL (8.6-10.3); Magnesium 1.9 mg/dL (1.6-2.6); Phosphorous 5.5 mg/dL (2.7-4.5); Potassium 5.2 mEq/L (3.5-5.1)
[2019-08-27] MEDS: Gentamicin Oint 15 GM TUBE TP SCH (08:33)
[2019-08-27] MEDS: Gabapentin 100 MG CAPSULE PO SCH ×3 (08:57→21:12)
[2019-08-27] MEDS: Loratadine 10 MG TABLET PO SCH (08:57)
[2019-08-27] MEDS: NIFEdipine XL (24 HR) 30 MG TAB.ER.24 PO SCH (08:57)
[2019-08-27] MEDS: Isosorbide MONOnitrate (24 HR) 30 MG TAB.ER.24H PO SCH (08:57)
[2019-08-27] MEDS: cloNIDine HCl 0.1 MG TABLET PO SCH ×2 (08:58→21:12)
[2019-08-27] MEDS: Furosemide 40 MG TABLET PO SCH (08:58)
[2019-08-27] MEDS: Aspirin Enteric Coated 81 MG Tablet PO SCH (08:58)
[2019-08-27] MEDS: Insulin LISPRO 300 UNITS/3 ML VIAL SQ SCH ×4 (08:59→21:11)
[2019-08-27] MEDS: Cholecalciferol (D-3) 1,000 UNIT (25MCG) TABLET PO SCH (08:59)
[2019-08-27] MEDS: hydrALAZINE 25 MG TABLET PO SCH ×2 (09:02→17:02)
[2019-08-27] MEDS ORDERED: Perit. Dialysis with Dex 2.5 % 12,000 ML PERITONEAL ONE (19:00)
[2019-08-27] MEDS: traZODone 50 MG TABLET PO SCH (21:12)
[2019-08-28] MEDS: hydrALAZINE 25 MG TABLET PO SCH ×3 (00:53→15:31)
[2019-08-28 05:33] LABS: Basophils % 0.4 %; Eosinophils # 0.1 K/mcL (0.0-0.6); Eosinophils % 2.7 %; Hematocrit 27.1 % (37.5-50.1); Hemoglobin 8.6 g/dL (12.9-16.9); Immature Granulocytes % 0.8 % (0-4); Lymphocytes # 0.5 K/mcL (0.6-4.6); Mean Corpuscular HGB Conc 31.7 g/dL (31.6-35.5); Mean Corpuscular Hemoglobin 30.9 pg (28.0-33.3); Mean Platelet Volume 10.5 fL (9.4-12.4); Monocytes # 0.5 K/mcL (0.0-1.3); Neutrophils # 4.1 K/mcL (1.6-8.9); Platelet Count 163 K/mcL (140-400); Red Blood Count 2.78 M/mcL (4.19-5.50); Red Cell Distribution Width 14.5 % (11.5-14.5); Segmented Neutrophils % 78.1 %; White Blood Count 5.3 K/mcL (4.3-11.1)
[2019-08-28 05:36] LABS: Mean Corpuscular Volume 97.5 fL (83.0-100.0)
[2019-08-28 06:10] LABS: Calcium 7.9 mg/dL (8.6-10.3); Magnesium 1.9 mg/dL (1.6-2.6); Phosphorous 5.3 mg/dL (2.7-4.5); Potassium 5.1 mEq/L (3.5-5.1)
[2019-08-28] MEDS: Pantoprazole 40 MG VIAL IVP SCH ×2 (06:27→17:46)
[2019-08-28] MEDS: Insulin LISPRO 300 UNITS/3 ML VIAL SQ SCH ×4 (08:27→21:39)
[2019-08-28] MEDS: Gabapentin 100 MG CAPSULE PO SCH ×3 (08:28→21:44)
[2019-08-28] MEDS: Loratadine 10 MG TABLET PO SCH (08:28)
[2019-08-28] MEDS: Furosemide 40 MG TABLET PO SCH (08:28)
[2019-08-28] MEDS: cloNIDine HCl 0.1 MG TABLET PO SCH ×2 (08:29→21:44)
[2019-08-28] MEDS: Isosorbide MONOnitrate (24 HR) 30 MG TAB.ER.24H PO SCH (08:29)
[2019-08-28] MEDS: NIFEdipine XL (24 HR) 30 MG TAB.ER.24 PO SCH (08:29)
[2019-08-28] MEDS: Cholecalciferol (D-3) 1,000 UNIT (25MCG) TABLET PO SCH (08:29)
[2019-08-28] MEDS: Gentamicin Oint 15 GM TUBE TP SCH (08:29)
[2019-08-28] MEDS: Aspirin Enteric Coated 81 MG Tablet PO SCH (08:29)
[2019-08-28] MEDS ORDERED: Calcium Gluconate 1gm/50mL 1 GM/50 ML BAG IVPB ONE (08:31)
[2019-08-28] MEDS ORDERED: Perit. Dialysis with Dex 2.5 % 12,000 ML PERITONEAL ONE (19:00)
[2019-08-28] MEDS: traZODone 50 MG TABLET PO SCH (21:45)
[2019-08-29] MEDS: hydrALAZINE 25 MG TABLET PO SCH ×2 (00:31→09:05)
[2019-08-29] MEDS: Pantoprazole 40 MG VIAL IVP SCH (04:45)
[2019-08-29 05:14] LABS: Basophils % 0.4 %; Eosinophils # 0.1 K/mcL (0.0-0.6); Eosinophils % 1.9 %; Hematocrit 27.2 % (37.5-50.1); Hemoglobin 8.5 g/dL (12.9-16.9); Immature Granulocytes % 0.4 % (0-4); Lymphocytes # 0.5 K/mcL (0.6-4.6); Mean Corpuscular HGB Conc 31.3 g/dL (31.6-35.5); Mean Corpuscular Hemoglobin 30.5 pg (28.0-33.3); Mean Corpuscular Volume 97.5 fL (83.0-100.0); Mean Platelet Volume 10.7 fL (9.4-12.4); Monocytes # 0.5 K/mcL (0.0-1.3); Neutrophils # 3.6 K/mcL (1.6-8.9); Platelet Count 181 K/mcL (140-400); Red Blood Count 2.79 M/mcL (4.19-5.50); Red Cell Distribution Width 14.4 % (11.5-14.5); Segmented Neutrophils % 77.3 %; White Blood Count 4.6 K/mcL (4.3-11.1)
[2019-08-29 05:26] LABS: Calcium 8.2 mg/dL (8.6-10.3); Magnesium 1.9 mg/dL (1.6-2.6); Potassium 5.1 mEq/L (3.5-5.1)
[2019-08-29] MEDS: Insulin LISPRO 300 UNITS/3 ML VIAL SQ SCH ×2 (08:26→11:55)
[2019-08-29] MEDS: Isosorbide MONOnitrate (24 HR) 30 MG TAB.ER.24H PO SCH (09:04)
[2019-08-29] MEDS: Cholecalciferol (D-3) 1,000 UNIT (25MCG) TABLET PO SCH (09:04)
[2019-08-29] MEDS: Loratadine 10 MG TABLET PO SCH (09:05)
[2019-08-29] MEDS: cloNIDine HCl 0.1 MG TABLET PO SCH (09:05)
[2019-08-29] MEDS: NIFEdipine XL (24 HR) 30 MG TAB.ER.24 PO SCH (09:05)
[2019-08-29] MEDS: Aspirin Enteric Coated 81 MG Tablet PO SCH (09:05)
[2019-08-29] MEDS: Gabapentin 100 MG CAPSULE PO SCH (09:05)
[2019-08-29] MEDS: Furosemide 40 MG TABLET PO SCH (09:05)
[2019-08-29] MEDS: Gentamicin Oint 15 GM TUBE TP SCH (09:06)
[2019-08-29 11:17] VITALS: BP 133/63
== END 2019-08-29 13:44 | disposition home health service (06) | DRG 380 ==
LOC: EMEROOARM 15:49 → 2ANU 15:49 → SUATTDRO 20:30 → 2ANU 21:00 → SUATTDRO 08-26 14:19
PROVIDERS: ADMIT Internal Medicine; ATTEND Internal Medicine
PROC: ENDOEBX (2019-08-24 15:30)

== ENCOUNTER 2019-11-08 13:19 | Observation (INO) ==
[2019-11-08] MEDS ORDERED: Pantoprazole 40 MG VIAL IVP ONE (13:36)
[2019-11-08 14:02] LABS: Basophils % 0.1 %; Eosinophils % 0.1 %; Hematocrit 27.3 % (37.5-50.1); Hemoglobin 8.6 g/dL (12.9-16.9); Immature Granulocytes % 0.5 % (0-4); Lymphocytes # 0.5 K/mcL (0.6-4.6); Lymphocytes % 6.6 %; Mean Corpuscular HGB Conc 31.5 g/dL (31.6-35.5); Mean Corpuscular Hemoglobin 29.3 pg (28.0-33.3); Mean Corpuscular Volume 92.9 fL (83.0-100.0); Mean Platelet Volume 10.9 fL (9.4-12.4); Monocytes # 0.4 K/mcL (0.0-1.3); Monocytes % 4.6 %; Neutrophils # 6.7 K/mcL (1.6-8.9); Platelet Count 207 K/mcL (140-400); Red Blood Count 2.94 M/mcL (4.19-5.50); Red Cell Distribution Width 12.8 % (11.5-14.5); Segmented Neutrophils % 88.1 %; White Blood Count 7.6 K/mcL (4.3-11.1)
[2019-11-08 14:13] LABS: Calcium 8.1 mg/dL (8.6-10.3); Potassium 5.4 mEq/L (3.5-5.1)
[2019-11-08] MEDS ORDERED: Pantoprazole 40 MG VIAL IVP STA (14:20)
[2019-11-08] MEDS: Pantoprazole 40 MG in 0.9 % Sodium Chloride Mini Bag 100 ML IVC SCH (14:54)
[2019-11-08] MEDS ORDERED: Ondansetron 4 MG/2 ML VIAL IVP PRN (16:25)
[2019-11-08] MEDS ORDERED: Naloxone 0.4 MG/ML INJ IVP PRN (16:25)
[2019-11-08 16:45] LABS: INR 1.4; Prothrombin Time 15.5 Seconds (9.4-12.1)
[2019-11-08] MEDS ORDERED: Loratadine 10 MG TABLET PO PRN (17:33)
[2019-11-08 18:11] LABS: Folate 7.7 ng/mL (3.0-16.0); Vitamin B12 379 pg/mL (250-1100)
[2019-11-08] MEDS ORDERED: Perit. Dialysis with Dex 2.5 % 12,000 ML PERITONEAL ONE (19:00)
[2019-11-08 19:47] LABS: Hematocrit 26.3 % (37.5-50.1); Hemoglobin 8.6 g/dL (12.9-16.9)
[2019-11-08] MEDS: hydrALAZINE 25 MG TABLET PO SCH (19:54)
[2019-11-08] MEDS: cloNIDine HCl 0.1 MG TABLET PO SCH (19:54)
[2019-11-08] MEDS: carvediloL 25 MG TABLET PO SCH (19:54)
[2019-11-08] MEDS: *HR* Ticagrelor 90 MG TABLET PO SCH (19:55)
[2019-11-08] MEDS: Budesonide/Formoterol 80/4.5 1 PUFF INH IH SCH (20:17)
[2019-11-08] MEDS ORDERED: hydrALAZINE 25 MG TABLET PO SCH (21:00)
[2019-11-08] MEDS: Gentamicin Oint 15 GM TUBE TP SCH (21:05)
[2019-11-08 21:21] LABS: % Iron Saturation 14 % (20-55); Iron 26 mcg/dL (65-175); Transferrin 135 mg/dL (203-362)
[2019-11-08 21:40] LABS: Hepatitis B Surface Antigen Nonreactive (Nonreactive)
[2019-11-08 23:19] LABS: Hematocrit 23.5 % (37.5-50.1); Hemoglobin 7.7 g/dL (12.9-16.9)
[2019-11-09 01:35] LABS: Hepatitis B Surface Antibody < 3.10 mIU/mL
[2019-11-09 02:59] LABS: Hematocrit 24.5 % (37.5-50.1); Hemoglobin 7.8 g/dL (12.9-16.9)
[2019-11-09] MEDS: Budesonide/Formoterol 80/4.5 1 PUFF INH IH SCH ×3 (07:09→21:34)
[2019-11-09 07:11] LABS: Basophils % 0.3 %; Eosinophils # 0.1 K/mcL (0.0-0.6); Eosinophils % 0.8 %; Hematocrit 24.1 % (37.5-50.1); Hemoglobin 7.9 g/dL (12.9-16.9); Immature Granulocytes % 1.5 % (0-4); Lymphocytes # 0.5 K/mcL (0.6-4.6); Lymphocytes % 8.6 %; Mean Corpuscular HGB Conc 32.8 g/dL (31.6-35.5); Mean Corpuscular Hemoglobin 29.6 pg (28.0-33.3); Mean Corpuscular Volume 90.3 fL (83.0-100.0); Mean Platelet Volume 10.8 fL (9.4-12.4); Monocytes # 0.4 K/mcL (0.0-1.3); Monocytes % 6.2 %; Neutrophils # 5.1 K/mcL (1.6-8.9); Platelet Count 194 K/mcL (140-400); Red Blood Count 2.67 M/mcL (4.19-5.50); Red Cell Distribution Width 13.1 % (11.5-14.5); Segmented Neutrophils % 82.6 %; White Blood Count 6.2 K/mcL (4.3-11.1)
[2019-11-09] MEDS: Pantoprazole 40 MG in 0.9 % Sodium Chloride Mini Bag 100 ML IVC SCH ×3 (07:16→11:39)
[2019-11-09] MEDS: hydrALAZINE 25 MG TABLET PO SCH ×3 (07:25→19:45)
[2019-11-09] MEDS: cloNIDine HCl 0.1 MG TABLET PO SCH ×2 (07:25→19:45)
[2019-11-09] MEDS: *HR* Ticagrelor 90 MG TABLET PO SCH ×2 (07:25→19:45)
[2019-11-09] MEDS: carvediloL 25 MG TABLET PO SCH ×3 (07:25→16:22)
[2019-11-09] MEDS: Gentamicin Oint 15 GM TUBE TP SCH (07:26)
[2019-11-09 07:37] LABS: Potassium 4.5 mEq/L (3.5-5.1)
[2019-11-09] MEDS ORDERED: Furosemide 40 MG TABLET PO SCH (09:00)
[2019-11-09] MEDS ORDERED: Aspirin Enteric Coated 81 MG Tablet PO SCH (09:00)
[2019-11-09] MEDS ORDERED: Cholecalciferol (D-3) 1,000 UNIT (25MCG) TABLET PO SCH (09:00)
[2019-11-09] MEDS ORDERED: Cyanocobalamin (B-12) 1,000 MCG TABLET PO SCH (09:00)
[2019-11-09] MEDS ORDERED: Gabapentin 300 MG CAPSULE PO SCH (09:00)
[2019-11-09] MEDS ORDERED: NIFEdipine XL (24 HR) 30 MG TAB.ER.24 PO SCH (09:00)
[2019-11-09] MEDS ORDERED: Iron Sucrose Complex 250 MG in 0.9 % Sodium Chloride 250 ML IVPB SCH (09:00)
[2019-11-09] MEDS ORDERED: NON-FORMULARY MEDICATION 1 EACH EACH (Atorvastatin Calcium [Lipitor] 80 MG) PO SCH (09:00)
[2019-11-09] MEDS ORDERED: *HR* Propofol 200 MG/20 ML VIAL IVP ONE (10:38)
[2019-11-09] MEDS ORDERED: Lidocaine -MPF 2% 2 ML VIAL ONE (10:38)
[2019-11-09] MEDS ORDERED: Cyanocobalamin (B-12) 1,000 MCG/ML VIAL SQ SCH (10:45)
[2019-11-09 15:04] LABS: Hematocrit 24.2 % (37.5-50.1); Hemoglobin 7.5 g/dL (12.9-16.9)
[2019-11-09] MEDS: Pantoprazole 40 MG VIAL IVP SCH (16:22)
[2019-11-09 16:48] LABS: Hemoglobin 7.5 g/dL (12.9-16.9)
[2019-11-09] MEDS ORDERED: 0.9 % Sodium Chloride 250 ML ONE (18:10)
[2019-11-09] MEDS ORDERED: Perit. Dialysis with Dex 2.5 % 12,000 ML PERITONEAL ONE (19:30)
[2019-11-10 04:50] LABS: Hematocrit 26.1 % (37.5-50.1); Hemoglobin 8.6 g/dL (12.9-16.9)
[2019-11-10] MEDS: Pantoprazole 40 MG VIAL IVP SCH (06:27)
[2019-11-10 06:58] VITALS: BP 158/57
[2019-11-10] MEDS: Budesonide/Formoterol 80/4.5 1 PUFF INH IH SCH (07:39)
== END 2019-11-10 08:49 | disposition critical access hospital (66) ==
LOC: 2ANU 13:19 → EMEROOARM 13:19 → SUATTDRO 15:54 → 2ANU 15:58
PROVIDERS: ADMIT Internal Medicine; ATTEND Internal Medicine

== ENCOUNTER 2020-01-10 17:30 | Inpatient (IN) ==
[2020-01-10] MEDS ORDERED: Piperacillin/Tazobactam 3.375 GM in 0.9 % Sodium Chloride Mini Bag 100 ML IVPB ONE (19:28)
[2020-01-10 20:57] LABS: Basophils % 0.1 %; Eosinophils # 0.1 K/mcL (0.0-0.6); Eosinophils % 0.9 %; Hematocrit 26.6 % (37.5-50.1); Hemoglobin 8.4 g/dL (12.9-16.9); Immature Granulocytes % 0.4 % (0-4); Lymphocytes # 0.6 K/mcL (0.6-4.6); Lymphocytes % 5.5 %; Mean Corpuscular HGB Conc 31.6 g/dL (31.6-35.5); Mean Corpuscular Hemoglobin 29.8 pg (28.0-33.3); Mean Corpuscular Volume 94.3 fL (83.0-100.0); Mean Platelet Volume 9.5 fL (9.4-12.4); Monocytes # 0.6 K/mcL (0.0-1.3); Monocytes % 5.2 %; Neutrophils # 9.6 K/mcL (1.6-8.9); Platelet Count 263 K/mcL (140-400); Red Blood Count 2.82 M/mcL (4.19-5.50); Red Cell Distribution Width 13.3 % (11.5-14.5); Segmented Neutrophils % 87.9 %; White Blood Count 10.9 K/mcL (4.3-11.1)
[2020-01-10 21:07] LABS: BUN/Creatinine Ratio 7 (6-26); Blood Urea Nitrogen 41 mg/dL (8-23); Calcium 7.9 mg/dL (8.6-10.3); Carbon Dioxide 31 mEq/L (23-29); Chloride 99 mEq/L (98-107); Glucose 147 mg/dL (70-105); Osmolality,Calculated 289 (280-300); Potassium 4.6 mEq/L (3.5-5.1); Sodium 133 mEq/L (136-145); Troponin I < 0.03 ng/mL (< 0.04); eGFR For African Americans 11 (> 60); eGFR For Non-African Americans 9 (> 60)
[2020-01-10] MEDS ORDERED: Naloxone 0.4 MG/ML INJ IVP PRN (22:36)
[2020-01-11 01:02] LABS: Bilirubin,Urine Negative (Negative); Blood,Urine Negative (Negative); Clarity,Urine Clear (Clear); Color,Urine Yellow (Yellow); Glucose,Urine (UA) Normal (Normal); Ketones,Urine Negative (Negative); Leukocyte Esterase,Urine Negative (Negative); Nitrite,Urine Negative (Negative); Protein,Urine 100 mg/dL (Neg-Trace); Specific Gravity,Urine 1.012 (1.010-1.025); Urobilinogen,Urine Normal (Normal)
[2020-01-11 01:04] LABS: Bacteria,Urine None Seen per hpf (None-Few); Hyaline Casts,Urine None Seen per lpf (None-Few); RBC,Urine 0-3 per hpf (0-3); Squamous Epithelial Cell,Urine Moderate per lpf (None-Few); WBC,Urine 0-3 per hpf (0-3)
[2020-01-11] MEDS: *HR* Heparin 5,000 UNIT/ML VIAL SQ SCH ×3 (05:13→21:31)
[2020-01-11] MEDS ORDERED: cefTRIAXone 2,000 MG in Water for inj. (sterile) 20 ML IVP SCH (09:00)
[2020-01-11 09:28] LABS: Basophils % 0.1 %; Eosinophils # 0.1 K/mcL (0.0-0.6); Eosinophils % 1.1 %; Hematocrit 26.9 % (37.5-50.1); Hemoglobin 8.4 g/dL (12.9-16.9); Immature Granulocytes % 0.4 % (0-4); Lymphocytes # 0.5 K/mcL (0.6-4.6); Lymphocytes % 5.3 %; Mean Corpuscular HGB Conc 31.2 g/dL (31.6-35.5); Mean Corpuscular Hemoglobin 29.8 pg (28.0-33.3); Mean Corpuscular Volume 95.4 fL (83.0-100.0); Mean Platelet Volume 9.7 fL (9.4-12.4); Monocytes # 0.5 K/mcL (0.0-1.3); Monocytes % 5.7 %; Neutrophils # 7.5 K/mcL (1.6-8.9); Platelet Count 251 K/mcL (140-400); Red Blood Count 2.82 M/mcL (4.19-5.50); Red Cell Distribution Width 13.5 % (11.5-14.5); Segmented Neutrophils % 87.4 %; White Blood Count 8.6 K/mcL (4.3-11.1)
[2020-01-11] MEDS ORDERED: Prochlorperazine 10 MG/2 ML VIAL IVP PRN (09:32)
[2020-01-11] MEDS ORDERED: Ondansetron ODT 4 MG TAB.RAPDIS SL PRN (09:32)
[2020-01-11 09:47] LABS: Calcium 7.8 mg/dL (8.6-10.3); Potassium 4.8 mEq/L (3.5-5.1)
[2020-01-11] MEDS: Cefepime HCl 1,000 MG in Water for inj. (sterile) 10 ML IVP SCH (12:18)
[2020-01-11] MEDS ORDERED: Isovue-370 500 ML BOTTLE IVP ONE (12:43)
[2020-01-11] MEDS ORDERED: Perit. Dialysis with Dex 2.5 % 12,000 ML PERITONEAL ONE (19:00)
[2020-01-11 21:26] LABS: Hepatitis B Surface Antibody 3.69 mIU/mL
[2020-01-11 21:37] LABS: Hepatitis B Surface Antigen Nonreactive (Nonreactive)
[2020-01-12] MEDS ORDERED: *HR* HYDROcodone/Acet 5/325 mg TABLET PO ONE (01:14)
[2020-01-12] MEDS: *HR* Heparin 5,000 UNIT/ML VIAL SQ SCH ×3 (05:28→21:45)
[2020-01-12 07:11] LABS: Basophils % 0.3 %; Eosinophils # 0.1 K/mcL (0.0-0.6); Eosinophils % 2.2 %; Hematocrit 26.9 % (37.5-50.1); Hemoglobin 8.2 g/dL (12.9-16.9); Immature Granulocytes % 0.7 % (0-4); Lymphocytes # 0.3 K/mcL (0.6-4.6); Lymphocytes % 4.5 %; Mean Corpuscular HGB Conc 30.5 g/dL (31.6-35.5); Mean Corpuscular Hemoglobin 29.2 pg (28.0-33.3); Mean Corpuscular Volume 95.7 fL (83.0-100.0); Mean Platelet Volume 9.4 fL (9.4-12.4); Monocytes # 0.4 K/mcL (0.0-1.3); Monocytes % 6.9 %; Platelet Count 237 K/mcL (140-400); Red Blood Count 2.81 M/mcL (4.19-5.50); Red Cell Distribution Width 13.5 % (11.5-14.5); Segmented Neutrophils % 85.4 %; White Blood Count 5.8 K/mcL (4.3-11.1)
[2020-01-12] MEDS ORDERED: Loratadine 10 MG TABLET PO PRN (07:11)
[2020-01-12] MEDS ORDERED: Perit. Dialysis with Dex 2.5 % 12,000 ML ONE (10:13)
[2020-01-12] MEDS ORDERED: *HR* Heparin 5,000 UNIT/ML VIAL ONE (10:50)
[2020-01-12] MEDS ORDERED: Gabapentin 300 MG CAPSULE ONE (10:50)
[2020-01-12] MEDS ORDERED: Water for inj. (sterile) 20 ML VIAL IV ONE (10:50)
[2020-01-12] MEDS ORDERED: hydrALAZINE 25 MG TABLET ONE ×2 (10:50)
[2020-01-12] MEDS ORDERED: Magnesium Oxide 400 MG TABLET ONE (10:50)
[2020-01-12] MEDS ORDERED: NIFEdipine XL (24 HR) 30 MG TAB.ER.24 PO ONE (10:50)
[2020-01-12] MEDS ORDERED: Furosemide 40 MG TABLET PO ONE (10:50)
[2020-01-12] MEDS ORDERED: Aspirin Enteric Coated 81 MG Tablet PO ONE (10:50)
[2020-01-12] MEDS ORDERED: Cyanocobalamin (B-12) 1,000 MCG TABLET ONE (10:50)
[2020-01-12] MEDS ORDERED: carvediloL 25 MG TABLET ONE (10:50)
[2020-01-12] MEDS ORDERED: *HR* Ticagrelor 90 MG TABLET ONE (10:50)
[2020-01-12] MEDS ORDERED: calcitrioL 0.25 MCG CAPSULE PO ONE (10:50)
[2020-01-12 14:15] LABS: Calcium 7.7 mg/dL (8.6-10.3); Potassium 5.4 mEq/L (3.5-5.1)
[2020-01-12] MEDS: hydrALAZINE 25 MG TABLET PO SCH ×2 (16:47→21:45)
[2020-01-12] MEDS: NIFEdipine XL (24 HR) 30 MG TAB.ER.24 PO SCH (16:48)
[2020-01-12] MEDS: Aspirin Enteric Coated 81 MG Tablet PO SCH (16:49)
[2020-01-12] MEDS: Magnesium Oxide 400 MG TABLET PO SCH ×2 (16:50→21:45)
[2020-01-12] MEDS: cloNIDine HCL 0.1 MG TABLET PO SCH ×2 (16:50→21:45)
[2020-01-12] MEDS: Furosemide 40 MG TABLET PO SCH (16:50)
[2020-01-12] MEDS: carvediloL 25 MG TABLET PO SCH ×2 (16:50→21:45)
[2020-01-12] MEDS: polyethylene glycoL 3350 17 GM POWD.PACK PO SCH (16:50)
[2020-01-12] MEDS: *HR* Ticagrelor 90 MG TABLET PO SCH ×2 (16:50→21:45)
[2020-01-12] MEDS: Cyanocobalamin (B-12) 1,000 MCG TABLET PO SCH (16:51)
[2020-01-12] MEDS: calcitrioL 0.25 MCG CAPSULE PO SCH (16:51)
[2020-01-12] MEDS: Gabapentin 300 MG CAPSULE PO SCH (16:51)
[2020-01-12] MEDS: Cefepime HCl 1,000 MG in Water for inj. (sterile) 10 ML IVP SCH (16:51)
[2020-01-13] MEDS: *HR* Heparin 5,000 UNIT/ML VIAL SQ SCH ×3 (05:25→22:14)
[2020-01-13 05:55] LABS: Basophils % 0.4 %; Eosinophils # 0.1 K/mcL (0.0-0.6); Eosinophils % 2.3 %; Hematocrit 25.9 % (37.5-50.1); Hemoglobin 7.8 g/dL (12.9-16.9); Immature Granulocytes % 0.4 % (0-4); Lymphocytes # 0.3 K/mcL (0.6-4.6); Lymphocytes % 6.4 %; Mean Corpuscular HGB Conc 30.1 g/dL (31.6-35.5); Mean Corpuscular Hemoglobin 28.9 pg (28.0-33.3); Mean Corpuscular Volume 95.9 fL (83.0-100.0); Mean Platelet Volume 9.4 fL (9.4-12.4); Monocytes # 0.5 K/mcL (0.0-1.3); Monocytes % 10.2 %; Neutrophils # 4.3 K/mcL (1.6-8.9); Platelet Count 240 K/mcL (140-400); Red Cell Distribution Width 13.3 % (11.5-14.5); Segmented Neutrophils % 80.3 %; White Blood Count 5.3 K/mcL (4.3-11.1)
[2020-01-13 06:14] LABS: Calcium 7.8 mg/dL (8.6-10.3)
[2020-01-13] MEDS: NIFEdipine XL (24 HR) 30 MG TAB.ER.24 PO SCH (08:35)
[2020-01-13] MEDS: Aspirin Enteric Coated 81 MG Tablet PO SCH (08:35)
[2020-01-13] MEDS: Gabapentin 300 MG CAPSULE PO SCH (08:35)
[2020-01-13] MEDS: hydrALAZINE 25 MG TABLET PO SCH ×3 (08:35→22:13)
[2020-01-13] MEDS: Furosemide 40 MG TABLET PO SCH (08:35)
[2020-01-13] MEDS: polyethylene glycoL 3350 17 GM POWD.PACK PO SCH (08:36)
[2020-01-13] MEDS: cloNIDine HCL 0.1 MG TABLET PO SCH ×2 (08:36→22:13)
[2020-01-13] MEDS: Cholecalciferol (D-3) 1,000 UNIT (25MCG) TABLET PO SCH (08:36)
[2020-01-13] MEDS: Cyanocobalamin (B-12) 1,000 MCG TABLET PO SCH (08:36)
[2020-01-13] MEDS: Magnesium Oxide 400 MG TABLET PO SCH ×2 (08:36→22:13)
[2020-01-13] MEDS: *HR* Ticagrelor 90 MG TABLET PO SCH ×2 (08:36→22:13)
[2020-01-13] MEDS: carvediloL 25 MG TABLET PO SCH ×2 (08:36→22:13)
[2020-01-13] MEDS: calcitrioL 0.25 MCG CAPSULE PO SCH (08:36)
[2020-01-13 10:02] LABS: Appearance of Peritoneal Fl CLOUDY (Clear); Basophils,Peritoneal Fluid 0 %; Eosinophils,Peritoneal Fluid 0 %
[2020-01-13] MEDS: Cefepime HCl 1,000 MG in Water for inj. (sterile) 10 ML IVP SCH (10:28)
[2020-01-13] MEDS ORDERED: Perit. Dialysis with Dex 2.5 % 12,000 ML PERITONEAL ONE (19:00)
[2020-01-13] MEDS ORDERED: *HR* Dextrose 50 % in Water (Syg) 50 ML SYRINGE IVP PRN (21:21)
[2020-01-13] MEDS ORDERED: Dextrose Gel 15 GM/37.5 ML TUBE PO PRN ×2 (21:21)
[2020-01-13] MEDS ORDERED: D5% in Water 1,000 ML IVC PRN (21:21)
[2020-01-13] MEDS: Insulin LISPRO 300 UNITS/3 ML VIAL SQ SCH (22:22)
[2020-01-14] MEDS: *HR* Heparin 5,000 UNIT/ML VIAL SQ SCH (06:57)
[2020-01-14] MEDS: Insulin LISPRO 300 UNITS/3 ML VIAL SQ SCH ×4 (07:49→20:37)
[2020-01-14] MEDS: hydrALAZINE 25 MG TABLET PO SCH ×3 (08:15→20:43)
[2020-01-14] MEDS: NIFEdipine XL (24 HR) 30 MG TAB.ER.24 PO SCH (08:15)
[2020-01-14] MEDS: cloNIDine HCL 0.1 MG TABLET PO SCH ×2 (08:15→20:43)
[2020-01-14] MEDS: Cyanocobalamin (B-12) 1,000 MCG TABLET PO SCH (08:15)
[2020-01-14] MEDS: Magnesium Oxide 400 MG TABLET PO SCH ×2 (08:15→20:43)
[2020-01-14] MEDS: carvediloL 25 MG TABLET PO SCH ×2 (08:15→17:02)
[2020-01-14] MEDS: Aspirin Enteric Coated 81 MG Tablet PO SCH (08:15)
[2020-01-14] MEDS: Furosemide 40 MG TABLET PO SCH (08:15)
[2020-01-14] MEDS: Cholecalciferol (D-3) 1,000 UNIT (25MCG) TABLET PO SCH (08:15)
[2020-01-14] MEDS: calcitrioL 0.25 MCG CAPSULE PO SCH (08:15)
[2020-01-14] MEDS: Gabapentin 300 MG CAPSULE PO SCH (08:15)
[2020-01-14] MEDS: *HR* Ticagrelor 90 MG TABLET PO SCH ×2 (08:16→20:43)
[2020-01-14] MEDS: polyethylene glycoL 3350 17 GM POWD.PACK PO SCH (08:16)
[2020-01-14] MEDS ORDERED: Aminoglycoside Consult 1 EACH MC ONE (08:36)
[2020-01-14] MEDS: Cefepime HCl 1,000 MG in Water for inj. (sterile) 10 ML IVP SCH (12:25)
[2020-01-14] MEDS ORDERED: Perit. Dialysis with Dex 2.5 % 12,000 ML PERITONEAL ONE (19:00)
[2020-01-15 06:59] LABS: Hematocrit 24.9 % (37.5-50.1); Hemoglobin 7.7 g/dL (12.9-16.9); Mean Corpuscular HGB Conc 30.9 g/dL (31.6-35.5); Mean Corpuscular Hemoglobin 29.3 pg (28.0-33.3); Mean Corpuscular Volume 94.7 fL (83.0-100.0); Mean Platelet Volume 9.5 fL (9.4-12.4); Platelet Count 244 K/mcL (140-400); Red Blood Count 2.63 M/mcL (4.19-5.50); Red Cell Distribution Width 13.6 % (11.5-14.5); White Blood Count 6.1 K/mcL (4.3-11.1)
[2020-01-15 07:14] LABS: Calcium 7.8 mg/dL (8.6-10.3); Potassium 4.5 mEq/L (3.5-5.1)
[2020-01-15] MEDS: Insulin LISPRO 300 UNITS/3 ML VIAL SQ SCH (08:05)
[2020-01-15] MEDS: Cyanocobalamin (B-12) 1,000 MCG TABLET PO SCH (08:06)
[2020-01-15] MEDS: Cholecalciferol (D-3) 1,000 UNIT (25MCG) TABLET PO SCH (08:06)
[2020-01-15] MEDS: calcitrioL 0.25 MCG CAPSULE PO SCH (08:06)
[2020-01-15] MEDS: Aspirin Enteric Coated 81 MG Tablet PO SCH (08:06)
[2020-01-15] MEDS: Furosemide 40 MG TABLET PO SCH (08:06)
[2020-01-15] MEDS: *HR* Ticagrelor 90 MG TABLET PO SCH (08:06)
[2020-01-15] MEDS: carvediloL 25 MG TABLET PO SCH (08:06)
[2020-01-15] MEDS: Magnesium Oxide 400 MG TABLET PO SCH (08:06)
[2020-01-15] MEDS: cloNIDine HCL 0.1 MG TABLET PO SCH (08:06)
[2020-01-15] MEDS: hydrALAZINE 25 MG TABLET PO SCH (08:06)
[2020-01-15] MEDS: Gabapentin 300 MG CAPSULE PO SCH (08:06)
[2020-01-15] MEDS: polyethylene glycoL 3350 17 GM POWD.PACK PO SCH (08:07)
[2020-01-15] MEDS: NIFEdipine XL (24 HR) 30 MG TAB.ER.24 PO SCH (08:07)
[2020-01-15] MEDS ORDERED: Heparin 1,000 UNITS/500 mL 500 ML ONE (08:24)
[2020-01-15] MEDS ORDERED: Lidocaine/EPI 1:100k 1% 50 ML VIAL ONE (08:24)
[2020-01-15] MEDS ORDERED: *HR* Midazolam HCl 2 MG/2 ML VIAL IVP ONE (08:29)
[2020-01-15] MEDS ORDERED: *HR* FentaNYL (PF) 100 MCG/2 ML VIAL IVP ONE (08:29)
[2020-01-15] MEDS ORDERED: 0.9 % Sodium Chloride 500 ML ONE (08:34)
[2020-01-15] MEDS ORDERED: *HR* Heparin 5,000 UNIT/ML VIAL ONE (08:43)
[2020-01-15 08:44] VITALS: BP 165/83
== END 2020-01-15 11:08 | disposition home or self-care (01) | DRG 919 ==
LOC: EMEROOARM 17:30 → 2ANU 17:30
PROVIDERS: ADMIT Student in an Organized Health Care Education/Training Program; ATTEND Student in an Organized Health Care Education/Training Program
PROC: IRPERMA (2020-01-15 08:00)